=== PATIENT | female | born 1975 | race Caucasian/White ===

== ENCOUNTER → 2016-05-12 | Outpatient (CLI) | payer OTHER, MEDICAID ==
--- NOTE | 2016-05-30 00:53 | ECWPNPC ---
PATIENT NAME: LORI PARIKH : 1975 GENDER: FEMALE VISIT DATE: 05/12/2016 DISCHARGE DATE: 05/12/16 1605 VISIT LOCKED DATE TIME: PHYSICIAN: ANAYA TITUS RESOURCE: ANAYA TITUS REASON FOR APPOINTMENT 1. FOLLOW UP-POST SIJ HISTORY OF PRESENT ILLNESS HISTORY OF PRESENT ILLNESS: PAIN THE PATIENT DESCRIBES THE PAIN... FALL RISK SCREENING: SCREENING :NO FALLS IN THE PAST YEAR TODAY'S VISIT: NOTES: RATES PAIN TODAY 8/10. NOTES PAIN ACROSS THE MID AND LOW BACK. STATES HAD A RECENT FALL AT WORK. LANDED ON BACK, LEFT GREATER THAN RIGHT.IS HAVING PAIN IN RIGHT GROIN AND RIGHT ANTERIOR THIGH AN HIP AREA TIGHTNESS AND PAIN. SWELLING IN LOWER EXTREMITIES HAS IMPROVED WITH FLUID MEDS. WEATHER MAKES THINGS WORSE.. CURRENT MEDICATIONS TAKING TYLENOL 500 MG TABLET 2 TABLETS NEEDED ORALLY EVERY 6 HRS TAKING GABAPENTIN 300 MG CAPSULE 1 CAPSULE ORALLY THREE TIMES A DAY TAKING BACLOFEN 10 MG TABLET 1 TABLET WITH FOOD OR MILK ORALLY THREE TIMES A DAY TAKING IBU 800 MG TABLET 1 TABLET ORALLY THREE TIMES A DAY TAKING TRAMADOL HCL 50 MG TABLET 1-2 TABLET NEEDED ORALLY EVERY 6 HRS PRN PAIN MDD=4 TAKING PROZAC 20 MG CAPSULE 1 CAPSULE IN THE MORNING ORALLY BID TAKING LAMICTAL 25 MG TABLET 1 TAB(S) ORALLY TWICE A DAY TAKING HYDROCHLOROTHIAZIDE 25 MG TABLET 1 TABLET ORALLY ONCE A DAY TAKING HYDROXYZINE HCL 50 MG TABLET 1/2 TO 1 TABLET NEEDED ORALLY EVERY 6 HRS PRN TAKING PERCOCET 5-325 MG TABLET 1 TABLET NEEDED ORALLY EVERY 6-8 HRS PRN PAIN MDD=3 TAKING VALIUM 5 MG TABLET 1/2-1 TABLET NEEDED ORALLY BEFORE BEDTIME NOT-TAKING PERCOCET 5-325 MG TABLET 1 TABLET NEEDED ORALLY EVERY 6 HRS NOT-TAKING VALIUM 5 MG TABLET 1 TABLET NEEDED ORALLY TAKE 1/2 TO 1 TAB Q 8 HRS PRN SEVERE SPASM NOT-TAKING ZANAFLEX 4 MG TABLET 1 TABLET NEEDED ORALLY EVERY 8 HRS PRN NOT-TAKING TRAZODONE HCL 100 MG TABLET 1 TABLET AT BEDTIME ORALLY QHS MEDICATION LIST REVIEWED AND RECONCILED WITH THE PATIENT PAST MEDICAL HISTORY DEPRESSION ANXIETY PTSD ALLERGIES VICODIN: HIVES, RASH, UPSET STOMACH: ALLERGY SEAFOOD: "VIOLENTLY ILL" SOCIAL HISTORY GENERAL: TOBACCO USE ARE YOU A:NONSMOKER 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 NEW PATIENT PAIN DIARY TODAY'S VISITNOTES FROM 0-10, WHAT LEVEL IS YOUR PAIN TODAY?0 PAIN CLINIC PFS, CLERGY, PUBLIC HEALTH REFERRALS PFS REFERRAL NEEDED?NO CLERGY REFERRAL NEEDED?NO PUBLIC HEALTH REFERRAL NEEDED?NO WAS THE PROVIDER NOTIFIED OF ANY PERTINENT INFO?NO PFS REFERRAL NEEDED?NO CLERGY REFERRAL NEEDED?NO PUBLIC HEALTH REFERRAL NEEDED?NO WAS THE PROVIDER NOTIFIED OF ANY PERTINENT INFO?NO REVIEW OF SYSTEMS CONSTITUTIONAL: ANY CHANGE IN YOUR MEDICAL CONDITION? NO . CHILLS NO . FEVER NO . INFECTION: DO YOU HAVE NEW INFECTIONS? NO . DO YOU HAVE HISTORY OF MRSA? NO . MUSCULOSKELETAL: ANY NEW PATTERNS OF PAIN OR NUMBNESS? NO . GASTROENTEROLOGY: ANY NEW CHANGE IN BOWEL CONTROL? NO . GENITOURINARY: ANY NEW CHANGE IN BLADDER CONTROL? NO . IS THERE A CHANCE YOU COULD BE ? NO . HEMATOLOGY/LYMPH: DO YOU TAKE ANY BLOOD THINNERS? (FOR EXAMPLE- COUMADIN, PLAVIX, AGGRENOX, PLATEL, PRADAXA, OR XARELTO) NO . WHEN WAS YOUR LAST DOSE? DATE: TIME: . NEUROLOGY: HAVE YOU FALLEN IN THE PAST 6 MONTHS? YES 2 WEEKS AGO , EXPERIENCED NUMBNESS IN BOTH ARMS /BEEN RESOLVING . ANY NEW EXTREMITY NUMBNESS OR WEAKNESS? NO . HEADACHE NON REACENT . CARDIOLOGY: DO YOU HAVE A PACEMAKER OR DEFIBRILLATOR? NO . RESPIRATORY: HAVE YOU BEEN SICK IN THE PAST WEEK? NO . FEVER NO . FLU LIKE SYMPTOMS? NO . COUGH NO . INTEGUMENTARY: DO YOU HAVE ANY RASHES OR OPEN SORES? NO . ALLERGIC/IMMUNO: ARE YOU ALLERGIC TO SHELLFISH OR IV DYE? NO . ANY NEW ALLERGIES? NO . PSYCHIATRIC: DO YOU HAVE THOUGHTS OF HURTING YOURSELF OR SOMEONE ELSE? NO . ARE YOU ABUSED, NEGLECTED, OR IN AN UNSAFE ENVIRONMENT? NO . ENDOCRINOLOGY: ARE YOU DIABETIC? NO . OTHER: DO YOU NEED ANY PRESCRIPTIONS? NO . IF YES, PLEASE LIST: ____ . ANY NEW PROBLEMS WITH YOUR MEDICATIONS? NO . WHEN DID YOU LAST EAT? ____ . WHEN DID YOU LAST DRINK? ____ . WHAT DID YOU LAST DRINK? ____ . NAME OF PERSON DRIVING YOU HOME? ____ . DO YOU HAVE ANY OTHER QUESTIONS OR CONCERNS NO . REVIEWED BY: PROVIDER: ANAYA CHÁVEZ . VITAL SIGNS WT 178 LBS, HT 5'3", BMI 31.53 INDEX, BP 135/85 MM HG, HR 60 /MIN, RR 16 /MIN, TEMP 98 F,2 F, OXYGEN SAT % 100, SAFE IN ENV? (Y/N) Y, REVIEWED BY: KG. EXAMINATION GENERAL EXAMINATION: PSYCHALERT , ORIENTED X 3 , APPROPRIATE MOOD AND AFFECT . LUNGS:CLEAR TO AUSCULTATION BILATERALLY. HEART:HEART RATE REGULAR. MUSCULOSKELETAL:MUSCLE STRENGTH TESTING 5/5 BILATERAL UPPER AND LOWER EXTREMITIES. EXQUISITE PAIN OVER RIGHT ILIOPSOAS MUSCLE AND INTO RIGHT FLANK AND THIGH. POINT TENDERNESS OVER THORACIC SPINOUS PROCESSES AND OVER THE BILATERAL THOACIC PARAVERTEBRAL MUSCLES.. EXTREMITIES:TRACE-1+ EDEMA BILATERAL LOWER EXTREMITIES. ASSESSMENTS SACROILIITIS, NOT ELSEWHERE CLASSIFIED - M46.1 (PRIMARY) TREATMENT SACROILIITIS, NOT ELSEWHERE CLASSIFIED REFILL PERCOCET TABLET, 5-325 MG, 1 TABLET NEEDED, ORALLY, EVERY 6-8 HRS PRN PAIN MDD=3, 30 DAY(S), 90, REFILLS 0 REFILL VALIUM TABLET, 5 MG, 1/2-1 TABLET NEEDED, ORALLY, BEFORE BEDTIME, 30 DAY(S), 30, REFILLS 0 REFILL HYDROCHLOROTHIAZIDE TABLET, 25 MG, 1 TABLET, ORALLY, ONCE A DAY, 30 DAY(S), 30, REFILLS 1 ANAYA THACKER 05/12/2016 3:41:23 PM > RIGHT - VERSUS ILIOPSOAS MUSCLE INJECTION NOTES: NARCOTIC AGREEMENT TODAY,TRIGGER POINT INJECTION MATERIAL WAS PRINTED. PROCEDURE CODES FA211 ESTABILISHED PATIENT [facility] CHARGE FOLLOW UP 26-28 DAYS - MED MANAGEMENT (REASON: CHECK AUTH FOR ILIOPSOAS INJECTION AND ILIOINGUINA INJECTION.) ELECTRONICALLY SIGNED BY MARIELA OG ON 05/29/2016 AT 08:56 AM EST DISCLAIMER : THIS IS A VISIT SUMMARY EXTRACTED FROM THE [employer] CHART. IT IS NOT A COPY OF THE [employer] PROGRESS NOTE. MTDD
== END ==
LOC: M PAIN 14:40
PROVIDERS: ATTEND Nurse Practitioner Family
DX: Z09 Encounter for follow-up examination after completed treatment for conditions other than malignant neoplasm (principal); M46.1 Sacroiliitis, not elsewhere classified; F32.9 Major depressive disorder, single episode, unspecified; F41.9 Anxiety disorder, unspecified; F43.10 Post-traumatic stress disorder, unspecified; Z79.891 Long term (current) use of opiate analgesic; Z79.899 Other long term (current) drug therapy

== ENCOUNTER → 2016-08-19 | Outpatient (CLI) | payer OTHER, MEDICAID ==
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
== END ==
LOC: M PAIN 14:40
PROVIDERS: ATTEND Nurse Practitioner Family
DX: M46.1 Sacroiliitis, not elsewhere classified (principal); M54.14 Radiculopathy, thoracic region; M79.1 Myalgia; M54.16 Radiculopathy, lumbar region; F41.9 Anxiety disorder, unspecified; F32.9 Major depressive disorder, single episode, unspecified; F43.10 Post-traumatic stress disorder, unspecified; Z79.891 Long term (current) use of opiate analgesic; Z79.899 Other long term (current) drug therapy; Z88.5 Allergy status to narcotic agent; Z91.013 Allergy to seafood

== ENCOUNTER → 2016-10-07 | Outpatient (CLI) | payer OTHER, MEDICAID ==
[~2016-10-07] MED LIST: BACL10TA2; BUSP1TAB; CYCL10TA; DOCQ100C; FLOM5CAP; FLUO20CA9; GABA-282; HYDR-4274; LAMO25TA2; MAPA325T2; NICO1DIS; PEG1POW; PROZ40CA PO; SENN8.6T10
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
== END ==
LOC: M PAIN 10:20
PROVIDERS: ATTEND Nurse Practitioner Family
DX: M79.1 Myalgia (principal); M54.16 Radiculopathy, lumbar region; M25.562 Pain in left knee; Z79.891 Long term (current) use of opiate analgesic; Z79.899 Other long term (current) drug therapy; Z88.5 Allergy status to narcotic agent; Z91.013 Allergy to seafood

== ENCOUNTER → 2016-10-14 | Outpatient (REF) | payer OTHER, MEDICAID ==
[2016-10-14 12:05] LABS: MEAN CORPUSCULAR HEMOGLOBIN 31.2 pg (27.0-33.0); MEAN CORPUSCULAR HGB CONC 32.4 g/dl (32.0-36.5); MEAN CORPUSCULAR VOLUME 96.4 fl (80.0-96.0); RED CELL DISTRIBUTION WIDTH 13.4 % (11.5-14.5)
[2016-10-14 12:49] LABS: ALBUMIN 3.2 GM/DL (3.2-5.2); ALBUMIN/GLOBULIN RATIO 0.82 (1.00-1.93); BILIRUBIN,TOTAL 0.2 MG/DL (0.2-1.0); CALCIUM LEVEL 8.9 MG/DL (8.5-10.1); CREATININE FOR GFR 1.48 MG/DL (0.55-1.02); GLOMERULAR FILTRATION RATE 41.8 (>60); POTASSIUM SERUM 4.2 MEQ/L (3.5-5.1); TOTAL PROTEIN 7.1 GM/DL (6.4-8.2)
[2016-10-17 00:06] LABS: ACETAMINOPHEN Negative ug/mL (10-30); AMITRIPTYLINE None Detected (Not Estab.); BUTALBITAL None Detected ug/mL (1-10); DESIPRAMINE None Detected (Not Estab.); DIAZEPAM None Detected ug/mL (0.1-0.9); DOXEPIN None Detected (Not Estab.); ETHANOL Negative % (0.000-0.010); NORCHLORDIAZEPOXIDE None Detected ug/mL (0.1-0.6); NORDIAZEPAM None Detected ug/mL (0.1-1.4); NORDOXEPIN None Detected (Not Estab.); NORTRIPTYLINE None Detected ng/mL (50-150); PENTOBARBITAL None Detected ug/mL (1-5); PHENOBARBITAL None Detected ug/mL (15-40); PHENYTOIN None Detected ug/mL (10.0-20.0)
== END ==
LOC: M SFHCLERA 08:31
PROVIDERS: ATTEND Physician Assistant
DX: R33.9 Retention of urine, unspecified (principal); M62.82 Rhabdomyolysis; N18.9 Chronic kidney disease, unspecified; F11.10 Opioid abuse, uncomplicated

== ENCOUNTER → 2016-10-14 | Outpatient (CLI) | payer OTHER ==
--- NOTE | 2016-10-15 02:43 | REP ---
Clinical: Myalgia Technique: AP, lateral, bilateral oblique and sunrise views left knee . Findings: The osseous structures and joint spaces are intact and normal. There is no evidence for acute fracture or dislocation. No joint effusion is appreciated. Surrounding soft tissues are unremarkable. No subcutaneous emphysema or radiodense foreign body. Impression: Normal examination. No acute fracture or dislocation. Signed by Javier Freire MD 10/15/2016 02:35 A
== END ==
LOC: M LRY 08:47
PROVIDERS: ATTEND Nurse Practitioner Family
DX: M79.1 Myalgia (principal)

== ENCOUNTER → 2016-10-19 | Outpatient (CLI) | payer OTHER, MEDICAID ==
[~2016-10-19] MED LIST changes: +ACET1TAB17 PO; +ARIP5TA PO; +BACL10TA2 PO; +BUSP1TAB PO; +CYCL10TA PO; +DOXY-278 PO; +FERRTAB6 PO; +FLOM5CAP PO; +FLUO20CA19; +FLUO20CA19 PO; -FLUO20CA9; +FLUV50TA PO; +FURO20TA2 PO; +GABA-282 PO; -HYDR-4274; +HYDR12.55 PO; +HYDR50TA70; +HYDR50TA70 PO; +K-TA10TA2 PO; +LAMO25TA2 PO; +MAGICMW SS; +METH10CO PO; +METH10SO PO; +METH10TA2 PO; +NICO14DI24; -NICO1DIS; +NICO21PAT TD; +POTA20TA PO; +SENN1TAB10; -SENN8.6T10; +SERO1TAB PO; +TRAM50TA2 PO; +TRAZ-136; +TRAZ-136 PO
--- NOTE | 2016-11-05 00:28 | ECWPNPC ---
PATIENT NAME: LORI PARIKH : 1975 GENDER: FEMALE VISIT DATE: 10/19/2016 DISCHARGE DATE: 10/19/16 0000 VISIT LOCKED DATE TIME: PHYSICIAN: ANAYA TITUS RESOURCE: ANAYA TITUS REASON FOR APPOINTMENT 1. MEDS HISTORY OF PRESENT ILLNESS HISTORY OF PRESENT ILLNESS: PAIN THE PATIENT DESCRIBES THE PAIN... FALL RISK SCREENING: SCREENING :NO FALLS IN THE PAST YEAR TODAY'S VISIT: NOTES: RATES PAIN TODAY 10/10. NOTES LOW BACK AND FLANK AREA WELL LEFT SHOULDER PAIN AREAS. REPORTS BACK AND NECK ARE STILL NUMB. NOTES SHE IS RETAINING FLUID IN FACE AND BODY WITH 7 LB WEIGHT GAIN IN ONE WEEK. FELL OUT OF BED WEDNESDAY - SHORT TERM MEMORY IS POOR. IS NOT URINATING AGAIN - 16 HRS BETWEEN VOIDS. CURRENT MEDICATIONS TAKING GABAPENTIN 300 MG CAPSULE 1 CAPSULE ORALLY THREE TIMES A DAY TAKING VALIUM 5 MG TABLET 1/2-1 TABLET NEEDED ORALLY BEFORE BEDTIME TAKING TRAMADOL HCL 50 MG TABLET 1-2 TABLET NEEDED ORALLY EVERY 6 HRS PRN PAIN MDD=4 TAKING LIDOCAINE 4 % CREAM 1 APPLICATION TO AFFECTED AREA NEEDED EXTERNALLY THREE TIMES A DAY TAKING OXYCODONE HCL 5 MG TABLET 1 TABLET ORALLY EVERY 6 HRS TAKING SENNA 8.6 MG TABLET 2 TABLETS AT BEDTIME NEEDED ORALLY ONCE A DAY TAKING COLACE 100 MG CAPSULE 1 CAPSULE NEEDED ORALLY ONCE A DAY TAKING NICODERM CQ 14 MG/24HR PATCH 24 HOUR 1 PATCH TO SKIN TRANSDERMAL ONCE A DAY TAKING FLEXERIL 10 MG TABLET 1 TABLET NEEDED ORALLY THREE TIMES A DAY TAKING VALIUM 5 MG TABLET 1 TABLET NEEDED ORALLY TAKE 1/2 TO 1 TAB Q 8 HRS PRN SEVERE SPASM TAKING LAMICTAL 25 MG TABLET 1 TAB(S) ORALLY TWICE A DAY TAKING TRAZODONE HCL 100 MG TABLET 1 TABLET AT BEDTIME ORALLY QHS TAKING TAMSULOSIN HCL 0.4 MG CAPSULE 1 CAPSULE ORALLY ONCE A DAY TAKING HYDROXYZINE HCL 50 MG TABLET 1 TABLET NEEDED ORALLY EVERY 6 HRS PRN TAKING TYLENOL 325 MG TABLET 2 TABLETS NEEDED ORALLY EVERY 6 HRS TAKING BACLOFEN 10 MG TABLET 1 TABLET WITH FOOD OR MILK ORALLY THREE TIMES A DAY TAKING PROZAC 40 MG CAPSULE 1 CAPSULE ORALLY BID TAKING CYCLOBENZAPRINE HCL 10 MG TABLET 1 TABLET NEEDED ORALLY THREE TIMES A DAY TAKING BUSPIRONE HCL 7.5 MG TABLET 1 TAB ORALLY TWICE A DAY NOT-TAKING PERCOCET 5-325 MG TABLET 1 TABLET NEEDED ORALLY EVERY 6-8 HRS PRN PAIN MDD=3 NOT-TAKING MELOXICAM 15 MG TABLET 1 TABLET ORALLY ONCE A DAY NOT-TAKING PERCOCET 5-325 MG TABLET 1 TABLET NEEDED ORALLY EVERY 6 HRS NOT-TAKING ZANAFLEX 4 MG TABLET 1 TABLET NEEDED ORALLY EVERY 8 HRS PRN PAST MEDICAL HISTORY DEPRESSION ANXIETY PTSD ALLERGIES VICODIN: HIVES, RASH, UPSET STOMACH: ALLERGY SEAFOOD: "VIOLENTLY ILL" REVIEW OF SYSTEMS REVIEWED BY: PROVIDER: ANAYA CHÁVEZ . CONSTITUTIONAL: ANY CHANGE IN YOUR MEDICAL CONDITION? YES HAS RHABDO // ELEVATED BP./ FLUID RETENTION . CHILLS NO . FEVER NO . INFECTION: DO YOU HAVE NEW INFECTIONS? NO . DO YOU HAVE HISTORY OF MRSA? NO . MUSCULOSKELETAL: ANY NEW PATTERNS OF PAIN OR NUMBNESS? YES, LOWER BACK . GASTROENTEROLOGY: ANY NEW CHANGE IN BOWEL CONTROL? NO . GENITOURINARY: ANY NEW CHANGE IN BLADDER CONTROL? YES, PROBLEMS WITH URINATION . IS THERE A CHANCE YOU COULD BE ? NO . HEMATOLOGY/LYMPH: DO YOU TAKE ANY BLOOD THINNERS? (FOR EXAMPLE- COUMADIN, PLAVIX, AGGRENOX, PLATEL, PRADAXA, OR XARELTO) NO . WHEN WAS YOUR LAST DOSE? DATE: TIME: . NEUROLOGY: HAVE YOU FALLEN IN THE PAST 6 MONTHS? NO . ANY NEW EXTREMITY NUMBNESS OR WEAKNESS? NO . CARDIOLOGY: DO YOU HAVE A PACEMAKER OR DEFIBRILLATOR? NO . RESPIRATORY: HAVE YOU BEEN SICK IN THE PAST WEEK? NO . FEVER NO . FLU LIKE SYMPTOMS? NO . COUGH NO . INTEGUMENTARY: DO YOU HAVE ANY RASHES OR OPEN SORES? NO . ALLERGIC/IMMUNO: ARE YOU ALLERGIC TO SHELLFISH OR IV DYE? YES, SHELLFISH . ANY NEW ALLERGIES? NO . PSYCHIATRIC: DO YOU HAVE THOUGHTS OF HURTING YOURSELF OR SOMEONE ELSE? NO . ARE YOU ABUSED, NEGLECTED, OR IN AN UNSAFE ENVIRONMENT? NO . ENDOCRINOLOGY: ARE YOU DIABETIC? NO . OTHER: DO YOU NEED ANY PRESCRIPTIONS? NO . IF YES, PLEASE LIST: ____ . ANY NEW PROBLEMS WITH YOUR MEDICATIONS? NO . WHEN DID YOU LAST EAT? ____ . WHEN DID YOU LAST DRINK? ____ . WHAT DID YOU LAST DRINK? ____ . NAME OF PERSON DRIVING YOU HOME? ____ . DO YOU HAVE ANY OTHER QUESTIONS OR CONCERNS WHY BACK AND NECK SO NUMB . VITAL SIGNS WT 169.4 LBS, HT 5'3", BMI 30.00 INDEX, BP 157/77 MM HG, HR 77 /MIN, RR 16 /MIN, TEMP 98.5 F, OXYGEN SAT % 99%, NA INITIALS SC 10:23, REVIEWED BY: NLBLOOD PRESSURE HAS BEEN ELEVATED. EXAMINATION GENERAL EXAMINATION: PSYCHALERT , ORIENTED X 3 , TALKATIVE. NO SLURRING OF SPEACH. HAS DIFFICULTY STAYING ON [employer]. LUNGS:CLEAR TO AUSCULTATION BILATERALLY. HEART:HEART RATE REGULAR. ABDOMEN:POSITIVE CVA TENDERNESS L>R WITH FLUID WAVE NOTED ON LEFT.. MUSCULOSKELETAL:POINT TENDERNESS OVER LUMBAR FACETS. WALKER USED FOR SUPPORT AND BALANCE. POSTURE STOOPED. GENERALIZED WEAKNESS IN BILATERAL LOWER EXTREMITIES.. ASSESSMENTS MYALGIA - M79.1 (PRIMARY) THORACIC RADICULOPATHY - M54.14 LUMBAR RADICULOPATHY - M54.16 ACUTE PAIN OF LEFT KNEE - M25.562 TREATMENT MYALGIA NOTES: WILL DO [facility] FOR METHADONE TREATMENT. WILL DO INJECTIONS TO LOW BACK WITH DR ALEJANDRE'S OK. CLINICAL NOTES: ISTOP REGISTRY REVIEWED AND DEMNOSTRATES COMPLLIANCE. HAS RECEIVED NO PRESCRIBED OPIOIDS SINCE DISCHARGE FROM [facility]. REVIEWED WITH LORI THAT I WILL NOT BE PRESCRIBING ANY OPIOIDS AND THAT ALL MEDS WILL NEED DR ALEJANDRE'S APPROVAL UNTIL HER RENAL FUNCTIONS ARE UNDER CONTROL. PROCEDURE CODES FA211 ESTABILISHED PATIENT [facility] CHARGE DISPOSITION & COMMUNICATION FOLLOW UP 2 WEEKS (REASON: BACK PAIN) ELECTRONICALLY SIGNED BY MARIELA GO ON 11/04/2016 AT 08:28 AM EDT DISCLAIMER : THIS IS A VISIT SUMMARY EXTRACTED FROM THE [employer] CHART. IT IS NOT A COPY OF THE [employer] PROGRESS NOTE. MONIKA
== END ==
LOC: M PAIN 10:00
PROVIDERS: ATTEND Nurse Practitioner Family
DX: M79.1 Myalgia (principal); M54.14 Radiculopathy, thoracic region; M54.16 Radiculopathy, lumbar region; M25.562 Pain in left knee; Z79.891 Long term (current) use of opiate analgesic; Z79.899 Other long term (current) drug therapy; Z88.8 Allergy status to other drugs, medicaments and biological substances; Z91.013 Allergy to seafood

== ENCOUNTER 2016-10-20 18:35 | Emergency (ER) | payer MEDICAID, OTHER ==
[~2016-10-20] VITALS: Ht 160 cm; Wt 76.0 kg
[2016-10-20] MEDS ORDERED: SENN1TAB10 (18:55)
[2016-10-20] MEDS ORDERED: LAMO25TA2 (18:55)
[2016-10-20] MEDS ORDERED: HYDR50TA70 (18:55)
[2016-10-20] MEDS ORDERED: GABA-282 (18:55)
[2016-10-20] MEDS ORDERED: DOCQ100C (18:55)
[2016-10-20] MEDS ORDERED: PROZ40CA PO (18:55)
[2016-10-20] MEDS ORDERED: BUSP1TAB (18:55)
[2016-10-20] MEDS ORDERED: BACL10TA2 (18:55)
[2016-10-20] MEDS ORDERED: FLUO20CA19 (18:55)
[2016-10-20] MEDS ORDERED: MAPA325T2 (18:55)
[2016-10-20] MEDS ORDERED: NICO14DI24 (18:55)
[2016-10-20] MEDS ORDERED: PEG1POW (18:55)
[2016-10-20] MEDS ORDERED: FLOM5CAP (18:55)
[2016-10-20] MEDS ORDERED: CYCL10TA (18:55)
--- NOTE | 2016-10-20 20:50 | REPUSA ---
Clinical history: pulmonary edema. Comparison: None. Findings: Frontal and lateral views of the chest were obtained. The mediastinum and cardiac silhouett e are within normal limits. The lungs are clear. No pleural effusion or pneumothorax is seen. The oss eous structures and soft tissues are unremarkable. Impression: No acute disease.
[2016-10-20 21:24] LABS: BASO % 0.4 % (0.0-1.0); EOS # 0.2 K/mm3 (0.0-0.50); EOS % 2.7 % (0.0-3.0); LARGE UNSTAINED CELL # 0.2 K/mm3 (0.0-0.4); LARGE UNSTAINED CELL % 2.1 % (0.0-4.0); LYMPH # 2.2 K/mm3 (1.5-4.5); MEAN CORPUSCULAR HEMOGLOBIN 31.3 pg (27.0-33.0); MEAN CORPUSCULAR HGB CONC 33.4 g/dl (32.0-36.5); MEAN CORPUSCULAR VOLUME 93.5 fl (80.0-96.0); MONO # 0.4 K/mm3 (0.0-0.8); MONO % 5.3 % (0.0-5.0); NEUTROPHILS # 4.9 K/mm3 (1.8-7.7); NEUTROPHILS % 63.6 % (36.0-66.0); PLATELET COUNT, AUTOMATED 371 k/mm3 (150-450); RED CELL DISTRIBUTION WIDTH 13.8 % (11.5-14.5); WHITE BLOOD COUNT 7.7 K/mm3 (4.0-10.0)
[2016-10-20 21:33] LABS: ALBUMIN 2.9 GM/DL (3.2-5.2); ALBUMIN/GLOBULIN RATIO 0.78 (1.00-1.93); ALKALINE PHOSPHATASE 72 U/L (45-117); ALT/SGPT 21 U/L (12-78); ANION GAP 4 MEQ/L (8-16); AST/SGOT 22 U/L (15-37); BILIRUBIN,DIRECT < 0.1 MG/DL (0.0-0.2); BILIRUBIN,TOTAL 0.2 MG/DL (0.2-1.0); BLOOD UREA NITROGEN 15 MG/DL (7-18); CALCIUM LEVEL 8.2 MG/DL (8.5-10.1); CARBON DIOXIDE LEVEL 26 MEQ/L (21-32); CHLORIDE LEVEL 113 MEQ/L (98-107); CREATININE FOR GFR 1.35 MG/DL (0.55-1.02); GLOMERULAR FILTRATION RATE 46.2 (>58); GLUCOSE, FASTING 93 MG/DL (70-105); POTASSIUM SERUM 3.5 MEQ/L (3.5-5.1); SODIUM LEVEL 143 MEQ/L (136-145); TOTAL PROTEIN 6.6 GM/DL (6.4-8.2)
[2016-10-20 21:48] VITALS: BP 154/76
[2016-10-20] MEDS ORDERED: PERCOCET 5MG/325MG TAB PO ONE (22:00)
[2016-10-20] MEDS ORDERED: FUROSEMIDE 40 MG/4 ML VIAL (J1940) IV ONE (22:15)
[2016-10-20] MEDS ORDERED: ISOVUE-370 76% 100ML VIAL (Q9967) As Ordered ONE (23:23)
--- NOTE | 2016-10-20 23:50 | REPUSA ---
CT angiogram of the chest Clinical statement: Chest pain and shortness of breath. Technique: Multiple axial CT images were obtained from the thoracic inlet through the upper abdomen a fter a bolus administration of nonionic intravenous contrast. Coronal and sagittal reconstructions we re also obtained. Comparison: None. Findings: The pulmonary arteries are well-opacified with contrast, with no intraluminal filling defec ts to suggest embolism. The thoracic aorta is unremarkable. Thyroid gland is within normal limits. Th ere is no thoracic lymphadenopathy. There are no pericardial or pleural effusions. The lungs are christina r, but there are mild emphysematous changes. Limited imaging of the upper abdomen is unremarkable. Th ere are no suspicious osseous lesions. Impression: No evidence of pulmonary embolism. No acute intrapulmonary disease. Mild emphysema.
--- NOTE | 2016-10-21 11:18 | ECGEPIP ---
Stationary ECG Study [facility] - ED Test Date: 2016-10-20 Pat Name: LORI PARIKH Department: Room: - Gender: F Patent Agent: gali : 1975 Requested By: ZHENG Gage Order Number: [id number] Reading MD: Steve Vazquez Measurements Intervals [place] Rate: 72 P: 26 LA: 144 QRS: 43 QRSD: 89 T: 37 QT: 414 QTc: 454 Interpretive Statements SINUS RHYTHM Electronically Signed On 10-21-2016 11:18:12 EDT by Steve Vazquez
== END 2016-10-21 00:18 | disposition home or self-care (01) ==
LOC: M ED 20:29
DX: R60.0 Localized edema (principal); D64.9 Anemia, unspecified; F17.210 Nicotine dependence, cigarettes, uncomplicated

== ENCOUNTER 2016-10-28 10:00 | Outpatient (RCR) | payer OTHER ==
[~2016-10-28 10:00] MED LIST changes: -ACET1TAB17 PO; -ARIP5TA PO; -BACL10TA2 PO; -BUSP1TAB PO; -CYCL10TA PO; -DOXY-278 PO; -FERRTAB6 PO; -FLOM5CAP PO; -FLUO20CA19 PO; -FLUV50TA PO; -FURO20TA2 PO; -GABA-282 PO; -HYDR12.55 PO; -HYDR50TA70 PO; -K-TA10TA2 PO; -LAMO25TA2 PO; -MAGICMW SS; -METH10CO PO; -METH10SO PO; -METH10TA2 PO; -NICO21PAT TD; -POTA20TA PO; -SERO1TAB PO; -TRAM50TA2 PO; -TRAZ-136; -TRAZ-136 PO
== END 2016-10-30 | disposition home or self-care (01) ==
LOC: M PT 10:00
PROVIDERS: ATTEND Nurse Practitioner Family
DX: Z79.51 Long term (current) use of inhaled steroids (principal); M79.1 Myalgia; M54.16 Radiculopathy, lumbar region

== ENCOUNTER 2016-11-17 10:00 | Outpatient (RCR) | payer OTHER ==
[2016-11-19] MEDS ORDERED: HYDR12.55 PO (16:01)
[2016-11-19] MEDS ORDERED: TRAZ-136 (16:01)
[2016-11-19] MEDS ORDERED: TRAM50TA2 PO (18:14)
== END 2016-11-30 ==
LOC: M PT 10:00
PROVIDERS: ATTEND Nurse Practitioner Family
DX: Z51.89 Encounter for other specified aftercare (principal); M79.1 Myalgia; M54.16 Radiculopathy, lumbar region

== ENCOUNTER 2016-11-19 15:34 | Emergency (ER) | payer OTHER ==
[~2016-11-19] VITALS: Ht 160 cm; Wt 71.4 kg
[2016-11-19] MEDS ORDERED: TRAZ-136 (16:01)
[2016-11-19] MEDS ORDERED: HYDR12.55 PO (16:01)
[2016-11-19] MEDS ORDERED: traMADol 50 MG TAB PO ONE (16:30)
[2016-11-19 16:44] LABS: BASO % 0.3 % (0.0-1.0); EOS # 0.2 K/mm3 (0.0-0.50); LARGE UNSTAINED CELL # 0.2 K/mm3 (0.0-0.4); LARGE UNSTAINED CELL % 1.9 % (0.0-4.0); LYMPH # 1.9 K/mm3 (1.5-4.5); LYMPH % 21.8 % (24.0-44.0); MEAN CORPUSCULAR HGB CONC 32.7 g/dl (32.0-36.5); MEAN CORPUSCULAR VOLUME 91.8 fl (80.0-96.0); MONO # 0.5 K/mm3 (0.0-0.8); MONO % 6.3 % (0.0-5.0); NEUTROPHILS # 5.5 K/mm3 (1.8-7.7); NEUTROPHILS % 66.7 % (36.0-66.0); PLATELET COUNT, AUTOMATED 361 k/mm3 (150-450); RED CELL DISTRIBUTION WIDTH 13.8 % (11.5-14.5); WHITE BLOOD COUNT 8.2 K/mm3 (4.0-10.0)
--- NOTE | 2016-11-19 17:03 | REP ---
Bilateral lower extremity Duplex Doppler venous ultrasound: Real time compression and duplex Doppler interrogation of the bilateral lower extremity deep venous system is performed. Bilaterally, the common femoral, superficial femoral and popliteal veins are fully compressible with transducer pressure and demonstrate normal spontaneous and phasic flow, without evidence of deep venous thrombosis. Impression: No evidence of deep venous thrombosis of the bilateral lower extremity femoral popliteal venous system. Signed by Prashanth Hough MD 11/19/2016 04:54 P
[2016-11-19 17:10] LABS: ALBUMIN 3.5 GM/DL (3.2-5.2); ALBUMIN/GLOBULIN RATIO 0.97 (1.00-1.93); BILIRUBIN,DIRECT 0.1 MG/DL (0.0-0.2); BILIRUBIN,TOTAL 0.3 MG/DL (0.2-1.0); CALCIUM LEVEL 8.7 MG/DL (8.5-10.1); CREATININE FOR GFR 1.18 MG/DL (0.55-1.02); POTASSIUM SERUM 3.4 MEQ/L (3.5-5.1); TOTAL PROTEIN 7.1 GM/DL (6.4-8.2)
[2016-11-19] MEDS ORDERED: TRAM50TA2 PO (18:14)
[2016-11-19 18:25] VITALS: BP 139/87
== END 2016-11-19 18:26 | disposition home or self-care (01) ==
LOC: M ED 15:34
DX: R60.9 Edema, unspecified (principal); M79.605 Pain in left leg; N18.2 Chronic kidney disease, stage 2 (mild); G43.909 Migraine, unspecified, not intractable, without status migrainosus; F41.9 Anxiety disorder, unspecified; F17.210 Nicotine dependence, cigarettes, uncomplicated; Z88.5 Allergy status to narcotic agent; Z91.013 Allergy to seafood; Z79.899 Other long term (current) drug therapy

== ENCOUNTER 2016-11-21 16:58 | Emergency (ER) | payer OTHER ==
[~2016-11-21] VITALS: Ht 160 cm; Wt 74.4 kg
[~2016-11-21 16:58] MED LIST changes: +HYDR12.55 PO; +TRAM50TA2 PO; +TRAZ-136
[2016-11-21 16:59] VITALS: BP 136/72
[2016-11-21 18:14] LABS: BASO % 0.3 % (0.0-1.0); EOS # 0.2 K/mm3 (0.0-0.50); EOS % 2.3 % (0.0-3.0); LARGE UNSTAINED CELL # 0.2 K/mm3 (0.0-0.4); LARGE UNSTAINED CELL % 1.6 % (0.0-4.0); LYMPH # 2.1 K/mm3 (1.5-4.5); LYMPH % 19.1 % (24.0-44.0); MEAN CORPUSCULAR HEMOGLOBIN 30.3 pg (27.0-33.0); MEAN CORPUSCULAR HGB CONC 32.8 g/dl (32.0-36.5); MEAN CORPUSCULAR VOLUME 92.4 fl (80.0-96.0); MONO # 0.6 K/mm3 (0.0-0.8); NEUTROPHILS # 7.1 K/mm3 (1.8-7.7); NEUTROPHILS % 70.7 % (36.0-66.0); PLATELET COUNT, AUTOMATED 380 k/mm3 (150-450); RED CELL DISTRIBUTION WIDTH 13.8 % (11.5-14.5); WHITE BLOOD COUNT 10.1 K/mm3 (4.0-10.0)
[2016-11-21 18:35] LABS: ERYTHROCYTE SEDIMENTATION RATE 45 mm/hr (0-20)
[2016-11-21 18:38] LABS: ALBUMIN 3.6 GM/DL (3.2-5.2); BILIRUBIN,TOTAL 0.4 MG/DL (0.2-1.0); CALCIUM LEVEL 8.9 MG/DL (8.5-10.1); CREATININE FOR GFR 1.19 MG/DL (0.55-1.02); GLOMERULAR FILTRATION RATE 53.5 (>58); POTASSIUM SERUM 3.1 MEQ/L (3.5-5.1); TOTAL PROTEIN 7.2 GM/DL (6.4-8.2)
[2016-11-21] MEDS ORDERED: POTASSIUM CHLORIDE 10% LIQ 20 MEQ/15 ML UDC PO ONE (18:45)
== END 2016-11-21 19:00 | disposition home or self-care (01) ==
LOC: M ED 16:58
DX: G89.29 Other chronic pain (principal); M54.5 Low back pain; R60.9 Edema, unspecified; E87.6 Hypokalemia; G43.909 Migraine, unspecified, not intractable, without status migrainosus; N18.2 Chronic kidney disease, stage 2 (mild); M62.82 Rhabdomyolysis; F41.9 Anxiety disorder, unspecified; F33.8 Other recurrent depressive disorders; K76.9 Liver disease, unspecified; Z88.5 Allergy status to narcotic agent; Z91.013 Allergy to seafood; Z79.899 Other long term (current) drug therapy

== ENCOUNTER → 2016-12-03 | Outpatient (REF) | payer OTHER, MEDICAID ==
[~2016-12-03] MED LIST changes: +ACET1TAB17 PO; +ARIP5TA PO; +BACL10TA2 PO; +BUSP1TAB PO; +CYCL10TA PO; +DOXY-278 PO; +FERRTAB6 PO; +FLOM5CAP PO; +FLUO20CA19 PO; +FLUV50TA PO; +FURO20TA2 PO; +GABA-282 PO; +HYDR50TA70 PO; +K-TA10TA2 PO; +LAMO25TA2 PO; +MAGICMW SS; +METH10CO PO; +METH10SO PO; +METH10TA2 PO; +NICO21PAT TD; +POTA20TA PO; +SERO1TAB PO; +TRAZ-136 PO
[2016-12-03 17:30] LABS: PERCENT SATURATION 15.1 % (13.2-45.0)
[2016-12-14 09:13] LABS: SUMMARY SEE SEPARATE REPORT
== END ==
LOC: M LAB REF 16:47
PROVIDERS: ATTEND Internal Medicine Nephrology
DX: T40.1X Poisoning by and adverse effect of heroin (principal); N18.2 Chronic kidney disease, stage 2 (mild); D63.1 Anemia in chronic kidney disease

== ENCOUNTER → 2016-12-22 | Outpatient (CLI) | payer OTHER ==
[2016-12-22 11:32] LABS: MEAN CORPUSCULAR HEMOGLOBIN 30.6 pg (27.0-33.0); MEAN CORPUSCULAR HGB CONC 32.4 g/dl (32.0-36.5); MEAN CORPUSCULAR VOLUME 94.4 fl (80.0-96.0); RED CELL DISTRIBUTION WIDTH 13.6 % (11.5-14.5); WHITE BLOOD COUNT 8.3 K/mm3 (4.0-10.0)
[2016-12-22 12:13] LABS: ALBUMIN 3.6 GM/DL (3.2-5.2); ALBUMIN/GLOBULIN RATIO 0.92 (1.00-1.93); ALKALINE PHOSPHATASE 84 U/L (45-117); ALT/SGPT 25 U/L (12-78); ANION GAP 7 MEQ/L (8-16); AST/SGOT 20 U/L (15-37); BILIRUBIN,TOTAL 0.3 MG/DL (0.2-1.0); BLOOD UREA NITROGEN 22 MG/DL (7-18); CALCIUM LEVEL 8.7 MG/DL (8.5-10.1); CARBON DIOXIDE LEVEL 26 MEQ/L (21-32); CHLORIDE LEVEL 106 MEQ/L (98-107); GLOMERULAR FILTRATION RATE 58.6 (>58); GLUCOSE, FASTING 95 MG/DL (70-105); POTASSIUM SERUM 4.6 MEQ/L (3.5-5.1); SODIUM LEVEL 139 MEQ/L (136-145); TOTAL PROTEIN 7.5 GM/DL (6.4-8.2)
--- NOTE | 2016-12-22 14:57 | ECGEPIP ---
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
== END ==
LOC: M LAB 10:29
PROVIDERS: ATTEND Family Medicine
DX: F11.20 Opioid dependence, uncomplicated (principal)

== ENCOUNTER 2017-01-07 10:01 | Inpatient (IN) | payer OTHER ==
[~2017-01-07] VITALS: Ht 160 cm; Wt 93.4 kg
[~2017-01-07 10:01] MED LIST changes: -ACET1TAB17 PO; -ARIP5TA PO; -BACL10TA2 PO; -BUSP1TAB PO; -CYCL10TA PO; -DOXY-278 PO; -FERRTAB6 PO; -FLOM5CAP PO; -FLUO20CA19 PO; -FLUV50TA PO; -FURO20TA2 PO; -GABA-282 PO; -HYDR50TA70 PO; -K-TA10TA2 PO; -LAMO25TA2 PO; -MAGICMW SS; -METH10CO PO; -METH10SO PO; -METH10TA2 PO; -NICO21PAT TD; -POTA20TA PO; -SERO1TAB PO; -TRAZ-136 PO
[2017-01-07] MEDS ORDERED: K-TA10TA2 PO (10:15)
[2017-01-07] MEDS ORDERED: FURO20TA2 PO ×2 (10:15→16:18)
[2017-01-07] MEDS ORDERED: METH10SO PO ×2 (10:25→16:18)
[2017-01-07 11:06] LABS: BASO % 0.2 % (0.0-1.0); EOS # 0.1 K/mm3 (0.0-0.50); EOS % 0.5 % (0.0-3.0); LARGE UNSTAINED CELL # 0.3 K/mm3 (0.0-0.4); LARGE UNSTAINED CELL % 1.5 % (0.0-4.0); LYMPH # 0.6 K/mm3 (1.5-4.5); LYMPH % 2.8 % (24.0-44.0); MEAN CORPUSCULAR HEMOGLOBIN 29.7 pg (27.0-33.0); MEAN CORPUSCULAR HGB CONC 32.5 g/dl (32.0-36.5); MEAN CORPUSCULAR VOLUME 91.3 fl (80.0-96.0); MONO # 1.1 K/mm3 (0.0-0.8); MONO % 5.5 % (0.0-5.0); NEUTROPHILS # 17.9 K/mm3 (1.8-7.7); NEUTROPHILS % 89.5 % (36.0-66.0); PLATELET COUNT, AUTOMATED 340 k/mm3 (150-450); RED CELL DISTRIBUTION WIDTH 13.4 % (11.5-14.5); WHITE BLOOD COUNT 20.1 K/mm3 (4.0-10.0)
[2017-01-07 11:07] LABS: ADD MANUAL DIFFER NO; DIFF SLIDE NUMBER 216
--- NOTE | 2017-01-07 11:43 | REP ---
Clinical: Pain. Technique: AP, lateral, bilateral oblique views of the left ankle. Findings: Diffuse swelling. No acute fracture dislocation identified. Ankle mortise intact. Impression: Swelling. No obvious acute fracture. Signed by Javier Freire MD 01/07/2017 11:34 A
--- NOTE | 2017-01-07 11:44 | REP ---
Clinical: Trauma. Technique: AP, lateral, bilateral oblique views left wrist . Findings: The carpal bones, surrounding osseous structures, soft tissues, and joint spaces are normal. There is no evidence for acute fracture or dislocation. No subcutaneous emphysema or radiodense foreign body. Impression: Normal wrist series. No acute fracture or dislocation Signed by Javier Freire MD 01/07/2017 11:35 A
--- NOTE | 2017-01-07 11:44 | REP ---
Clinical: Trauma. Technique: AP, lateral, bilateral oblique views left foot . Findings: The osseous structures and joint spaces are intact and normal. There is no evidence for acute fracture or dislocation. Surrounding soft tissues are unremarkable. No subcutaneous emphysema or radiodense foreign body. Impression: No acute fracture or dislocation. Signed by Javier Freire MD 01/07/2017 11:35 A
--- NOTE | 2017-01-07 11:45 | REP ---
Clinical: Trauma. Pain. Technique: AP and lateral views of the left forearm. Findings: No acute fracture or dislocation. Skeletal structures, joint spaces, and surrounding soft tissues are normal. No subcutaneous emphysema or radiodense foreign body. Impression: Normal left forearm. No acute fracture or dislocation. Signed by Javier Freire MD 01/07/2017 11:36 A
[2017-01-07 12:12] LABS: CREATININE FOR GFR 1.3 MG/DL (0.55-1.02); GLOMERULAR FILTRATION RATE 48.3 (>58); POTASSIUM SERUM 4.8 MEQ/L (3.5-5.1)
[2017-01-07] MEDS ORDERED: BACITRACIN OINT 30GM TOP ONE (12:30)
[2017-01-07] MEDS ORDERED: METHADONE 10 MG TAB (S0109) PO ONE (12:30)
[2017-01-07] MEDS ORDERED: KETOROLAC 30 MG/ML VIAL (J1885) IV ONE (12:30)
[2017-01-07] MEDS ORDERED: NS 1,000 ML IV ONE (12:30)
[2017-01-07] MEDS ORDERED: NS 1,000 ML IV SCH (15:15)
[2017-01-07] MEDS ORDERED: POTA20TA PO (16:18)
[2017-01-07] MEDS ORDERED: FLUO20CA19 PO (16:18)
[2017-01-07] MEDS ORDERED: TRAZ-136 PO (16:18)
[2017-01-07] MEDS ORDERED: LAMO25TA2 PO (16:18)
[2017-01-07] MEDS ORDERED: ACET1TAB17 PO (16:18)
[2017-01-07] MEDS ORDERED: FLOM5CAP PO (16:18)
[2017-01-07] MEDS ORDERED: FERRTAB6 PO (16:18)
[2017-01-07] MEDS ORDERED: BACL10TA2 PO (16:18)
[2017-01-07] MEDS ORDERED: BUSP1TAB PO (16:18)
[2017-01-07] MEDS ORDERED: GABA-282 PO (16:18)
[2017-01-07] MEDS ORDERED: CYCL10TA PO (16:18)
[2017-01-07] MEDS ORDERED: ONDANSETRON 4MG/2ML VIAL (J2405) IV PRN (17:00)
[2017-01-07] MEDS: NS 1,000 ML IV SCH ×2 (18:24→20:12)
[2017-01-07 18:54] LABS: ALBUMIN 2.5 GM/DL (3.2-5.2); ALBUMIN/GLOBULIN RATIO 0.6 (1.00-1.93); BILIRUBIN,TOTAL 0.5 MG/DL (0.2-1.0); CREATININE FOR GFR 1.19 MG/DL (0.55-1.02); GLOMERULAR FILTRATION RATE 53.5 (>58); PHOSPHORUS LEVEL 3.1 MG/DL (2.5-4.9); POTASSIUM SERUM 3.8 MEQ/L (3.5-5.1); TOTAL PROTEIN 6.7 GM/DL (6.4-8.2); URIC ACID 8.4 MG/DL (2.6-6.0)
--- NOTE | 2017-01-07 19:31 | HPEPDOC ---
General Date of Admission Jan 07, 2017 at 16:57 Attending Physician: ANA HOLGUIN MD Chief Complaint The patient is a 41-year-old female admitted with a reason for visit of Rhabdomyolysis. History of Present Illness 41-year-old female past medical history of CKD stage III, opioid abuse currently attending a methadone clinic, depression, anxiety, and PTSD presented to the ER with a chief complaint of a fall. The patient states that she was sweeping the floor at her home, and she leaned on the broom when she was trying to clam picker her kitten, which resulted in the broom snapping in half and the patient falling on her left side. The patient reports that she does not remember much else after this. She reports that she fell at nighttime, and when she awoke and called EMS it was still dark outside. Of note, the patient's history is inconsistent when she was asked to repeat the sequence. The patient denies any trauma, or physical altercation. In addition, the patient denies any planes of fevers, chills, chest pain, palpitations, shortness of breath, abdominal pain, or any nausea/vomiting/diarrhea. The patient denies any symptoms of near syncope or lightheadedness/dizziness. In the ER, the patient was found to have a creatine kinase level of 50,000. The patient also was noted to have mild elevation of her serum creatinine at 1.3. Imaging did not reveal any acute fractures. The patient will be admitted to the hospitalist service for further evaluation and management of rhabdomyolysis. Home Medications Scheduled (Ferrocite Plus 106-1 mg) 1 Tab Tab, 1 TAB PO Q2D, (Reported) Buspirone HCl (Buspirone HCl) 7.5 Mg Tab, 7.5 MG PO BID, (Reported) Fluoxetine Hcl (Fluoxetine HCl) 20 Mg Cap, 40 MG PO BID, (Reported) PATIENT STATES THAT THIS IS HOW SHE TAKES IT, HOWEVER PHARMACY HAS ONLY 20MG BID. Furosemide (Furosemide) 20 Mg Tab, 20 MG PO DAILY, (Reported) Gabapentin (Gabapentin) 300 Mg Cap, 300 MG PO TID, (Reported) Lamotrigine (Lamotrigine) 25 Mg Tab, 25 MG PO BID, (Reported) Methadone HCl (Methadone HCl) 10 Mg/5 Ml Winsome, 25 MG PO DAILY, (Reported) Potassium Chloride (Klor-Con M20) 20 Meq Tabcr, 20 MEQ PO DAILY, (Reported) Tamsulosin Hydrochloride (Flomax) 0.4 Mg Cap, 0.4 MG PO DAILY, (Reported) Trazodone HCl (Trazodone HCl) 100 Mg Tab, 100 MG PO QHS, (Reported) Scheduled PRN Acetaminophen (Acetaminophen) 325 Mg Tab, 650 MG PO QID PRN for PAIN, (Reported) Baclofen (Baclofen) 10 Mg Tab, 10 MG PO TID PRN for SPASMS, (Reported) Cyclobenzaprine HCl (Cyclobenzaprine HCl) 10 Mg Tab, 10 MG PO TID PRN for MUSCLE SPASMS, (Reported) Allergies Coded Allergies: Shellfish Allergy (Verified Allergy, Unknown, 11/19/16) Hydrocodone (Verified Adverse Reaction, Mild, BECAME hiGH, 11/19/16) Past Medical History Medical History As noted in HPI. Surgical History Right wrist surgery. Family History Significant Family History: No pertinent family hx Social History * Smoker: current smoker Alcohol: Denies Drugs: denies (patient states that she has been sober for the last 4 months and obtaining methadone, previously used heroin daily for 4 years.) Currently unemployed, on disability. performs activities of daily living independently. Review of Symptoms Other systems 10 point review of systems negative unless otherwise specified in HPI. Physical Examination General Exam: Positive: Alert, Cooperative, No Acute Distress ENT Exam: Positive: Mucous membr. moist/pink, Negative: Atraumatic (patient noted to have bruising on the left side of the head) Neck Exam: Negative: JVD Chest Exam: Positive: Clear to auscultation, Normal air movement Heart Exam: Positive: Rate Normal, Normal S1, Normal S2 Abdomen Exam: Positive: Soft, Negative: Tenderness Extremity Exam: Positive: Other (patient noted to have bruising, skin tearing on the left upper extremity and left lower extremity.) Vital Signs Vital Signs Date Time Temp Pulse Resp B/P (MAP) Pulse Ox O2 Delivery O2 Flow Rate FiO2 01/07/17 16:29 97.7 90 16 132/97 (109) 94 Room Air Laboratory Data Labs 24H Laboratory Tests 2 01/07/17 10:27: White Blood Count 20.1H, Red Blood Count 3.91L, Hemoglobin 11.6L, Hematocrit 35.7L, Mean Corpuscular Volume 91.3, Mean Corpuscular Hemoglobin 29.7, Mean Corpuscular Hemoglobin Concent 32.5, Red Cell Distribution Width 13.4, Platelet Count 340, Neutrophils (%) (Auto) 89.5H, Lymphocytes (%) (Auto) 2.8L, Monocytes (%) (Auto) 5.5H, Eosinophils (%) (Auto) 0.5, Basophils (%) (Auto) 0.2, Neutrophils # (Auto) 17.9H, Lymphocytes # (Auto) 0.6L, Monocytes # (Auto) 1.1H, Eosinophils # (Auto) 0.1, Basophils # (Auto) 0.0, Large Unclassified Cells % 1.5 , Large Unclassified Cells # 0.3, Anion Gap 6L, Glomerular Filtration Rate 48.3L , Blood Urea Nitrogen 24H, Creatinine 1.30H, Sodium Level 135L, Potassium Level 4.8, Chloride Level 101, Carbon Dioxide Level 28, Calcium Level 8.0L, Total Creatine Kinase 42693P, C-Reactive Protein, Quantitative 16.10H 01/07/17 10:41: Erythrocyte Sedimentation Rate 58H 01/07/17 17:55: Anion Gap 8, Glomerular Filtration Rate 53.5L, Blood Urea Nitrogen 25H, Creatinine 1.19H, Sodium Level 137, Potassium Level 3.8#, Chloride Level 106, Carbon Dioxide Level 23, Calcium Level 8.0L, Total Creatine Kinase 39747N, Phosphorus Level 3.1, Aspartate Amino Transf (AST/SGOT) 1753H, Alanine Aminotransferase (ALT/SGPT) 387H, Alkaline Phosphatase 76, Total Bilirubin 0.5, Uric Acid 8.4H, Total Protein 6.7, Albumin 2.5L, Albumin/Globulin Ratio 0.60L CBC/BMP Laboratory Tests 01/07/17 10:27 Red Blood Count 3.91 L, Mean Corpuscular Volume 91.3, Mean Corpuscular Hemoglobin 29.7, Mean Corpuscular Hemoglobin Concent 32.5, Red Cell Distribution Width 13.4, Neutrophils (%) (Auto) 89.5 H, Lymphocytes (%) (Auto) 2.8 L, Monocytes (%) (Auto) 5.5 H, Eosinophils (%) (Auto) 0.5, Basophils (%) ( Auto) 0.2, Neutrophils # (Auto) 17.9 H, Lymphocytes # (Auto) 0.6 L, Monocytes # (Auto) 1.1 H, Eosinophils # (Auto) 0.1, Basophils # (Auto) 0.0, Calcium Level 8.0 L 01/07/17 17:55 Calcium Level 8.0 L, Phosphorus Level 3.1, Aspartate Amino Transf (AST/SGOT) 1753 H, Alanine Aminotransferase (ALT/SGPT) 387 H, Total Creatine Kinase 17720 H , Alkaline Phosphatase 76, Total Bilirubin 0.5, Uric Acid 8.4 H, Total Protein 6.7, Albumin 2.5 L Plan / VTE VTE Prophylaxis Ordered?: Yes Plan Plan Rhabdomyolysis 2/2 Fall, Immobilized state Creatine kinase levels noted to be 50,000 IV fluid hydration ordered We will continue to monitor the patient's CK levels Nephrology on board CKD stage III According to our records, it appears that the patient's baseline serum creatinine is between 1.1 and 1.2 Serum cr noted to be 1.3 here IV fluid hydration ordered Nephrology on board History of opioid abuse, currently on methadone Urine toxicology screen pending EKG ordered-Will restart the patient's methadone pending QT/QTC within normal limits History of depression, stable We will continue the patient on her previous regimen DVT prophylaxis Heparin subcutaneous The patient will be admitted to the service of Dr. Holguin, who will begin to follow the patient on 01/08/17 at 7 AM. CATHY MAHER MD Jan 07, 2017 19:31
[2017-01-07 20:00] VITALS: BP 130/80
[2017-01-07] MEDS: FLUoxetine 20 MG CAP PO SCH (20:10)
[2017-01-07] MEDS: busPIRone 5 MG TAB PO SCH (20:10)
[2017-01-07] MEDS: lamoTRIgine 25 MG TAB PO SCH (20:10)
[2017-01-07 20:35] LABS: METHADONE URINE POSITIVE (NEGATIVE)
[2017-01-07 21:15] VITALS: BP 138/101
--- NOTE | 2017-01-07 21:30 | ECGEPIP ---
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
[2017-01-07] MEDS: BACLOFEN 10 MG TAB PO PRN (23:20)
[2017-01-07] MEDS: ACETAMINOPHEN TAB 650MG DOSE (2X325MG) PO PRN (23:21)
[2017-01-07] MEDS: traZODone 100 MG TAB PO SCH (23:21)
[2017-01-07] MEDS: HEPARIN SOD (PORCINE) 5000 UNITS/ML VIAL SC SCH (23:21)
[2017-01-07 23:58] VITALS: BP 144/86
[2017-01-08] MEDS: NS 1,000 ML IV SCH ×2 (00:57→06:30)
[2017-01-08 04:47] VITALS: BP 154/95
[2017-01-08] MEDS: HEPARIN SOD (PORCINE) 5000 UNITS/ML VIAL SC SCH ×3 (06:28→21:08)
[2017-01-08] MEDS: ACETAMINOPHEN TAB 650MG DOSE (2X325MG) PO PRN ×2 (06:29→20:14)
[2017-01-08 06:54] LABS: MEAN CORPUSCULAR HEMOGLOBIN 30.4 pg (27.0-33.0); MEAN CORPUSCULAR HGB CONC 33.3 g/dl (32.0-36.5); MEAN CORPUSCULAR VOLUME 91.3 fl (80.0-96.0); RED CELL DISTRIBUTION WIDTH 13.1 % (11.5-14.5); WHITE BLOOD COUNT 8.4 K/mm3 (4.0-10.0)
[2017-01-08 07:38] LABS: ALBUMIN 2.2 GM/DL (3.2-5.2); ALBUMIN/GLOBULIN RATIO 0.56 (1.00-1.93); ALKALINE PHOSPHATASE 68 U/L (45-117); ALT/SGPT 362 U/L (12-78); ANION GAP 8 MEQ/L (8-16); AST/SGOT 1384 U/L (15-37); BILIRUBIN,TOTAL 0.4 MG/DL (0.2-1.0); BLOOD UREA NITROGEN 21 MG/DL (7-18); CARBON DIOXIDE LEVEL 22 MEQ/L (21-32); CHLORIDE LEVEL 113 MEQ/L (98-107); CREATININE FOR GFR 1.01 MG/DL (0.55-1.02); GLOMERULAR FILTRATION RATE > 60.0 (>58); GLUCOSE, FASTING 86 MG/DL (70-105); MAGNESIUM LEVEL 2.2 MG/DL (1.8-2.4); POTASSIUM SERUM 3.7 MEQ/L (3.5-5.1); SODIUM LEVEL 143 MEQ/L (136-145); TOTAL PROTEIN 6.1 GM/DL (6.4-8.2)
[2017-01-08 07:53] VITALS: BP 122/82
[2017-01-08] MEDS: lamoTRIgine 25 MG TAB PO SCH ×2 (08:47→20:15)
[2017-01-08] MEDS: busPIRone 5 MG TAB PO SCH ×2 (08:47→20:15)
[2017-01-08] MEDS: TAMSULOSIN 0.4 MG CAP PO SCH (08:48)
[2017-01-08] MEDS: FLUoxetine 20 MG CAP PO SCH ×2 (08:48→20:15)
[2017-01-08] MEDS ORDERED: ALLOPURINOL 100 MG TAB PO SCH (09:00)
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
[2017-01-08] MEDS: METHADONE 10 MG TAB (S0109) PO SCH (13:26)
--- NOTE | 2017-01-08 13:26 | REP ---
Clinical: Transaminitis. Technique: Hough scale ultrasound using curved array transducer. Findings: The liver and pancreas are normal in contour, size, and echogenicity without focal hepatic or pancreatic lesions identified. The gallbladder demonstrates trace layering sludge without gallstones, wall thickening or pericholecystic fluid. No biliary ductal dilatation is appreciated, and the common bile duct measures 4.8 mm diameter. The right kidney is normal in reniform shape without hydronephrosis and measures 9.8 x 3.8 x 4.0 cm. No ascites. Visualized portions of the abdominal aorta normal. Impression: Trace layering gallbladder sludge. Otherwise normal right upper quadrant ultrasound examination. Signed by Javier Freire MD 01/08/2017 01:18 P
--- NOTE | 2017-01-08 13:27 | REP ---
Clinical: Pain and swelling . Technique: Hough scale and color Doppler evaluation using linear high frequency transducer. Findings: Ultrasound examination of the left lower extremity deep venous structures from the common femoral vein to the popliteal vein demonstrates normal compressibility flow and wave patterns. There is no evidence for deep venous thrombosis. Impression: No evidence for deep venous thrombosis. Signed by Javier Freire MD 01/08/2017 01:19 P
--- NOTE | 2017-01-08 13:29 | REP ---
Clinical: Left upper extremity pain and swelling . Technique: Hough scale and color Doppler evaluation using linear high frequency transducer. Findings: Ultrasound examination of the left upper extremity deep venous structures including the subclavian, axillary, jugular, brachial, basilic and cephalic veins demonstrate normal compressibility, flow and wave patterns. There is no evidence for deep venous thrombosis. Impression: No evidence for deep venous thrombosis involving the left upper extremity. Signed by Javier Freire MD 01/08/2017 01:20 P
[2017-01-08] MEDS ORDERED: POTASSIUM CHLORIDE 10 MEQ SR TABLET PO ONE (14:00)
[2017-01-08] MEDS: SODIUM BICARBONATE 75 MEQ in NS 0.45% 1,000 ML IV SCH ×2 (14:03→20:13)
--- NOTE | 2017-01-08 14:44 | IPN ---
DATE: 01/08/2017 SUBJECTIVE: The patient is seen this morning at the bedside. She requests pain medications. She is pending a PICC line placement this morning. Aside from pain, she denies any other complaints. She continues on IV fluids with a down trending CK level. REVIEW OF SYSTEMS: Negative for headache, chest pain, palpitations, shortness of breath, nausea, vomiting, diarrhea. Positive for pain and tenderness in the left upper extremity and left lower extremity as well as the left forehead. Remainder of review of systems is negative. Intake and output: Urine output 1900 mL. PHYSICAL EXAMINATION: Awake, alert, in no acute distress. Oriented. Head and neck: Moist mucous membranes. Skin injury above left eye on forehead. Neck with no jugular venous distention. Chest: Clear to auscultation bilaterally with symmetric air movement. Cardiac: S1, S2. Regular rate. 2+ radial pulse. Trace pedal edema. Abdomen: Soft, nontender. Extremities: Skin injury on her left forehead with darkening of the skin. Left arm with multiple skin tears and fluid filled lesions that almost resemble yan. Her left arm is swollen and tender. She has similar skin findings on the left lower extremity. Some of her lesions are dressed, others are not. Neurologic: Oriented, appropriately interactive and conversational. LABS: White count 8.4, hemoglobin 10, platelets 281. Sodium 143, potassium 3.7 , bicarbonate 22, BUN 21, creatinine 1.0. Corrected calcium 9.5, magnesium 2.2, LFTs down trending, AST 1300, CPK down trending 28,000. CRP down trending 12.7. Urine toxicology positive for cocaine and methadone. IMAGING: Liver ultrasound with trace layering of gallbladder sludge. Incidentally noted right kidney without hydronephrosis. INPATIENT MEDICATIONS: Reviewed by myself. No changes in the past 24 hours. PLAN: 1. Acute kidney injury in the setting of rhabdomyolysis secondary to reported fall and immobilized state. The patient's renal function has returned to baseline. She is responding well to IV fluids with urine output. Her CPK has down trended from 50,000 to 28,000. Her electrolytes are overall stable. I will repeat a uric acid level on her for the morning. I will switch her fluids with half normal saline (ns) with 75 mEq of bicarbonate and replete her potassium. No more non-steroidal anti-inflammatory drugs (NSAID)s. Avoid nephrotoxins. Continue with IV fluids. 2. Drug abuse currently on methadone. Urine toxicology screen also positive for cocaine. Requesting pain medications. Defer to primary team. 3. Elevated transaminases likely secondary to rhabdomyolysis and muscle injury. Liver ultrasound noted MTDD
[2017-01-08 16:00] VITALS: BP 134/77
[2017-01-08] MEDS ORDERED: SODIUM CHLORIDE 0.9% INJ 10 ML SYR IV PRN (16:15)
--- NOTE | 2017-01-08 16:26 | IPNPDOC ---
Date Seen The patient was seen on 01/08/17. Progress Note SUBJECTIVE: Patient is a 41-year-old Female with rhamdomyolysis and PMH of CKD stage II, opioid abuse (methadone clinic), depression, anxiety, and PTSD. Pt presented to the emergency room 01/07/17 because of a fall in her home. Today, pt was contradicting herself when questions were asked. Pt was asked about cocaine use which she denied, but came back positive on tox screen. Pts hepatitis C was mentioned and pt stated that she was not diagnosed with Hep C and that it is "borderline." Pt was concerned about contacting [facility] to confirm the prescription of Methadone. [facility] was contacted and Methadone 30mg daily was confirmed for the pt's opioid abuse. Today pt complains of pain in extremities, specifically L UE and LE. Pt admits to painful sores on her tongue that she reports have been there for a year then later in the exam says they appeared after her fall. Pt also admits to productive cough with clear sputum, wheezing, nausea last night, back pain, decreased sensation, numbness/tingling, decreased ROM, and decreased strength in L hand and foot, increased heat in L lower leg and L arm, and decreased sensation from midback to sacrum (pt states this has been ongoing for awhile). Pt denies fever, chills, night sweats, change in vision, sinus pain/congestion, throat pain, trouble swallowing, chest pain/pressure, wheezing, SOB, abdominal pain, V/D/C, change in bowel and bladder habits, and hematuria. OBJECTIVE PHYSICAL EXAMINATION: VITAL SIGNS: Please see below. GENERAL: 41yo F AXOx3. Slight distress with pain in extremities. Answering questions, but is contradicting herself. HEENT: AT/NC. PERRL. No pain on palpation of orbits and sinuses. Tongue appears moist with thickened white patches surrounding the tip and posterior L side, and posterior L pharynx. Patches painful to palpation and did not scrape off. Teeth not in good health with cavitations in posterior molars. CARDIOVASCULAR: Chest without palpation of lifts, heaves, thrills. RRR w/o MRG. RESPIRATORY: Chest expansion equal bilaterally. CTAB w/o WRR. ABDOMINAL: BS active w/o bruits. Soft, nontender, w/o masses or organomegaly. EXTREMITIES: Back nontender, decreased sensation bilaterally from midback to sacrum. L leg tender to palpation below the knee, decreased sensation L foot/ toes, limited ROM and strength L foot/toes, 1+ pitting edema below L the knee. R leg tender to palpation below the knee, slight edema on R foot, sensation, ROM , and strength intact R leg. L arm tender to palpation below elbow, decreased sensation of L hand/fingers, limited ROM and strength L hand/fingers, 1+ pitting edema below R elbow. R arm tender to palpation below elbow, no edema present of R arm, sensation, ROM, and strength intact R arm. LABORATORY DATA: Please see below. MICROBIOLOGY: Please see below. IMAGING: USN L arm and L leg, no evidence of DVT. Liver USN, trace gallbladder sludge, otherwise normal USN. DVT prophylaxis ordered: Heparin 5,000 units Q8H SC ASSESSMENT AND PLAN: This is a 41-year-old Female with rhabdomyolysis and PMH of CKD stage II, substance abuse, depression, and anxiety, hepatitis C. Pt presents today with edema, increased heat, decreased sensation, and limited ROM/strength of left UE and LE, as well as thick white patches on tongue and posterior pharynx that may indicate leukoplakia. PROBLEMS: 1. Rhabdomyolysis pain and spasm: Continue IVF resuscitation, Baclofen, Tylenol. Monitor CPK. 2. Transaminitis: Possibly secondary to rhabdomyolysis and cocaine ingestion compounded with underlying possible HCV. Will continue to monitor. 3. Hyperuricemia: Continue Allopurinol, per nephrology recommendation. 4. Left upper and lower extremity edema: US obtained to rule out DVT. Both were negative. 5. Hepatitis C: Liver US showed trace gallbladder sludge, but the US was otherwise normal. Hepatitis panel and HCV work-up to be initiated. Could consider consult with infectious disease as an out-patient. 6. PICC line insertion: Poor peripheral access. 7. Anemia: Obtain peripheral smear. 8. 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 Pt at increased risk for cancer. 9. Anxiety: Continue Buspar. 10. Depression: Continue Prozac. DISPOSITION: Obtain hepatitis panel and other hepatitis markers, peripheral smear. Monitor for resolution of rhabdomyolysis. VS, I&O, 24H, Fishbone Vital Signs/I&O Vital Signs Date Time Temp Pulse Resp B/P (MAP) Pulse Ox O2 Delivery O2 Flow Rate FiO2 01/08/17 07:53 122/82 (95) 01/08/17 07:47 97.1 80 18 93 Room Air I&O- Last 24 Hours up to 6 AM 01/08/17 06:00 Intake Total 3240 ml Output Total 1300 ml Balance 1940 ml Laboratory Data 24H LABS Laboratory Tests 2 01/07/17 10:27: White Blood Count 20.1H, Red Blood Count 3.91L, Hemoglobin 11.6L, Hematocrit 35.7L, Mean Corpuscular Volume 91.3, Mean Corpuscular Hemoglobin 29.7, Mean Corpuscular Hemoglobin Concent 32.5, Red Cell Distribution Width 13.4, Platelet Count 340, Neutrophils (%) (Auto) 89.5H, Lymphocytes (%) (Auto) 2.8L, Monocytes (%) (Auto) 5.5H, Eosinophils (%) (Auto) 0.5, Basophils (%) (Auto) 0.2, Neutrophils # (Auto) 17.9H, Lymphocytes # (Auto) 0.6L, Monocytes # (Auto) 1.1H, Eosinophils # (Auto) 0.1, Basophils # (Auto) 0.0, Large Unclassified Cells % 1.5 , Large Unclassified Cells # 0.3, Anion Gap 6L, Glomerular Filtration Rate 48.3L , Blood Urea Nitrogen 24H, Creatinine 1.30H, Sodium Level 135L, Potassium Level 4.8, Chloride Level 101, Carbon Dioxide Level 28, Calcium Level 8.0L, Total Creatine Kinase 30116S, C-Reactive Protein, Quantitative 16.10H 01/07/17 10:41: Erythrocyte Sedimentation Rate 58H 01/07/17 17:55: Anion Gap 8, Glomerular Filtration Rate 53.5L, Blood Urea Nitrogen 25H, Creatinine 1.19H, Sodium Level 137, Potassium Level 3.8#, Chloride Level 106, Carbon Dioxide Level 23, Calcium Level 8.0L, Total Creatine Kinase 65539L, Phosphorus Level 3.1, Aspartate Amino Transf (AST/SGOT) 1753H, Alanine Aminotransferase (ALT/SGPT) 387H, Alkaline Phosphatase 76, Total Bilirubin 0.5, Uric Acid 8.4H, Total Protein 6.7, Albumin 2.5L, Albumin/Globulin Ratio 0.60L 01/07/17 19:39: Urine Appearance CLOUDYH, Urine Color JANEY, Urine pH 6.0, Urine Specific [place] 1.011, Urine Protein 2+H, Urine Glucose (UA) NEGATIVE, Urine Ketones NEGATIVE, Urine Urobilinogen 2.0H, Urine Bilirubin NEGATIVE, Urine Leukocyte Esterase NEGATIVE, Urine Blood 3+H, Urine Nitrite NEGATIVE, Urine WBC (Auto) 8H , Urine RBC (Auto) 4H, Urine Hyaline Casts (Auto) 0, Urine Bacteria (Auto) NEGATIVE, Urine Squamous Epithelial Cells 6, Urine Mucus (Auto) SMALL, Urine Sperm (Auto) , Urine Amphetamines Screen NEGATIVE, Urine Benzodiazepines Screen NEGATIVE, Urine Opiates Screen NEGATIVE, Urine Methadone Screen POSITIVEH, Urine Barbiturates Screen NEGATIVE, Urine Phencyclidine Screen NEGATIVE, Urine Cocaine Metabolite Screen POSITIVEH, Urine Cannabinoids Screen NEGATIVE 01/08/17 06:33: Anion Gap 8, Glomerular Filtration Rate > 60.0, Blood Urea Nitrogen 21H, Creatinine 1.01, Sodium Level 143, Potassium Level 3.7, Chloride Level 113H, Carbon Dioxide Level 22, Calcium Level 8.0L, Aspartate Amino Transf (AST/SGOT) 1384H, Alanine Aminotransferase (ALT/SGPT) 362H, Total Creatine Kinase 51317O, Alkaline Phosphatase 68, Total Bilirubin 0.4, Total Protein 6.1L, Albumin 2.2L, Magnesium Level 2.2, C-Reactive Protein, Quantitative 12.70H, Albumin/Globulin Ratio 0.56L CBC/BMP Laboratory Tests 01/07/17 10:27 Red Blood Count 3.91 L, Mean Corpuscular Volume 91.3, Mean Corpuscular Hemoglobin 29.7, Mean Corpuscular Hemoglobin Concent 32.5, Red Cell Distribution Width 13.4, Neutrophils (%) (Auto) 89.5 H, Lymphocytes (%) (Auto) 2.8 L, Monocytes (%) (Auto) 5.5 H, Eosinophils (%) (Auto) 0.5, Basophils (%) ( Auto) 0.2, Neutrophils # (Auto) 17.9 H, Lymphocytes # (Auto) 0.6 L, Monocytes # (Auto) 1.1 H, Eosinophils # (Auto) 0.1, Basophils # (Auto) 0.0, Calcium Level 8.0 L 01/07/17 17:55 Calcium Level 8.0 L, Phosphorus Level 3.1, Aspartate Amino Transf (AST/SGOT) 1753 H, Alanine Aminotransferase (ALT/SGPT) 387 H, Total Creatine Kinase 27991 H , Alkaline Phosphatase 76, Total Bilirubin 0.5, Uric Acid 8.4 H, Total Protein 6.7, Albumin 2.5 L 01/08/17 06:33 Red Blood Count 3.30 L, Mean Corpuscular Volume 91.3, Mean Corpuscular Hemoglobin 30.4, Mean Corpuscular Hemoglobin Concent 33.3, Red Cell Distribution Width 13.1, Calcium Level 8.0 L, Aspartate Amino Transf (AST/SGOT) 1384 H, Alanine Aminotransferase (ALT/SGPT) 362 H, Total Creatine Kinase 22713 H , Alkaline Phosphatase 68, Total Bilirubin 0.4, Total Protein 6.1 L, Albumin 2.2 L PARK STEELEME-I Jan 08, 2017 10:52
--- NOTE | 2017-01-08 16:50 | REP ---
Procedure: PICC line insertion with Jolene The procedure was performed under the direct supervision of Dr. Dasilva. The risks and benefits of the procedure were explained to the patient and informed consent was obtained. The right brachial vein was localized using ultrasound guidance. The skin was prepped and draped in a sterile fashion. 2% lidocaine was used as a local anesthetic. Using ultrasound guidance the brachial vein was cannulated and a 0.018 guidewire was inserted and advanced to the SVC using fluoroscopic guidance. The needle was removed and a 5.5 Frisian dilator and peel-away sheath was inserted over the guide wire. A 5.5 Frisian dual lumen catheter was cut to length of 41 cm. The dilator was removed and the catheter was inserted over the guide wire with the tip ending in the SVC. The peel-away sheath was removed and the catheter was flushed with heparinized saline as per Hospital protocol. The catheter was affixed to the skin and a sterile dressing was applied. The the patient tolerated the procedure well and there were no immediate complications. 0.2 minutes of fluoro time was utilized for this procedure. Reviewed by LILIANA Zapien 01/08/2017 04:15 PSigned by Costa Dasilva MD 01/08/2017 04:41 P
[2017-01-08] MEDS: SODIUM CHLORIDE 0.9% INJ 10 ML SYR IV SCH (18:04)
[2017-01-08 20:00] VITALS: BP 140/85
[2017-01-08] MEDS: ANALGESIC BALM CRM 120 GM TOP SCH (21:00)
[2017-01-08] MEDS: CYCLOBENZAPRINE 10 MG TAB PO PRN (21:08)
[2017-01-08] MEDS: traZODone 100 MG TAB PO SCH (21:08)
[2017-01-08 21:55] LABS: REASON FOR REVIEW COMPREHENSIVE REVIEW
[2017-01-08 23:59] VITALS: BP 117/66
[2017-01-09] MEDS ORDERED: POTASSIUM CHLORIDE 10 MEQ SR TABLET PO ONE
[2017-01-09] MEDS: NS 1,000 ML IV SCH ×5 (00:31→23:33)
[2017-01-09 00:39] LABS: ANION GAP 2 MEQ/L (8-16); BLOOD UREA NITROGEN 11 MG/DL (7-18); CALCIUM LEVEL 7.6 MG/DL (8.5-10.1); CARBON DIOXIDE LEVEL 31 MEQ/L (21-32); CHLORIDE LEVEL 108 MEQ/L (98-107); CREATININE FOR GFR 0.84 MG/DL (0.55-1.02); GLOMERULAR FILTRATION RATE > 60.0 (>58); GLUCOSE, FASTING 77 MG/DL (70-105); POTASSIUM SERUM 3.9 MEQ/L (3.5-5.1); SODIUM LEVEL 141 MEQ/L (136-145)
[2017-01-09 04:00] VITALS: BP 129/64
[2017-01-09] MEDS: HEPARIN SOD (PORCINE) 5000 UNITS/ML VIAL SC SCH ×3 (05:22→22:23)
[2017-01-09] MEDS: SODIUM CHLORIDE 0.9% INJ 10 ML SYR IV SCH ×2 (05:22→18:28)
[2017-01-09 05:34] LABS: MEAN CORPUSCULAR HEMOGLOBIN 29.9 pg (27.0-33.0); MEAN CORPUSCULAR HGB CONC 32.7 g/dl (32.0-36.5); MEAN CORPUSCULAR VOLUME 91.3 fl (80.0-96.0); RED CELL DISTRIBUTION WIDTH 13.4 % (11.5-14.5); WHITE BLOOD COUNT 8.5 K/mm3 (4.0-10.0)
[2017-01-09 06:15] LABS: ALBUMIN/GLOBULIN RATIO 0.69 (1.00-1.93); ALKALINE PHOSPHATASE 66 U/L (45-117); ALT/SGPT 285 U/L (12-78); ANION GAP 6 MEQ/L (8-16); AST/SGOT 789 U/L (15-37); BILIRUBIN,TOTAL 0.3 MG/DL (0.2-1.0); BLOOD UREA NITROGEN 10 MG/DL (7-18); CALCIUM LEVEL 7.3 MG/DL (8.5-10.1); CARBON DIOXIDE LEVEL 27 MEQ/L (21-32); CHLORIDE LEVEL 111 MEQ/L (98-107); CREATININE FOR GFR 0.82 MG/DL (0.55-1.02); GLOMERULAR FILTRATION RATE > 60.0 (>58); GLUCOSE, FASTING 85 MG/DL (70-105); MAGNESIUM LEVEL 1.8 MG/DL (1.8-2.4); POTASSIUM SERUM 4.5 MEQ/L (3.5-5.1); SODIUM LEVEL 144 MEQ/L (136-145); TOTAL PROTEIN 4.9 GM/DL (6.4-8.2); URIC ACID 5.1 MG/DL (2.6-6.0)
[2017-01-09 08:00] VITALS: BP 150/88
[2017-01-09] MEDS ORDERED: INFLUENZA QUADRIVALENT PF VACCINE 0.5ML SYRINGE (90686) IM ONE (09:00)
[2017-01-09] MEDS ORDERED: ANALGESIC BALM CRM 120 GM TOP SCH (09:00)
[2017-01-09] MEDS: busPIRone 5 MG TAB PO SCH ×2 (09:49→19:52)
[2017-01-09] MEDS: METHADONE 10 MG TAB (S0109) PO SCH (09:51)
[2017-01-09] MEDS: FLUoxetine 20 MG CAP PO SCH ×2 (09:52→19:52)
[2017-01-09] MEDS: lamoTRIgine 25 MG TAB PO SCH ×2 (09:52→19:52)
[2017-01-09] MEDS: TAMSULOSIN 0.4 MG CAP PO SCH (09:52)
[2017-01-09] MEDS: ANALGESIC BALM CRM 120 GM TOP SCH ×3 (09:53→19:53)
--- NOTE | 2017-01-09 10:46 | IPNPDOC ---
Date Seen The patient was seen on 01/09/17. Progress Note SUBJECTIVE: Patient is a 41-year-old female with rhabdomyolysis. She reports that she still feels somewhat fatigued and weak. She still reports some tenderness in her left upper and lower extremity. There is edema present in both limbs; however, US obtained do not reveal any DVTs. Likely related to rhabdomyolysis. Patient states that she had not had much of an appetite secondary to lesions on her tongue which are quite painful. Possibly leukoplakia, but could HSV as they are painful. OBJECTIVE PHYSICAL EXAMINATION: VITAL SIGNS: Please see below. GENERAL: Well nourished, well developed female, appears stated age, no acute distress HEENT: Atraumatic, normocephaic, PERRL, EOMI, tongue has white colored and non- bleeding lesions on tip and the lateral surface which do not scrape off, dentition in poor condition, oral mucosa appears pink and moist, nasal septum appears midline, nares are patent CARDIOVASCULAR: Regular rate and rhythm, normal S1 and S2, no murmur, rub, click RESPIRATORY: Clear to auscultation bilaterally, adequate inspiratory and expiratory airway excursion, no wheeze, rhonchi, crackles ABDOMINAL: Soft, flat, non-tender, non-distended, diminished bowel sounds EXTREMITIES: Edematous left upper and lower extremity, pulses are appreciated in extremities, equal, symmetrical, +2/4, PICC line in right arm NEUROLOGICAL: CN II-XII grossly intact PSYCHOLOGICAL: Pleasant, cooperative LABORATORY DATA: Please see below. MICROBIOLOGY: Please see below. DVT prophylaxis ordered?: ASSESSMENT AND PLAN: This is a 41-year-old female with rhabdomyolysis. PROBLEMS: 1. Rhabdomyolysis pain and spasm: Continue IVF resuscitation, Baclofen, Tylenol. CPK is improving. Continue to monitor. 2. Transaminitis: Possibly secondary to rhabdomyolysis and cocaine ingestion compounded with underlying possible HCV. Improving. Hepatitis A, B, C antibody and antigen levels pending. Could consider out-patient follow-up with infectious disease. 3. Hyperuricemia: Continue Allopurinol, per nephrology recommendation. 4. Left upper and lower extremity edema: US obtained to rule out DVT. Both were negative. Likely secondary to rhabdomyolysis. 5. Hepatitis C: Liver US showed trace gallbladder sludge, but the US was otherwise normal. Hepatitis panel and HCV work-up to be initiated. Could consider consult with infectious disease as an out-patient. 6. PICC line insertion: Poor peripheral access. 7. Anemia: Obtain peripheral smear. 8. Oral lesions: Possibly associated with cigarette smoking or underlying infection. Could consider HSV. 9. Anxiety: Continue Buspar. 10. Depression: Continue Prozac. DISPOSITION: Monitor for resolve of rhabdomyolysis and transaminitis. Both are improving. Appreciate the continued support of nephrology. VS, I&O, 24H, Fishbone Vital Signs/I&O Vital Signs Date Time Temp Pulse Resp B/P (MAP) Pulse Ox O2 Delivery O2 Flow Rate FiO2 01/09/17 09:51 18 01/09/17 08:00 98.2 91 150/88 (108) 99 Room Air I&O- Last 24 Hours up to 6 AM 01/09/17 06:00 Intake Total 4400 ml Output Total 3400 ml Balance 1000 ml Laboratory Data 24H LABS Laboratory Tests 2 01/08/17 16:16: Differential Slide Review Report, Differential Pathologist's Review COMPREHENSIVE REVIEW, Peripheral Blood Smear Path Consult PERIPHERAL SMEAR 01/08/17 16:46: 01/08/17 23:10: Anion Gap 2L, Glomerular Filtration Rate > 60.0, Blood Urea Nitrogen 11, Creatinine 0.84, Sodium Level 141, Potassium Level 3.9, Chloride Level 108H, Carbon Dioxide Level 31, Calcium Level 7.6L 01/09/17 05:15: Anion Gap 6L, Glomerular Filtration Rate > 60.0, Blood Urea Nitrogen 10, Creatinine 0.82, Sodium Level 144, Potassium Level 4.5, Chloride Level 111H, Carbon Dioxide Level 27, Calcium Level 7.3L, Aspartate Amino Transf (AST/SGOT) 789H, Alanine Aminotransferase (ALT/SGPT) 285H, Total Creatine Kinase 81380J, Alkaline Phosphatase 66, Total Bilirubin 0.3, Uric Acid 5.1, Total Protein 4.9L , Albumin 2.0L, Magnesium Level 1.8, C-Reactive Protein, Quantitative 8.36H, Albumin/Globulin Ratio 0.69L CBC/BMP Laboratory Tests 01/08/17 23:10 Calcium Level 7.6 L 01/09/17 05:15 Calcium Level 7.3 L, Red Blood Count 2.99 L, Mean Corpuscular Volume 91.3, Mean Corpuscular Hemoglobin 29.9, Mean Corpuscular Hemoglobin Concent 32.7, Red Cell Distribution Width 13.4, Aspartate Amino Transf (AST/SGOT) 789 H, Alanine Aminotransferase (ALT/SGPT) 285 H, Total Creatine Kinase 67615 H, Alkaline Phosphatase 66, Total Bilirubin 0.3, Uric Acid 5.1, Total Protein 4.9 L, Albumin 2.0 L PARK STEELE-I Jan 09, 2017 10:33
[2017-01-09 12:00] VITALS: BP 130/82
[2017-01-09] MEDS: ACETAMINOPHEN TAB 650MG DOSE (2X325MG) PO PRN ×2 (12:43→19:55)
[2017-01-09] MEDS: CYCLOBENZAPRINE 10 MG TAB PO PRN ×2 (12:43→19:55)
[2017-01-09 16:00] VITALS: BP 145/73
--- NOTE | 2017-01-09 16:45 | IPN ---
DATE: 01/09/2017 SUBJECTIVE: The patient is seen this morning at the bedside. She complains of left upper extremity and left lower extremity swelling. She otherwise denies any new complaints this morning. She continues to feel fatigued. She had ultrasounds done, which did not reveal deep vein thromboses (DVTs). She states she is tolerating oral liquids but has not eaten much due to sores on her tongue. REVIEW OF SYSTEMS: Negative for headache, chest pain, palpitations, shortness of breath. Positive for left upper extremity and left lower extremity edema and painful tongue lesions. Remainder of review of systems is negative. PHYSICAL EXAMINATION: VITAL SIGNS: Temperature 98.2, pulse 91, respiratory rate 18, blood pressure 129/64, saturating 95% on room air. Output: Urine output yesterday is 3700 mL. Weight in the bed scale is 93.4 kg and likely inaccurate, as it is significantly different from yesterday. GENERAL: Alert and oriented times three in no acute distress in bed. HEAD AND NECK: Left forehead with area of trauma. Moist mucous membranes. Tongue with light-colored lesions on the tip and on the lateral surfaces. Poor dentition. Mucous membranes are moist. Neck is supple. CARDIOVASCULAR: S1, S2. No murmur. Radial pulses 2+ on bilateral upper extremities. Left upper extremity and left lower extremity with pitting edema. Contralateral extremities with trace edema. RESPIRATORY: Clear to auscultation bilaterally. ABDOMEN: Soft and nontender. EXTREMITIES: Left upper extremity and lower extremity are edematous. She has lesions that have dressings on them. Her radial pulse is palpable in the swollen left upper extremity. She has a peripherally inserted central catheter (PICC) line in the right arm. NEUROLOGIC: No focal deficits. PSYCHIATRIC: Appropriate mood and affect. LABORATORY DATA: White count 8.5, hemoglobin 8.9. Sodium 144, potassium 4.5, bicarbonate 27, creatinine 0.8, corrected calcium 8.5 , magnesium 1.8, uric acid 5.1. Liver function tests (LFTs) downtrending. AST 789 , ALT 285. CPK downtrending, 10,000. CRP downtrending, 8.3. Hepatitis studies are pending. IMAGING: Liver ultrasound January 08 with trace layering gallbladder sludge. Otherwise unremarkable. Venous duplex of the left lower extremity without deep vein thrombosis (DVT). Venous duplex of the left upper extremity without DVT. INPATIENT MEDICATIONS: Patient received bicarbonate-based drip yesterday. Today she is on normal saline with the rate reduced to 150 an hour. I have discontinued her allopurinol. She received a flu shot today. She received potassium supplement. The remainder of her medications are unchanged from prior. PLAN: Rhabdomyolysis secondary to reported fall and demobilized state. The patient received bicarbonate-based fluids overnight, which were switched to normal saline subsequently. I have decreased the rate of her fluids to 150 an hour. Her CPK is downtrending quite nicely. Her electrolytes are stable, including corrected calcium, phosphorus, uric acid, bicarbonate. I have discontinued her allopurinol. Her renal function has also improved to baseline. I would continue the patient on intravenous (IV) fluids on a reduced rate for a further 24 hours until her creatine phosphokinase (CPK) falls below 5000. The patient does repeatedly request to be discharged by Wednesday, as she has a court appointment to attend. 2. Elevated transaminases, most likely secondary to rhabdomyolysis and muscle injury. Liver ultrasound is noted. Her hepatitis panel is pending at this time. 3. Drug abuse, currently on methadone. Urine toxicology also positive for cocaine. Defer to primary team. 4. Edema of the left upper extremity and left lower extremity. Exam is not consistent with any compartment syndrome. Her radial pulse was easily palpable in the left upper extremity. Venous duplex did not show any DVT. MTDD
[2017-01-09 20:00] VITALS: BP 137/87
[2017-01-09] MEDS: traZODone 100 MG TAB PO SCH (22:23)
[2017-01-09 23:59] VITALS: BP 140/76
[2017-01-10 04:00] VITALS: BP 131/68
[2017-01-10] MEDS: SODIUM CHLORIDE 0.9% INJ 10 ML SYR IV SCH ×2 (04:33→18:06)
[2017-01-10] MEDS: HEPARIN SOD (PORCINE) 5000 UNITS/ML VIAL SC SCH ×3 (04:54→22:33)
[2017-01-10 05:05] LABS: MEAN CORPUSCULAR HEMOGLOBIN 29.1 pg (27.0-33.0); MEAN CORPUSCULAR HGB CONC 31.8 g/dl (32.0-36.5); MEAN CORPUSCULAR VOLUME 91.5 fl (80.0-96.0); RED CELL DISTRIBUTION WIDTH 13.7 % (11.5-14.5); WHITE BLOOD COUNT 7.6 K/mm3 (4.0-10.0)
[2017-01-10 06:13] LABS: ALBUMIN 1.8 GM/DL (3.2-5.2); ALKALINE PHOSPHATASE 66 U/L (45-117); BILIRUBIN,TOTAL 0.3 MG/DL (0.2-1.0); BLOOD UREA NITROGEN 8 MG/DL (7-18); CALCIUM LEVEL 8.1 MG/DL (8.5-10.1); CARBON DIOXIDE LEVEL 27 MEQ/L (21-32); CHLORIDE LEVEL 112 MEQ/L (98-107); GLUCOSE, FASTING 76 MG/DL (70-105); MAGNESIUM LEVEL 1.6 MG/DL (1.8-2.4); POTASSIUM SERUM 4.1 MEQ/L (3.5-5.1); SODIUM LEVEL 146 MEQ/L (136-145); TOTAL PROTEIN 4.6 GM/DL (6.4-8.2)
[2017-01-10 06:23] LABS: ALT/SGPT 222 U/L (12-78); AST/SGOT 460 U/L (15-37); CREATININE FOR GFR 0.73 MG/DL (0.55-1.02)
[2017-01-10] MEDS: NS 1,000 ML IV SCH (07:00)
[2017-01-10 07:02] LABS: ANION GAP 2 MEQ/L (8-16)
[2017-01-10 07:03] LABS: ALBUMIN/GLOBULIN RATIO 0.64 (1.00-1.93)
[2017-01-10 08:00] VITALS: BP 137/77
[2017-01-10] MEDS: FLUoxetine 20 MG CAP PO SCH ×2 (08:01→20:25)
[2017-01-10] MEDS: busPIRone 5 MG TAB PO SCH ×2 (08:01→20:25)
[2017-01-10] MEDS: lamoTRIgine 25 MG TAB PO SCH ×2 (08:01→20:25)
[2017-01-10] MEDS: METHADONE 10 MG TAB (S0109) PO SCH (08:03)
[2017-01-10] MEDS: TAMSULOSIN 0.4 MG CAP PO SCH (08:03)
[2017-01-10] MEDS: ANALGESIC BALM CRM 120 GM TOP SCH ×3 (08:03→20:26)
[2017-01-10] MEDS ORDERED: MAG SULF 1GM/100ML (MAG RUN) 1 GM in APPROPRIATE DILUENT 1 EA IV ONE (08:15)
--- NOTE | 2017-01-10 08:26 | IPNPDOC ---
Text Note Date of Service The patient was seen on 01/10/17. NOTE SUBJECTIVE: Patient seen and examined at bedside. No new medical complaints. Appetite has improved, extremity pain also improved. OBJECTIVE VITAL SIGNS: Please see below. GENERAL: NAD, lying comfortably in bed HEENT: NC, small contusion to left temporal area, EOMI, PERRL, tongue has white colored and non-bleeding lesions on tip and the lateral surface which do not scrape off, poor dentition CARDIOVASCULAR: RRR, +S1S2 RESPIRATORY: CTA B/L ABDOMINAL: Soft, NT, obese, +BS EXTREMITIES: + edema, LUE/LLE, PICC line in right arm PSYCHOLOGICAL: Pleasant, cooperative, AAOx3 ASSESSMENT AND PLAN: This is a 41-year-old female with rhabdomyolysis s/fall and demobilization. PROBLEMS: 1. Rhabdomyolysis - CK continues to trend down - D/C IVF, if continues to trend down tomorrow can discharge home 2. Transaminitis - likely secondary to rhabdomyolysis possibly complicated with cocaine abuse - continues to improve - LUQ US noted - Hep panel pending - o/p f/u with ID for Hep C 3. Drug abuse - UTox + cocaine - continue with methadone - dosage has been verified 4. Hypernatremia - hyperchloremic - likely secondary to IV fluids, has been discontinued 5. Hyperuricemia - resolved 6. Left upper and lower extremity edema - US negative for DVT - continue to monitor 7. Hepatitis C - outpatient follow up 8. Poor venous access - s/p PICC line insertion 9. Anemia - can follow up as outpatient - stable - peripheral smear pending 10. Oral lesions - unknown etiology - outpatient follow up - HSV? 11. Anxiety/Depression - continue home meds - Buspar, Prozac 12. DVT prophylaxis - Heparin SC DISPOSITION: Trial off IV fluids, anticipating discharge in 24 hours, transfer to medical floor. VS,Fishbone, I+O VS, Fishbone, I+O Laboratory Tests 01/10/17 04:32 Red Blood Count 2.99 L, Mean Corpuscular Volume 91.5, Mean Corpuscular Hemoglobin 29.1, Mean Corpuscular Hemoglobin Concent 31.8 L, Red Cell Distribution Width 13.7, Calcium Level 8.1 L, Aspartate Amino Transf (AST/SGOT) 460 H, Alanine Aminotransferase (ALT/SGPT) 222 H, Total Creatine Kinase 5323 H, Alkaline Phosphatase 66, Total Bilirubin 0.3, Total Protein 4.6 L, Albumin 1.8 L Vital Signs Date Time Temp Pulse Resp B/P (MAP) Pulse Ox O2 Delivery O2 Flow Rate FiO2 01/10/17 08:03 18 01/10/17 04:00 98.6 82 131/68 (89) 94 Room Air I&O- Last 24 Hours up to 6 AM 01/10/17 06:00 Intake Total 2100 ml Output Total 3400 ml Balance -1300 ml ANA HOLGUIN MD Jan 10, 2017 08:26
[2017-01-10] MEDS ORDERED: NS 0.45% 1,000 ML IV SCH (08:30)
--- NOTE | 2017-01-10 09:00 | ECGEPIP ---
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
[2017-01-10] MEDS: CYCLOBENZAPRINE 10 MG TAB PO PRN (13:33)
[2017-01-10] MEDS: ACETAMINOPHEN TAB 650MG DOSE (2X325MG) PO PRN ×2 (13:34→20:26)
[2017-01-10] MEDS: BACLOFEN 10 MG TAB PO PRN (15:22)
[2017-01-10 16:00] VITALS: BP 140/74
[2017-01-10] MEDS ORDERED: MAGIC MOUTHWASH SUSPENSION BTL SS PRN (16:00)
--- NOTE | 2017-01-10 16:42 | IPN ---
DATE: 01/10/2017 SUBJECTIVE: The patient is seen this morning at the bedside. She reports no overnight events. Her left upper extremity and left lower extremity continue to be swollen. The patient again requests to be discharged by tomorrow. She reports oral intake without problem. REVIEW OF SYSTEMS: Negative for headache, chest pain, palpitations, shortness of breath, nausea, vomiting, or diarrhea. Positive for left upper extremity and left lower extremity swelling. VITAL SIGNS: Afebrile at 98.6, pulse 84, respiratory rate 18, blood pressure 137/77, saturating 95% on room air. Urine output in the past 24 hours 3.6 liters. PHYSICAL EXAMINATION: GENERAL: Alert and oriented, in bed, in no acute distress. HEAD AND NECK: Small contusion on the left temporal area. Moist mucous membranes. CARDIOVASCULAR: S1, S2, regular rate and rhythm. RESPIRATORY: Clear to auscultation bilaterally. ABDOMEN: Soft, nontender, obese. EXTREMITIES: Left upper and left lower extremity with significant pitting edema. Peripherally inserted central catheter (PICC) line in the right arm. NEUROLOGIC: No focal deficits. PSYCHIATRIC: Appropriate mood and affect. LABORATORY DATA: White count 7.6, hemoglobin 8.7, platelets 327. Sodium 146, potassium 4.1, bicarbonate 27, creatinine 0.7, magnesium 1.6, CPK 5300. INPATIENT MEDICATIONS: IV fluids were discontinued today. The patient received a dose of magnesium. The remainder of medications are unchanged from prior. PLAN: 1. Rhabdomyolysis, secondary to reported fall and demobilized state. The patient is now off IV fluids. Creatine phosphokinase (CPK) has come down to 5000. She is encouraged for oral intake. Her electrolytes are reasonably stable. She does have some very mild hypernatremia. We will reevaluate CK levels in 24 hours off of IV fluids. 2. Elevated transaminases, most likely secondary to muscle injury, have been improving. Hepatitis panel is pending. 3. Edema of the left upper extremity and left lower extremity. We will monitor off of IV fluids. Most likely due to the muscle injury she sustained. Peripheral pulses are intact. Duplex without deep vein thrombosis (DVT).
[2017-01-10 20:15] VITALS: BP 150/88
[2017-01-10] MEDS: traZODone 100 MG TAB PO SCH (20:25)
[2017-01-11 00:15] VITALS: BP 159/82
[2017-01-11 06:00] VITALS: BP 151/74
[2017-01-11] MEDS: HEPARIN SOD (PORCINE) 5000 UNITS/ML VIAL SC SCH (06:10)
[2017-01-11] MEDS: SODIUM CHLORIDE 0.9% INJ 10 ML SYR IV SCH (06:10)
[2017-01-11 06:42] LABS: MEAN CORPUSCULAR HEMOGLOBIN 29.9 pg (27.0-33.0); MEAN CORPUSCULAR HGB CONC 33.4 g/dl (32.0-36.5); MEAN CORPUSCULAR VOLUME 89.7 fl (80.0-96.0); RED CELL DISTRIBUTION WIDTH 13.4 % (11.5-14.5); WHITE BLOOD COUNT 8.7 K/mm3 (4.0-10.0)
[2017-01-11 07:08] LABS: ALBUMIN/GLOBULIN RATIO 0.67 (1.00-1.93); ALKALINE PHOSPHATASE 71 U/L (45-117); ALT/SGPT 193 U/L (12-78); ANION GAP 9 MEQ/L (8-16); AST/SGOT 341 U/L (15-37); BILIRUBIN,TOTAL 0.3 MG/DL (0.2-1.0); BLOOD UREA NITROGEN 7 MG/DL (7-18); CALCIUM LEVEL 8.1 MG/DL (8.5-10.1); CARBON DIOXIDE LEVEL 28 MEQ/L (21-32); CHLORIDE LEVEL 108 MEQ/L (98-107); CREATININE FOR GFR 0.86 MG/DL (0.55-1.02); GLOMERULAR FILTRATION RATE > 60.0 (>58); GLUCOSE, FASTING 85 MG/DL (70-105); MAGNESIUM LEVEL 1.7 MG/DL (1.8-2.4); POTASSIUM SERUM 3.8 MEQ/L (3.5-5.1); SODIUM LEVEL 145 MEQ/L (136-145)
[2017-01-11] MEDS: MAG SULF 1GM/100ML (MAG RUN) 1 GM in APPROPRIATE DILUENT 1 EA IV SCH ×2 (08:20→08:29)
[2017-01-11] MEDS: FLUoxetine 20 MG CAP PO SCH (08:23)
[2017-01-11] MEDS: TAMSULOSIN 0.4 MG CAP PO SCH (08:23)
[2017-01-11] MEDS: METHADONE 10 MG TAB (S0109) PO SCH (08:25)
[2017-01-11] MEDS: busPIRone 5 MG TAB PO SCH (08:26)
[2017-01-11] MEDS: lamoTRIgine 25 MG TAB PO SCH (08:26)
[2017-01-11] MEDS: ANALGESIC BALM CRM 120 GM TOP SCH (08:27)
[2017-01-11] MEDS ORDERED: MAGICMW SS (10:38)
--- NOTE | 2017-01-11 11:26 | DS.PDOC ---
Discharge Summary General Date of Admission Jan 07, 2017 at 16:57 Date of Discharge 01/11/2017 Primary Care Physician: CYNDI ROOT PA-C Attending Physician: ANA HOLGUIN MD Specialist/Consultants Involve: ROCHELLE JIMENEZ DO Discharge Summary PROCEDURES PERFORMED DURING STAY: None. ADMITTING DIAGNOSES: 1. Rhabdomyolysis. 2. Acute on chronic kidney disease. DISCHARGE DIAGNOSES: 1. Rhabdomyolysis. 2. Hyperuricemia. 3. Transaminitis. 3. Positive toxicology - cocaine. COMPLICATIONS/CHIEF COMPLAINT: Rhabdomyolysis. HISTORY OF PRESENT ILLNESS: Ms. Chanel is a 41-year-old female with a past medical history of CKD stage III, opioid abuse currently attending a methadone clinic, depression, anxiety, and PTSD presented to the ER with a chief complaint of a fall. The patient states that she was sweeping the floor at her home and she leaned on the broom when she was trying to cone picker her kitten, which resulted in the broom snapping in half and the patient falling on her left side. The patient reports that she does not remember much else after this. She reports that she fell at nighttime, and when she awoke and called EMS it was still dark outside. Of note, the patient's history is inconsistent when she was asked to repeat the sequence. The patient denies any trauma or physical altercation. In addition, the patient denies any fevers, chills, chest pain, palpitations, shortness of breath, abdominal pain, or any nausea/vomiting/ diarrhea. The patient denies any symptoms of near syncope or lightheadedness/ dizziness. In the ER, the patient was found to have a creatine kinase level of 50,000. The patient also was noted to have mild elevation of her serum creatinine at 1.3. Imaging did not reveal any acute fractures. The patient will be admitted to the hospitalist service for further evaluation and management of rhabdomyolysis.. HOSPITAL COURSE: Patient was admitted to the progressive care unit for further medical management. Provided IVF resuscitation. Monitored CPK levels which did appropriately decrease during admission. Baclofen and tylenol as needed for symptomatic pain control. Left-sided upper and lower extremity edema evaluated with ultrasound which was negative for DVT. Nephrology was consulted secondary to patient's worsening Cr. Baseline in 1.1-1.2. Recommendations included initiating allopurinol secondary to hyperuricemia and avoiding nephrotoxins. Methadone dose confirmed with [facility] and medication was administered during hospitalization. Home medication for depression and anxiety continued during admission. Liver ultrasound obtained secondary to transaminitis and did not reveal anything acute. See report below. Transaminitis improved during hospitalization. Hepatitis work-up initiated secondary to positive C antibody index and RNA. Painful oral lesions noted and HSV PCR at time of discharge pending. Mouthwash provided during admission and prescribed at time of discharge. Heparin for DVT prophylaxis. PICC line inserted secondary to poor peripheral access. Patient clinically improved with a return to baseline and is safe for discharge at this time. DISCHARGE MEDICATIONS: Please see below. ALLERGIES: Please see below. PHYSICAL EXAMINATION ON DISCHARGE: VITAL SIGNS: Please see below. GENERAL: Pleasant female, appears stated age, well nourished, well developed, in no acute distress HEENT: Atraumatic, normocephalic, PERRL, EOMI, oral mucosa appears pink and moist, multiple non-bleeding, raised [id number] lesions noted on various location of the tongue, abrasion noted on left frontal portion of forehead, poor dentition NECK: Supple, soft, trachea midline, no lymphadenopathy CARDIOVASCULAR EXAMINATION: Regular rate and rhythm, normal S1 and S2, no murmur , rub, click RESPIRATORY EXAMINATION: Clear to auscultation bilaterally, adequate inspiratory and expiratory airway excursion, no wheeze, rhonchi, crackles ABDOMINAL EXAMINATION: Soft, non-tender, non-distended, bowel sounds appreciated EXTREMITIES: Left upper and lower extremity edema with preserved pulses, abrasions noted on the upper and lower extremity, muscle strength preserved SKIN: Multiple abrasions noted on the left-sided upper and lower extremities NEUROLOGICAL EXAMINATION: CN II-XII grossly intact PSYCHIATRIC EXAMINATION: Pleasant, alert and conversant LABORATORY DATA: Please see below. IMAGING: Left wrist x-ray IMPRESSION: Normal wrist series. No acute fracture or dislocation Left forearm x-ray IMPRESSION: Normal left forearm. No acute fracture or dislocation. Left foot x-ray IMPRESSION: No acute fracture or dislocation. Left ankle x-ray IMPRESSION: Swelling. No obvious acute fracture. Left upper extremity duplex ultrasound IMPRESSION: No evidence for deep venous thrombosis involving the left upper extremity. Left lower extremity duplex ultrasound IMPRESSION: No evidence for deep venous thrombosis. Liver ultrasound IMPRESSION: Trace layering gallbladder sludge. Otherwise normal right upper quadrant ultrasound examination. PROGNOSIS: Stable ACTIVITY: As tolerated. DIET: Regular. DISCHARGE PLAN: Encourage oral intake. Complete laboratory work prior to follow -up with primary care provider. Follow-up with infectious disease for hepatitis. Continue with methadone and follow-up with [facility]. Continue with mouthwash for oral lesions. Follow-up with primary care provider for pending laboratory studies. Follow-up with nephrology for chronic kidney disease. If symptoms persist or worsen, please present to your primary care provider's office or the nearest emergency department. DISPOSITION: Home. DISCHARGE INSTRUCTIONS: 1. Follow-up with Cyndi Root in 7-10 days. 2. Follow-up with [facility] in 7-10 days. 3. Follow-up with Dr. Jimenez in 2 weeks. 4. Follow-up with Dr. Clary Cruz in 2 weeks. ITEMS TO FOLLOWUP ON ON OUTPATIENT: 1. Rhabdomyolysis. 2. Acute on chronic kidney disease. 3. Transaminitis. DISCHARGE CONDITION: Stable. TIME SPENT ON DISCHARGE: Greater than 30 minutes. Vital Signs/I&Os Vital Signs Date Time Temp Pulse Resp B/P (MAP) Pulse Ox O2 Delivery O2 Flow Rate FiO2 01/11/17 08:25 18 01/11/17 06:00 99.3 79 151/74 (99) 94 Room Air I&O- Last 24 Hours up to 6 AM 01/11/17 06:00 Intake Total 1750 ml Output Total 2300 ml Balance -550 ml Laboratory Data Labs 24H Laboratory Tests 2 01/11/17 06:08: Anion Gap 9, Glomerular Filtration Rate > 60.0, Blood Urea Nitrogen 7, Creatinine 0.86, Sodium Level 145, Potassium Level 3.8, Chloride Level 108H, Carbon Dioxide Level 28, Calcium Level 8.1L, Aspartate Amino Transf (AST/SGOT) 341H, Alanine Aminotransferase (ALT/SGPT) 193H, Total Creatine Kinase 3439H, Alkaline Phosphatase 71, Total Bilirubin 0.3, Total Protein 5.0L, Albumin 2.0L, Magnesium Level 1.7L, Albumin/Globulin Ratio 0.67L CBC/BMP Laboratory Tests 01/11/17 06:08 Red Blood Count 3.12 L, Mean Corpuscular Volume 89.7, Mean Corpuscular Hemoglobin 29.9, Mean Corpuscular Hemoglobin Concent 33.4, Red Cell Distribution Width 13.4, Calcium Level 8.1 L, Aspartate Amino Transf (AST/SGOT) 341 H, Alanine Aminotransferase (ALT/SGPT) 193 H, Total Creatine Kinase 3439 H, Alkaline Phosphatase 71, Total Bilirubin 0.3, Total Protein 5.0 L, Albumin 2.0 L Discharge Medications Scheduled (Ferrocite Plus 106-1 mg) 1 Tab Tab, 1 TAB PO Q2D, (Reported) Buspirone HCl (Buspirone HCl) 7.5 Mg Tab, 7.5 MG PO BID, (Reported) Fluoxetine Hcl (Fluoxetine HCl) 20 Mg Cap, 40 MG PO BID, (Reported) PATIENT STATES THAT THIS IS HOW SHE TAKES IT, HOWEVER PHARMACY HAS ONLY 20MG BID. Furosemide (Furosemide) 20 Mg Tab, 20 MG PO DAILY, (Reported) Gabapentin (Gabapentin) 300 Mg Cap, 300 MG PO TID, (Reported) Lamotrigine (Lamotrigine) 25 Mg Tab, 25 MG PO BID, (Reported) Methadone HCl (Methadone HCl) 10 Mg/5 Ml Winsome, 25 MG PO DAILY, (Reported) Potassium Chloride (Klor-Con M20) 20 Meq Tabcr, 20 MEQ PO DAILY, (Reported) Tamsulosin Hydrochloride (Flomax) 0.4 Mg Cap, 0.4 MG PO DAILY, (Reported) Trazodone HCl (Trazodone HCl) 100 Mg Tab, 100 MG PO QHS, (Reported) Scheduled PRN Acetaminophen (Acetaminophen) 325 Mg Tab, 650 MG PO QID PRN for PAIN, (Reported) Baclofen (Baclofen) 10 Mg Tab, 10 MG PO TID PRN for SPASMS, (Reported) Cyclobenzaprine HCl (Cyclobenzaprine HCl) 10 Mg Tab, 10 MG PO TID PRN for MUSCLE SPASMS, (Reported) Magic Mouthwash (First-Mouthwash Blm) 1 Ea Susp, 5 ML SS Q6HP PRN for DISCOMFORT Allergies Coded Allergies: Shellfish Allergy (Verified Allergy, Unknown, 11/19/16) Hydrocodone (Verified Adverse Reaction, Mild, BECAME hiGH, 11/19/16) PARK STEELEME-I Jan 11, 2017 11:26
--- NOTE | 2017-01-11 12:37 | IPN ---
DATE: 01/11/2017 Matilda is seen this morning on her bedside. She is feeling better. However, she reports that she has had better days in the past. She was admitted with rhabdomyolysis, which is improving. The patient wants to go home today as she has a court appearance for a child custody. She denies any nausea or vomiting. She has no dyspnea or chest pain. On physical exam, 99.3 degrees temperature, heart rate 80 per minute and respiratory rate 18 per minute. Blood pressure 150/74 mmHg and oxygen saturation 94% on room air. Head is atraumatic. Neck is supple and without jugular venous distention (JVD) or thyroid enlargement. Heart sounds are regular and lungs clear to auscultation. Abdomen soft and nontender. Extremities have no cyanosis or clubbing. Today's labs show sodium 145 and potassium 3.8. BUN 7 and creatinine 0.86. CPK level is down to 3439. PROBLEMS: 1. Acute rhabdomyolysis: Improving nicely and kidney function is normal. I have encouraged the patient to continue with liberal fluid intake. At this point, there is no need for intravenous fluids or any other intervention. DISPOSITION: From a renal standpoint, the patient seems to be doing well and can be discharged to home. She will followup with her primary care physician as an outpatient. I have advised the patient to continue with liberal fluid intake. KIRSTIND
[2017-01-12] MEDS ORDERED: METH10CO PO ×2 (13:15)
[2017-01-13 14:14] LABS: ALT 311 IU/L (0-40); GGT 11 IU/L (0-60); HAPTOGLOBIN 252 mg/dL (34-200); HEPATITIS C QUANTITATION 1210010 IU/mL (.); HEPATITIS C VIRUS GENOTYPE 1a (.); NECROINFLAM SCORE 0.86 (0.00-0.17); NECROINFLAMM GRADE A3-Severe activity (.); TOTAL BILIRUBIN 0.2 mg/dL (0.0-1.2)
== END 2017-01-11 13:25 | disposition home or self-care (01) | DRG 351 ==
LOC: EDBD 10:01 → M ED 10:01 → M ED INP 16:57 → M PCU 21:15 → M MS5PR 01-10 23:58
PROVIDERS: ADMIT Internal Medicine; ATTEND Internal Medicine
PROC: 02HV33Z Insertion of Infusion Device into Superior Vena Cava, Percutaneous Approach (ICD-10-PCS; principal; 2017-01-08)
DX: M62.82 Rhabdomyolysis (principal); E87.0 Hyperosmolality and hypernatremia; N18.3 Chronic kidney disease, stage 3 (moderate); F32.9 Major depressive disorder, single episode, unspecified; K13.21 Leukoplakia of oral mucosa, including tongue; F41.9 Anxiety disorder, unspecified; R74.0 Nonspecific elevation of levels of transaminase and lactic acid dehydrogenase [LDH]; E79.0 Hyperuricemia without signs of inflammatory arthritis and tophaceous disease; F43.10 Post-traumatic stress disorder, unspecified; B19.20 Unspecified viral hepatitis C without hepatic coma; F17.210 Nicotine dependence, cigarettes, uncomplicated; F11.10 Opioid abuse, uncomplicated; Z79.899 Other long term (current) drug therapy; Z91.013 Allergy to seafood; Z88.8 Allergy status to other drugs, medicaments and biological substances

== ENCOUNTER 2017-01-12 12:59 | Emergency (ER) | payer OTHER ==
[~2017-01-12] VITALS: Ht 160 cm; Wt 72.7 kg
[~2017-01-12 12:59] MED LIST changes: +ACET1TAB17 PO; +BACL10TA2 PO; +BUSP1TAB PO; +CYCL10TA PO; +FERRTAB6 PO; +FLOM5CAP PO; +FLUO20CA19 PO; +FURO20TA2 PO; +GABA-282 PO; +K-TA10TA2 PO; +LAMO25TA2 PO; +MAGICMW SS; +METH10SO PO; +POTA20TA PO; +TRAZ-136 PO
[2017-01-12 13:04] VITALS: BP 131/67
[2017-01-12] MEDS ORDERED: METH10CO PO ×2 (13:15)
== END 2017-01-12 15:26 | disposition home or self-care (01) ==
LOC: M ED 12:59
DX: G89.4 Chronic pain syndrome (principal); N18.2 Chronic kidney disease, stage 2 (mild); Z48.00 Encounter for change or removal of nonsurgical wound dressing; Z72.0 Tobacco use

== ENCOUNTER → 2017-02-05 | Outpatient (REF) | payer OTHER, MEDICAID ==
[~2017-02-05] MED LIST changes: +ABIL1TAB12 PO; +ARIP5TA PO; +DOXY-278 PO; +FLUV50TA PO; +HYDR50TA70 PO; +METH10CO PO; +METH10TA2 PO; +NICO21PAT TD; +PARO25TA PO; +PAXI20TA29 PO; +QUET1TAB9 PO; +SERO1TAB PO
== END ==
LOC: M SFHCLERA 15:13
PROVIDERS: ATTEND Physician Assistant
DX: J18.9 Pneumonia, unspecified organism (principal); Z53.8 Procedure and treatment not carried out for other reasons

== ENCOUNTER → 2017-02-09 | Outpatient (REF) | payer OTHER ==
[2017-02-09 13:26] LABS: BASO % 0.2 % (0.0-1.0); EOS # 0.2 10^3/uL (0.0-0.50); EOS % 2.1 % (0.0-3.0); IMMATURE GRANULOCYTE % 0.5 % (0-0); LYMPH # 1.9 10^3/uL (1.5-4.5); LYMPH % 22.9 % (24.0-44.0); MEAN CORPUSCULAR HEMOGLOBIN 28.7 pg (27.0-33.0); MEAN CORPUSCULAR HGB CONC 31.3 g/dl (32.0-36.5); MEAN CORPUSCULAR VOLUME 91.7 fl (80.0-96.0); MONO # 0.7 10^3/uL (0.0-0.8); MONO % 8.4 % (0.0-5.0); NEUTROPHILS # 5.5 10^3/uL (1.8-7.7); NEUTROPHILS % 65.9 % (36.0-66.0); PLATELET COUNT, AUTOMATED 355 10^3/uL (150-450); RED CELL DISTRIBUTION WIDTH 14.7 % (11.5-14.5); WHITE BLOOD COUNT 8.4 10^3/uL (4.0-10.0)
[2017-02-09 13:38] LABS: ALBUMIN 3.2 GM/DL (3.2-5.2); ALBUMIN/GLOBULIN RATIO 0.84 (1.00-1.93); ALKALINE PHOSPHATASE 63 U/L (45-117); ALT/SGPT 27 U/L (12-78); ANION GAP 7 MEQ/L (8-16); AST/SGOT 27 U/L (15-37); BILIRUBIN,TOTAL 0.2 MG/DL (0.2-1.0); BLOOD UREA NITROGEN 20 MG/DL (7-18); CALCIUM LEVEL 9.2 MG/DL (8.5-10.1); CARBON DIOXIDE LEVEL 26 MEQ/L (21-32); CHLORIDE LEVEL 105 MEQ/L (98-107); GLOMERULAR FILTRATION RATE 58.6 (>58); GLUCOSE, FASTING 81 MG/DL (70-105); POTASSIUM SERUM 4.3 MEQ/L (3.5-5.1); SODIUM LEVEL 138 MEQ/L (136-145)
[2017-02-18 14:20] LABS: HEPATITIS C QUANTITATION 395900 IU/mL (.)
== END ==
LOC: M SFHCPLAZ 09:48
PROVIDERS: ATTEND Internal Medicine Infectious Disease
DX: B19.20 Unspecified viral hepatitis C without hepatic coma (principal)

== ENCOUNTER 2017-02-13 20:57 | Inpatient (IN) | payer OTHER ==
[~2017-02-13] VITALS: Ht 160 cm; Wt 74.0 kg
[~2017-02-13 20:57] MED LIST changes: -ABIL1TAB12 PO; -ARIP5TA PO; -DOXY-278 PO; -FLUV50TA PO; -HYDR50TA70 PO; -METH10TA2 PO; -NICO21PAT TD; -PARO25TA PO; -PAXI20TA29 PO; -QUET1TAB9 PO; -SERO1TAB PO
[2017-02-13] MEDS ORDERED: HALOPERIDOL 5 MG/ML VIAL (J1630) IM STA (21:13)
[2017-02-13] MEDS ORDERED: diphenhydrAMINE INJ 50MG/ML VIAL (J1200) IM STA (21:13)
[2017-02-13 21:54] LABS: MEAN CORPUSCULAR HEMOGLOBIN 29.3 pg (27.0-33.0); MEAN CORPUSCULAR HGB CONC 32.8 g/dl (32.0-36.5); MEAN CORPUSCULAR VOLUME 89.5 fl (80.0-96.0); RED CELL DISTRIBUTION WIDTH 14.6 % (11.5-14.5); WHITE BLOOD COUNT 24.5 10^3/uL (4.0-10.0)
[2017-02-13] MEDS ORDERED: HYDR50TA70 PO (21:54)
[2017-02-13] MEDS ORDERED: SERO1TAB PO (21:54)
[2017-02-13] MEDS ORDERED: METH10TA2 PO (21:56)
[2017-02-13 22:10] LABS: CONTROL LINE HCG INT CTR LINE PRESENT
[2017-02-13 22:25] LABS: ALBUMIN 3.2 GM/DL (3.2-5.2); ALBUMIN/GLOBULIN RATIO 0.86 (1.00-1.93); ALKALINE PHOSPHATASE 73 U/L (45-117); ALT/SGPT 38 U/L (12-78); ANION GAP 12 MEQ/L (8-16); AST/SGOT 84 U/L (15-37); BILIRUBIN,DIRECT 0.2 MG/DL (0.0-0.2); BILIRUBIN,TOTAL 0.6 MG/DL (0.2-1.0); BLOOD UREA NITROGEN 12 MG/DL (7-18); CALCIUM LEVEL 8.8 MG/DL (8.5-10.1); CARBON DIOXIDE LEVEL 22 MEQ/L (21-32); CHLORIDE LEVEL 100 MEQ/L (98-107); CREATININE FOR GFR 1.34 MG/DL (0.55-1.02); GLOMERULAR FILTRATION RATE 46.6 (>58); GLUCOSE, FASTING 99 MG/DL (70-105); POTASSIUM SERUM 3.4 MEQ/L (3.5-5.1); SODIUM LEVEL 134 MEQ/L (136-145); TOTAL PROTEIN 6.9 GM/DL (6.4-8.2)
[2017-02-13 23:38] LABS: METHADONE URINE POSITIVE (NEGATIVE)
[2017-02-14] MEDS: CIPROFLOXACIN 500 MG TAB PO ONE ×2 (02:36→03:58)
[2017-02-14] MEDS ORDERED: ACETAMINOPHEN TAB 650MG DOSE (2X325MG) PO PRN (03:30)
[2017-02-14] MEDS ORDERED: MOM 30ML SUSPENSION UDC PO PRN (03:30)
[2017-02-14] MEDS ORDERED: MAALOX 30 ML SUSP *UDC PO PRN (03:30)
[2017-02-14] MEDS ORDERED: CYCLOBENZAPRINE 10 MG TAB PO PRN (04:15)
[2017-02-14] MEDS ORDERED: hydrOXYzine 50 MG TAB PO PRN (04:15)
[2017-02-14 04:45] VITALS: BP 124/78
[2017-02-14] MEDS: BACLOFEN 10 MG TAB PO SCH ×3 (08:58→20:10)
[2017-02-14] MEDS: busPIRone 5 MG TAB PO SCH ×2 (08:58→20:10)
[2017-02-14] MEDS: lamoTRIgine 25 MG TAB PO SCH ×2 (08:58→20:09)
[2017-02-14] MEDS: GABAPENTIN 300 MG CAP PO SCH ×3 (08:59→20:10)
[2017-02-14] MEDS ORDERED: NICOTINE 21MG/24HR 1 EA TRANSDERMAL TD SCH (09:00)
[2017-02-14] MEDS ORDERED: FUROSEMIDE 20 MG TAB PO SCH (09:00)
[2017-02-14] MEDS ORDERED: FLUoxetine 20 MG CAP PO SCH (09:00)
[2017-02-14] MEDS ORDERED: TAMSULOSIN 0.4 MG CAP PO SCH (09:00)
[2017-02-14] MEDS ORDERED: METHADONE 10 MG TAB (S0109) PO SCH (09:00)
[2017-02-14] MEDS ORDERED: POTASSIUM CHLORIDE 10 MEQ SR TABLET PO SCH (09:00)
--- NOTE | 2017-02-14 11:30 | REP ---
Chest x-ray: Two views. History: Leukocytosis. Comparison study: October 20, 2016. Findings: The lungs are symmetrically aerated. Interstitial markings are increased in both lower lobe distributions consistent with interstitial infiltrates bilaterally. Heart is not enlarged. Pulmonary vasculature is not increased. No significant bony abnormality is seen. Impression: Bibasilar interstitial infiltrates. Signed by Costa Dasilva MD 02/14/2017 09:38 A
[2017-02-14 18:00] VITALS: BP 126/73
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
[2017-02-14] MEDS ORDERED: traZODone 100 MG TAB PO SCH (21:00)
[2017-02-14] MEDS ORDERED: QUEtiapine FUMARATE 100 MG TAB PO SCH (21:00)
--- NOTE | 2017-02-14 21:00 | REPUSA ---
Clinical history: Pain, swelling. Findings: The left common femoral, superficial femoral, popliteal, and other deep venous structures c ompress normally and demonstrate normal color Doppler flow. Normal venous waveforms with augmentation are seen. Impression: No evidence of deep vein thrombosis in the left femoral popliteal venous system.
--- NOTE | 2017-02-15 02:41 | HPE ---
DATE OF ADMISSION: 02/14/2017 HISTORY OF PRESENT ILLNESS: Please refer to psychiatric history and evaluation for further details on this admission. This examination and history is intended for medical issues, which may need treatment, followup or consult on this 41-year-old female. ALLERGIES: HYDROCODONE, SHELLFISH, TAPE. SOCIAL HISTORY: She is single. She drinks alcohol once a month or less. She smokes one pack of cigarettes per day. Recreational drug use: She is a recovering heroin addict. She has had none for 4 months, is on methadone. PAST MEDICAL HISTORY: 1. Hepatitis C. 2. Substance abuse on methadone. 3. Depression. 4. Anxiety. 5. Posttraumatic stress disorder (PTSD). 6. Chronic kidney disease stage III. 7. Recent pneumonia. PAST SURGICAL HISTORY: 1. Right wrist surgery. 2. (C) section. FAMILY HISTORY: Noncontributory. LABORATORY STUDIES: White count is 24.5, hemoglobin 9.8, hematocrit 29.9, platelets 304. Sodium 134, potassium 3.4, chloride 100, CO2 22, BUN and creatinine are 12 and 1.34. AST is elevated at 84. HOME MEDICATIONS: - Ferrex plus one tablet by mouth every 2 days - baclofen 10 mg by mouth three times a day - buspirone 7.5 mg by mouth twice a day - fluoxetine 40 mg by mouth twice a day - gabapentin 300 mg by mouth three times a day - lamotrigine 25 mg by mouth twice a day - methadone 30 mg by mouth daily - potassium chloride 20 mEq by mouth daily - Seroquel 100 mg by mouth nightly - Flomax 0.4 mg by mouth daily - hydroxyzine 50 mg by mouth every 6 hours as needed for anxiety or agitation REVIEW OF SYSTEMS: Patient was complaining of cough with difficulty with expectoration. Complaining of some increased swelling in her foot and lower leg, which is now slightly reddened. The left lower leg outside has a quarter sized large scabbed area from an injury a few weeks ago. She had a low-grade fever. She has had tachycardia. She has had headache. No tinnitus. No hoarseness. No difficulty swallowing. No lightheadedness. No vertigo. Breasts: No masses currently. She has had a lumpectomy of the left breast, negative for cancer. Respiratory: She has had cough, thick mucus difficult to expectorate. She is not complaining of any wheezing or retraction. Tachycardia, no chest pain. No hemoptysis. She has been orthopneic at times, not recently. GI: No complaints of nausea, vomiting or diarrhea. No hematochezia. No melena. : No hematuria, dysuria or frequency. Musculoskeletal: No joint redness or swelling other than her left foot and left ankle area, which is slightly warmed, swollen, tender to palpation. Endocrine: No polyuria, polydipsia or polyphagia. Hematological: Has anemia, is on iron supplement. Neurological: No paresthesias, paralysis. Psychological: See psychiatric history of present illness (HPI). PHYSICAL EXAMINATION: 41-year-old cooperative female in no acute distress. Blood pressure 151/74, pulse 80, temperature 99.3. Patient is alert and oriented times three. Pupils equal and react to light. Extraocular muscles intact. Cornea and sclerae clear. Conjunctivae were normal. No facial asymmetry. Pharynx, tongue and gums pink and moist. Tongue is midline. Neck is supple without lymphadenopathy. No thyromegaly, no goiter. Chest has decreased breath sounds, no wheeze or retraction. Heart is regular. Abdomen is benign. Bowel sounds positive. Genitourinary/rectal: Not done. Extremities: No cyanosis, clubbing or edema except for the left lower leg, ankle and foot is edematous, slightly warm to touch. Pedal pulses equal and palpable bilaterally. Left lateral leg has a quarter sized dark scabbed area. IMPRESSION/PLAN: 1. Leukocytosis. Bibasilar infiltrates. Possible cellulitis, deep venous thrombosis (DVT) left lower leg. Consult was made with hospitalist, Dr. Alejandra and patient has been accepted, will be transferred to the progressive care unit (PCU) unit. Blood cultures will be drawn. Sputum cultures done. Antibiotics. Patient will be discharged from [facility] unit to be admitted to [facility] to the PCU unit for further treatment, leukocytosis, antibiotics, treat for pneumonia. 2. Hypertension. Stable, restart lisinopril as needed. 3. Chronic kidney disease. Get general intravenous (IV) hydration 1 liter.
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
== END 2017-02-14 20:27 | disposition short-term general hospital (02) | DRG 753 ==
LOC: M ED 20:57 → M ED INP 02-14 03:21 → M PSY 02-14 04:54
PROVIDERS: ADMIT Psychiatry & Neurology Psychiatry; ATTEND Psychiatry & Neurology Psychiatry
DX: F31.89 Other bipolar disorder (principal); J18.9 Pneumonia, unspecified organism; R45.851 Suicidal ideations; N18.3 Chronic kidney disease, stage 3 (moderate); F11.10 Opioid abuse, uncomplicated; F17.210 Nicotine dependence, cigarettes, uncomplicated; B19.20 Unspecified viral hepatitis C without hepatic coma; Z79.899 Other long term (current) drug therapy; I12.9 Hypertensive chronic kidney disease with stage 1 through stage 4 chronic kidney disease, or unspecified chronic kidney disease

== ENCOUNTER 2017-02-14 20:00 | Inpatient (IN) | payer OTHER ==
[~2017-02-14] VITALS: Ht 160 cm; Wt 72.9 kg
[~2017-02-14 20:00] MED LIST changes: +HYDR50TA70 PO; +METH10TA2 PO; +SERO1TAB PO
[2017-02-14 21:00] VITALS: BP 130/71
[2017-02-14] MEDS ORDERED: hydrOXYzine 50 MG TAB PO PRN (21:00)
--- NOTE | 2017-02-14 21:06 | HPEPDOC ---
General Date of Admission Feb 14, 2017 at 20:00 Chief Complaint The patient is a 41-year-old female Presented to ER with complaints of suicidal ideation, she was later found to have an elevated white count and productive cough. History of Present Illness Patient is a 41 year old female with a PMHx of CKD3, Hepatitis C, Substance abuse (on Methadone), Depression, Anxiety and PTSD who presented to the ER because of suicidal ideation. Patient was at a group session and noted that she had suicidal thoughts and was brought to the ER at that point. Patient didnt answer any questions other than suicidal ideation. She was accepted by psychiatry and was transferred to [facility]. I was called by Eliane Chandra to evaluate the patient for possible transfer after imaging noted that there was bibasilar infiltrate on CXR. Upon arrival patient was very hesitant to answer questions and only provided small pieces of information. Patient noted that she was hospitalized at [facility] for a possible pneumonia and left leg injury for 5 days. She received antibiotics while she was there but was unable to provide any other details. She was also refused to answer questions about when she was there. Medical records note she was here in early January for leg swelling after she had an injury; she noted that she had the injuries 2 weeks ago; however this seems inaccurate. Denies nausea, vomiting, abdominal pain, constipation, diarrhea, or dysuria. After collecting information about her current condition, she refused to answer questions about her past medical history and surgical history. Home Medications Scheduled (Ferrocite Plus 106-1 mg) 1 Tab Tab, 1 TAB PO Q2D, (Reported) Baclofen (Baclofen) 10 Mg Tab, 10 MG PO TID, (Reported) Buspirone HCl (Buspirone HCl) 7.5 Mg Tab, 7.5 MG PO BID, (Reported) Fluoxetine Hcl (Fluoxetine HCl) 20 Mg Cap, 40 MG PO BID, (Reported) Gabapentin (Gabapentin) 300 Mg Cap, 300 MG PO TID, (Reported) Lamotrigine (Lamotrigine) 25 Mg Tab, 25 MG PO BID, (Reported) Methadone HCl (Methadone HCl) 10 Mg Tab, 30 MG PO DAILY, (Reported) Potassium Chloride (Klor-Con M20) 20 Meq Tabcr, 20 MEQ PO DAILY, (Reported) Quetiapine Fumerate (Seroquel) 100 Mg Tab, 100 MG PO QHS, (Reported) Tamsulosin Hydrochloride (Flomax) 0.4 Mg Cap, 0.4 MG PO DAILY, (Reported) Scheduled PRN Hydroxyzine HCl (Hydroxyzine HCl) 50 Mg Tab, 50 MG PO Q6H PRN for ANXIETY/ AGITATION, (Reported) Allergies Coded Allergies: TAPE (Verified Allergy, Intermediate, 02/14/17) Very red & Sore Shellfish Allergy (Verified Allergy, Unknown, 02/13/17) Hydrocodone (Verified Adverse Reaction, Mild, BECAME hiGH, 02/13/17) Past Medical History Medical History CKD3, Hepatitis C, Substance abuse (on Methadone), Depression, Anxiety and PTSD Surgical History Right wrist surgery Family History - Unable to obtain Social History - Unable to obtain Review of Symptoms Other systems - Unable to obtain Vital Signs - Vitals: BP 126/73, HR 103, RR 18, Sat 95%RA, Temp 99.3F - General: Lying in bed, No acute distress, Speaking in full sentences, AAOx3 - HEENT: NC, AT, PERRLA, EOMI - CVS: Regular rhythm, Tachycardic, +S1S2 - Lungs: Fair air entry bilaterally, no appreciable wheezing or rhonchi - Abdomen: Soft, Non-distended, Non-tender - Extremities: Trace pitting edema of left leg, No calf tenderness - Neuro: No focal motor or sensory deficit - Skin: Left lateral leg with healing scar Plan / VTE VTE Prophylaxis Ordered?: Yes Plan Plan Bibasilar pneumonia possibly 2/2 community acquired - Presented to ER with complaints of suicidal ideation - Consulted for elevated WBC and CXR abnormalities - Physical reveals left leg with mild swelling and healing scar - WBC elevated at 24.5 - UA unrevealing other than blood, likely from period - CXR: bibasilar interstitial infiltrates - Will check blood cultures, urine cultures and lactic acid - Will start Ceftaroline and IV fluid hydration Left leg swelling - r/o DVT - Stat US of left lower leg Acute kidney injury and CKD3 - Cr of 1.34 - Baseline of 0.73 - Will start IV fluid hydration Hyponatremia (mild) - Likely 2/2 hypovolemic hypotonic - Will c/w IV fluid hydration Hypokalemia - s/p supplementation Hepatitis C - Follows with Dr. Cruz outpatient Substance abuse - c/w Methadone Depression, Anxiety and PTSD - presented with suicidal ideation - c/w home medications - c/w suicidal precautions and one to one observation DVT prophylaxis - Will start Heparin PETRA SULLIVAN MD Feb 14, 2017 21:06
[2017-02-14] MEDS ORDERED: CEFTAROLINE FOSAMIL 600 MG in D5W 50 ML IV SCH (22:00)
[2017-02-15] VITALS (7 sets, daily range): BP systolic 118–148; BP diastolic 56–80
[2017-02-15] MEDS: HEPARIN SOD (PORCINE) 5000 UNITS/ML VIAL SC SCH ×4 (00:20→22:00)
[2017-02-15] MEDS: LINEZOLID 600MG TABLET (ZYVOX) PO SCH ×3 (02:01→21:59)
[2017-02-15] MEDS: cefTRIAXone SOD 1 GM VIAL (J0696) IM SCH (02:02)
[2017-02-15] MEDS: NICOTINE 21MG/24HR 1 EA TRANSDERMAL TD SCH (09:18)
[2017-02-15] MEDS: FLUoxetine 20 MG CAP PO SCH (09:19)
[2017-02-15] MEDS: METHADONE 10 MG TAB (S0109) PO SCH (09:19)
[2017-02-15] MEDS: lamoTRIgine 25 MG TAB PO SCH ×2 (09:19→21:58)
[2017-02-15] MEDS: BACLOFEN 10 MG TAB PO SCH ×3 (09:20→21:59)
[2017-02-15] MEDS: GABAPENTIN 300 MG CAP PO SCH ×3 (09:20→21:59)
[2017-02-15] MEDS: busPIRone 5 MG TAB PO SCH ×2 (09:20→21:57)
[2017-02-15] MEDS ORDERED: SODIUM CHLORIDE 0.9% INJ 10 ML SYR IV PRN (14:15)
[2017-02-15] MEDS: NS 1,000 ML IV SCH (14:32)
[2017-02-15] MEDS: ACETAMINOPHEN TAB 650MG DOSE (2X325MG) PO PRN (16:43)
[2017-02-15 17:40] LABS: BASO % 0.3 % (0.0-1.0); EOS % 0.5 % (0.0-3.0); IMMATURE GRANULOCYTE % 0.3 % (0-0); LYMPH # 1.7 10^3/uL (1.5-4.5); LYMPH % 21.2 % (24.0-44.0); MEAN CORPUSCULAR HEMOGLOBIN 28.5 pg (27.0-33.0); MEAN CORPUSCULAR HGB CONC 32.2 g/dl (32.0-36.5); MEAN CORPUSCULAR VOLUME 88.5 fl (80.0-96.0); MONO # 0.8 10^3/uL (0.0-0.8); MONO % 9.5 % (0.0-5.0); NEUTROPHILS # 5.4 10^3/uL (1.8-7.7); NEUTROPHILS % 68.2 % (36.0-66.0); PLATELET COUNT, AUTOMATED 312 10^3/uL (150-450); RED CELL DISTRIBUTION WIDTH 14.4 % (11.5-14.5)
[2017-02-15] MEDS: SODIUM CHLORIDE 0.9% INJ 10 ML SYR IV SCH (18:00)
[2017-02-15 18:31] LABS: ALBUMIN 2.8 GM/DL (3.2-5.2); ALBUMIN/GLOBULIN RATIO 0.78 (1.00-1.93); ALKALINE PHOSPHATASE 59 U/L (45-117); ALT/SGPT 30 U/L (12-78); ANION GAP 10 MEQ/L (8-16); AST/SGOT 40 U/L (15-37); BILIRUBIN,TOTAL 0.3 MG/DL (0.2-1.0); BLOOD UREA NITROGEN 11 MG/DL (7-18); CALCIUM LEVEL 8.3 MG/DL (8.5-10.1); CARBON DIOXIDE LEVEL 26 MEQ/L (21-32); CHLORIDE LEVEL 104 MEQ/L (98-107); CREATININE FOR GFR 1.02 MG/DL (0.55-1.02); GLOMERULAR FILTRATION RATE > 60.0 (>58); GLUCOSE, FASTING 95 MG/DL (70-105); MAGNESIUM LEVEL 2.2 MG/DL (1.8-2.4); POTASSIUM SERUM 3.6 MEQ/L (3.5-5.1); SODIUM LEVEL 140 MEQ/L (136-145); TOTAL PROTEIN 6.4 GM/DL (6.4-8.2)
[2017-02-15] MEDS ORDERED: traZODone 100 MG TAB PO SCH (21:00)
[2017-02-15] MEDS ORDERED: QUEtiapine FUMARATE 100 MG TAB PO SCH (21:00)
--- NOTE | 2017-02-15 21:05 | IPN ---
DATE: 02/15/2017 SUBJECTIVE: The patient is seen and examined in the room today. There is a sitter present during encounter. During the encounter, the patient made multiple comments about her suicidal thoughts. At the time of encounter, the patient denies any acute complain . The patient is breathing comfortably in room air. Per record, there was an incident that IV access was requested to obtain access and medication administration; however, the central line was refused. In the morning, the patient also refused laboratory tests. Therefore, no updated information available to assess the patient's degree of infection. OBJECTIVE: VITAL SIGNS: Temperature 98.6, pulse is 77, respirations 18, blood pressure is 143/80, pulse oximetry is 97% in room air. ASSESSMENT AND PLAN: 1. Bilateral interstitial infiltrates. Prior to the hospital admission, the patient had a white count of 24.5. There was a suspicion the patient has bilateral lung pneumonia. The patient was admitted under hospitalist service, and the patient was started on antibiotics. However, due to patient refusal and unable to obtain access, Rocephin was ordered intramuscularly. Zyvox was ordered orally. So, the total antibiotic regimen is the patient is on oral Zyvox and IM Rocephin. The patient continued to refuse a laboratory draw until many discussions occurred with the patient. The patient finally agreed for repeated lab work in the late afternoon. Later, the patient showed white count returned to 8, and the patient is sitting comfortably in room air, does not require any oxygen support. The patient does not have any fevers, tachycardia or tachypnea. Elevated white count. Could possibly be due to reactive process combined with current bilateral lung infiltrate. There is a report in the late afternoon that the patient has a few beats of nonsustained ventricular tachycardia; however, the patient was asymptomatic at the moment. Continue to monitor in telemetry. 2. Acute kidney injury. At baseline, the patient has chronic kidney disease, stage III. Patient received IV resuscitation. Renal function returned to normal range now. 3. Psychiatric condition. Patient with diagnosis of bipolar disorder, history of opiate abuse. Patient also was admitted to inpatient mental health unit (IMHU) for suicidal ideation and patient remained stable and patient may benefit from IMHU readmission. 4. Hepatitis C. Follows with Dr. Cruz in the outpatient setting. 5. Substance abuse. On methadone. 6. Deep vein thrombosis (DVT) prophylaxis. On heparin. MTDD
--- NOTE | 2017-02-15 22:52 | ECGEPIP ---
Stationary ECG Study [facility] Test Date: 2017-02-15 Pat Name: LORI PARIKH Department: Room: [place] [address] Gender: F Data Capture Clerk: ANNI : [id number] Requested By: ALEX COLE Order Number: [id number] Reading MD: Chidi Arriaga Measurements Intervals [place] Rate: 80 P: 28 GA: 164 QRS: 42 QRSD: 88 T: 37 QT: 409 QTc: 474 Interpretive Statements SINUS RHYTHM, Within normal limits. No significant change compared with 01/09/2017. Electronically Signed On 02-15-2017 22:51:42 EDT by Chidi Arriaga
[2017-02-16] VITALS: BP 121/70
[2017-02-16] MEDS ORDERED: cefTRIAXone SOD 1 GM in D5W 50 ML IV SCH (01:00)
[2017-02-16] MEDS: cefTRIAXone SOD 1 GM VIAL (J0696) IM SCH (01:00)
--- NOTE | 2017-02-16 01:46 | IPNPDOC ---
Text Note Date of Service The patient was seen on 02/16/17. NOTE Resident and evening attending was paged earlier during the night regarding patient was having V-Tach on the event monitor. During this time Dr. Bernal patient's day time attending was also in the room, he was ok with ordering an EKG and check cardiac markers for the time been and more work up if patient's symptoms worsens. I have also went in the room and examined her, she stated she is not having any chest pain or palpitations. EKG also showed only sinus rhythm. The V-Tach on monitor was not easily interpreted due to it was only 2 to 3 beats, more like PVCs vs AVNRT. Will continue to monitor. Patient has been discussed with Dr. Ocampo. BRITTANEYE ATTESTATION My preceptor for this patient encounter was physically present in the building during the encounter and was fully available. As needed, all aspects of the patient interview, examination, medical decision making process, and medical care plan development were reviewed and approved by the preceptor. Preceptor is aware and concurs with the plan as stated in the body of this note and will attest to such by his/her cosignature. VS,Fishbone, I+O VS, Fishbone, I+O Laboratory Tests 02/15/17 17:16 Calcium Level 8.3 L, Aspartate Amino Transf (AST/SGOT) 40 H, Alanine Aminotransferase (ALT/SGPT) 30, Alkaline Phosphatase 59, Total Bilirubin 0.3, Total Protein 6.4, Albumin 2.8 L 02/15/17 17:20 Red Blood Count 3.30 L, Mean Corpuscular Volume 88.5, Mean Corpuscular Hemoglobin 28.5, Mean Corpuscular Hemoglobin Concent 32.2, Red Cell Distribution Width 14.4, Neutrophils (%) (Auto) 68.2 H, Lymphocytes (%) (Auto) 21.2 L, Monocytes (%) (Auto) 9.5 H, Eosinophils (%) (Auto) 0.5, Basophils (%) ( Auto) 0.3, Neutrophils # (Auto) 5.4, Lymphocytes # (Auto) 1.7, Monocytes # (Auto ) 0.8, Eosinophils # (Auto) 0.0, Basophils # (Auto) 0.0 Vital Signs Date Time Temp Pulse Resp B/P (MAP) Pulse Ox O2 Delivery O2 Flow Rate FiO2 02/16/17 00:46 Room Air 02/15/17 20:00 98.3 80 18 132/77 (95) 99 ALEX COLE DO Feb 16, 2017 01:46
[2017-02-16] MEDS: NS 1,000 ML IV SCH (02:13)
[2017-02-16 04:00] VITALS: BP 119/71
[2017-02-16] MEDS: HEPARIN SOD (PORCINE) 5000 UNITS/ML VIAL SC SCH ×2 (05:44→13:34)
[2017-02-16] MEDS ORDERED: LevoFLOXacin 500 MG TABLET PO SCH (06:00)
[2017-02-16 06:09] LABS: BASO % 0.2 % (0.0-1.0); EOS # 0.2 10^3/uL (0.0-0.50); EOS % 3.1 % (0.0-3.0); IMMATURE GRANULOCYTE % 0.2 % (0-0); LYMPH # 1.9 10^3/uL (1.5-4.5); LYMPH % 32.5 % (24.0-44.0); MEAN CORPUSCULAR HEMOGLOBIN 28.9 pg (27.0-33.0); MEAN CORPUSCULAR HGB CONC 32.4 g/dl (32.0-36.5); MEAN CORPUSCULAR VOLUME 89.3 fl (80.0-96.0); MONO # 0.6 10^3/uL (0.0-0.8); MONO % 9.8 % (0.0-5.0); NEUTROPHILS # 3.2 10^3/uL (1.8-7.7); NEUTROPHILS % 54.2 % (36.0-66.0); PLATELET COUNT, AUTOMATED 293 10^3/uL (150-450); RED CELL DISTRIBUTION WIDTH 14.4 % (11.5-14.5); WHITE BLOOD COUNT 5.8 10^3/uL (4.0-10.0)
[2017-02-16 06:48] LABS: ALBUMIN 2.6 GM/DL (3.2-5.2); ALBUMIN/GLOBULIN RATIO 0.74 (1.00-1.93); ALKALINE PHOSPHATASE 54 U/L (45-117); ALT/SGPT 24 U/L (12-78); ANION GAP 5 MEQ/L (8-16); AST/SGOT 25 U/L (15-37); BILIRUBIN,TOTAL 0.3 MG/DL (0.2-1.0); BLOOD UREA NITROGEN 10 MG/DL (7-18); CALCIUM LEVEL 8.3 MG/DL (8.5-10.1); CARBON DIOXIDE LEVEL 30 MEQ/L (21-32); CHLORIDE LEVEL 107 MEQ/L (98-107); CREATININE FOR GFR 0.94 MG/DL (0.55-1.02); GLOMERULAR FILTRATION RATE > 60.0 (>58); GLUCOSE, FASTING 76 MG/DL (70-105); MAGNESIUM LEVEL 2.1 MG/DL (1.8-2.4); POTASSIUM SERUM 3.6 MEQ/L (3.5-5.1); SODIUM LEVEL 142 MEQ/L (136-145); TOTAL PROTEIN 6.1 GM/DL (6.4-8.2)
[2017-02-16 07:30] VITALS: BP 142/89
[2017-02-16 07:55] LABS: FERRITIN 83 NG/ML (8-252); PERCENT SATURATION 12.6 % (13.2-45.0); TOTAL IRON BINDING CAPACITY 190 UG/DL (250-450)
[2017-02-16] MEDS: NICOTINE 21MG/24HR 1 EA TRANSDERMAL TD SCH (08:08)
[2017-02-16] MEDS: lamoTRIgine 25 MG TAB PO SCH (08:09)
[2017-02-16] MEDS: METHADONE 10 MG TAB (S0109) PO SCH (08:09)
[2017-02-16] MEDS: BACLOFEN 10 MG TAB PO SCH ×2 (08:09→15:17)
[2017-02-16] MEDS: FLUoxetine 20 MG CAP PO SCH (08:09)
[2017-02-16] MEDS: LINEZOLID 600MG TABLET (ZYVOX) PO SCH (08:10)
[2017-02-16] MEDS: GABAPENTIN 300 MG CAP PO SCH ×2 (08:10→15:17)
[2017-02-16] MEDS: SODIUM CHLORIDE 0.9% INJ 10 ML SYR IV SCH ×2 (08:10→17:30)
[2017-02-16] MEDS: busPIRone 5 MG TAB PO SCH (08:10)
[2017-02-16 08:14] LABS: REASON FOR REVIEW COMPREHENSIVE REVIEW
[2017-02-16 08:20] LABS: RETIC HEMOGLOBIN EQUIVALENT 33.1 pg (24-36)
[2017-02-16 12:00] VITALS: BP 137/85
[2017-02-16] MEDS: ACETAMINOPHEN TAB 650MG DOSE (2X325MG) PO PRN (13:33)
[2017-02-16 16:00] VITALS: BP 126/76
[2017-02-16] MEDS ORDERED: DOXY-278 PO (16:10)
--- NOTE | 2017-02-16 16:29 | REP ---
Left lower extremity Duplex Doppler venous ultrasound: Real time compression and duplex Doppler interrogation of the left lower extremity deep venous system is performed. The left common femoral, superficial femoral and popliteal veins are fully compressible with transducer pressure and demonstrate normal spontaneous and phasic flow, without evidence of deep venous thrombosis. Impression: No evidence of deep venous thrombosis of the left lower extremity femoral popliteal venous system. Signed by Prashanth Hough MD 02/16/2017 04:20 P
[2017-02-16 17:00] VITALS: BP 122/60
--- NOTE | 2017-02-16 18:07 | DSES ---
DATE OF ADMISSION: 02/14/2017 DATE OF DISCHARGE: 02/16/2017 DISCHARGE DIAGNOSIS: Community-acquired pneumonia. SECONDARY DIAGNOSES: 1. Major depressive disorder. 2. Suicidal ideation. 3. Acute kidney injury. 4. Hepatitis C. 5. Substance abuse. HOSPITAL COURSE: The patient is a 41-year-old female with longstanding psychiatric history who presented to the hospital with suicidal ideation. She was initially admitted to the inpatient mental health unit but there she was found to have significant leukocytosis as well as bilateral infiltrates concerning for pneumonia, and as such, she was admitted to the hospitalist service. While there, rechecking of her laboratories showed that her leukocytosis did quickly resolved. She did briefly have a peripherally inserted central catheter (PICC) line where she was receiving IV ceftriaxone that was a recent hospitalization which raised concern for healthcare-associated pneumonia and she was briefly on linezolid. However, her cultures all remained negative. Her infection appeared very mild. Her symptoms spontaneously resolved. No leukocytosis, afebrile, not tachycardic, with improvement in her symptoms. As such, at this time, she is tolerating oral medications and we will transition her to oral levofloxacin and have her followup with her outpatient provider. Anemia. Workup has been sent. It is likely multifactorial in nature and likely related to anemia of chronic disease and also potentially an element of iron deficiency. She may benefit from supplementation and close followup with her primary care provider. Hepatitis C. The patient follows with Dr. Cruz on the outpatient setting. Substance abuse. The patient is continued on methadone. Major depressive disorder. She is still actively exhibiting suicidal ideation to me this morning and wants help and wants to be transferred to the inpatient mental health unit. I suspect that this is what is best for the patient. Deep vein thrombosis (DVT) prophylaxis. She is on heparin. DISPOSITION: At this time, the patient is medically cleared for discharge to the inpatient mental health unit. She is complete: - doxycycline 100 mg by mouth twice a day for 10 days - baclofen 10 mg three times a day - buspirone 7.5 mg twice a day - ferrous sulfate one tablet every two days - fluoxetine 40 mg twice a day - gabapentin 300 mg three times a day - hydroxyzine 50 mg every six hours - lamotrigine 25 mg twice a day - methadone 30 mg daily - potassium chloride 20 mEq daily - Seroquel 200 mg at bedtime - tamsulosin 0.4 mg daily Greater than 30 minutes was spent organizing disposition.
--- NOTE | 2017-02-16 19:37 | REP ---
Procedure: PICC line insertion with Jolene The procedure was performed under the direct supervision of Dr. Hough. The risks and benefits of the procedure were explained to the patient and informed consent was obtained. The right basilic vein was localized using ultrasound guidance. The skin was prepped and draped in a sterile fashion. 2% lidocaine was used as a local anesthetic. Using ultrasound guidance an attempt was made to cannulate the basilic vein however this was unsuccessful. The right brachial vein was localized using ultrasound guidance. Using ultrasound guidance the right brachial vein was cannulated and a 0.018 guidewire was inserted and advanced to the SVC using fluoroscopic guidance. The needle was removed and a 5.5 Salvadorean dilator and peel-away sheath was inserted over the guide wire. A 5.5 Salvadorean dual lumen catheter was cut to length of 44 cm. The dilator was removed and the catheter was inserted over the guide wire with the tip ending in the SVC. The peel-away sheath was removed and the catheter was flushed with heparinized saline as per Hospital protocol. The catheter was affixed to the skin and a sterile dressing was applied. The the patient tolerated the procedure well and there were no immediate complications. 0.3 minutes of fluoro time was utilized for this procedure. Reviewed by LILIANA Zapien 02/15/2017 03:35 PSigned by Prashanth Hough MD 02/16/2017 07:28 P
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
== END 2017-02-16 19:11 | DRG 139 ==
LOC: M ED INP 20:00 → M PCU 21:05
PROVIDERS: ADMIT Internal Medicine; ATTEND Internal Medicine
PROC: 02HV33Z Insertion of Infusion Device into Superior Vena Cava, Percutaneous Approach (ICD-10-PCS; principal; 2017-02-15)
DX: J18.9 Pneumonia, unspecified organism (principal); I47.2 Ventricular tachycardia; N17.9 Acute kidney failure, unspecified; R45.851 Suicidal ideations; N18.3 Chronic kidney disease, stage 3 (moderate); E87.1 Hypo-osmolality and hyponatremia; E87.6 Hypokalemia; B19.20 Unspecified viral hepatitis C without hepatic coma; F31.89 Other bipolar disorder; F11.10 Opioid abuse, uncomplicated; F43.10 Post-traumatic stress disorder, unspecified; Z79.899 Other long term (current) drug therapy; Z88.8 Allergy status to other drugs, medicaments and biological substances; Z91.013 Allergy to seafood; Z91.048 Other nonmedicinal substance allergy status

== ENCOUNTER 2017-02-16 18:44 | Inpatient (IN) | payer OTHER ==
[~2017-02-16] VITALS: Ht 160 cm; Wt 76.0 kg
[~2017-02-16 18:44] MED LIST changes: +DOXY-278 PO
[2017-02-16 19:21] VITALS: BP 140/94
[2017-02-16] MEDS: GABAPENTIN 300 MG CAP PO SCH (21:24)
[2017-02-16] MEDS: BACLOFEN 10 MG TAB PO SCH (21:24)
[2017-02-16] MEDS: busPIRone 5 MG TAB PO SCH (21:24)
[2017-02-16] MEDS: QUEtiapine FUMARATE 100 MG TAB PO SCH (21:24)
[2017-02-16] MEDS: lamoTRIgine 25 MG TAB PO SCH (21:24)
[2017-02-17 06:25] VITALS: BP 128/95
[2017-02-17] MEDS: TAMSULOSIN 0.4 MG CAP PO SCH (08:07)
[2017-02-17] MEDS: BACLOFEN 10 MG TAB PO SCH ×3 (08:07→20:43)
[2017-02-17] MEDS: lamoTRIgine 25 MG TAB PO SCH ×2 (08:08→20:43)
[2017-02-17] MEDS: GABAPENTIN 300 MG CAP PO SCH ×3 (08:08→20:43)
[2017-02-17] MEDS: busPIRone 5 MG TAB PO SCH ×2 (08:08→20:43)
[2017-02-17] MEDS: FLUoxetine 20 MG CAP PO SCH (08:08)
[2017-02-17] MEDS: hydrOXYzine 50 MG TAB PO PRN ×2 (08:09→15:42)
[2017-02-17] MEDS ORDERED: METHADONE 10 MG TAB (S0109) PO SCH (09:00)
--- NOTE | 2017-02-17 12:01 | HPEPDOC ---
[facility] Medical History & Physical Date of Admission Feb 16, 2017 History and Physical PCP: TANESHA Casillas ATTENDING: Dr. Chidi Damon HPI: 41yoF admitted to [facility] for unspecified psychotic disorder, being medically examined today. The patient was admitted to [facility] from to 02/16/17 for treatment of CAP. Patient was felt stable to transfer to [facility] 02/16/17. Patient states her breathing and cough continues to improve. She is requesting an adjustment in the dose of her methadone. Denies any fevers, chills, weakness, fatigue, WEAVER, CP, palpitations, abdominal pain, N/V/D or changes in bowel or bladder habits. PMHx: History of left lower extremity injury/edema History of rhabdomyolysis CKD3 Chronic hepatitis C. Follows with Dr Cruz. Substance use. Currently on methadone. 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 Currently on methadone. IV Drug Use: Heroin. Tattoos done unprofessionally: Denies FAMHX: Mother: , cancer Father: , heart disease Siblings: Alive, well Children: Alive, well Unexpected deaths due to medical reasons: None. ROS: As noted in HPI, otherwise 11pt ROS of systems reviewed and remarkable only for LMP Unknown. PE: GEN: 41yoF, appears stated age. Well-nourished, well developed. No acute distress. Alert and oriented x 3. Pleasant, interactive. HEENT: Normocephalic, atraumatic. Pupils are equal, round, and reactive to light. Extraocular movements are intact. No nystagmus appreciated. Sclera are nonicteric. Conjunctiva without injection. Nose midline. Nasal turbinates without bogginess. EACs both patent BL. TMs both visualized and wells with good cone of light, no bulging or erythema. No facial asymmetry. Moist mucous membranes. Dentition fair. Pharynx pink and moist, no cobblestoning. Neck supple , trachea midline. No lymphadenopathy or thyromegaly appreciated. CHEST: Regular rate and rhythm, +S1, +S2 LUNGS: Clear to auscultation bilaterally. No wheezes, rales, or rhonchi. Breathing appears symmetric and easy. Patient is speaking in full sentences. No accessory muscle use. ABD: Round, soft, non-tender, non-distended. +Bowel sounds throughout. No rebound or guarding. No costovertebral angle tenderness. EXT: Pulses 2+ bilaterally dorsalis pedis and radial. No lower extremity edema appreciated. SKIN: [place], dry, warm. Capillary refill <2sec. No rashes. NEURO: Alert and oriented x 3. Cranial nerves III-XII are intact. No focal deficits appreciated. EK02/15/17 SINUS RHYTHM, Within normal limits. No significant change compared with 01/09/2017. CXR 02/14/17 Bibasilar interstitial infiltrates. LLE U/S 02/14/17 No evidence of deep vein thrombosis in the left femoral popliteal venous system. LLE U/S 02/16/17 No evidence of deep venous thrombosis of the left lower extremity femoral popliteal venous system. Peripheral smear Normochromic normocytic anemia with abnormal iron studies, consistent with anemia of chronic disease, or a multifactorial anemia with a component of anemia of chronic disease. No significant poikilocytosis is noted. In view of persistence of the anemia and patients young age, if no obvious cause is known, referral to hematology/oncology outpatient clinic, after patient is recovered from current admission and is discharged, may be helpful. The peripheral smear findings are similar to the previous one in Jan 2017. A&P: 41yoF admitted to [facility] for unspecified psychotic disorder 1. Psych. Plan per Psychiatry. EKG on file. 2. Nicotine dependence. Patch available. 3. Chronic hepatitis C. Follow-up with Dr. Cruz as outpatient. 4. Follow up with PCP on discharge. 5. Substance use. Per psychiatry. Patient currently remains on methadone. ISTOP Reference number [id number] indicates last prescription filled 11/19/16 for tramadol 50 mg #15 tabs. 6. CAP. Patient will finish course of Levaquin 500 mg by mouth 7 additional days. 7. History of chronic left lower extremity injury/edema. Patient states her symptoms have been improving. Left lower extremity ultrasound 2 negative for DVT. Continue with baclofen 10 mg 3 times a day and gabapentin 300 mg by mouth 3 times a day. Monitor. Elevate as needed. 8. Hypokalemia. Continue with potassium supplement daily. Monitor. Potassium is noted within normal limits. 9. Anemia. Patient remains on iron supplement 1 tablet every 2 days. Outpatient follow-up with PCP. Consider referral to hematology. Monitor. 10. History of IVDU. HIV screening negative 02/09/17. 11. Staff member Thomas JAVIER present on exam. Vital Signs Vital Signs Date Time Temp Pulse Resp B/P (MAP) Pulse Ox O2 Delivery O2 Flow Rate FiO2 02/17/17 08:08 16 02/17/17 06:25 97.9 87 128/95 (106) Room Air 02/16/17 19:21 98 Laboratory Data Labs 24H Item Value Date Time Sodium Level 142 MEQ/L 02/16/17 0558 Potassium Level 3.6 MEQ/L 02/16/17 0558 Chloride Level 107 MEQ/L 02/16/17 0558 Carbon Dioxide Level 30 MEQ/L 02/16/17 0558 Anion Gap 5 MEQ/L L 02/16/17 0558 Blood Urea Nitrogen 10 MG/DL 02/16/17 0558 Creatinine 0.94 MG/DL 02/16/17 0558 Glomerular Filtration Rate > 60.0 02/16/17 0558 Fasting Glucose 76 MG/DL 02/16/17 0558 Calcium Level 8.3 MG/DL L 02/16/17 0558 Magnesium Level 2.1 MG/DL 02/16/17 0558 Iron Level 24 UG/DL L 02/16/17 0558 Total Iron Binding Capacity 190 UG/DL L 02/16/17 0558 Transferrin % Saturation 12.6 % L 02/16/17 0558 Ferritin 83 NG/ML 02/16/17 0558 Total Bilirubin 0.3 MG/DL 02/16/17 0558 Aspartate Amino Transf (AST/SGOT) 25 U/L 02/16/17 0558 Alanine Aminotransferase (ALT/SGPT) 24 U/L 02/16/17 0558 Alkaline Phosphatase 54 U/L 02/16/17 0558 Total Protein 6.1 GM/DL L 02/16/17 0558 Albumin/Globulin Ratio 0.74 L 02/16/17 0558 Albumin 2.6 GM/DL L 02/16/17 0558 White Blood Count 5.8 10^3/uL 02/16/17 0558 Red Blood Count 3.08 10^6/uL L 02/16/17 0558 Hemoglobin 8.9 g/dl L 02/16/17 0558 Hematocrit 27.5 % L 02/16/17 0558 Mean Corpuscular Volume 89.3 fl 02/16/17 0558 Mean Corpuscular Hemoglobin Concent 32.4 g/dl 02/16/17 0558 Red Cell Distribution Width 14.4 % 02/16/17 0558 Platelet Count 293 10^3/uL 02/16/17 0558 Home Medications Scheduled (Ferrocite Plus 106-1 mg) 1 Tab Tab, 1 TAB PO Q2D for Baclofen (Baclofen) 10 Mg Tab, 10 MG PO TID for Buspirone HCl (Buspirone HCl) 7.5 Mg Tab, 7.5 MG PO BID for Doxycycline Hyclate (Doxycycline) 100 Mg Cap, 100 MG PO Q12H for Fluoxetine Hcl (Fluoxetine HCl) 20 Mg Cap, 40 MG PO BID for Gabapentin (Gabapentin) 300 Mg Cap, 300 MG PO TID for Lamotrigine (Lamotrigine) 25 Mg Tab, 25 MG PO BID for Methadone HCl (Methadone HCl) 10 Mg Tab, 30 MG PO DAILY for Potassium Chloride (Klor-Con M20) 20 Meq Tabcr, 20 MEQ PO DAILY Quetiapine Fumerate (Seroquel) 100 Mg Tab, 100 MG PO QHS for Tamsulosin Hydrochloride (Flomax) 0.4 Mg Cap, 0.4 MG PO DAILY for Scheduled PRN Hydroxyzine HCl (Hydroxyzine HCl) 50 Mg Tab, 50 MG PO Q6H PRN for ANXIETY/ AGITATION Allergies Coded Allergies: TAPE (Verified Allergy, Intermediate, 02/14/17) Very red & Sore Shellfish Allergy (Verified Allergy, Unknown, 02/13/17) Hydrocodone (Verified Adverse Reaction, Mild, BECAME hiGH, 02/13/17) Joselyn Quiroz Feb 17, 2017 12:01
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
[2017-02-17] MEDS: LevoFLOXacin 500 MG TABLET PO SCH (13:35)
[2017-02-17] MEDS: FERROUS SULFATE 325MG TAB PO SCH (13:35)
[2017-02-17 18:23] VITALS: BP 116/72
[2017-02-17] MEDS: QUEtiapine FUMARATE 100 MG TAB PO SCH (20:43)
[2017-02-18 06:00] VITALS: BP 126/77
[2017-02-18] MEDS: LevoFLOXacin 500 MG TABLET PO SCH (06:00)
[2017-02-18] MEDS: METHADONE 10 MG TAB (S0109) PO SCH (08:01)
[2017-02-18] MEDS: busPIRone 5 MG TAB PO SCH ×2 (08:01→20:37)
[2017-02-18] MEDS: FLUoxetine 20 MG CAP PO SCH (08:01)
[2017-02-18] MEDS: lamoTRIgine 25 MG TAB PO SCH ×2 (08:02→20:37)
[2017-02-18] MEDS: TAMSULOSIN 0.4 MG CAP PO SCH (08:02)
[2017-02-18] MEDS: BACLOFEN 10 MG TAB PO SCH ×3 (08:02→20:37)
[2017-02-18] MEDS: GABAPENTIN 300 MG CAP PO SCH ×3 (08:02→20:37)
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
[2017-02-18] MEDS: hydrOXYzine 50 MG TAB PO PRN (15:18)
[2017-02-18] MEDS: traMADol 50 MG TAB PO PRN (16:04)
[2017-02-18 18:00] VITALS: BP 130/81
[2017-02-18] MEDS: QUEtiapine FUMARATE 200 MG TAB PO SCH (20:37)
[2017-02-19] MEDS: LevoFLOXacin 500 MG TABLET PO SCH (06:04)
[2017-02-19] MEDS: traMADol 50 MG TAB PO PRN ×2 (06:17→17:02)
[2017-02-19 06:59] VITALS: BP 115/63
[2017-02-19] MEDS: busPIRone 5 MG TAB PO SCH ×2 (08:44→20:26)
[2017-02-19] MEDS: FLUoxetine 20 MG CAP PO SCH (08:44)
[2017-02-19] MEDS: GABAPENTIN 300 MG CAP PO SCH ×3 (08:45→20:26)
[2017-02-19] MEDS: METHADONE 10 MG TAB (S0109) PO SCH (08:45)
[2017-02-19] MEDS: TAMSULOSIN 0.4 MG CAP PO SCH (08:45)
[2017-02-19] MEDS: hydrOXYzine 50 MG TAB PO PRN ×3 (08:46→21:18)
[2017-02-19] MEDS: lamoTRIgine 25 MG TAB PO SCH ×2 (08:46→20:26)
[2017-02-19] MEDS: FERROUS SULFATE 325MG TAB PO SCH (08:46)
[2017-02-19] MEDS: BACLOFEN 10 MG TAB PO SCH ×3 (08:46→20:26)
[2017-02-19] MEDS: NICOTINE 21MG/24HR 1 EA TRANSDERMAL TD SCH (09:28)
--- NOTE | 2017-02-19 12:34 | MHIPNPDOC ---
[facility] Progress Note Progress Note DATE OF SERVICE: 02/19/17 HISTORY: Patient is a 41-year-old female, who has a history of PTSD, depression , anxiety, polysubstance abuse. She was admitted to [facility] from 02/14/17 to for treatment of CAP. Patient was stabilized and transferred to [facility] . Says she has "done wrong to so many people" and it keeps playing in her head and she doesn't know if it's real or not. Everybody she meets reminds her of someone she hurt along the way and she "sees their faces" on people around her. Says when she was brought to the [facility] on 02/14/17 she thought the hospital was shut down and they wanted to "torture her head". She says it feels like people here at the hospital who want to "infect, poison" her. Says she has many skeletons in her closet, and she wonders if ex-boyfriend who has custody of her 2 year old son put this whole thing together. She says CPS was involved and took her son away. She says he is going to take her son to [place] while she is in here. She says she has outstanding warrants and worries she will be arrested if she leaves for not returning a jeep that was given to her in previous employment. Says she feels somebody has their "eye on her" and that she has lost many phones this year, which may have been taken by somebody. She saw a picture of her son with a woman who used to be her friend and felt like "ripping her throat out". She also mentions she doesn't want to wake up in the morning and takes more than the recommended amount of medication to accomplish this, without taking the full bottle. Says she has chronic back pain, unexplained pains in her legs, no deep vein thromboses were found on imaging studies, and says she's been falling lately. She also has healing wound on her left leg. Says she's impulsive and sometimes doesn't think about consequences. And she feels very weak/tired because of her overall condition. Says she gets racing thoughts and can't get the words out sometimes. 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 She has an extensive medical history including polysubstance abuse, says quit heroin 4 months ago and on methadone currently, hepatitis A, chronic hepatitis C (followed by Dr. Cruz), rhabdomyolysis and CKD stage 3. Interval History 02/19/17: Says she slept better last night, increasing the Seroquel she says helped her. Says she slept 9 hours last night. Says her appetite is not great, says she ate two yogurts and a slice of bengali toast for breakfast today. Says she continues to be very scatterbrained and has difficulties organizing her thoughts, she asks for ADHD medications to help her. Says she is less tired today, but feels more emotional today. Says she missed her yoga session today because she got side tracked with phone calls. Got annoyed someone wanted to take her seat, says if she could hurt them and not get in trouble she would. Says when younger she would have no trouble just acting. Wants a list on "who does what" on the barrett. Denies SI, AVH, endorses paranoia , says she thinks everyone in the rodriguez/other room is talking about her. VITAL SIGNS: See below. NEW TEST RESULTS: none CURRENT MEDICATIONS: See below. MENTAL STATUS EXAMINATION: General appearance: Patient is a 41-year old female, who is nad, cooperative with poor dentition, normal eye contact. Speech: normal rhythm, rate and volume Thought processes: circumstantial Thought content: Denies currently having SI, HI, AVH, endorses paranoia Abstract reasoning and computation: Good Description of associations: Good Description of abnormal or psychotic thoughts: Thinks people talking about her in the room nextdoor. Judgment: poor Insight: poor Orientation: A/O x 3 Recent and remote memory: Poor Attention span and concentration: Poor Fund of knowledge: below average Mood: "annoyed" Affect: irritable, dysthymic, mood-incongruent DIAGNOSES: 1. Substance induced Psychotic Disorder 2. Substance Induced Mood Disorder 3. Antisocial Personality Disorder ASSESSMENT: Says she wants treatment for pain. Will consult pain management to help for workup up of pain. MANAGEMENT PLAN: Pregabalin was stopped, Gabapentin increased to 300 mg PO TID. Continue other medications, monitor for common and rare side effects and withdrawal symptoms. Monitor for risk of serotonin syndrome. Monitor for safety. Continue with individual/group therapy. TIME SPENT: 30 minutes. Vital Signs Vital Signs Date Time Temp Pulse Resp B/P (MAP) Pulse Ox O2 Delivery O2 Flow Rate FiO2 02/19/17 08:45 16 02/19/17 06:59 97.7 71 115/63 (80) 02/17/17 06:25 Room Air 02/16/17 19:21 98 Current Medications Current Medications Baclofen (Lioresal) 10 mg TID PO Last administered on 02/19/17 08:46; Start 02/16/17 at 21:00; Stop 03/18/17 at 20:59 Buspirone HCl (Buspar) 7.5 mg BID PO Last administered on 02/19/17 08:44; Start 02/16/17 at 21:00; Stop 03/18/17 at 20:59 Ferrous Sulfate (Ferrous Sulfate) 325 mg Q2D@0900 PO Last administered on 02/19 08:46; Start 02/17/17 at 09:00; Stop 03/19/17 at 08:59 Fluoxetine HCl (PROzac) 40 mg DAILY PO Last administered on 02/19/17 08:44; Start 02/17/17 at 09:00; Stop 03/19/17 at 08:59 Gabapentin (Neurontin) 300 mg TID PO Last administered on 02/19/17 08:45; Start 02/16/17 at 21:00; Stop 03/18/17 at 20:59 Hydroxyzine HCl (Atarax) 50 mg Q6HP PRN PO ANXIETY/AGITATION Last administered on 02/19/17 08:46; Start 02/16/17 at 21:00; Stop 03/18/17 at 20:59 Lamotrigine (LaMICtal) 25 mg BID PO Last administered on 02/19/17 08:46; Start 02/16/17 at 21:00; Stop 03/18/17 at 20:59 Levofloxacin (Levaquin) 500 mg DAILY@06 PO Last administered on 02/19/17 06: 04; Start 02/17/17 at 06:00; Stop 02/23/17 at 06:01 Methadone HCl (Dolophine) 30 mg DAILY PO Last administered on 02/17/17 08:08 ; Start 02/17/17 at 09:00; Stop 02/17/17 at 14:32; Status DC Methadone HCl (Dolophine) 40 mg DAILY PO Last administered on 02/19/17 08:45 ; Start 02/18/17 at 09:00; Stop 02/25/17 at 08:59 Nicotine (Nicoderm Cq 21mg) 1 patch DAILY TD Last administered on 02/19/17 09 :28; Start 02/19/17 at 09:00; Stop 03/21/17 at 08:59 Quetiapine Fumarate (SEROquel) 100 mg QHS PO Last administered on 02/17/17 20 :43; Start 02/16/17 at 21:00; Stop 02/18/17 at 14:36; Status DC Quetiapine Fumarate (SEROquel) 200 mg QHS PO Last administered on 02/18/17 20 :37; Start 02/18/17 at 21:00; Stop 03/20/17 at 20:59 Tamsulosin HCl (Flomax) 0.4 mg DAILY PO Last administered on 02/19/17 08:45; Start 02/17/17 at 09:00; Stop 03/19/17 at 08:59 Tramadol HCl (Ultram) 50 mg Q8HP PRN PO MODERATE PAIN (PS 5-7) Last administered on 02/19/17 06:17; Start 02/18/17 at 10:00; Stop 02/25/17 at 09 :59 Allergies Coded Allergies: TAPE (Verified Allergy, Intermediate, 02/14/17) Very red & Sore Shellfish Allergy (Verified Allergy, Unknown, 02/13/17) Hydrocodone (Verified Adverse Reaction, Mild, BECAME hiGH, 02/13/17) LETTY VILLASEÑOR PGY-1 Feb 19, 2017 12:34
[2017-02-19] MEDS ORDERED: traMADol 50 MG TAB PO PRN (14:15)
[2017-02-19] MEDS ORDERED: PREGABALIN 100 MG CAP (LYRICA) PO SCH (16:00)
[2017-02-19] MEDS ORDERED: GABAPENTIN 300 MG CAP PO SCH (16:00)
--- NOTE | 2017-02-19 17:00 | MHIPNPDOC ---
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 Chanel use of Tramadol with SSRi "s or SNRI's like Fluoxetine. Dr. Chavez expressed that the result of this interaction, Serotonin Syndrome, is dose dependant and it doesn't happen when patients are on low doses of Tramadol. She recommended a small dose like 50 mgs. PO Q8 or Q6 hours PRN for pain. The patient has stated she doesn't want to abuse this or any other medication because she had addiction problems in the past and she has agreed to take it only if it extremely necessary. We appreciate Dr. Chavez's intervention and response to our consult. TIME SPENT: 10 minutes. Vital Signs Vital Signs Date Time Temp Pulse Resp B/P (MAP) Pulse Ox O2 Delivery O2 Flow Rate FiO2 02/19/17 08:45 16 02/19/17 06:59 97.7 71 115/63 (80) 02/17/17 06:25 Room Air 02/16/17 19:21 98 Current Medications Current Medications Baclofen (Lioresal) 10 mg TID PO Last administered on 02/19/17 08:46; Start 02/16/17 at 21:00; Stop 03/18/17 at 20:59 Buspirone HCl (Buspar) 7.5 mg BID PO Last administered on 02/19/17 08:44; Start 02/16/17 at 21:00; Stop 03/18/17 at 20:59 Ferrous Sulfate (Ferrous Sulfate) 325 mg Q2D@0900 PO Last administered on 02/19 08:46; Start 02/17/17 at 09:00; Stop 03/19/17 at 08:59 Fluoxetine HCl (PROzac) 40 mg DAILY PO Last administered on 02/19/17 08:44; Start 02/17/17 at 09:00; Stop 03/19/17 at 08:59 Gabapentin (Neurontin) 100 mg TID PO ; Start 02/19/17 at 16:00; Stop 03/21/17 at 15:59; Status Cancel Gabapentin (Neurontin) 300 mg TID PO Last administered on 02/19/17 08:45; Start 02/16/17 at 21:00; Stop 02/19/17 at 14:29; Status DC Gabapentin (Neurontin) 300 mg TID PO ; Start 02/19/17 at 21:00; Stop 03/21/17 at 20:59 Hydroxyzine HCl (Atarax) 50 mg Q6HP PRN PO ANXIETY/AGITATION Last administered on 02/19/17 14:46; Start 02/16/17 at 21:00; Stop 03/18/17 at 20:59 Lamotrigine (LaMICtal) 25 mg BID PO Last administered on 02/19/17 08:46; Start 02/16/17 at 21:00; Stop 03/18/17 at 20:59 Levofloxacin (Levaquin) 500 mg DAILY@06 PO Last administered on 02/19/17 06: 04; Start 02/17/17 at 06:00; Stop 02/23/17 at 06:01 Methadone HCl (Dolophine) 30 mg DAILY PO Last administered on 02/17/17 08:08 ; Start 02/17/17 at 09:00; Stop 02/17/17 at 14:32; Status DC Methadone HCl (Dolophine) 40 mg DAILY PO Last administered on 02/19/17 08:45 ; Start 02/18/17 at 09:00; Stop 02/25/17 at 08:59 Nicotine (Nicoderm Cq 21mg) 1 patch DAILY TD Last administered on 02/19/17 09 :28; Start 02/19/17 at 09:00; Stop 03/21/17 at 08:59 Pregabalin (Lyrica) 100 mg TID PO ; Start 02/19/17 at 16:00; Stop 02/26/17 at 15:59; Status Cancel Quetiapine Fumarate (SEROquel) 100 mg QHS PO Last administered on 02/17/17 20 :43; Start 02/16/17 at 21:00; Stop 02/18/17 at 14:36; Status DC Quetiapine Fumarate (SEROquel) 200 mg QHS PO Last administered on 02/18/17 20 :37; Start 02/18/17 at 21:00; Stop 03/20/17 at 20:59 Tamsulosin HCl (Flomax) 0.4 mg DAILY PO Last administered on 02/19/17 08:45; Start 02/17/17 at 09:00; Stop 03/19/17 at 08:59 Tramadol HCl (Ultram) 50 mg Q12HP PRN PO MODERATE PAIN (PS 5-7); Start at 14:15; Stop 02/25/17 at 09:59; Status UNV Tramadol HCl (Ultram) 50 mg Q8HP PRN PO MODERATE PAIN (PS 5-7) Last administered on 02/19/17 06:17; Start 02/18/17 at 10:00; Stop 02/19/17 at 14 :09; Status DC Tramadol HCl (Ultram) 50 mg Q8HP PRN PO MODERATE PAIN (PS 5-7); Start at 16:45; Stop 02/26/17 at 16:44 Allergies Coded Allergies: TAPE (Verified Allergy, Intermediate, 02/14/17) Very red & Sore Shellfish Allergy (Verified Allergy, Unknown, 02/13/17) Hydrocodone (Verified Adverse Reaction, Mild, BECAME hiGH, 02/13/17) JUSTIN AGUILAR MD Feb 19, 2017 17:00
[2017-02-19 18:00] VITALS: BP 123/78
[2017-02-19] MEDS: QUEtiapine FUMARATE 200 MG TAB PO SCH (20:25)
[2017-02-20] MEDS: LevoFLOXacin 500 MG TABLET PO SCH (05:19)
[2017-02-20 07:03] VITALS: BP 121/73
[2017-02-20] MEDS: NICOTINE 21MG/24HR 1 EA TRANSDERMAL TD SCH (08:29)
[2017-02-20] MEDS: BACLOFEN 10 MG TAB PO SCH ×3 (08:30→20:35)
[2017-02-20] MEDS: FLUoxetine 20 MG CAP PO SCH (08:30)
[2017-02-20] MEDS: busPIRone 5 MG TAB PO SCH ×2 (08:30→20:35)
[2017-02-20] MEDS: traMADol 50 MG TAB PO PRN ×2 (08:30→19:02)
[2017-02-20] MEDS: GABAPENTIN 300 MG CAP PO SCH ×3 (08:31→20:35)
[2017-02-20] MEDS: hydrOXYzine 50 MG TAB PO PRN ×2 (08:31→15:28)
[2017-02-20] MEDS: lamoTRIgine 25 MG TAB PO SCH ×2 (08:31→20:35)
[2017-02-20] MEDS: METHADONE 10 MG TAB (S0109) PO SCH (08:31)
[2017-02-20] MEDS: TAMSULOSIN 0.4 MG CAP PO SCH (08:31)
--- NOTE | 2017-02-20 16:04 | MHIPN ---
DATE: 02/20/2017 CHIEF COMPLAINT: Feels depressed. SUBJECTIVE: Is seen for followup, in the presence of staff. Says has felt depressed, and that her moods have tended to fluctuate, at times says feels she is in the beginnings of a "high," other times feels has "crashed." Sleep a bit erratic, vague on suicidal thoughts, mostly passive. Says has had periods where she has gone without sleep for up to a week and a half, with tons of energy, rapid speech, poor judgment, and these periods are generally followed by a "crash" where she is quite tired and depressed. Some element of paranoia, delusions of persecution, and generally when "high," also suggests at times may happen when she is depressed. MENTAL STATUS EXAMINATION: She is neat, cooperative. Speech somewhat rapid. She is coherent and no agitation. No psychomotor retardation. Has suicidal thoughts. No firm plans. No homicidal ideas or intents. No overt psychosis at present. Judgment and insight are questionable. ASSESSMENT: 1. Other bipolar and related disorders. 2. Rule out bipolar type 1 disorder. PLAN: I would suggest considering increasing the Seroquel to help with mood stabilization, and need to consider that, but for now will continue 200 mg at night. Given the fluctuant nature of moods, would suggest tapering and then hopefully completely eliminating the fluoxetine. Continue the rest of the care, including participation in activities in the unit as tolerated. VITAL SIGNS: Blood pressure 121/73, pulse 87, temperature 98.1.
[2017-02-20 18:13] VITALS: BP 120/65
[2017-02-20] MEDS: QUEtiapine FUMARATE 200 MG TAB PO SCH (20:34)
[2017-02-21] MEDS: LevoFLOXacin 500 MG TABLET PO SCH (05:31)
[2017-02-21] MEDS: traMADol 50 MG TAB PO PRN ×2 (05:32→13:30)
[2017-02-21 06:33] VITALS: BP 123/61
[2017-02-21] MEDS: NICOTINE 21MG/24HR 1 EA TRANSDERMAL TD SCH (08:26)
[2017-02-21] MEDS: METHADONE 10 MG TAB (S0109) PO SCH (08:26)
[2017-02-21] MEDS: FERROUS SULFATE 325MG TAB PO SCH (08:26)
[2017-02-21] MEDS: busPIRone 5 MG TAB PO SCH ×2 (08:26→20:28)
[2017-02-21] MEDS: BACLOFEN 10 MG TAB PO SCH ×3 (08:27→20:28)
[2017-02-21] MEDS: FLUoxetine 20 MG CAP PO SCH (08:27)
[2017-02-21] MEDS: hydrOXYzine 50 MG TAB PO PRN ×2 (08:27→14:25)
[2017-02-21] MEDS: TAMSULOSIN 0.4 MG CAP PO SCH (08:27)
[2017-02-21] MEDS: lamoTRIgine 25 MG TAB PO SCH ×2 (08:27→20:28)
[2017-02-21] MEDS: GABAPENTIN 300 MG CAP PO SCH ×3 (08:27→20:28)
[2017-02-21 18:00] VITALS: BP 121/63
[2017-02-21] MEDS: QUEtiapine FUMARATE 200 MG TAB PO SCH (20:28)
[2017-02-22] MEDS: LevoFLOXacin 500 MG TABLET PO SCH (05:52)
[2017-02-22] MEDS: traMADol 50 MG TAB PO PRN ×3 (06:04→22:51)
[2017-02-22] MEDS: hydrOXYzine 50 MG TAB PO PRN ×3 (06:05→22:54)
[2017-02-22 06:35] VITALS: BP 126/64
[2017-02-22] MEDS: busPIRone 5 MG TAB PO SCH ×2 (08:34→22:49)
[2017-02-22] MEDS: FLUoxetine 20 MG CAP PO SCH (08:35)
[2017-02-22] MEDS: BACLOFEN 10 MG TAB PO SCH ×3 (08:35→22:49)
[2017-02-22] MEDS: lamoTRIgine 25 MG TAB PO SCH ×2 (08:35→22:49)
[2017-02-22] MEDS: METHADONE 10 MG TAB (S0109) PO SCH (08:35)
[2017-02-22] MEDS: TAMSULOSIN 0.4 MG CAP PO SCH (08:35)
[2017-02-22] MEDS: GABAPENTIN 300 MG CAP PO SCH ×3 (08:36→22:48)
[2017-02-22] MEDS: NICOTINE 21MG/24HR 1 EA TRANSDERMAL TD SCH (08:36)
[2017-02-22] MEDS: LACTOBACILLUS ACIDOPHILUS CAP (BACID) PO SCH ×2 (09:15→22:56)
--- NOTE | 2017-02-22 11:10 | IPNPDOC ---
Date Seen The patient was seen on 02/22/17. Progress Note PCP: TANESHA Casillas ATTENDING: Dr. Chidi Damon HPI: 41yoF admitted to [facility] for unspecified psychotic disorder, being medically examined today. The patient was admitted to [facility] from 02/14/17 to 02/16/17 for treatment of CAP. Patient was felt stable to transfer to [facility] 02/16/17. Requested to re evaluate the pt re chronic LLE edema. Patient states she has had a previous injury to her leg, she believes it occurred approximately 1 month ago. She did have an excoriated area on the lateral aspect of the left calf however this is now healed and resolved. She states since her fall she has had left knee pain. She also reports left ankle pain. She was advised previously when she was evaluated that she had a left ankle sprain. She has noticed some swelling which is still persisting in the left lower extremity. Patient denies erythema or warmth. She states she cannot recall how she fell, she believes she was sweeping at the time and fell while she was holding the broom. She is unable to provide any further details. Denies any fevers, chills, weakness, fatigue, WEAVER, CP, palpitations, abdominal pain, N/V/D or changes in bowel or bladder habits. PMHx: History of left lower extremity injury/edema History of rhabdomyolysis CKD3 baseline 1.1-1.3. Chronic hepatitis C. Follows with Dr Cruz. Substance use. Currently on methadone. Depression Anxiety PTSD PSHX: Right breast surgery PE: GEN: 41yoF, appears stated age. Well-nourished, well developed. No acute distress. Alert and oriented x 3. Pleasant, interactive. HEENT: Normocephalic, atraumatic. Pupils are equal, round, and reactive to light. Extraocular movements are intact. No nystagmus appreciated. Sclera are nonicteric. Conjunctiva without injection. Nose midline. Nasal turbinates without bogginess. EACs both patent BL. TMs both visualized and wells with good cone of light, no bulging or erythema. No facial asymmetry. Moist mucous membranes. Dentition fair. Pharynx pink and moist, no cobblestoning. Neck supple , trachea midline. No lymphadenopathy or thyromegaly appreciated. CHEST: Regular rate and rhythm, +S1, +S2 LUNGS: Clear to auscultation bilaterally. No wheezes, rales, or rhonchi. Breathing appears symmetric and easy. Patient is speaking in full sentences. No accessory muscle use. ABD: Round, soft, non-tender, non-distended. +Bowel sounds throughout. No rebound or guarding. No costovertebral angle tenderness. EXT: Pulses 2+ bilaterally dorsalis pedis and radial. There is no edema noted in the right lower extremity. There is mild tenderness with palpation around the left ankle area with mild edema noted of the left lower extremity which involves ankle area and pretibial area. SKIN: [place], dry, warm. Capillary refill <2sec. No rashes. NEURO: Alert and oriented x 3. Cranial nerves III-XII are intact. No focal deficits appreciated. EK02/15/17 SINUS RHYTHM, Within normal limits. No significant change compared with 01/09/2017. CXR 02/14/17 Bibasilar interstitial infiltrates. LLE U/S 02/14/17 No evidence of deep vein thrombosis in the left femoral popliteal venous system. LLE U/S 02/16/17 No evidence of deep venous thrombosis of the left lower extremity femoral popliteal venous system. Peripheral smear Normochromic normocytic anemia with abnormal iron studies, consistent with anemia of chronic disease, or a multifactorial anemia with a component of anemia of chronic disease. No significant poikilocytosis is noted. In view of persistence of the anemia and patients young age, if no obvious cause is known, referral to hematology/oncology outpatient clinic, after patient is recovered from current admission and is discharged, may be helpful. The peripheral smear findings are similar to the previous one in Jan 2017. A&P: 41yoF admitted to [facility] for unspecified psychotic disorder 1. Psych. Plan per Psychiatry. EKG on file. 2. Nicotine dependence. Patch available. 3. Chronic hepatitis C. Follow-up with Dr. Cruz as outpatient. 4. Follow up with PCP on discharge. 5. Substance use. Per psychiatry. Patient currently remains on methadone. ISTOP Reference number [id number] indicates last prescription filled 11/19/16 for tramadol 50 mg #15 tabs. 6. CAP. Patient will finish course of Levaquin 500 mg by mouth 7 additional days. 7. History of chronic left lower extremity injury/edema. Will request x-ray of the left knee and left ankle. Left lower extremity ultrasound 02/16/17 and 02/14 negative for DVT. Continue with baclofen 10 mg 3 times a day and gabapentin 300 mg by mouth 3 times a day. Monitor. Elevate as needed. Apply teds if cleared as per attending psychiatrist. 8. Hypokalemia. Continue with potassium supplement daily. Monitor. Potassium is noted within normal limits. 9. Anemia. Patient remains on iron supplement 1 tablet every 2 days. Outpatient follow-up with PCP. Consider referral to hematology. Monitor. 10. History of IVDU. HIV screening negative 02/09/17. 11. Staff member Thomas JAVIER present on exam. VS, I&O, 24H, Fishbone Vital Signs/I&O Vital Signs Date Time Temp Pulse Resp B/P (MAP) Pulse Ox O2 Delivery O2 Flow Rate FiO2 02/22/17 08:35 18 02/22/17 06:35 97.8 94 126/64 (84) 02/21/17 06:33 Room Air 02/16/17 19:21 98 Joselyn Quiroz Feb 22, 2017 11:10
--- NOTE | 2017-02-22 16:28 | REP ---
Left ankle four views : There is no fracture or dislocation. Mineralization and joint spaces are normal. There are no calcifications or foreign bodies. Impression: Negative left ankle . Signed by Prashanth Obrien MD 02/22/2017 04:19 P
--- NOTE | 2017-02-22 16:30 | REP ---
Left knee five views : There is no fracture or dislocation. Mineralization and joint spaces are normal. There are no calcifications or foreign bodies. Impression: Negative left knee No change from 10/14/2016. . Signed by Prasahnth Obrien MD 02/22/2017 04:21 P
[2017-02-22 18:00] VITALS: BP 117/62
--- NOTE | 2017-02-22 20:28 | MHIPNPDOC ---
[facility] [place] DATE OF SERVICE: 02/22/17 HISTORY: Patient is a 41-year-old female, who has a history of PTSD, depression , anxiety, polysubstance abuse. She was admitted to [facility] from 02/14/17 to for treatment of CAP. Patient was stabilized and transferred to [facility] . Says she has "done wrong to so many people" and it keeps playing in her head and she doesn't know if it's real or not. Everybody she meets reminds her of someone she hurt along the way and she "sees their faces" on people around her. Says when she was brought to the [facility] [place] she thought the hospital was shut down and they wanted to "torture her head". She says it feels like people here at the hospital who want to "infect, poison" her. Says she has many skeletons in her closet, and she wonders if ex-boyfriend who has custody of her 2 year old son put this whole thing together. She says CPS was involved and took her son away. She says he is going to take her son to [place] while she is in here. She says she has outstanding warrants and worries she will be arrested if she leaves for not returning a jeep that was given to her in previous employment. Says she feels somebody has their "eye on her" and that she has lost many phones this year, which may have been taken by somebody. She saw a picture of her son with a woman who used to be her friend and felt like "ripping her throat out". She also mentions she doesn't want to wake up in the morning and takes more than the recommended amount of medication to accomplish this, without taking the full bottle. Says she has chronic back pain, unexplained pains in her legs, no deep vein thromboses were found on imaging studies, and says she's been falling lately. She also has healing wound on her left leg. Says she's impulsive and sometimes doesn't think about consequences. And she feels very weak/tired because of her overall condition. Says she gets racing thoughts and can't get the words out sometimes. 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 She has an extensive medical history including polysubstance abuse, says quit heroin 4 months ago and on methadone currently, hepatitis A, chronic hepatitis C (followed by Dr. Cruz), rhabdomyolysis and CKD stage 3. Interval History 02/22/17: Patient says her mood has improved. Denies SI/plan. Denies paranoia or delusions. Continues to say pain uncontrolled, but has not been taking her Tramadol consistently. She thought process is now linear/ logical. She shows me her bed with clothes laid and other objects in her possession in a neat organized fashion. She says she keeps arranging items on her bed "over and over" again. Says she has trouble moving on to other tasks because she keeps getting side-tracked organizing things. She attended her art class group and says she kept rearranging the pieces of paper on the nitroglycerin neutralizer board, making the task more difficult. She says these obsessive symptoms are causing her distress and she needs something to treat her "ADHD" symptoms. She shows me the lateral aspects of her L arm and leg, which have healed wounds. She says she received these wounds when she fell on a broom which broke while sweeping. She says she now aware of her "reality" and she does not have thoughts of hurting others. She denies any side effects of her medications. VITAL SIGNS: See below. NEW TEST RESULTS: Chronic LLE edema, L ankle pain, L knee pain. Negative L ankle and L knee xrays 02/22/17. CURRENT MEDICATIONS: See below. MENTAL STATUS EXAMINATION: General appearance: Patient is a 41-year old female, who is nad, cooperative with poor dentition, normal eye contact. Speech: normal rhythm, rate and volume Thought processes: circumstantial Thought content: Denies currently having SI, HI, AVH. Denies paranoia, delusions. Abstract reasoning and computation: Good Description of associations: Good Description of abnormal or psychotic thoughts: None Judgment: Improving Insight: Improving Orientation: A/O x 3 Recent and remote memory: Poor Attention span and concentration: Poor Fund of knowledge: below average Mood: "frustrated" Affect: irritable DIAGNOSES: 1. Substance induced Psychotic Disorder 2. Substance Induced Mood Disorder 3. Obsessive compulsive disorder ASSESSMENT:Patient denies psychotic or mood symptoms. States she still has pain which is uncontrolled. However, has not been consistently taking her tramadol. The x-rays of L ankle/knee are unremarkable. Denies medication side effects including but not limited to H/N/V/D/Constipation, serotonin syndrome. MANAGEMENT PLAN: Stopped her Fluoxetine 20 mg QAM (took her morning dose). Started Fluvoxamine Maleate 50 mg QHS for Obsessive Compulsive Disorder and depression. Continue other medications/treatment. Monitor for safety and serotonin syndrome. Continue to TIME SPENT: 30 minutes. Vital Signs Vital Signs Date Time Temp Pulse Resp B/P (MAP) Pulse Ox O2 Delivery O2 Flow Rate FiO2 02/22/17 18:00 99.4 85 16 117/62 (80) 02/21/17 06:33 Room Air 02/16/17 19:21 98 Current Medications Current Medications Baclofen (Lioresal) 10 mg TID PO Last administered on 02/22/17 14:45; Start 02/16/17 at 21:00; Stop 03/18/17 at 20:59 Buspirone HCl (Buspar) 7.5 mg BID PO Last administered on 02/22/17 08:34; Start 02/16/17 at 21:00; Stop 03/18/17 at 20:59 Ferrous Sulfate (Ferrous Sulfate) 325 mg Q2D@0900 PO Last administered on 02/21 08:26; Start 02/17/17 at 09:00; Stop 03/19/17 at 08:59 Fluoxetine HCl (PROzac) 20 mg QAM PO Last administered on 02/22/17 08:35; Start 02/21/17 at 09:00; Stop 02/22/17 at 17:39; Status DC Fluoxetine HCl (PROzac) 40 mg DAILY PO Last administered on 02/20/17 08:30; Start 02/17/17 at 09:00; Stop 02/20/17 at 16:19; Status DC Fluvoxamine Maleate (Luvox) 50 mg QHS PO ; Start 02/22/17 at 21:00; Stop 02/22 at 21:00; Status DC Fluvoxamine Maleate (Luvox) 50 mg QHS PO ; Start 02/23/17 at 21:00; Stop 03/25 at 20:59 Gabapentin (Neurontin) 100 mg TID PO ; Start 02/19/17 at 16:00; Stop 03/21/17 at 15:59; Status Cancel Gabapentin (Neurontin) 300 mg TID PO Last administered on 02/19/17 08:45; Start 02/16/17 at 21:00; Stop 02/19/17 at 14:29; Status DC Gabapentin (Neurontin) 300 mg TID PO Last administered on 02/22/17 14:45; Start 02/19/17 at 17:15; Stop 03/21/17 at 17:14 Hydroxyzine HCl (Atarax) 50 mg Q6HP PRN PO ANXIETY/AGITATION Last administered on 02/22/17 14:44; Start 02/16/17 at 21:00; Stop 03/18/17 at 20:59 Lactobacillus Acidophilus (Bacid) 1 ea BID PO Last administered on 02/22/17 09:15; Start 02/22/17 at 09:00; Stop 03/24/17 at 08:59 Lamotrigine (LaMICtal) 25 mg BID PO Last administered on 02/22/17 08:35; Start 02/16/17 at 21:00; Stop 03/18/17 at 20:59 Levofloxacin (Levaquin) 500 mg DAILY@06 PO Last administered on 02/22/17 05: 52; Start 02/17/17 at 06:00; Stop 02/23/17 at 06:01 Methadone HCl (Dolophine) 30 mg DAILY PO Last administered on 02/17/17 08:08 ; Start 02/17/17 at 09:00; Stop 02/17/17 at 14:32; Status DC Methadone HCl (Dolophine) 40 mg DAILY PO Last administered on 02/22/17 08:35 ; Start 02/18/17 at 09:00; Stop 02/25/17 at 08:59 Nicotine (Nicoderm Cq 21mg) 1 patch DAILY TD Last administered on 02/22/17 08 :36; Start 02/19/17 at 09:00; Stop 03/21/17 at 08:59 Pregabalin (Lyrica) 100 mg TID PO ; Start 02/19/17 at 16:00; Stop 02/26/17 at 15:59; Status Cancel Quetiapine Fumarate (SEROquel) 100 mg QHS PO Last administered on 02/17/17 20 :43; Start 02/16/17 at 21:00; Stop 02/18/17 at 14:36; Status DC Quetiapine Fumarate (SEROquel) 200 mg QHS PO Last administered on 02/21/17 20 :28; Start 02/18/17 at 21:00; Stop 03/20/17 at 20:59 Tamsulosin HCl (Flomax) 0.4 mg DAILY PO Last administered on 02/22/17 08:35; Start 02/17/17 at 09:00; Stop 03/19/17 at 08:59 Tramadol HCl (Ultram) 50 mg Q12HP PRN PO MODERATE PAIN (PS 5-7); Start at 14:15; Stop 02/25/17 at 09:59; Status UNV Tramadol HCl (Ultram) 50 mg Q8HP PRN PO MODERATE PAIN (PS 5-7) Last administered on 02/19/17 06:17; Start 02/18/17 at 10:00; Stop 02/19/17 at 14 :09; Status DC Tramadol HCl (Ultram) 50 mg Q8HP PRN PO MODERATE PAIN (PS 5-7) Last administered on 02/22/17 14:45; Start 02/19/17 at 16:45; Stop 02/26/17 at 16 :44 Allergies Coded Allergies: TAPE (Verified Allergy, Intermediate, 02/14/17) Very red & Sore Shellfish Allergy (Verified Allergy, Unknown, 02/13/17) Hydrocodone (Verified Adverse Reaction, Mild, BECAME hiGH, 02/13/17) LETTY VILLASEÑOR PGY-1 Feb 22, 2017 20:28
[2017-02-22] MEDS ORDERED: fluvoxaMINE MALEATE 50 MG TAB PO SCH (21:00)
[2017-02-22] MEDS: QUEtiapine FUMARATE 200 MG TAB PO SCH (22:49)
[2017-02-23] MEDS: LevoFLOXacin 500 MG TABLET PO SCH (06:30)
[2017-02-23] MEDS: hydrOXYzine 50 MG TAB PO PRN ×3 (06:30→22:43)
[2017-02-23 06:49] VITALS: BP 132/82
[2017-02-23] MEDS: FERROUS SULFATE 325MG TAB PO SCH (08:03)
[2017-02-23] MEDS: NICOTINE 21MG/24HR 1 EA TRANSDERMAL TD SCH (08:03)
[2017-02-23] MEDS: GABAPENTIN 300 MG CAP PO SCH ×3 (08:03→22:44)
[2017-02-23] MEDS: LACTOBACILLUS ACIDOPHILUS CAP (BACID) PO SCH ×2 (08:03→22:43)
[2017-02-23] MEDS: TAMSULOSIN 0.4 MG CAP PO SCH (08:03)
[2017-02-23] MEDS: lamoTRIgine 25 MG TAB PO SCH ×2 (08:04→22:44)
[2017-02-23] MEDS: busPIRone 5 MG TAB PO SCH ×2 (08:04→22:44)
[2017-02-23] MEDS: BACLOFEN 10 MG TAB PO SCH ×3 (08:04→22:44)
[2017-02-23] MEDS: METHADONE 10 MG TAB (S0109) PO SCH (08:05)
[2017-02-23] MEDS: traMADol 50 MG TAB PO PRN ×2 (08:05→16:12)
--- NOTE | 2017-02-23 10:23 | MHIPNPDOC ---
[facility] Progress Note Progress Note DATE OF SERVICE: 02/23/17 HISTORY: Patient is a 41-year-old female, who has a history of PTSD, depression , anxiety, polysubstance abuse. She was admitted to [facility] from 02/14/17 to for treatment of CAP. Patient was stabilized and transferred to [facility] . Says she has "done wrong to so many people" and it keeps playing in her head and she doesn't know if it's real or not. Everybody she meets reminds her of someone she hurt along the way and she "sees their faces" on people around her. Says when she was brought to the [facility] on 02/14/17 she thought the hospital was shut down and they wanted to "torture her head". She says it feels like people here at the hospital who want to "infect, poison" her. Says she has many skeletons in her closet, and she wonders if ex-boyfriend who has custody of her 2 year old son put this whole thing together. She says CPS was involved and took her son away. She says he is going to take her son to [place] while she is in here. She says she has outstanding warrants and worries she will be arrested if she leaves for not returning a jeep that was given to her in previous employment. Says she feels somebody has their "eye on her" and that she has lost many phones this year, which may have been taken by somebody. She saw a picture of her son with a woman who used to be her friend and felt like "ripping her throat out". She also mentions she doesn't want to wake up in the morning and takes more than the recommended amount of medication to accomplish this, without taking the full bottle. Says she has chronic back pain, unexplained pains in her legs, no deep vein thromboses were found on imaging studies, and says she's been falling lately. She also has healing wound on her left leg. Says she's impulsive and sometimes doesn't think about consequences. And she feels very weak/tired because of her overall condition. Says she gets racing thoughts and can't get the words out sometimes. 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 She has an extensive medical history including polysubstance abuse, says quit heroin 4 months ago and on methadone currently, hepatitis A, chronic hepatitis C (followed by Dr. Cruz), rhabdomyolysis and CKD stage 3. Interval History 02/23/17: Patient denies suicidal ideation and plan. She continues to arrange her possessions on her bed and says she hates her roommate and figuratively "wants to hurt her". She mentions she has mood swings and gets frustrated by the fact she has them. She wants detailed information about her medications and has a binder full of print-outs. She has an outburst and says if anything goes wrong "I'm coming after you". We discussed her treatment and she calms down. She says she has been having upset stomach and is irritable, possible side effects of her Prozac medication. She attended her group therapy sessions yesterday. VITAL SIGNS: See below. NEW TEST RESULTS: none CURRENT MEDICATIONS: See below. MENTAL STATUS EXAMINATION: General appearance: Patient is a 41-year old female, who is in NAD, uncooperative, poor dentition, intense eye contact. Speech: increased rhythm, rate and volume Thought processes: linear, logical Thought content: Denies currently having SI, HI, AVH. Denies paranoia, delusions. Abstract reasoning and computation: Good Description of associations: Good Description of abnormal or psychotic thoughts: None Judgment: Improving Insight: Improving Orientation: A/O x 3 Recent and remote memory: Poor Attention span and concentration: Poor Fund of knowledge: below average Mood: "aggravated" Affect: irritable, aggressive, mood-congruent, inappropriate DIAGNOSES: 1. Substance induced Psychotic Disorder 2. Substance Induced Mood Disorder 3. Obsessive compulsive disorder 4. Possible Borderline Personality Disorder, rule out Bipolar Disorder I ASSESSMENT:Patient denies psychotic, but is more irritable today. States she still has pain. However, has not been consistently taking her tramadol, since she says she doesn't want to take it. She says she doesn't trust new medications. We were able to form a treatment plan together. Endorses medication side effects of upset stomach. Stopping Fluoxetine 20 mg QAM and starting Fluvoxamine Maleate 50 mg QHS this evening, should help with the anxiety, agitation and will see if can avoid the side effects of upset stomach on the medication. Explained to the patient that gastrointestinal symptoms, such as abdominal pain, Nausea, constipation and dizziness can occur when starting the medication or as common side effects. MANAGEMENT PLAN: Starting Fluvoxamine Maleate 50 mg PO QHS tonight for Obsessive Compulsive Disorder and depression. Was planning to start last night, but she had her morning dose of Fluoxetine 20 mg PO. Continue other medications/ treatment. Monitor for safety and serotonin syndrome. TIME SPENT: 30 minutes.. Vital Signs Vital Signs Date Time Temp Pulse Resp B/P (MAP) Pulse Ox O2 Delivery O2 Flow Rate FiO2 02/23/17 09:00 16 02/23/17 06:49 98.2 86 132/82 (99) 02/21/17 06:33 Room Air Current Medications Current Medications Baclofen (Lioresal) 10 mg TID PO Last administered on 02/23/17 08:04; Start 02/16/17 at 21:00; Stop 03/18/17 at 20:59 Buspirone HCl (Buspar) 7.5 mg BID PO Last administered on 02/23/17 08:04; Start 02/16/17 at 21:00; Stop 03/18/17 at 20:59 Ferrous Sulfate (Ferrous Sulfate) 325 mg Q2D@0900 PO Last administered on 02/23 08:03; Start 02/17/17 at 09:00; Stop 03/19/17 at 08:59 Fluoxetine HCl (PROzac) 20 mg QAM PO Last administered on 02/22/17 08:35; Start 02/21/17 at 09:00; Stop 02/22/17 at 17:39; Status DC Fluoxetine HCl (PROzac) 40 mg DAILY PO Last administered on 02/20/17 08:30; Start 02/17/17 at 09:00; Stop 02/20/17 at 16:19; Status DC Fluvoxamine Maleate (Luvox) 50 mg QHS PO ; Start 02/22/17 at 21:00; Stop 02/22 at 21:00; Status DC Fluvoxamine Maleate (Luvox) 50 mg QHS PO ; Start 02/23/17 at 21:00; Stop 03/25 at 20:59 Gabapentin (Neurontin) 100 mg TID PO ; Start 02/19/17 at 16:00; Stop 03/21/17 at 15:59; Status Cancel Gabapentin (Neurontin) 300 mg TID PO Last administered on 02/19/17 08:45; Start 02/16/17 at 21:00; Stop 02/19/17 at 14:29; Status DC Gabapentin (Neurontin) 300 mg TID PO Last administered on 02/23/17 08:03; Start 02/19/17 at 17:15; Stop 03/21/17 at 17:14 Hydroxyzine HCl (Atarax) 50 mg Q6HP PRN PO ANXIETY/AGITATION Last administered on 02/23/17 06:30; Start 02/16/17 at 21:00; Stop 03/18/17 at 20:59 Lactobacillus Acidophilus (Bacid) 1 ea BID PO Last administered on 02/23/17 08:03; Start 02/22/17 at 09:00; Stop 03/24/17 at 08:59 Lamotrigine (LaMICtal) 25 mg BID PO Last administered on 02/23/17 08:04; Start 02/16/17 at 21:00; Stop 03/18/17 at 20:59 Levofloxacin (Levaquin) 500 mg DAILY@06 PO Last administered on 02/23/17 06: 30; Start 02/17/17 at 06:00; Stop 02/23/17 at 06:01; Status DC Methadone HCl (Dolophine) 30 mg DAILY PO Last administered on 02/17/17 08:08 ; Start 02/17/17 at 09:00; Stop 02/17/17 at 14:32; Status DC Methadone HCl (Dolophine) 40 mg DAILY PO Last administered on 02/23/17 08:05 ; Start 02/18/17 at 09:00; Stop 02/25/17 at 08:59 Nicotine (Nicoderm Cq 21mg) 1 patch DAILY TD Last administered on 02/23/17 08 :03; Start 02/19/17 at 09:00; Stop 03/21/17 at 08:59 Pregabalin (Lyrica) 100 mg TID PO ; Start 02/19/17 at 16:00; Stop 02/26/17 at 15:59; Status Cancel Quetiapine Fumarate (SEROquel) 100 mg QHS PO Last administered on 02/17/17 20 :43; Start 02/16/17 at 21:00; Stop 02/18/17 at 14:36; Status DC Quetiapine Fumarate (SEROquel) 200 mg QHS PO Last administered on 02/22/17 22 :49; Start 02/18/17 at 21:00; Stop 03/20/17 at 20:59 Tamsulosin HCl (Flomax) 0.4 mg DAILY PO Last administered on 02/23/17 08:03; Start 02/17/17 at 09:00; Stop 03/19/17 at 08:59 Tramadol HCl (Ultram) 50 mg Q12HP PRN PO MODERATE PAIN (PS 5-7); Start at 14:15; Stop 02/25/17 at 09:59; Status UNV Tramadol HCl (Ultram) 50 mg Q8HP PRN PO MODERATE PAIN (PS 5-7) Last administered on 02/19/17 06:17; Start 02/18/17 at 10:00; Stop 02/19/17 at 14 :09; Status DC Tramadol HCl (Ultram) 50 mg Q8HP PRN PO MODERATE PAIN (PS 5-7) Last administered on 02/23/17 08:05; Start 02/19/17 at 16:45; Stop 02/26/17 at 16 :44 Allergies Coded Allergies: TAPE (Verified Allergy, Intermediate, 02/14/17) Very red & Sore Shellfish Allergy (Verified Allergy, Unknown, 02/13/17) Hydrocodone (Verified Adverse Reaction, Mild, BECAME hiGH, 02/13/17) LETTY VILLASEÑOR PGY-1 Feb 23, 2017 10:22
[2017-02-23 18:00] VITALS: BP 115/55
[2017-02-23] MEDS: fluvoxaMINE MALEATE 50 MG TAB PO SCH (22:44)
[2017-02-23] MEDS: QUEtiapine FUMARATE 200 MG TAB PO SCH (22:44)
[2017-02-24] MEDS: hydrOXYzine 50 MG TAB PO PRN ×3 (06:40→21:59)
[2017-02-24] MEDS: traMADol 50 MG TAB PO PRN ×3 (06:40→23:21)
[2017-02-24 07:13] VITALS: BP 134/80
[2017-02-24] MEDS: LACTOBACILLUS ACIDOPHILUS CAP (BACID) PO SCH ×2 (09:27→21:58)
[2017-02-24] MEDS: lamoTRIgine 25 MG TAB PO SCH ×2 (09:27→21:58)
[2017-02-24] MEDS: busPIRone 5 MG TAB PO SCH ×2 (09:27→21:58)
[2017-02-24] MEDS: TAMSULOSIN 0.4 MG CAP PO SCH (09:27)
[2017-02-24] MEDS: GABAPENTIN 300 MG CAP PO SCH ×3 (09:27→21:58)
[2017-02-24] MEDS: METHADONE 10 MG TAB (S0109) PO SCH (09:27)
[2017-02-24] MEDS: BACLOFEN 10 MG TAB PO SCH ×3 (09:27→21:58)
[2017-02-24] MEDS: NICOTINE 21MG/24HR 1 EA TRANSDERMAL TD SCH (09:28)
[2017-02-24 18:00] VITALS: BP 134/76
--- NOTE | 2017-02-24 19:12 | MHIPNPDOC ---
[facility] Progress Note Progress Note DATE OF SERVICE: 02/24/17 HISTORY: Patient is a 41-year-old female, who has a history of PTSD, depression , anxiety, polysubstance abuse. She was admitted to [facility] from 02/14/17 to for treatment of CAP. Patient was stabilized and transferred to [facility] . Says she has "done wrong to so many people" and it keeps playing in her head and she doesn't know if it's real or not. Everybody she meets reminds her of someone she hurt along the way and she "sees their faces" on people around her. Says when she was brought to the [facility] on 02/14/17 she thought the hospital was shut down and they wanted to "torture her head". She says it feels like people here at the hospital who want to "infect, poison" her. Says she has many skeletons in her closet, and she wonders if ex-boyfriend who has custody of her 2 year old son put this whole thing together. She says CPS was involved and took her son away. She says he is going to take her son to [place] while she is in here. She says she has outstanding warrants and worries she will be arrested if she leaves for not returning a jeep that was given to her in previous employment. Says she feels somebody has their "eye on her" and that she has lost many phones this year, which may have been taken by somebody. She saw a picture of her son with a woman who used to be her friend and felt like "ripping her throat out". She also mentions she doesn't want to wake up in the morning and takes more than the recommended amount of medication to accomplish this, without taking the full bottle. Says she has chronic back pain, unexplained pains in her legs, no deep vein thromboses were found on imaging studies, and says she's been falling lately. She also has healing wound on her left leg. Says she's impulsive and sometimes doesn't think about consequences. And she feels very weak/tired because of her overall condition. Says she gets racing thoughts and can't get the words out sometimes. 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 She has an extensive medical history including polysubstance abuse, says quit heroin 4 months ago and on methadone currently, hepatitis A, chronic hepatitis C (followed by Dr. Cruz), rhabdomyolysis and CKD stage 3. Interval History 02/24/17: Patient continues to deny suicidal ideation and plan. She dis not have her possessions arranged on her bed today. She was sitting at her desk compiling notes and trying to make arrangements for her discharge, despite being told by staff they can arrange appointments for her. She has rapid and pressured speech. She missed her morning group, but went to group yesterday. She was less argumentative on interview, but continues to be uncooperative. She says she is still "scatter brained", but says it has improved. She is not making inappropriate statements with regards to "theoretically" harming others. VITAL SIGNS: See below. NEW TEST RESULTS: none CURRENT MEDICATIONS: See below. MENTAL STATUS EXAMINATION: General appearance: Patient is a 41-year old female, who is in NAD, uncooperative, poor dentition, intense eye contact. Speech: Spontaneous rapid, pressured speech, increased rhythm, rate and volume Thought processes: linear, logical Thought content: Denies currently having SI, HI, AVH, paranoia, delusions. Abstract reasoning and computation: Good Description of associations: Good Description of abnormal or psychotic thoughts: None Judgment: Improving Insight: Improving Orientation: A/O x 3 Recent and remote memory: Poor Attention span and concentration: Poor Fund of knowledge: below average Mood: "frustrated" Affect: irritable, mood-congruent DIAGNOSES: 1. Substance induced Psychotic Disorder 2. Substance Induced Mood Disorder 3. Obsessive compulsive disorder 4. Possible Borderline Personality Disorder, rule out Bipolar Disorder I ASSESSMENT: Continues to be irritable, but less agitated and aggressive today. Says she wants to be left alone. Has received print outs of her medications, including side effects. Continuing to form a therapeutic alliance so that she can trust treatment plan. She denies AVH, suicidal thoughts or paranoia. Mild anxiety is present, but has improved during the course of treatment. Continues to ask for ADHD medications, which may be a sign of drug seeking behavior. She says when she leaves she will smoke and drink as before she came to the unit. She continues to be worried about her ex-boyfriend taking her son away and will continue to be counselled on her situation and the affects psychologically and emotionally it has on her. MANAGEMENT PLAN: Increased her dose of Abilify to 5 mg PO BID, it was discussed with the patient we would be augmenting her medication accordingly and no significant side effects noted. Continue other medications/treatment. Monitor for safety and serotonin syndrome, as well as, other medication side effects. Continue to monitor for aggressive behavior and possible SI/HI. TIME SPENT: 15 minutes. Vital Signs Vital Signs Date Time Temp Pulse Resp B/P (MAP) Pulse Ox O2 Delivery O2 Flow Rate FiO2 02/24/17 16:10 16 02/24/17 07:13 98.2 82 134/80 (98) Room Air Current Medications Current Medications Aripiprazole (AbiLIFY) 2.5 mg BID PO Last administered on 02/24/17 09:27; Start 02/23/17 at 09:00; Stop 02/24/17 at 14:40; Status DC Aripiprazole (AbiLIFY) 5 mg BID PO ; Start 02/24/17 at 21:00; Stop 03/26/17 at 20:59 Baclofen (Lioresal) 10 mg TID PO Last administered on 02/24/17 15:38; Start 02/16/17 at 21:00; Stop 03/18/17 at 20:59 Buspirone HCl (Buspar) 7.5 mg BID PO Last administered on 02/24/17 09:27; Start 02/16/17 at 21:00; Stop 03/18/17 at 20:59 Ferrous Sulfate (Ferrous Sulfate) 325 mg Q2D@0900 PO Last administered on 02/23 08:03; Start 02/17/17 at 09:00; Stop 03/19/17 at 08:59 Fluoxetine HCl (PROzac) 20 mg QAM PO Last administered on 02/22/17 08:35; Start 02/21/17 at 09:00; Stop 02/22/17 at 17:39; Status DC Fluoxetine HCl (PROzac) 40 mg DAILY PO Last administered on 02/20/17 08:30; Start 02/17/17 at 09:00; Stop 02/20/17 at 16:19; Status DC Fluvoxamine Maleate (Luvox) 50 mg QHS PO ; Start 02/22/17 at 21:00; Stop 02/22 at 21:00; Status DC Fluvoxamine Maleate (Luvox) 50 mg QHS PO Last administered on 02/23/17 22:44 ; Start 02/23/17 at 21:00; Stop 03/25/17 at 20:59 Gabapentin (Neurontin) 100 mg TID PO ; Start 02/19/17 at 16:00; Stop 03/21/17 at 15:59; Status Cancel Gabapentin (Neurontin) 300 mg TID PO Last administered on 02/19/17 08:45; Start 02/16/17 at 21:00; Stop 02/19/17 at 14:29; Status DC Gabapentin (Neurontin) 300 mg TID PO Last administered on 02/24/17 15:38; Start 02/19/17 at 17:15; Stop 03/21/17 at 17:14 Hydroxyzine HCl (Atarax) 50 mg Q6HP PRN PO ANXIETY/AGITATION Last administered on 02/24/17 15:38; Start 02/16/17 at 21:00; Stop 03/18/17 at 20:59 Lactobacillus Acidophilus (Bacid) 1 ea BID PO Last administered on 02/24/17 09:27; Start 02/22/17 at 09:00; Stop 03/24/17 at 08:59 Lamotrigine (LaMICtal) 25 mg BID PO Last administered on 02/24/17 09:27; Start 02/16/17 at 21:00; Stop 03/18/17 at 20:59 Levofloxacin (Levaquin) 500 mg DAILY@06 PO Last administered on 02/23/17 06: 30; Start 02/17/17 at 06:00; Stop 02/23/17 at 06:01; Status DC Methadone HCl (Dolophine) 30 mg DAILY PO Last administered on 02/17/17 08:08 ; Start 02/17/17 at 09:00; Stop 02/17/17 at 14:32; Status DC Methadone HCl (Dolophine) 40 mg DAILY PO Last administered on 02/24/17 09:27 ; Start 02/18/17 at 09:00; Stop 03/03/17 at 08:59 Nicotine (Nicoderm Cq 21mg) 1 patch DAILY TD Last administered on 02/24/17 09 :28; Start 02/19/17 at 09:00; Stop 03/21/17 at 08:59 Pregabalin (Lyrica) 100 mg TID PO ; Start 02/19/17 at 16:00; Stop 02/26/17 at 15:59; Status Cancel Quetiapine Fumarate (SEROquel) 100 mg QHS PO Last administered on 02/17/17 20 :43; Start 02/16/17 at 21:00; Stop 02/18/17 at 14:36; Status DC Quetiapine Fumarate (SEROquel) 200 mg QHS PO Last administered on 02/23/17 22 :44; Start 02/18/17 at 21:00; Stop 03/20/17 at 20:59 Tamsulosin HCl (Flomax) 0.4 mg DAILY PO Last administered on 02/24/17 09:27; Start 02/17/17 at 09:00; Stop 03/19/17 at 08:59 Tramadol HCl (Ultram) 50 mg Q12HP PRN PO MODERATE PAIN (PS 5-7); Start at 14:15; Stop 02/25/17 at 09:59; Status UNV Tramadol HCl (Ultram) 50 mg Q8HP PRN PO MODERATE PAIN (PS 5-7) Last administered on 02/19/17 06:17; Start 02/18/17 at 10:00; Stop 02/19/17 at 14 :09; Status DC Tramadol HCl (Ultram) 50 mg Q8HP PRN PO MODERATE PAIN (PS 5-7) Last administered on 02/24/17 15:38; Start 02/19/17 at 16:45; Stop 02/26/17 at 16 :44 Allergies Coded Allergies: TAPE (Verified Allergy, Intermediate, 02/14/17) Very red & Sore Shellfish Allergy (Verified Allergy, Unknown, 02/13/17) Hydrocodone (Verified Adverse Reaction, Mild, BECAME hiGH, 02/13/17) LETTY VILLASEÑOR PGY-1 Feb 24, 2017 19:12
[2017-02-24] MEDS: QUEtiapine FUMARATE 200 MG TAB PO SCH (21:58)
[2017-02-24] MEDS: fluvoxaMINE MALEATE 50 MG TAB PO SCH (21:58)
[2017-02-25 07:08] VITALS: BP 131/76
[2017-02-25] MEDS: METHADONE 10 MG TAB (S0109) PO SCH (08:12)
[2017-02-25] MEDS: NICOTINE 21MG/24HR 1 EA TRANSDERMAL TD SCH (08:12)
[2017-02-25] MEDS: BACLOFEN 10 MG TAB PO SCH ×3 (08:13→21:00)
[2017-02-25] MEDS: lamoTRIgine 25 MG TAB PO SCH ×2 (08:13→21:01)
[2017-02-25] MEDS: GABAPENTIN 300 MG CAP PO SCH ×3 (08:13→21:00)
[2017-02-25] MEDS: TAMSULOSIN 0.4 MG CAP PO SCH (08:13)
[2017-02-25] MEDS: busPIRone 5 MG TAB PO SCH ×2 (08:13→21:01)
[2017-02-25] MEDS: hydrOXYzine 50 MG TAB PO PRN ×3 (08:13→23:56)
[2017-02-25] MEDS: traMADol 50 MG TAB PO PRN ×3 (08:13→23:56)
[2017-02-25] MEDS: FERROUS SULFATE 325MG TAB PO SCH (08:13)
[2017-02-25] MEDS: LACTOBACILLUS ACIDOPHILUS CAP (BACID) PO SCH ×2 (08:13→21:01)
[2017-02-25] MEDS ORDERED: FUROSEMIDE 20 MG TAB PO ONE (10:30)
--- NOTE | 2017-02-25 13:02 | MHIPNPDOC ---
[facility] Progress Note Progress Note DATE OF SERVICE: 02/25/17 HISTORY: Patient is a 41-year-old female, who has a history of PTSD, depression , anxiety, polysubstance abuse. She was admitted to [facility] from 02/14/17 to for treatment of CAP. Patient was stabilized and transferred to [facility] . Says she has "done wrong to so many people" and it keeps playing in her head and she doesn't know if it's real or not. Everybody she meets reminds her of someone she hurt along the way and she "sees their faces" on people around her. Says when she was brought to the [facility] on 02/14/17 she thought the hospital was shut down and they wanted to "torture her head". She says it feels like people here at the hospital who want to "infect, poison" her. Says she has many skeletons in her closet, and she wonders if ex-boyfriend who has custody of her 2 year old son put this whole thing together. She says CPS was involved and took her son away. She says he is going to take her son to [place] while she is in here. She says she has outstanding warrants and worries she will be arrested if she leaves for not returning a jeep that was given to her in previous employment. Says she feels somebody has their "eye on her" and that she has lost many phones this year, which may have been taken by somebody. She saw a picture of her son with a woman who used to be her friend and felt like "ripping her throat out". She also mentions she doesn't want to wake up in the morning and takes more than the recommended amount of medication to accomplish this, without taking the full bottle. Says she has chronic back pain, unexplained pains in her legs, no deep vein thromboses were found on imaging studies, and says she's been falling lately. She also has healing wound on her left leg. Says she's impulsive and sometimes doesn't think about consequences. And she feels very weak/tired because of her overall condition. Says she gets racing thoughts and can't get the words out sometimes. 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 She has an extensive medical history including polysubstance abuse, says quit heroin 4 months ago and on methadone currently, hepatitis A, chronic hepatitis C (followed by Dr. Cruz), rhabdomyolysis and CKD stage 3. Interval History 02/25/17: Says she feels tired today. Appears more relaxed, but says it's because she's tired. Says she continues to have pain, but Tramadol helps, however wants something else instead for her pain. Says she feeling less anxious and depressed. Says she is not having headaches and usually she does at this time of the year. Says she feels comfortable with her medications at the moment and wants to stay with her current dose regimen. Says she still worries about ex-boyfriend with her son and wants to leave and see deal with son. Notice she has a lazy L eye, she mentions she has a lazy left eye when she gets tired. Says she was supposed to get a surgery in the past with an eye doctor. Denies any suicidal ideations or homicidal ideations. VITAL SIGNS: See below. NEW TEST RESULTS: none CURRENT MEDICATIONS: See below. MENTAL STATUS EXAMINATION: General appearance: Patient is a 41-year old female, who is in NAD, much more cooperative, poor dentition, normal eye contact, lazy left eye Speech: normal rate, rhythm, volume Thought processes: linear, logical Thought content: Denies currently having SI, HI, AVH, paranoia, delusions. Abstract reasoning and computation: Good Description of associations: Good Description of abnormal or psychotic thoughts: None Judgment: Improving Insight: Improving Orientation: A/O x 3 Recent and remote memory: Poor Attention span and concentration: Poor Fund of knowledge: below average Mood: "tired" Affect: lethargic, mood-incongruent, appropriate DIAGNOSES: 1. Substance induced Psychotic Disorder 2. Substance Induced Mood Disorder 3. Obsessive compulsive disorder 4. Possible Borderline Personality Disorder, rule out Bipolar Disorder I ASSESSMENT: Not irritable or agitated today. She appears calm/relaxed. She still mentions pain, but says Tramadol "keeps it on an okay level, but still there". She denies anxiety or depression. She is much more cooperative and says her "racing thoughts" have significantly improved. We discussed her medications and any side effects. Said she had some mild upset stomach, couple days ago but has since improved. She says she feels tired, but overall improving. She remains concerned about her upcoming court date for custody of her son. Has not been attending groups today, for fear it will lead to arguments. This shows insight as she has been argumentative and was going to groups yesterday. However today she appears more calm and counselled her to resume group therapy. MANAGEMENT PLAN: Continue Abilify to 5 mg PO BID. Continue Seroquel 200 mg QHS. Continue Luvox 50 QHS. Continue treatment plen/medications. No significant medication side effects at this time noted, apart from mild lethargy. Continue other medications/treatment. Monitor for safety and serotonin syndrome, as well as, other medication side effects. Continue to monitor for aggressive behavior and possible SI/HI. TIME SPENT: 15 minutes. Vital Signs Vital Signs Date Time Temp Pulse Resp B/P (MAP) Pulse Ox O2 Delivery O2 Flow Rate FiO2 02/25/17 08:56 16 02/25/17 07:08 98.0 79 131/76 (94) 02/24/17 07:13 Room Air Current Medications Current Medications Aripiprazole (AbiLIFY) 2.5 mg BID PO Last administered on 02/24/17 09:27; Start 02/23/17 at 09:00; Stop 02/24/17 at 14:40; Status DC Aripiprazole (AbiLIFY) 5 mg BID PO Last administered on 02/25/17 08:13; Start 02/24/17 at 21:00; Stop 03/26/17 at 20:59 Baclofen (Lioresal) 10 mg TID PO Last administered on 02/25/17 08:13; Start 02/16/17 at 21:00; Stop 03/18/17 at 20:59 Buspirone HCl (Buspar) 7.5 mg BID PO Last administered on 02/25/17 08:13; Start 02/16/17 at 21:00; Stop 03/18/17 at 20:59 Ferrous Sulfate (Ferrous Sulfate) 325 mg Q2D@0900 PO Last administered on 02/25 08:13; Start 02/17/17 at 09:00; Stop 03/19/17 at 08:59 Fluoxetine HCl (PROzac) 20 mg QAM PO Last administered on 02/22/17 08:35; Start 02/21/17 at 09:00; Stop 02/22/17 at 17:39; Status DC Fluoxetine HCl (PROzac) 40 mg DAILY PO Last administered on 02/20/17 08:30; Start 02/17/17 at 09:00; Stop 02/20/17 at 16:19; Status DC Fluvoxamine Maleate (Luvox) 50 mg QHS PO ; Start 02/22/17 at 21:00; Stop 02/22 at 21:00; Status DC Fluvoxamine Maleate (Luvox) 50 mg QHS PO Last administered on 02/24/17 21:58 ; Start 02/23/17 at 21:00; Stop 03/25/17 at 20:59 Gabapentin (Neurontin) 100 mg TID PO ; Start 02/19/17 at 16:00; Stop 03/21/17 at 15:59; Status Cancel Gabapentin (Neurontin) 300 mg TID PO Last administered on 02/19/17 08:45; Start 02/16/17 at 21:00; Stop 02/19/17 at 14:29; Status DC Gabapentin (Neurontin) 300 mg TID PO Last administered on 02/25/17 08:13; Start 02/19/17 at 17:15; Stop 03/21/17 at 17:14 Hydroxyzine HCl (Atarax) 50 mg Q6HP PRN PO ANXIETY/AGITATION Last administered on 02/25/17 08:13; Start 02/16/17 at 21:00; Stop 03/18/17 at 20:59 Lactobacillus Acidophilus (Bacid) 1 ea BID PO Last administered on 02/25/17 08:13; Start 02/22/17 at 09:00; Stop 03/24/17 at 08:59 Lamotrigine (LaMICtal) 25 mg BID PO Last administered on 02/25/17 08:13; Start 02/16/17 at 21:00; Stop 03/18/17 at 20:59 Levofloxacin (Levaquin) 500 mg DAILY@06 PO Last administered on 02/23/17 06: 30; Start 02/17/17 at 06:00; Stop 02/23/17 at 06:01; Status DC Methadone HCl (Dolophine) 30 mg DAILY PO Last administered on 02/17/17 08:08 ; Start 02/17/17 at 09:00; Stop 02/17/17 at 14:32; Status DC Methadone HCl (Dolophine) 40 mg DAILY PO Last administered on 02/25/17 08:12 ; Start 02/18/17 at 09:00; Stop 03/03/17 at 08:59 Nicotine (Nicoderm Cq 21mg) 1 patch DAILY TD Last administered on 02/25/17 08 :12; Start 02/19/17 at 09:00; Stop 03/21/17 at 08:59 Pregabalin (Lyrica) 100 mg TID PO ; Start 02/19/17 at 16:00; Stop 02/26/17 at 15:59; Status Cancel Quetiapine Fumarate (SEROquel) 100 mg QHS PO Last administered on 02/17/17 20 :43; Start 02/16/17 at 21:00; Stop 02/18/17 at 14:36; Status DC Quetiapine Fumarate (SEROquel) 200 mg QHS PO Last administered on 02/24/17 21 :58; Start 02/18/17 at 21:00; Stop 03/20/17 at 20:59 Tamsulosin HCl (Flomax) 0.4 mg DAILY PO Last administered on 02/25/17 08:13; Start 02/17/17 at 09:00; Stop 03/19/17 at 08:59 Tramadol HCl (Ultram) 50 mg Q12HP PRN PO MODERATE PAIN (PS 5-7); Start at 14:15; Stop 02/25/17 at 09:59; Status UNV Tramadol HCl (Ultram) 50 mg Q8HP PRN PO MODERATE PAIN (PS 5-7) Last administered on 02/19/17 06:17; Start 02/18/17 at 10:00; Stop 02/19/17 at 14 :09; Status DC Tramadol HCl (Ultram) 50 mg Q8HP PRN PO MODERATE PAIN (PS 5-7) Last administered on 02/25/17 08:13; Start 02/19/17 at 16:45; Stop 02/26/17 at 16 :44 Allergies Coded Allergies: TAPE (Verified Allergy, Intermediate, 02/14/17) Very red & Sore Shellfish Allergy (Verified Allergy, Unknown, 02/13/17) Hydrocodone (Verified Adverse Reaction, Mild, BECAME hiGH, 02/13/17) LETTY VILLASEÑOR PGY-1 Feb 25, 2017 13:02
[2017-02-25 18:00] VITALS: BP 134/99
[2017-02-25] MEDS: QUEtiapine FUMARATE 200 MG TAB PO SCH (21:01)
[2017-02-25] MEDS: fluvoxaMINE MALEATE 50 MG TAB PO SCH (21:01)
[2017-02-26 06:55] VITALS: BP 114/69
[2017-02-26] MEDS: GABAPENTIN 300 MG CAP PO SCH ×3 (08:03→23:46)
[2017-02-26] MEDS: busPIRone 5 MG TAB PO SCH ×2 (08:04→23:45)
[2017-02-26] MEDS: traMADol 50 MG TAB PO PRN ×3 (08:04→23:51)
[2017-02-26] MEDS: METHADONE 10 MG TAB (S0109) PO SCH (08:04)
[2017-02-26] MEDS: hydrOXYzine 50 MG TAB PO PRN (08:05)
[2017-02-26] MEDS: lamoTRIgine 25 MG TAB PO SCH ×2 (08:05→23:46)
[2017-02-26] MEDS: LACTOBACILLUS ACIDOPHILUS CAP (BACID) PO SCH ×2 (08:05→23:45)
[2017-02-26] MEDS: BACLOFEN 10 MG TAB PO SCH ×3 (08:05→23:45)
[2017-02-26] MEDS: NICOTINE 21MG/24HR 1 EA TRANSDERMAL TD SCH (08:05)
[2017-02-26] MEDS: TAMSULOSIN 0.4 MG CAP PO SCH (08:05)
[2017-02-26 08:08] LABS: MEAN CORPUSCULAR HEMOGLOBIN 28.8 pg (27.0-33.0); MEAN CORPUSCULAR HGB CONC 32.2 g/dl (32.0-36.5); MEAN CORPUSCULAR VOLUME 89.3 fl (80.0-96.0); PLATELET COUNT, AUTOMATED 337 10^3/uL (150-450); RED CELL DISTRIBUTION WIDTH 14.2 % (11.5-14.5); WHITE BLOOD COUNT 7.2 10^3/uL (4.0-10.0)
[2017-02-26 08:36] LABS: ALBUMIN 3.1 GM/DL (3.2-5.2); ALBUMIN/GLOBULIN RATIO 0.79 (1.00-1.93); BILIRUBIN,TOTAL 0.2 MG/DL (0.2-1.0); CALCIUM LEVEL 8.9 MG/DL (8.5-10.1); CREATININE FOR GFR 1.18 MG/DL (0.55-1.02); POTASSIUM SERUM 3.9 MEQ/L (3.5-5.1)
--- NOTE | 2017-02-26 11:57 | IPNPDOC ---
Date Seen The patient was seen on 02/26/17. Progress Note PCP: TANESHA Casillas ATTENDING: Dr. Chidi Damon HPI: 41yoF admitted to [facility] for unspecified psychotic disorder, being medically examined today. The patient was admitted to [facility] from 02/14/17 to 02/16/17 for treatment of CAP. Patient was felt stable to transfer to [facility] 02/16/17. Requested to re evaluate the pt re chronic LLE edema. Patient states she has had a previous injury to her leg, she believes it occurred approximately 1 month ago. She did have an excoriated area on the lateral aspect of the left calf however this is now healed and resolved. She states since her fall she has had left knee pain. She also reports left ankle pain. She was advised previously when she was evaluated that she had a left ankle sprain. She has noticed some swelling which is still persisting in the left lower extremity. Patient denies erythema or warmth. She states she cannot recall how she fell, she believes she was sweeping at the time and fell while she was holding the broom. She is unable to provide any further details. Nursing confirmed with Pharmacy that she had a script for Lasix 20 mg daily prn which the pt states she had been using as needed prior to admission and this helped with LE edema. I am requested to re evaluate the pt as she had reported CP and SOB this AM. She states she had some chest pressure and SOB but that it resolved this AM. She states she took atarax and it seemed to help. She denies CP or SOB currently. no wheezing. No fevers/chills. Has been active on the unit with no recurrent CP. Pt also c/o left foot pain today. Denies any fevers, chills, weakness, fatigue, WEAVER, CP, palpitations, abdominal pain, N/V/D or changes in bowel or bladder habits. PMHx: History of left lower extremity injury/edema chronic venous insufficiency. History of rhabdomyolysis CKD3 baseline 1.1-1.3. Chronic hepatitis C. Follows with Dr Cruz. Substance use. Currently on methadone. Depression Anxiety PTSD PSHX: Right breast surgery PE: GEN: 41yoF, appears stated age. Well-nourished, well developed. No acute distress. Alert and oriented x 3. Pleasant, interactive. HEENT: Normocephalic, atraumatic.Sclera are nonicteric. Conjunctiva without injection. Nose midline. Nasal turbinates without bogginess. No facial asymmetry. Moist mucous membranes. Dentition poor. Pharynx pink and moist, no cobblestoning. Neck supple, trachea midline. No lymphadenopathy or thyromegaly appreciated. CHEST: Regular rate and rhythm, +S1, +S2 LUNGS: Clear to auscultation bilaterally. No wheezes, rales, or rhonchi. Breathing appears symmetric and easy. Patient is speaking in full sentences. No accessory muscle use. ABD: Round, soft, non-tender, non-distended. +Bowel sounds throughout. No rebound or guarding. No costovertebral angle tenderness. EXT: Pulses 2+ bilaterally dorsalis pedis and radial. There trace edema noted in the right lower extremity. There is mild tenderness with palpation around the left ankle area with mild edema noted of the left lower extremity which involves ankle area and pretibial area. SKIN: [place], dry, warm. NEURO: Alert and oriented x 3. Cranial nerves III-XII are intact. No focal deficits appreciated. EK02/15/17 SINUS RHYTHM, Within normal limits. No significant change compared with 01/09/2017. CXR 02/14/17 Bibasilar interstitial infiltrates. LLE U/S 02/14/17 No evidence of deep vein thrombosis in the left femoral popliteal venous system. LLE U/S 02/16/17 No evidence of deep venous thrombosis of the left lower extremity femoral popliteal venous system. XR Left knee 02/22/17 Negative left knee No change from 10/14/2016 XR left ankle 02/22/17 Negative left ankle XR Left foot pending. Peripheral smear Normochromic normocytic anemia with abnormal iron studies, consistent with anemia of chronic disease, or a multifactorial anemia with a component of anemia of chronic disease. No significant poikilocytosis is noted. In view of persistence of the anemia and patients young age, if no obvious cause is known, referral to hematology/oncology outpatient clinic, after patient is recovered from current admission and is discharged, may be helpful. The peripheral smear findings are similar to the previous one in Jan 2017. A&P: 41yoF admitted to [facility] for unspecified psychotic disorder 1. Psych. Plan per Psychiatry. EKG on file. 2. Nicotine dependence. Patch available. 3. Chronic hepatitis C. Follow-up with Dr. Cruz as outpatient. 4. Follow up with PCP on discharge. 5. Substance use. Per psychiatry. Patient currently remains on methadone. ISTOP Reference number [id number] indicates last prescription filled 11/19/16 for tramadol 50 mg #15 tabs. 6. CAP. Patient completed Levaquin 500 mg by mouth 02/23/17. 7. History of chronic left lower extremity injury/edema. H/O Chronic venous insufficiency. EVANS diet, 1800cc FR. x-ray of the left knee and left ankle completed XR Left foot pending. Left lower extremity ultrasound 02/16/17 and 02/14/17 negative for DVT. Continue with baclofen 10 mg 3 times a day and gabapentin 300 mg by mouth 3 times a day. Monitor. Elevate as needed. Apply teds if cleared as per attending psychiatrist. lasix 20 mg po x 1 today (confirmed script with pharmacy and pt states she takes as needed.) 8. Hypokalemia. Continue with potassium supplement daily. Monitor. Potassium is noted within normal limits. 9. Anemia. Patient remains on iron supplement 1 tablet every 2 days. Outpatient follow-up with PCP. Consider referral to hematology. Monitor. 10. History of IVDU. HIV screening negative 02/09/17. 11. CP. Symptoms resolved this AM. EKG requested. Serial CIP/Trop. 12. SOB. Symptoms resolved this AM. Possibly anxiety related. Update CXR. VS stable, O2 sat 95% RA. 13. CKD 3. At baseline 1.1-1.3. Monitor. Staff member Marky present on exam. VS, I&O, 24H, Anay Vital Signs/I&O Vital Signs Date Time Temp Pulse Resp B/P (MAP) Pulse Ox O2 Delivery O2 Flow Rate FiO2 02/26/17 09:30 16 02/26/17 06:55 98.2 87 114/69 (84) Room Air Laboratory Data 24H LABS Laboratory Tests 2 02/26/17 07:30: Nucleated Red Blood Cells % (auto) 0.0, Anion Gap 6L, Glomerular Filtration Rate 54.0L, Blood Urea Nitrogen 23H, Creatinine 1.18H, Sodium Level 139, Potassium Level 3.9, Chloride Level 104, Carbon Dioxide Level 29, Calcium Level 8.9, Aspartate Amino Transf (AST/SGOT) 26, Alanine Aminotransferase (ALT/SGPT) 26, Alkaline Phosphatase 68, Total Bilirubin 0.2, Total Protein 7.0, Albumin 3.1L, Albumin/Globulin Ratio 0.79L CBC/BMP Laboratory Tests 02/26/17 07:30 Red Blood Count 3.65 L, Mean Corpuscular Volume 89.3, Mean Corpuscular Hemoglobin 28.8, Mean Corpuscular Hemoglobin Concent 32.2, Red Cell Distribution Width 14.2, Calcium Level 8.9, Aspartate Amino Transf (AST/SGOT) 26 , Alanine Aminotransferase (ALT/SGPT) 26, Alkaline Phosphatase 68, Total Bilirubin 0.2, Total Protein 7.0, Albumin 3.1 L Joselyn Quiroz Feb 26, 2017 11:57
[2017-02-26] MEDS ORDERED: FUROSEMIDE 20 MG TAB PO ONE (12:00)
--- NOTE | 2017-02-26 12:08 | REP ---
Left foot series: Four views. History: Pain. Findings: Four views of the left foot demonstrate overall normal mineralization. There is Achilles calcaneal spurring which is mild. Bones joints and soft tissues are otherwise unremarkable. Impression: Achilles calcaneal spurring. No acute bony abnormality. Signed by Costa Dasilva MD 02/26/2017 02:55 P
--- NOTE | 2017-02-26 13:53 | REP ---
CHEST, TWO VIEWS : There is no evidence of acute infiltrate. No pleural effusion is seen. The heart is normal in size. The mediastinal silhouette is unremarkable. The visualized osseous structures are intact. IMPRESSION: No acute pulmonary disease. Signed by Prashanth Hough MD 02/26/2017 05:51 P
[2017-02-26] MEDS: hydrOXYzine 25 MG TAB PO PRN ×2 (16:35→23:50)
[2017-02-26 18:00] VITALS: BP 114/80
--- NOTE | 2017-02-26 19:54 | ECGEPIP ---
Stationary ECG Study [facility] Test Date: 2017-02-26 Pat Name: LORI PARIKH Department: Room: [place] [address] Gender: F Office Executive: MERY : 1975 Requested By: Joselyn Quiroz Order Number: [id number] Reading MD: Chidi Arriaga Measurements Intervals [place] Rate: 80 P: 43 CA: 175 QRS: 44 QRSD: 87 T: 38 QT: 423 QTc: 491 Interpretive Statements SINUS RHYTHM, Within normal limits. Electronically Signed On 02-26-2017 19:54:50 EDT by Chidi Arriaga
--- NOTE | 2017-02-26 20:49 | MHIPNPDOC ---
[facility] Progress Note Progress Note DATE OF SERVICE: 02/26/17 HISTORY: Patient is a 41-year-old female, who has a history of PTSD, depression , anxiety, polysubstance abuse. She was admitted to [facility] from 02/14/17 to for treatment of CAP. Patient was stabilized and transferred to [facility] . Says she has "done wrong to so many people" and it keeps playing in her head and she doesn't know if it's real or not. Everybody she meets reminds her of someone she hurt along the way and she "sees their faces" on people around her. Says when she was brought to the [facility] on 02/14/17 she thought the hospital was shut down and they wanted to "torture her head". She says it feels like people here at the hospital who want to "infect, poison" her. Says she has many skeletons in her closet, and she wonders if ex-boyfriend who has custody of her 2 year old son put this whole thing together. She says CPS was involved and took her son away. She says he is going to take her son to [place] while she is in here. She says she has outstanding warrants and worries she will be arrested if she leaves for not returning a jeep that was given to her in previous employment. Says she feels somebody has their "eye on her" and that she has lost many phones this year, which may have been taken by somebody. She saw a picture of her son with a woman who used to be her friend and felt like "ripping her throat out". She also mentions she doesn't want to wake up in the morning and takes more than the recommended amount of medication to accomplish this, without taking the full bottle. Says she has chronic back pain, unexplained pains in her legs, no deep vein thromboses were found on imaging studies, and says she's been falling lately. She also has healing wound on her left leg. Says she's impulsive and sometimes doesn't think about consequences. And she feels very weak/tired because of her overall condition. Says she gets racing thoughts and can't get the words out sometimes. 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 She has an extensive medical history including polysubstance abuse, says quit heroin 4 months ago and on methadone currently, hepatitis A, chronic hepatitis C (followed by Dr. Cruz), rhabdomyolysis and CKD stage 3. Interval History 02/26/17: Says she's less tired than yesterday but increasingly anxious. Denies any other medication side effects. Continues to be less agitated and irritable, but has been trying to help organize papers for other patients on the unit. She has also been uncooperative with other staff members on the unit, displays splitting by valuing vs devaluing different members o the treatment team. Attended a communication group therapy session today. Discussed discharge planning with staff, says ready to leave Wednesday. Denies depression and but has low anxiety. Says she has no paranoia at this time , denies AH, VH. Denies SI or plan. VITAL SIGNS: See below. NEW TEST RESULTS: none CURRENT MEDICATIONS: See below. MENTAL STATUS EXAMINATION: General appearance: Patient is a 41-year old female, who is in NAD, much more cooperative, poor dentition, normal eye contact, lazy left eye Speech: normal rate, rhythm, volume Thought processes: linear, logical Thought content: Denies currently having SI, HI, AVH, paranoia, delusions. Abstract reasoning and computation: Good Description of associations: Good Description of abnormal or psychotic thoughts: None Judgment: fair Insight: poor Orientation: A/O x 3 Recent and remote memory: Poor Attention span and concentration: Poor Fund of knowledge: below average Mood: "fine" Affect: euthymic, mood-congruent, appropriate DIAGNOSES: 1. Bipolar Disorder I with OCD traits, psychotic traits 2. Substance induced mood disorder 3. Borderline Personality Disorder ASSESSMENT: She continues to appear more relaxed than previous days. Not irritable or agitated. She is mildly anxious we discussed increasing her dose of Atarax. She denies racing thoughts and paranoia, which were prominent on previous days. She has been informed of possible discharge Wednesday if she continues to improve. She denies SI,HI,AVH, paranoia or delusions at this time. She continues to get involved with the paperwork of other patients and be guarded/uncooperative with several of the staff members. MANAGEMENT PLAN: Increased Atarax to 75 mg Q6H. Continue Abilify to 5 mg PO BID. Continue Seroquel 200 mg QHS. Continue Luvox 50 QHS. Continue treatment plan/medications. No significant medication side effects at this time noted, apart from mild lethargy, some nausea in the morning and possibly due to medication,mild anxiety. Continue other medications/treatments. Monitor for safety and serotonin syndrome, as well as, other medication side effects. Continue to monitor for aggressive behavior and possible SI/HI. TIME SPENT: 20 minutes. Vital Signs Vital Signs Date Time Temp Pulse Resp B/P (MAP) Pulse Ox O2 Delivery O2 Flow Rate FiO2 02/26/17 17:21 16 02/26/17 06:55 98.2 87 114/69 (84) Room Air Laboratory Data 24H Labs Laboratory Tests 2 02/26/17 07:30: Nucleated Red Blood Cells % (auto) 0.0, Anion Gap 6L, Glomerular Filtration Rate 54.0L, Blood Urea Nitrogen 23H, Creatinine 1.18H, Sodium Level 139, Potassium Level 3.9, Chloride Level 104, Carbon Dioxide Level 29, Calcium Level 8.9, Aspartate Amino Transf (AST/SGOT) 26, Alanine Aminotransferase (ALT/SGPT) 26, Alkaline Phosphatase 68, Total Bilirubin 0.2, Total Protein 7.0, Albumin 3.1L, Albumin/Globulin Ratio 0.79L 02/26/17 13:12: Total Creatine Kinase 75, Creatine Kinase MB 4.6H, Creatine Kinase MB Relative Index 6.13H, Troponin I < 0.02 02/26/17 19:35: Total Creatine Kinase 83, Creatine Kinase MB 4.6H, Creatine Kinase MB Relative Index 5.54H, Troponin I < 0.02 CBC/BMP Laboratory Tests 02/26/17 07:30 Red Blood Count 3.65 L, Mean Corpuscular Volume 89.3, Mean Corpuscular Hemoglobin 28.8, Mean Corpuscular Hemoglobin Concent 32.2, Red Cell Distribution Width 14.2, Calcium Level 8.9, Aspartate Amino Transf (AST/SGOT) 26 , Alanine Aminotransferase (ALT/SGPT) 26, Alkaline Phosphatase 68, Total Bilirubin 0.2, Total Protein 7.0, Albumin 3.1 L Current Medications Current Medications Aripiprazole (AbiLIFY) 2.5 mg BID PO Last administered on 02/24/17 09:27; Start 02/23/17 at 09:00; Stop 02/24/17 at 14:40; Status DC Aripiprazole (AbiLIFY) 5 mg BID PO Last administered on 02/26/17 08:04; Start 02/24/17 at 21:00; Stop 03/26/17 at 20:59 Baclofen (Lioresal) 10 mg TID PO Last administered on 02/26/17 16:35; Start 02/16/17 at 21:00; Stop 03/18/17 at 20:59 Buspirone HCl (Buspar) 7.5 mg BID PO Last administered on 02/26/17 08:04; Start 02/16/17 at 21:00; Stop 03/18/17 at 20:59 Ferrous Sulfate (Ferrous Sulfate) 325 mg Q2D@0900 PO Last administered on 02/25 08:13; Start 02/17/17 at 09:00; Stop 03/19/17 at 08:59 Fluoxetine HCl (PROzac) 20 mg QAM PO Last administered on 02/22/17 08:35; Start 02/21/17 at 09:00; Stop 02/22/17 at 17:39; Status DC Fluoxetine HCl (PROzac) 40 mg DAILY PO Last administered on 02/20/17 08:30; Start 02/17/17 at 09:00; Stop 02/20/17 at 16:19; Status DC Fluvoxamine Maleate (Luvox) 50 mg QHS PO ; Start 02/22/17 at 21:00; Stop 02/22 at 21:00; Status DC Fluvoxamine Maleate (Luvox) 50 mg QHS PO Last administered on 02/25/17 21:01 ; Start 02/23/17 at 21:00; Stop 03/25/17 at 20:59 Gabapentin (Neurontin) 100 mg TID PO ; Start 02/19/17 at 16:00; Stop 03/21/17 at 15:59; Status Cancel Gabapentin (Neurontin) 300 mg TID PO Last administered on 02/19/17 08:45; Start 02/16/17 at 21:00; Stop 02/19/17 at 14:29; Status DC Gabapentin (Neurontin) 300 mg TID PO Last administered on 02/26/17 16:35; Start 02/19/17 at 17:15; Stop 03/21/17 at 17:14 Hydroxyzine HCl (Atarax) 50 mg Q6HP PRN PO ANXIETY/AGITATION Last administered on 02/26/17 08:05; Start 02/16/17 at 21:00; Stop 02/26/17 at 13:31; Status DC Hydroxyzine HCl (Atarax) 75 mg Q6HP PRN PO ANXIETY/AGITATION Last administered on 02/26/17 16:35; Start 02/26/17 at 13:30; Stop 03/28/17 at 13:29 Lactobacillus Acidophilus (Bacid) 1 ea BID PO Last administered on 02/26/17 08:05; Start 02/22/17 at 09:00; Stop 03/24/17 at 08:59 Lamotrigine (LaMICtal) 25 mg BID PO Last administered on 02/26/17 08:05; Start 02/16/17 at 21:00; Stop 03/18/17 at 20:59 Levofloxacin (Levaquin) 500 mg DAILY@06 PO Last administered on 02/23/17 06: 30; Start 02/17/17 at 06:00; Stop 02/23/17 at 06:01; Status DC Methadone HCl (Dolophine) 30 mg DAILY PO Last administered on 02/17/17 08:08 ; Start 02/17/17 at 09:00; Stop 02/17/17 at 14:32; Status DC Methadone HCl (Dolophine) 40 mg DAILY PO Last administered on 02/26/17 08:04 ; Start 02/18/17 at 09:00; Stop 03/03/17 at 08:59 Nicotine (Nicoderm Cq 21mg) 1 patch DAILY TD Last administered on 02/26/17 08 :05; Start 02/19/17 at 09:00; Stop 03/21/17 at 08:59 Pregabalin (Lyrica) 100 mg TID PO ; Start 02/19/17 at 16:00; Stop 02/26/17 at 15:59; Status Cancel Quetiapine Fumarate (SEROquel) 100 mg QHS PO Last administered on 02/17/17 20 :43; Start 02/16/17 at 21:00; Stop 02/18/17 at 14:36; Status DC Quetiapine Fumarate (SEROquel) 200 mg QHS PO Last administered on 02/25/17 21 :01; Start 02/18/17 at 21:00; Stop 03/20/17 at 20:59 Tamsulosin HCl (Flomax) 0.4 mg DAILY PO Last administered on 02/26/17 08:05; Start 02/17/17 at 09:00; Stop 03/19/17 at 08:59 Tramadol HCl (Ultram) 50 mg Q12HP PRN PO MODERATE PAIN (PS 5-7); Start at 14:15; Stop 02/25/17 at 09:59; Status UNV Tramadol HCl (Ultram) 50 mg Q8HP PRN PO MODERATE PAIN (PS 5-7) Last administered on 02/19/17 06:17; Start 02/18/17 at 10:00; Stop 02/19/17 at 14 :09; Status DC Tramadol HCl (Ultram) 50 mg Q8HP PRN PO MODERATE PAIN (PS 5-7) Last administered on 02/26/17 16:35; Start 02/19/17 at 16:45; Stop 03/04/17 at 16: 44 Allergies Coded Allergies: TAPE (Verified Allergy, Intermediate, 02/14/17) Very red & Sore Shellfish Allergy (Verified Allergy, Unknown, 02/13/17) Hydrocodone (Verified Adverse Reaction, Mild, BECAME hiGH, 02/13/17) LETTY VILLASEÑOR PGY-1 Feb 26, 2017 20:49
[2017-02-26] MEDS: fluvoxaMINE MALEATE 50 MG TAB PO SCH (23:45)
[2017-02-26] MEDS: QUEtiapine FUMARATE 200 MG TAB PO SCH (23:45)
[2017-02-27 07:09] VITALS: BP 121/63
[2017-02-27] MEDS: TAMSULOSIN 0.4 MG CAP PO SCH (08:21)
[2017-02-27] MEDS: GABAPENTIN 300 MG CAP PO SCH ×3 (08:21→22:27)
[2017-02-27] MEDS: LACTOBACILLUS ACIDOPHILUS CAP (BACID) PO SCH ×2 (08:21→22:26)
[2017-02-27] MEDS: busPIRone 5 MG TAB PO SCH ×2 (08:21→22:26)
[2017-02-27] MEDS: lamoTRIgine 25 MG TAB PO SCH ×2 (08:21→22:25)
[2017-02-27] MEDS: BACLOFEN 10 MG TAB PO SCH ×3 (08:21→22:26)
[2017-02-27] MEDS: FERROUS SULFATE 325MG TAB PO SCH (08:22)
[2017-02-27] MEDS: METHADONE 10 MG TAB (S0109) PO SCH (08:22)
[2017-02-27] MEDS: NICOTINE 21MG/24HR 1 EA TRANSDERMAL TD SCH (08:26)
[2017-02-27] MEDS: hydrOXYzine 25 MG TAB PO PRN ×3 (08:28→22:26)
[2017-02-27] MEDS: traMADol 50 MG TAB PO PRN ×2 (08:28→16:48)
[2017-02-27 08:50] LABS: MEAN CORPUSCULAR HEMOGLOBIN 28.8 pg (27.0-33.0); MEAN CORPUSCULAR HGB CONC 31.8 g/dl (32.0-36.5); MEAN CORPUSCULAR VOLUME 90.3 fl (80.0-96.0); PLATELET COUNT, AUTOMATED 345 10^3/uL (150-450); RED CELL DISTRIBUTION WIDTH 13.9 % (11.5-14.5); WHITE BLOOD COUNT 8.3 10^3/uL (4.0-10.0)
[2017-02-27 09:17] LABS: ALBUMIN 3.3 GM/DL (3.2-5.2); ALBUMIN/GLOBULIN RATIO 0.92 (1.00-1.93); ALKALINE PHOSPHATASE 73 U/L (45-117); ALT/SGPT 30 U/L (12-78); ANION GAP 8 MEQ/L (8-16); AST/SGOT 29 U/L (7-37); BILIRUBIN,TOTAL 0.3 MG/DL (0.2-1.0); BLOOD UREA NITROGEN 23 MG/DL (7-18); CALCIUM LEVEL 9.2 MG/DL (8.5-10.1); CARBON DIOXIDE LEVEL 29 MEQ/L (21-32); CHLORIDE LEVEL 103 MEQ/L (98-107); GLUCOSE, FASTING 128 MG/DL (70-105); SODIUM LEVEL 140 MEQ/L (136-145); TOTAL PROTEIN 6.9 GM/DL (6.4-8.2)
[2017-02-27 18:00] VITALS: BP 110/63
[2017-02-27] MEDS: fluvoxaMINE MALEATE 50 MG TAB PO SCH (22:26)
[2017-02-27] MEDS: QUEtiapine FUMARATE 200 MG TAB PO SCH (22:27)
[2017-02-28 06:00] VITALS: BP 139/80
[2017-02-28] MEDS: busPIRone 5 MG TAB PO SCH ×2 (08:07→20:06)
[2017-02-28] MEDS: LACTOBACILLUS ACIDOPHILUS CAP (BACID) PO SCH ×2 (08:07→20:06)
[2017-02-28] MEDS: hydrOXYzine 25 MG TAB PO PRN ×3 (08:07→22:16)
[2017-02-28] MEDS: GABAPENTIN 300 MG CAP PO SCH ×3 (08:07→20:06)
[2017-02-28] MEDS: NICOTINE 21MG/24HR 1 EA TRANSDERMAL TD SCH (08:07)
[2017-02-28] MEDS: traMADol 50 MG TAB PO PRN ×2 (08:08→16:17)
[2017-02-28] MEDS: BACLOFEN 10 MG TAB PO SCH ×3 (08:08→20:06)
[2017-02-28] MEDS: TAMSULOSIN 0.4 MG CAP PO SCH (08:08)
[2017-02-28] MEDS: lamoTRIgine 25 MG TAB PO SCH ×2 (08:08→20:06)
[2017-02-28] MEDS: METHADONE 10 MG TAB (S0109) PO SCH (08:11)
[2017-02-28 18:00] VITALS: BP 106/69
[2017-02-28] MEDS ORDERED: IBUPROFEN 600 MG TAB PO ONE (20:00)
[2017-02-28] MEDS: fluvoxaMINE MALEATE 50 MG TAB PO SCH (20:06)
[2017-02-28] MEDS: QUEtiapine FUMARATE 200 MG TAB PO SCH (20:06)
[2017-02-28 20:22] VITALS: BP 125/81
[2017-03-01] MEDS: hydrOXYzine 25 MG TAB PO PRN ×2 (06:18→14:48)
[2017-03-01] MEDS: traMADol 50 MG TAB PO PRN ×3 (06:19→21:47)
[2017-03-01 06:25] VITALS: BP 115/60
[2017-03-01] MEDS: GABAPENTIN 300 MG CAP PO SCH ×3 (08:17→20:11)
[2017-03-01] MEDS: NICOTINE 21MG/24HR 1 EA TRANSDERMAL TD SCH (08:17)
[2017-03-01] MEDS: METHADONE 10 MG TAB (S0109) PO SCH (08:18)
[2017-03-01] MEDS: busPIRone 5 MG TAB PO SCH ×2 (08:18→20:11)
[2017-03-01] MEDS: TAMSULOSIN 0.4 MG CAP PO SCH (08:18)
[2017-03-01] MEDS: lamoTRIgine 25 MG TAB PO SCH ×2 (08:18→20:10)
[2017-03-01] MEDS: BACLOFEN 10 MG TAB PO SCH ×3 (08:18→20:11)
[2017-03-01] MEDS: LACTOBACILLUS ACIDOPHILUS CAP (BACID) PO SCH ×2 (08:18→20:11)
[2017-03-01] MEDS: FERROUS SULFATE 325MG TAB PO SCH (08:18)
--- NOTE | 2017-03-01 09:56 | MHDSPDOC ---
[facility] Discharge Summary Discharge Summary DATE OF ADMISSION: Feb 16, 2017 at 19:20 DATE OF DISCHARGE: 03/01/17 DISCHARGE DIAGNOSES: 1. Bipolar Disorder I with mood-congruent psychotic features 2. Borderline Personality Disorder 3. Antisocial Personality Disorder 4. Unspecified Obsessive-Compulsive and Related Disorder REASON FOR ADMISSION: CONSULTANTS INVOLVED: TREATMENT AND PROGRESS ON THE UNIT : . HOSPITAL COURSE: DISCHARGE ASSESSMENT: MENTAL STATUS EXAMINATION ON DISCHARGE: Patient is a -year old female, who is . Speech is . Language skills are . Thought processes including: . Thought content: . Abstract reasoning, and computation: . Description of associations: . Description of abnormal or psychotic thoughts: . Judgment: . Insight: . Orientation to . Recent and remote memory: . Attention span and concentration: . Language: . Fund of knowledge: . Mood: . Affect: . MEDICATIONS ON DISCHARGE: - for . - for . - for . PLAN/FOLLOWUP ARRANGEMENTS: . The amount of time spent in the coordination of care for this patient was approximately minutes. Vital Signs/I&Os Vital Signs Date Time Temp Pulse Resp B/P (MAP) Pulse Ox O2 Delivery O2 Flow Rate FiO2 03/01/17 08:18 16 03/01/17 06:25 97.8 70 115/60 (78) 02/28/17 20:22 96 Room Air Medications Scheduled (Ferrocite Plus 106-1 mg) 1 Tab Tab, 1 TAB PO Q2D for , (Reported) Baclofen (Baclofen) 10 Mg Tab, 10 MG PO TID for , (Reported) Buspirone HCl (Buspirone HCl) 7.5 Mg Tab, 7.5 MG PO BID for , (Reported) Doxycycline Hyclate (Doxycycline) 100 Mg Cap, 100 MG PO Q12H for , #20 Fluoxetine Hcl (Fluoxetine HCl) 20 Mg Cap, 40 MG PO BID for , (Reported) Gabapentin (Gabapentin) 300 Mg Cap, 300 MG PO TID for , (Reported) Lamotrigine (Lamotrigine) 25 Mg Tab, 25 MG PO BID for , (Reported) Methadone HCl (Methadone HCl) 10 Mg Tab, 30 MG PO DAILY for , (Reported) Potassium Chloride (Klor-Con M20) 20 Meq Tabcr, 20 MEQ PO DAILY, (Reported) Quetiapine Fumerate (Seroquel) 100 Mg Tab, 100 MG PO QHS for , (Reported) Tamsulosin Hydrochloride (Flomax) 0.4 Mg Cap, 0.4 MG PO DAILY for , (Reported) Scheduled PRN Hydroxyzine HCl (Hydroxyzine HCl) 50 Mg Tab, 50 MG PO Q6H PRN for ANXIETY/ AGITATION, (Reported) Allergies Coded Allergies: TAPE (Verified Allergy, Intermediate, 02/14/17) Very red & Sore Shellfish Allergy (Verified Allergy, Unknown, 02/13/17) Hydrocodone (Verified Adverse Reaction, Mild, BECAME hiGH, 02/13/17) LETTY VILLASEÑOR PGY-1 Mar 01, 2017 09:56
[2017-03-01] MEDS ORDERED: ARIP5TA PO (10:15)
[2017-03-01] MEDS ORDERED: NICO21PAT TD (10:15)
[2017-03-01] MEDS ORDERED: FLUV50TA PO (10:15)
[2017-03-01 18:00] VITALS: BP 135/82
--- NOTE | 2017-03-01 19:04 | MHIPNPDOC ---
[facility] Progress Note Progress Note DATE OF SERVICE: 03/01/17 HISTORY: Patient is a 41-year-old female, who has a history of PTSD, depression , anxiety, polysubstance abuse. She was admitted to [facility] from 02/14/17 to for treatment of CAP. Patient was stabilized and transferred to [facility] . Says she has "done wrong to so many people" and it keeps playing in her head and she doesn't know if it's real or not. Everybody she meets reminds her of someone she hurt along the way and she "sees their faces" on people around her. Says when she was brought to the [facility] on 02/14/17 she thought the hospital was shut down and they wanted to "torture her head". She says it feels like people here at the hospital who want to "infect, poison" her. Says she has many skeletons in her closet, and she wonders if ex-boyfriend who has custody of her 2 year old son put this whole thing together. She says CPS was involved and took her son away. She says he is going to take her son to [place] while she is in here. She says she has outstanding warrants and worries she will be arrested if she leaves for not returning a jeep that was given to her in previous employment. Says she feels somebody has their "eye on her" and that she has lost many phones this year, which may have been taken by somebody. She saw a picture of her son with a woman who used to be her friend and felt like "ripping her throat out". She also mentions she doesn't want to wake up in the morning and takes more than the recommended amount of medication to accomplish this, without taking the full bottle. Says she has chronic back pain, unexplained pains in her legs, no deep vein thromboses were found on imaging studies, and says she's been falling lately. She also has healing wound on her left leg. Says she's impulsive and sometimes doesn't think about consequences. And she feels very weak/tired because of her overall condition. Says she gets racing thoughts and can't get the words out sometimes. 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 She has an extensive medical history including polysubstance abuse, says quit heroin 4 months ago and on methadone currently, hepatitis A, chronic hepatitis C (followed by Dr. Cruz), rhabdomyolysis and CKD stage 3. Interval History 03/01/17: Patient is tearing up on exam. Says she "ruined everything". Says she needs to talk to her ex- and has court tomorrow concerning child custody. Says she wants the best for her child, whether she should be a part of her life or not. Says she continues to need treatment and is aware of the mistakes she has made in the past. Says she has had bad karma in her last yoga class and it'd because of her poor decisions she made in the past. She endorses paranoia, stating that people in the hallway are talking about her. She denies any suicidal ideations or plan. Denies AH and VH. VITAL SIGNS: See below. NEW TEST RESULTS: none CURRENT MEDICATIONS: See below. MENTAL STATUS EXAMINATION: General appearance: Patient is a 41-year old female, who is in NAD, cooperative , poor dentition, normal eye contact, lazy left eye Speech: normal rate, rhythm, volume Thought processes: linear, logical Thought content: Endorces paranoia. Denies currently having SI, HI, AVH, delusions. Abstract reasoning and computation: Good Description of associations: Good Description of abnormal or psychotic thoughts: People talking about her in the hallway. Judgment: fair Insight: improving Orientation: A/O x 3 Recent and remote memory: Poor Attention span and concentration: Poor Fund of knowledge: below average Mood: "not great" Affect: dysthymic, mood-congruent, appropriate DIAGNOSES: 1. Bipolar Disorder I, mixed episode 2. Substance induced mood disorder 3. Borderline Personality Disorder 4. Obsessive Compulsive Personality disorder ASSESSMENT: She is anxious about her upcoming court date and says she has had to make the hardest decision of her life, with regards to whether she has a role to place in her daughters life. She denies SI,HI,AVH, but endorses paranoia , which has been absent in previous days. Her mood symptoms and anxiety are likely due to the court date, which is an acute stressor. Although she displays mood symptoms, she appears to have increased insight into her situation overall. Says Atarax to 75 mg Q6H has helped with her anxiety symptoms. MANAGEMENT PLAN: Continue Abilify to 5 mg PO BID. Continue Seroquel 200 mg QHS. Continue Luvox 50 QHS. Continue treatment plan/medications. No significant medication side effects at this time noted, apart from mild lethargy, some nausea in the morning and possibly due to medication,mild anxiety. Continue other medications/treatments. Monitor for safety and serotonin syndrome, as well as, other medication side effects. Continue to monitor for aggressive behavior and possible SI/HI. TIME SPENT: 15 minutes. Vital Signs Vital Signs Date Time Temp Pulse Resp B/P (MAP) Pulse Ox O2 Delivery O2 Flow Rate FiO2 03/01/17 15:32 16 03/01/17 06:25 97.8 70 115/60 (78) 02/28/17 20:22 96 Room Air Current Medications Current Medications Aripiprazole (AbiLIFY) 2.5 mg BID PO Last administered on 02/24/17 09:27; Start 02/23/17 at 09:00; Stop 02/24/17 at 14:40; Status DC Aripiprazole (AbiLIFY) 5 mg BID PO Last administered on 03/01/17 08:17; Start 02/24/17 at 21:00; Stop 03/01/17 at 12:21; Status DC Aripiprazole (AbiLIFY) 7.5 mg BID PO ; Start 03/01/17 at 21:00; Stop 03/31/17 at 20:59 Baclofen (Lioresal) 10 mg TID PO Last administered on 03/01/17 16:05; Start 02/16/17 at 21:00; Stop 03/18/17 at 20:59 Buspirone HCl (Buspar) 7.5 mg BID PO Last administered on 03/01/17 08:18; Start 02/16/17 at 21:00; Stop 03/18/17 at 20:59 Ferrous Sulfate (Ferrous Sulfate) 325 mg Q2D@0900 PO Last administered on 03/01 08:18; Start 02/17/17 at 09:00; Stop 03/19/17 at 08:59 Fluoxetine HCl (PROzac) 20 mg QAM PO Last administered on 02/22/17 08:35; Start 02/21/17 at 09:00; Stop 02/22/17 at 17:39; Status DC Fluoxetine HCl (PROzac) 40 mg DAILY PO Last administered on 02/20/17 08:30; Start 02/17/17 at 09:00; Stop 02/20/17 at 16:19; Status DC Fluvoxamine Maleate (Luvox) 50 mg QHS PO ; Start 02/22/17 at 21:00; Stop 02/22 at 21:00; Status DC Fluvoxamine Maleate (Luvox) 50 mg QHS PO Last administered on 02/28/17 20:06 ; Start 02/23/17 at 21:00; Stop 03/25/17 at 20:59 Gabapentin (Neurontin) 100 mg TID PO ; Start 02/19/17 at 16:00; Stop 03/21/17 at 15:59; Status Cancel Gabapentin (Neurontin) 300 mg TID PO Last administered on 02/19/17 08:45; Start 02/16/17 at 21:00; Stop 02/19/17 at 14:29; Status DC Gabapentin (Neurontin) 300 mg TID PO Last administered on 03/01/17 16:05; Start 02/19/17 at 17:15; Stop 03/21/17 at 17:14 Hydroxyzine HCl (Atarax) 50 mg Q6HP PRN PO ANXIETY/AGITATION Last administered on 02/26/17 08:05; Start 02/16/17 at 21:00; Stop 02/26/17 at 13:31; Status DC Hydroxyzine HCl (Atarax) 75 mg Q6HP PRN PO ANXIETY/AGITATION Last administered on 03/01/17 14:48; Start 02/26/17 at 13:30; Stop 03/28/17 at 13:29 Lactobacillus Acidophilus (Bacid) 1 ea BID PO Last administered on 03/01/17 08:18; Start 02/22/17 at 09:00; Stop 03/24/17 at 08:59 Lamotrigine (LaMICtal) 25 mg BID PO Last administered on 03/01/17 08:18; Start 02/16/17 at 21:00; Stop 03/18/17 at 20:59 Levofloxacin (Levaquin) 500 mg DAILY@06 PO Last administered on 02/23/17 06: 30; Start 02/17/17 at 06:00; Stop 02/23/17 at 06:01; Status DC Methadone HCl (Dolophine) 30 mg DAILY PO Last administered on 02/17/17 08:08 ; Start 02/17/17 at 09:00; Stop 02/17/17 at 14:32; Status DC Methadone HCl (Dolophine) 40 mg DAILY PO Last administered on 03/01/17 08:18 ; Start 02/18/17 at 09:00; Stop 03/03/17 at 08:59 Nicotine (Nicoderm Cq 21mg) 1 patch DAILY TD Last administered on 03/01/17 08 :17; Start 02/19/17 at 09:00; Stop 03/21/17 at 08:59 Pregabalin (Lyrica) 100 mg TID PO ; Start 02/19/17 at 16:00; Stop 02/26/17 at 15:59; Status Cancel Quetiapine Fumarate (SEROquel) 100 mg QHS PO Last administered on 02/17/17 20 :43; Start 02/16/17 at 21:00; Stop 02/18/17 at 14:36; Status DC Quetiapine Fumarate (SEROquel) 200 mg QHS PO Last administered on 02/28/17 20 :06; Start 02/18/17 at 21:00; Stop 03/20/17 at 20:59 Tamsulosin HCl (Flomax) 0.4 mg DAILY PO Last administered on 03/01/17 08:18; Start 02/17/17 at 09:00; Stop 03/19/17 at 08:59 Tramadol HCl (Ultram) 50 mg Q12HP PRN PO MODERATE PAIN (PS 5-7); Start at 14:15; Stop 02/25/17 at 09:59; Status UNV Tramadol HCl (Ultram) 50 mg Q8HP PRN PO MODERATE PAIN (PS 5-7) Last administered on 02/19/17 06:17; Start 02/18/17 at 10:00; Stop 02/19/17 at 14 :09; Status DC Tramadol HCl (Ultram) 50 mg Q8HP PRN PO MODERATE PAIN (PS 5-7) Last administered on 03/01/17t 14:48; Start 02/19/17 at 16:45; Stop 03/04/17 at 16: 44 Allergies Coded Allergies: TAPE (Verified Allergy, Intermediate, 02/14/17) Very red & Sore Shellfish Allergy (Verified Allergy, Unknown, 02/13/17) Hydrocodone (Verified Adverse Reaction, Mild, BECAME hiGH, 02/13/17) LETTY VILLASEÑOR PGY-1 Mar 01, 2017 19:04
[2017-03-01] MEDS: QUEtiapine FUMARATE 200 MG TAB PO SCH (20:11)
[2017-03-01] MEDS: fluvoxaMINE MALEATE 50 MG TAB PO SCH (20:11)
[2017-03-01] MEDS: ARIPiprazole 15 MG TAB (AbiLIFY) PO SCH (20:11)
[2017-03-02 06:44] VITALS: BP 129/68
[2017-03-02] MEDS: hydrOXYzine 25 MG TAB PO PRN ×2 (07:35→14:32)
[2017-03-02] MEDS: traMADol 50 MG TAB PO PRN ×2 (07:36→15:40)
[2017-03-02] MEDS: LACTOBACILLUS ACIDOPHILUS CAP (BACID) PO SCH ×2 (08:36→20:09)
[2017-03-02] MEDS: METHADONE 10 MG TAB (S0109) PO SCH (08:38)
[2017-03-02] MEDS: ARIPiprazole 15 MG TAB (AbiLIFY) PO SCH (08:38)
[2017-03-02] MEDS: TAMSULOSIN 0.4 MG CAP PO SCH (08:38)
[2017-03-02] MEDS: busPIRone 5 MG TAB PO SCH ×2 (08:38→20:10)
[2017-03-02] MEDS: GABAPENTIN 300 MG CAP PO SCH ×3 (08:39→20:09)
[2017-03-02] MEDS: NICOTINE 21MG/24HR 1 EA TRANSDERMAL TD SCH (08:39)
[2017-03-02] MEDS: BACLOFEN 10 MG TAB PO SCH ×3 (08:39→20:09)
[2017-03-02] MEDS: lamoTRIgine 25 MG TAB PO SCH ×2 (08:39→20:09)
--- NOTE | 2017-03-02 11:42 | MHIPNPDOC ---
[facility] Progress Note Progress Note DATE OF SERVICE: 03/02/17 HISTORY: Patient is a 41-year-old female, who has a history of PTSD, depression , anxiety, polysubstance abuse. She was admitted to [facility] from 02/14/17 to for treatment of CAP. Patient was stabilized and transferred to [facility] . Says she has "done wrong to so many people" and it keeps playing in her head and she doesn't know if it's real or not. Everybody she meets reminds her of someone she hurt along the way and she "sees their faces" on people around her. Says when she was brought to the [facility] on 02/14/17 she thought the hospital was shut down and they wanted to "torture her head". She says it feels like people here at the hospital who want to "infect, poison" her. Says she has many skeletons in her closet, and she wonders if ex-boyfriend who has custody of her 2 year old son put this whole thing together. She says CPS was involved and took her son away. She says he is going to take her son to [place] while she is in here. She says she has outstanding warrants and worries she will be arrested if she leaves for not returning a jeep that was given to her in previous employment. Says she feels somebody has their "eye on her" and that she has lost many phones this year, which may have been taken by somebody. She saw a picture of her son with a woman who used to be her friend and felt like "ripping her throat out". She also mentions she doesn't want to wake up in the morning and takes more than the recommended amount of medication to accomplish this, without taking the full bottle. Says she has chronic back pain, unexplained pains in her legs, no deep vein thromboses were found on imaging studies, and says she's been falling lately. She also has healing wound on her left leg. Says she's impulsive and sometimes doesn't think about consequences. And she feels very weak/tired because of her overall condition. Says she gets racing thoughts and can't get the words out sometimes. 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 She has an extensive medical history including polysubstance abuse, says quit heroin 4 months ago and on methadone currently, hepatitis A, chronic hepatitis C (followed by Dr. Cruz), rhabdomyolysis and CKD stage 3. Interval History 03/02/17: Continues to feel depressed. Says she deserves whatever is coming to her. Says her mind is clearer which causes her to think of all the things she has done wrong to people. Endorses suicidal ideation without specific plan. Denies any medication side effects at this time. Endorses hearing two voices talking about her, saying "she doesn't deserve to live". Endorses paranoia, saying people are talking about me/out to get me. Denies visual hallucinations. She also has self injurious behavior, she has been making small lacerations on her left arm with the end of a pencil. VITAL SIGNS: See below. NEW TEST RESULTS: none CURRENT MEDICATIONS: See below. MENTAL STATUS EXAMINATION: General appearance: Patient is a 41-year old female, who is in NAD, cooperative , poor dentition, normal eye contact, lazy left eye, tearing on exam Speech: spontaneous, normal rate, rhythm, increased volume Thought processes: circumstantial Thought content: Endorses paranoia and auditory hallucinations and persecutory delusions Abstract reasoning and computation: Good Description of associations: Good Description of abnormal or psychotic thoughts: "two voices in my head talking to eachother, saying she doesn't deserve to live". Judgment: poor Insight: improving Orientation: A/O x 3 Recent and remote memory: Poor Attention span and concentration: Poor Fund of knowledge: below average Mood: "suicidal" Affect: dysthymic, mood-congruent, suicidal DIAGNOSES: 1. Bipolar Disorder I, mixed episode 2. Substance induced mood disorder 3. Borderline Personality Disorder 4. Obsessive Compulsive Personality disorder ASSESSMENT: Continues to state the voices she hears makes her want to kill herself and she feels "sad" she "doesn't deserve to live", consistent with . She endorses to having paranoia and delusions. She therefore, is experiencing psychotic symptoms. She was unable to attend her court session today for entering ex-boyfriend's home and taking her child's play set. This has likely acted as an acute stressor and may be affecting her psychotic and mood symptoms. She is also depressed with suicidal ideations without specific plan and highly anxious. Her last GFR is 53 and creatinine is 1.2 (02/27/17). Team is following patient for possible medical decompensation, including ALEXIS George. MANAGEMENT PLAN: Patient placed on a 1:1 for safety observation. Stopped her Luvox due to possible activation. Started Paxil CR 12.5 mg Po daily. Tapering down Abilify from 7.5 mg to 2.5 mg PO BID. Started Invega 3 mg PO BID, will taper up. Continue to monitor for suicidal ideations, plan and attempt. Continue to monitor for medication side effects. Continue group therapy and evaluation of kidney function. TIME SPENT: 30 minutes. Vital Signs Vital Signs Date Time Temp Pulse Resp B/P (MAP) Pulse Ox O2 Delivery O2 Flow Rate FiO2 03/02/17 08:45 20 Room Air 03/02/17 06:44 98.1 92 129/68 (88) 02/28/17 20:22 96 Current Medications Current Medications Aripiprazole (AbiLIFY) 2.5 mg BID PO Last administered on 02/24/17 09:27; Start 02/23/17 at 09:00; Stop 02/24/17 at 14:40; Status DC Aripiprazole (AbiLIFY) 5 mg BID PO Last administered on 03/01/17 08:17; Start 02/24/17 at 21:00; Stop 03/01/17 at 12:21; Status DC Aripiprazole (AbiLIFY) 7.5 mg BID PO Last administered on 03/02/17 08:38; Start 03/01/17 at 21:00; Stop 03/31/17 at 20:59 Baclofen (Lioresal) 10 mg TID PO Last administered on 03/02/17 08:39; Start 02/16/17 at 21:00; Stop 03/18/17 at 20:59 Buspirone HCl (Buspar) 7.5 mg BID PO Last administered on 03/02/17 08:38; Start 02/16/17 at 21:00; Stop 03/18/17 at 20:59 Ferrous Sulfate (Ferrous Sulfate) 325 mg Q2D@0900 PO Last administered on 03/01 08:18; Start 02/17/17 at 09:00; Stop 03/19/17 at 08:59 Fluoxetine HCl (PROzac) 20 mg QAM PO Last administered on 02/22/17 08:35; Start 02/21/17 at 09:00; Stop 02/22/17 at 17:39; Status DC Fluoxetine HCl (PROzac) 40 mg DAILY PO Last administered on 02/20/17 08:30; Start 02/17/17 at 09:00; Stop 02/20/17 at 16:19; Status DC Fluvoxamine Maleate (Luvox) 50 mg QHS PO ; Start 02/22/17 at 21:00; Stop 02/22 at 21:00; Status DC Fluvoxamine Maleate (Luvox) 50 mg QHS PO Last administered on 03/01/17 20:11 ; Start 02/23/17 at 21:00; Stop 03/25/17 at 20:59 Gabapentin (Neurontin) 100 mg TID PO ; Start 02/19/17 at 16:00; Stop 03/21/17 at 15:59; Status Cancel Gabapentin (Neurontin) 300 mg TID PO Last administered on 02/19/17 08:45; Start 02/16/17 at 21:00; Stop 02/19/17 at 14:29; Status DC Gabapentin (Neurontin) 300 mg TID PO Last administered on 03/02/17 08:39; Start 02/19/17 at 17:15; Stop 03/21/17 at 17:14 Hydroxyzine HCl (Atarax) 50 mg Q6HP PRN PO ANXIETY/AGITATION Last administered on 02/26/17 08:05; Start 02/16/17 at 21:00; Stop 02/26/17 at 13:31; Status DC Hydroxyzine HCl (Atarax) 75 mg Q6HP PRN PO ANXIETY/AGITATION Last administered on 03/02/17 07:35; Start 02/26/17 at 13:30; Stop 03/28/17 at 13:29 Lactobacillus Acidophilus (Bacid) 1 ea BID PO Last administered on 03/02/17 08:36; Start 02/22/17 at 09:00; Stop 03/24/17 at 08:59 Lamotrigine (LaMICtal) 25 mg BID PO Last administered on 03/02/17 08:39; Start 02/16/17 at 21:00; Stop 03/18/17 at 20:59 Levofloxacin (Levaquin) 500 mg DAILY@06 PO Last administered on 02/23/17 06: 30; Start 02/17/17 at 06:00; Stop 02/23/17 at 06:01; Status DC Methadone HCl (Dolophine) 30 mg DAILY PO Last administered on 02/17/17 08:08 ; Start 02/17/17 at 09:00; Stop 02/17/17 at 14:32; Status DC Methadone HCl (Dolophine) 40 mg DAILY PO Last administered on 03/02/17 08:38 ; Start 02/18/17 at 09:00; Stop 03/03/17 at 08:59 Nicotine (Nicoderm Cq 21mg) 1 patch DAILY TD Last administered on 03/02/17 08 :39; Start 02/19/17 at 09:00; Stop 03/21/17 at 08:59 Pregabalin (Lyrica) 100 mg TID PO ; Start 02/19/17 at 16:00; Stop 02/26/17 at 15:59; Status Cancel Quetiapine Fumarate (SEROquel) 100 mg QHS PO Last administered on 02/17/17 20 :43; Start 02/16/17 at 21:00; Stop 02/18/17 at 14:36; Status DC Quetiapine Fumarate (SEROquel) 200 mg QHS PO Last administered on 03/01/17 20 :11; Start 02/18/17 at 21:00; Stop 03/20/17 at 20:59 Tamsulosin HCl (Flomax) 0.4 mg DAILY PO Last administered on 03/02/17 08:38; Start 02/17/17 at 09:00; Stop 03/19/17 at 08:59 Tramadol HCl (Ultram) 50 mg Q12HP PRN PO MODERATE PAIN (PS 5-7); Start at 14:15; Stop 02/25/17 at 09:59; Status UNV Tramadol HCl (Ultram) 50 mg Q8HP PRN PO MODERATE PAIN (PS 5-7) Last administered on 02/19/17 06:17; Start 02/18/17 at 10:00; Stop 02/19/17 at 14 :09; Status DC Tramadol HCl (Ultram) 50 mg Q8HP PRN PO MODERATE PAIN (PS 5-7) Last administered on 03/02/17 07:36; Start 02/19/17 at 16:45; Stop 03/04/17 at 16: 44 Allergies Coded Allergies: TAPE (Verified Allergy, Intermediate, 02/14/17) Very red & Sore Shellfish Allergy (Verified Allergy, Unknown, 02/13/17) Hydrocodone (Verified Adverse Reaction, Mild, BECAME hiGH, 02/13/17) LETTY VILLASEÑOR PGY-1 Mar 02, 2017 11:42
[2017-03-02 18:00] VITALS: BP 140/88
[2017-03-02] MEDS: PALIPERIDONE 3 MG ER TAB (INVEGA) PO SCH (20:10)
[2017-03-02] MEDS: QUEtiapine FUMARATE 200 MG TAB PO SCH (20:10)
[2017-03-02] MEDS ORDERED: QUEtiapine FUMARATE 50 MG TAB PO SCH (21:00)
[2017-03-03] MEDS: traMADol 50 MG TAB PO PRN ×3 (03:54→20:32)
[2017-03-03] MEDS: hydrOXYzine 25 MG TAB PO PRN ×3 (03:55→20:31)
[2017-03-03 07:05] VITALS: BP 161/92
[2017-03-03] MEDS: GABAPENTIN 300 MG CAP PO SCH ×3 (08:39→20:36)
[2017-03-03] MEDS: NICOTINE 21MG/24HR 1 EA TRANSDERMAL TD SCH (08:41)
[2017-03-03] MEDS: PARoxetine 12.5 MG **CR** TAB PO SCH (08:41)
[2017-03-03] MEDS: FERROUS SULFATE 325MG TAB PO SCH (08:41)
[2017-03-03] MEDS: LACTOBACILLUS ACIDOPHILUS CAP (BACID) PO SCH ×3 (08:41→20:56)
[2017-03-03] MEDS: METHADONE 10 MG TAB (S0109) PO SCH (08:42)
[2017-03-03] MEDS: busPIRone 5 MG TAB PO SCH ×2 (08:42→20:33)
[2017-03-03] MEDS: lamoTRIgine 25 MG TAB PO SCH ×2 (08:43→20:31)
[2017-03-03] MEDS: TAMSULOSIN 0.4 MG CAP PO SCH (08:43)
[2017-03-03] MEDS: PALIPERIDONE 3 MG ER TAB (INVEGA) PO SCH (08:43)
[2017-03-03] MEDS: BACLOFEN 10 MG TAB PO SCH ×3 (08:43→20:33)
[2017-03-03] MEDS ORDERED: QUEtiapine FUMARATE 50 MG TAB PO SCH (09:00)
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
[2017-03-03 18:16] VITALS: BP 140/94
[2017-03-03] MEDS: PALIPERIDONE 6 MG ER TAB (INVEGA) PO SCH (20:33)
[2017-03-03] MEDS: QUEtiapine FUMARATE 200 MG TAB PO SCH (20:33)
[2017-03-04 06:45] VITALS: BP 118/66
[2017-03-04] MEDS: PARoxetine 12.5 MG **CR** TAB PO SCH (09:00)
[2017-03-04] MEDS: METHADONE 10 MG TAB (S0109) PO SCH (09:00)
[2017-03-04] MEDS: NICOTINE 21MG/24HR 1 EA TRANSDERMAL TD SCH (09:00)
[2017-03-04] MEDS: hydrOXYzine 25 MG TAB PO PRN ×2 (09:01→15:28)
[2017-03-04] MEDS: PALIPERIDONE 3 MG ER TAB (INVEGA) PO SCH (09:01)
[2017-03-04] MEDS: lamoTRIgine 25 MG TAB PO SCH ×2 (09:01→21:03)
[2017-03-04] MEDS: busPIRone 5 MG TAB PO SCH ×2 (09:01→21:03)
[2017-03-04] MEDS: GABAPENTIN 300 MG CAP PO SCH ×3 (09:01→21:02)
[2017-03-04] MEDS: TAMSULOSIN 0.4 MG CAP PO SCH (09:01)
[2017-03-04] MEDS: BACLOFEN 10 MG TAB PO SCH ×3 (09:01→21:03)
[2017-03-04] MEDS: traMADol 50 MG TAB PO PRN (09:02)
[2017-03-04] MEDS: LACTOBACILLUS ACIDOPHILUS CAP (BACID) PO SCH ×2 (09:02→21:03)
[2017-03-04 10:03] VITALS: BP 132/87
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
[2017-03-04 18:00] VITALS: BP 126/87
[2017-03-04] MEDS: PALIPERIDONE 6 MG ER TAB (INVEGA) PO SCH (21:03)
[2017-03-04] MEDS: QUEtiapine FUMARATE 200 MG TAB PO SCH (21:05)
[2017-03-05 06:25] VITALS: BP 131/81
[2017-03-05] MEDS: busPIRone 5 MG TAB PO SCH ×2 (09:34→20:26)
[2017-03-05] MEDS: GABAPENTIN 300 MG CAP PO SCH ×3 (09:36→20:26)
[2017-03-05] MEDS: LACTOBACILLUS ACIDOPHILUS CAP (BACID) PO SCH ×2 (09:36→20:24)
[2017-03-05] MEDS: NICOTINE 21MG/24HR 1 EA TRANSDERMAL TD SCH (09:37)
[2017-03-05] MEDS: FERROUS SULFATE 325MG TAB PO SCH (09:38)
[2017-03-05] MEDS: BACLOFEN 10 MG TAB PO SCH ×3 (09:38→20:24)
[2017-03-05] MEDS: METHADONE 10 MG TAB (S0109) PO SCH (09:38)
[2017-03-05] MEDS: lamoTRIgine 25 MG TAB PO SCH ×2 (09:39→20:25)
[2017-03-05] MEDS: PALIPERIDONE 3 MG ER TAB (INVEGA) PO SCH (09:39)
[2017-03-05] MEDS: PARoxetine 12.5 MG **CR** TAB PO SCH (09:40)
[2017-03-05] MEDS: TAMSULOSIN 0.4 MG CAP PO SCH (09:40)
[2017-03-05] MEDS: traMADol 50 MG TAB PO PRN (16:15)
[2017-03-05] MEDS: hydrOXYzine 25 MG TAB PO PRN (16:15)
[2017-03-05 18:00] VITALS: BP 119/68
[2017-03-05] MEDS: QUEtiapine FUMARATE 200 MG TAB PO SCH (20:25)
[2017-03-05] MEDS: PALIPERIDONE 6 MG ER TAB (INVEGA) PO SCH (20:25)
--- NOTE | 2017-03-05 20:43 | MHIPNPDOC ---
[facility] Progress Note Progress Note DATE OF SERVICE: 03/05/17 HISTORY: Patient is a 41-year-old female, who has a history of PTSD, depression , anxiety, polysubstance abuse. She was admitted to [facility] from 02/14/17 to for treatment of CAP. Patient was stabilized and transferred to [facility] . Says she has "done wrong to so many people" and it keeps playing in her head and she doesn't know if it's real or not. Everybody she meets reminds her of someone she hurt along the way and she "sees their faces" on people around her. Says when she was brought to the [facility] on 02/14/17 she thought the hospital was shut down and they wanted to "torture her head". She says it feels like people here at the hospital who want to "infect, poison" her. Says she has many skeletons in her closet, and she wonders if ex-boyfriend who has custody of her 2 year old son put this whole thing together. She says CPS was involved and took her son away. She says he is going to take her son to [place] while she is in here. She says she has outstanding warrants and worries she will be arrested if she leaves for not returning a jeep that was given to her in previous employment. Says she feels somebody has their "eye on her" and that she has lost many phones this year, which may have been taken by somebody. She saw a picture of her son with a woman who used to be her friend and felt like "ripping her throat out". She also mentions she doesn't want to wake up in the morning and takes more than the recommended amount of medication to accomplish this, without taking the full bottle. Says she has chronic back pain, unexplained pains in her legs, no deep vein thromboses were found on imaging studies, and says she's been falling lately. She also has healing wound on her left leg. Says she's impulsive and sometimes doesn't think about consequences. And she feels very weak/tired because of her overall condition. Says she gets racing thoughts and can't get the words out sometimes. 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 She has an extensive medical history including polysubstance abuse, says quit heroin 4 months ago and on methadone currently, hepatitis A, chronic hepatitis C (followed by Dr. Cruz), rhabdomyolysis and CKD stage 3. Interval History 03/05/17: Small cuts made with pencil to right side of neck. Says she continues to have suicidal ideations, but won't elaborate on her plan. It was determined she has a non-extraditable warrant for her arrest in [place]. She faces fine. This was discussed with the patient. Says she feels worse today and continues to feel guilty. She was observed looking around the room and feeling under her shirt during interview. Says she continues to hear voices. She also endorses paranoia. VITAL SIGNS: See below. NEW TEST RESULTS: none CURRENT MEDICATIONS: See below. MENTAL STATUS EXAMINATION: General appearance: Patient is a 41-year old female, who is in NAD, cooperative , poor dentition, minimal eye contact, lazy left eye, responding to internal stimuli. Speech: non-spontaneous, decreased rate, rhythm, volume Thought processes: circumstantial Thought content: Endorses paranoia, auditory hallucinations and visual hallucinations with persecutory delusions Abstract reasoning and computation: poor Description of associations: poor Description of abnormal or psychotic thoughts: hears voices, people talking about her, feels around her body, possible tactile hallucinations Judgment: poor Insight: poor Orientation: awake and alert Recent and remote memory: Poor Attention span and concentration: Poor Fund of knowledge: below average Mood: "upset, scared" Affect: dysthymic, lethargic, disorganized, suicidal DIAGNOSES: 1. Bipolar Disorder I, mixed episode 2. Substance induced mood disorder 3. Borderline Personality Disorder 4. Obsessive Compulsive Personality disorder ASSESSMENT: Continues to require observation. She is grossly psychotic and suicidal. She is confused and disoriented and diplays self injurious behavior. MANAGEMENT PLAN: Continue on a 1:1 for safety observation. Started Abilify 5 mg PO QAM. Continue Invega 3 mg PO QAM 6 mg QHS. Continue other medications. Continue to monitor for suicidal ideations, plan and attempt. Continue to monitor for medication side effects. Continue group therapy and evaluation of kidney function. TIME SPENT: 30 minutes. Vital Signs Vital Signs Date Time Temp Pulse Resp B/P (MAP) Pulse Ox O2 Delivery O2 Flow Rate FiO2 03/05/17 18:00 98.5 90 16 119/68 (85) 03/04/17 10:03 100 Room Air Current Medications Current Medications Aripiprazole (AbiLIFY) 2.5 mg BID PO Last administered on 02/24/17 09:27; Start 02/23/17 at 09:00; Stop 02/24/17 at 14:40; Status DC Aripiprazole (AbiLIFY) 2.5 mg QAM PO Last administered on 03/04/17 09:01; Start 03/03/17 at 09:00; Stop 03/04/17 at 14:28; Status DC Aripiprazole (AbiLIFY) 5 mg BID PO Last administered on 03/01/17 08:17; Start 02/24/17 at 21:00; Stop 03/01/17 at 12:21; Status DC Aripiprazole (AbiLIFY) 5 mg QAM PO Last administered on 03/05/17 09:37; Start 03/05/17 at 09:00; Stop 04/04/17 at 08:59 Aripiprazole (AbiLIFY) 7.5 mg BID PO Last administered on 03/02/17 08:38; Start 03/01/17 at 21:00; Stop 03/02/17 at 12:42; Status DC Baclofen (Lioresal) 10 mg TID PO Last administered on 03/05/17 20:24; Start 02/16/17 at 21:00; Stop 03/18/17 at 20:59 Buspirone HCl (Buspar) 7.5 mg BID PO Last administered on 03/05/17 20:26; Start 02/16/17 at 21:00; Stop 03/18/17 at 20:59 Ferrous Sulfate (Ferrous Sulfate) 325 mg Q2D@0900 PO Last administered on 09:38; Start 02/17/17 at 09:00; Stop 03/19/17 at 08:59 Fluoxetine HCl (PROzac) 20 mg QAM PO Last administered on 02/22/17 08:35; Start 02/21/17 at 09:00; Stop 02/22/17 at 17:39; Status DC Fluoxetine HCl (PROzac) 40 mg DAILY PO Last administered on 02/20/17 08:30; Start 02/17/17 at 09:00; Stop 02/20/17 at 16:19; Status DC Fluvoxamine Maleate (Luvox) 50 mg QHS PO ; Start 02/22/17 at 21:00; Stop 02/22 at 21:00; Status DC Fluvoxamine Maleate (Luvox) 50 mg QHS PO Last administered on 03/01/17 20:11 ; Start 02/23/17 at 21:00; Stop 03/02/17 at 12:40; Status DC Gabapentin (Neurontin) 100 mg TID PO ; Start 02/19/17 at 16:00; Stop 03/21/17 at 15:59; Status Cancel Gabapentin (Neurontin) 300 mg TID PO Last administered on 02/19/17 08:45; Start 02/16/17 at 21:00; Stop 02/19/17 at 14:29; Status DC Gabapentin (Neurontin) 300 mg TID PO Last administered on 03/05/17 20:26; Start 02/19/17 at 17:15; Stop 03/21/17 at 17:14 Hydroxyzine HCl (Atarax) 50 mg Q6HP PRN PO ANXIETY/AGITATION Last administered on 02/26/17 08:05; Start 02/16/17 at 21:00; Stop 02/26/17 at 13:31; Status DC Hydroxyzine HCl (Atarax) 75 mg Q6HP PRN PO ANXIETY/AGITATION Last administered on 03/05/17 16:15; Start 02/26/17 at 13:30; Stop 03/28/17 at 13:29 Lactobacillus Acidophilus (Bacid) 1 ea BID PO Last administered on 03/05/17 20 :24; Start 02/22/17 at 09:00; Stop 03/24/17 at 08:59 Lamotrigine (LaMICtal) 25 mg BID PO Last administered on 03/05/17 20:25; Start 02/16/17 at 21:00; Stop 03/18/17 at 20:59 Levofloxacin (Levaquin) 500 mg DAILY@06 PO Last administered on 02/23/17 06: 30; Start 02/17/17 at 06:00; Stop 02/23/17 at 06:01; Status DC Methadone HCl (Dolophine) 30 mg DAILY PO Last administered on 02/17/17 08:08 ; Start 02/17/17 at 09:00; Stop 02/17/17 at 14:32; Status DC Methadone HCl (Dolophine) 40 mg DAILY PO Last administered on 03/05/17 09:38; Start 02/18/17 at 09:00; Stop 03/09/17 at 08:59 Nicotine (Nicoderm Cq 21mg) 1 patch DAILY TD Last administered on 03/05/17 09: 37; Start 02/19/17 at 09:00; Stop 03/21/17 at 08:59 Paliperidone (Invega) 3 mg BID PO Last administered on 03/03/17 08:43; Start 03/02/17 at 21:00; Stop 03/03/17 at 12:37; Status DC Paliperidone (Invega) 3 mg QAM PO Last administered on 03/05/17 09:39; Start 03/04/17 at 09:00; Stop 04/01/17 at 20:59 Paliperidone (Invega) 6 mg QHS PO Last administered on 03/05/17 20:25; Start 03/03/17 at 21:00; Stop 04/02/17 at 20:59 Paroxetine HCl (PAXil CR) 12.5 mg DAILY PO Last administered on 03/05/17 09:40 ; Start 03/03/17 at 09:00; Stop 04/02/17 at 08:59 Pregabalin (Lyrica) 100 mg TID PO ; Start 02/19/17 at 16:00; Stop 02/26/17 at 15:59; Status Cancel Quetiapine Fumarate (SEROquel) 50 mg QAM PO Last administered on 03/03/17 08: 42; Start 03/03/17 at 09:00; Stop 03/03/17 at 15:49; Status DC Quetiapine Fumarate (SEROquel) 50 mg QHS PO Last administered on 03/02/17 20: 10; Start 03/02/17 at 21:00; Stop 03/02/17 at 21:00; Status DC Quetiapine Fumarate (SEROquel) 100 mg QHS PO Last administered on 02/17/17 20 :43; Start 02/16/17 at 21:00; Stop 02/18/17 at 14:36; Status DC Quetiapine Fumarate (SEROquel) 200 mg QHS PO Last administered on 03/01/17 20 :11; Start 02/18/17 at 21:00; Stop 03/02/17 at 12:43; Status DC Quetiapine Fumarate (SEROquel) 200 mg QHS PO Last administered on 03/05/17 20: 25; Start 03/02/17 at 21:00; Stop 04/01/17 at 20:59 Tamsulosin HCl (Flomax) 0.4 mg DAILY PO Last administered on 03/05/17 09:40; Start 02/17/17 at 09:00; Stop 03/19/17 at 08:59 Tramadol HCl (Ultram) 50 mg Q12HP PRN PO MODERATE PAIN (PS 5-7); Start at 14:15; Stop 02/25/17 at 09:59; Status UNV Tramadol HCl (Ultram) 50 mg Q8HP PRN PO MODERATE PAIN (PS 5-7) Last administered on 02/19/17 06:17; Start 02/18/17 at 10:00; Stop 02/19/17 at 14 :09; Status DC Tramadol HCl (Ultram) 50 mg Q8HP PRN PO MODERATE PAIN (PS 5-7) Last administered on 03/05/17 16:15; Start 02/19/17 at 16:45; Stop 03/10/17 at 16: 44 Allergies Coded Allergies: TAPE (Verified Allergy, Intermediate, 02/14/17) Very red & Sore Shellfish Allergy (Verified Allergy, Unknown, 02/13/17) Hydrocodone (Verified Adverse Reaction, Mild, BECAME hiGH, 02/13/17) LETTY VILLASEÑOR PGY-1 Mar 05, 2017 20:43
[2017-03-06 06:38] VITALS: BP 126/87
[2017-03-06] MEDS: LACTOBACILLUS ACIDOPHILUS CAP (BACID) PO SCH ×2 (08:13→21:36)
[2017-03-06] MEDS: GABAPENTIN 300 MG CAP PO SCH ×3 (08:13→21:38)
[2017-03-06] MEDS: busPIRone 5 MG TAB PO SCH ×2 (08:14→21:38)
[2017-03-06] MEDS: TAMSULOSIN 0.4 MG CAP PO SCH (08:14)
[2017-03-06] MEDS: PARoxetine 12.5 MG **CR** TAB PO SCH (08:14)
[2017-03-06] MEDS: METHADONE 10 MG TAB (S0109) PO SCH (08:14)
[2017-03-06] MEDS: PALIPERIDONE 3 MG ER TAB (INVEGA) PO SCH (08:15)
[2017-03-06] MEDS: NICOTINE 21MG/24HR 1 EA TRANSDERMAL TD SCH (08:15)
[2017-03-06] MEDS: lamoTRIgine 25 MG TAB PO SCH ×2 (08:15→21:37)
[2017-03-06] MEDS: BACLOFEN 10 MG TAB PO SCH ×3 (08:15→21:37)
[2017-03-06] MEDS: hydrOXYzine 25 MG TAB PO PRN (15:53)
[2017-03-06] MEDS: traMADol 50 MG TAB PO PRN (15:54)
[2017-03-06 18:00] VITALS: BP 119/70
[2017-03-06] MEDS: PALIPERIDONE 6 MG ER TAB (INVEGA) PO SCH (21:37)
[2017-03-06] MEDS: QUEtiapine FUMARATE 200 MG TAB PO SCH (21:37)
[2017-03-07 07:18] VITALS: BP 110/57
[2017-03-07] MEDS: NICOTINE 21MG/24HR 1 EA TRANSDERMAL TD SCH (09:22)
[2017-03-07] MEDS: lamoTRIgine 25 MG TAB PO SCH ×2 (09:23→20:46)
[2017-03-07] MEDS: busPIRone 5 MG TAB PO SCH ×2 (09:23→20:46)
[2017-03-07] MEDS: FERROUS SULFATE 325MG TAB PO SCH (09:23)
[2017-03-07] MEDS: GABAPENTIN 300 MG CAP PO SCH ×3 (09:23→20:46)
[2017-03-07] MEDS: PALIPERIDONE 3 MG ER TAB (INVEGA) PO SCH (09:23)
[2017-03-07] MEDS: TAMSULOSIN 0.4 MG CAP PO SCH (09:23)
[2017-03-07] MEDS: PARoxetine 12.5 MG **CR** TAB PO SCH (09:23)
[2017-03-07] MEDS: LACTOBACILLUS ACIDOPHILUS CAP (BACID) PO SCH ×2 (09:23→20:46)
[2017-03-07] MEDS: METHADONE 10 MG TAB (S0109) PO SCH (09:23)
[2017-03-07] MEDS: BACLOFEN 10 MG TAB PO SCH ×3 (09:23→20:45)
[2017-03-07 18:41] VITALS: BP 125/75
[2017-03-07] MEDS: QUEtiapine FUMARATE 200 MG TAB PO SCH (20:45)
[2017-03-07] MEDS: PALIPERIDONE 6 MG ER TAB (INVEGA) PO SCH (20:45)
[2017-03-07] MEDS: hydrOXYzine 25 MG TAB PO PRN (20:46)
--- NOTE | 2017-03-08 06:24 | IPN ---
DATE OF SERVICE: 03/06/2017 The patient today states that she had been having thoughts of harming herself. She was placed on a sitter. When I asked her why she wanted to harm herself she said that it was because she feels guilty, she is very paranoid, continues to feel that she has hurt other people. MENTAL STATUS EXAM: She is alert and oriented times three. Psychomotor activity is decreased. There is no formal thought disorder noted. Her mood is "not good." Affect is constricted but appropriate to her moods. She is not suicidal or homicidal. She continues with paranoid thinking. Concentration is fair. Insight and judgment poor. DIAGNOSES: 1. Bipolar disorder, type 1, mixed episode. 2. Substance induced mood disorder. 3. Borderline personality disorder. 4. Obsessive compulsive personality disorder. TREATMENT PLAN: At this point the patient remains quite psychotic. She is not able to contract for safety so we will maintain her on one-to-one observation level and we will continue to titrate her medications as indicated.
[2017-03-08 07:19] VITALS: BP 112/55
[2017-03-08] MEDS ORDERED: **PENDING PPD ENTRY XX SCH (09:00)
[2017-03-08] MEDS: NICOTINE 21MG/24HR 1 EA TRANSDERMAL TD SCH (09:41)
[2017-03-08] MEDS: TAMSULOSIN 0.4 MG CAP PO SCH (09:41)
[2017-03-08] MEDS: PALIPERIDONE 3 MG ER TAB (INVEGA) PO SCH (09:42)
[2017-03-08] MEDS: METHADONE 10 MG TAB (S0109) PO SCH (09:42)
[2017-03-08] MEDS: LACTOBACILLUS ACIDOPHILUS CAP (BACID) PO SCH ×2 (09:42→20:27)
[2017-03-08] MEDS: BACLOFEN 10 MG TAB PO SCH ×3 (09:42→20:27)
[2017-03-08] MEDS: PARoxetine 12.5 MG **CR** TAB PO SCH (09:43)
[2017-03-08] MEDS: lamoTRIgine 25 MG TAB PO SCH ×2 (09:43→20:29)
[2017-03-08] MEDS: GABAPENTIN 300 MG CAP PO SCH ×3 (09:43→20:27)
[2017-03-08] MEDS: busPIRone 5 MG TAB PO SCH ×2 (09:43→20:27)
[2017-03-08] MEDS ORDERED: TUBERCULIN PPD 5 UNITS/0.1 ML ID ONE ×2 (12:45→15:00)
[2017-03-08 18:00] VITALS: BP 123/77
[2017-03-08] MEDS: QUEtiapine FUMARATE 200 MG TAB PO SCH (20:27)
[2017-03-08] MEDS: hydrOXYzine 25 MG TAB PO PRN (20:27)
[2017-03-08] MEDS: PALIPERIDONE 6 MG ER TAB (INVEGA) PO SCH (20:27)
[2017-03-09 06:59] VITALS: BP 109/75
--- NOTE | 2017-03-09 07:54 | MHIPNPDOC ---
[facility] Progress Note Progress Note DATE OF SERVICE: 03/09/17 HISTORY: Patient is a 41-year-old female, who has a history of PTSD, depression , anxiety, polysubstance abuse. She was admitted to [facility] from 02/14/17 to for treatment of CAP. Patient was stabilized and transferred to [facility] . Says she has "done wrong to so many people" and it keeps playing in her head and she doesn't know if it's real or not. Everybody she meets reminds her of someone she hurt along the way and she "sees their faces" on people around her. Says when she was brought to the [facility] on 02/14/17 she thought the hospital was shut down and they wanted to "torture her head". She says it feels like people here at the hospital who want to "infect, poison" her. Says she has many skeletons in her closet, and she wonders if ex-boyfriend who has custody of her 2 year old son put this whole thing together. She says CPS was involved and took her son away. She says he is going to take her son to [place] while she is in here. She says she has outstanding warrants and worries she will be arrested if she leaves for not returning a jeep that was given to her in previous employment. Says she feels somebody has their "eye on her" and that she has lost many phones this year, which may have been taken by somebody. She saw a picture of her son with a woman who used to be her friend and felt like "ripping her throat out". She also mentions she doesn't want to wake up in the morning and takes more than the recommended amount of medication to accomplish this, without taking the full bottle. Says she has chronic back pain, unexplained pains in her legs, no deep vein thromboses were found on imaging studies, and says she's been falling lately. She also has healing wound on her left leg. Says she's impulsive and sometimes doesn't think about consequences. And she feels very weak/tired because of her overall condition. Says she gets racing thoughts and can't get the words out sometimes. 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 She has an extensive medical history including polysubstance abuse, says quit heroin 4 months ago and on methadone currently, hepatitis A, chronic hepatitis C (followed by Dr. Cruz), rhabdomyolysis and CKD stage 3. Interval History 03/08/17: Says she is "not so good" and this is the "same" as she has been. She appears fatigued and claims she is very tired even though she sleeps "non-stop". She says her brain is "foggy" and describes her mood as "mellow". Says she's anxious that "everyone is coming to get me" and that they "will kill me". She continues to express suicidal ideation, but is "too tired to think of new ways to do so" even though she states she has an "initial plan" which she refuses to speak about. She denies homicidal ideation, but fears of "harming others". She claims to hear her brother's voice and people she knows are not there. VITAL SIGNS: See below. NEW TEST RESULTS: none CURRENT MEDICATIONS: See below. MENTAL STATUS EXAMINATION: General appearance: Patient is a 41-year old female, who is in NAD, cooperative , poor dentition, minimal eye contact, lazy left eye, responding to internal stimuli. Speech: non-spontaneous, decreased rate, rhythm, volume Thought processes: circumstantial Thought content: Endorses paranoia, auditory and hallucinations with persecutory delusions Abstract reasoning and computation: poor Description of associations: poor Description of abnormal or psychotic thoughts: hears voices, people talking to her. Judgment: poor Insight: improving Orientation: awake and alert Recent and remote memory: Poor Attention span and concentration: Poor Fund of knowledge: below average Mood: "not so good" Affect: dysthymic, lethargic, disorganized, suicidal DIAGNOSES: 1. Bipolar Disorder I, mixed episode 2. Substance induced mood disorder 3. Borderline Personality Disorder 4. Obsessive Compulsive Personality disorder ASSESSMENT: Continues to require observation on a 1:1. She appears to be reponding to internal stimuli, hearing voices and says she is suicidal with plan. She is circumstantial and displays self injurious behavior. MANAGEMENT PLAN: Continue on a 1:1 for safety observation. Continue Abilify 5 mg PO QAM. Continue Invega 3 mg PO QAM 6 mg QHS. Continue other medications. Continue to monitor for suicidal ideations, plan and attempt. Continue to monitor for medication side effects. Continue group therapy and evaluation of kidney function. Will consider making changes to medication regimen if she continues to lack improvement. received Tuberculin PPD aerosol, 2 x 5 units. TIME SPENT: 25 minutes. Vital Signs Vital Signs Date Time Temp Pulse Resp B/P (MAP) Pulse Ox O2 Delivery O2 Flow Rate FiO2 03/09/17 06:59 99.6 104 18 109/75 (86) 99.6 03/04/17 10:03 100 Room Air Current Medications Current Medications Aripiprazole (AbiLIFY) 2.5 mg BID PO Last administered on 02/24/17 09:27; Start 02/23/17 at 09:00; Stop 02/24/17 at 14:40; Status DC Aripiprazole (AbiLIFY) 2.5 mg QAM PO Last administered on 03/04/17 09:01; Start 03/03/17 at 09:00; Stop 03/04/17 at 14:28; Status DC Aripiprazole (AbiLIFY) 5 mg BID PO Last administered on 03/01/17 08:17; Start 02/24/17 at 21:00; Stop 03/01/17 at 12:21; Status DC Aripiprazole (AbiLIFY) 5 mg QAM PO Last administered on 03/08/17 09:42; Start 03/05/17 at 09:00; Stop 04/04/17 at 08:59 Aripiprazole (AbiLIFY) 7.5 mg BID PO Last administered on 03/02/17 08:38; Start 03/01/17 at 21:00; Stop 03/02/17 at 12:42; Status DC Baclofen (Lioresal) 10 mg TID PO Last administered on 03/08/17 20:27; Start 02/16/17 at 21:00; Stop 03/18/17 at 20:59 Buspirone HCl (Buspar) 7.5 mg BID PO Last administered on 03/08/17 20:27; Start 02/16/17 at 21:00; Stop 03/18/17 at 20:59 Ferrous Sulfate (Ferrous Sulfate) 325 mg Q2D@0900 PO Last administered on 09:23; Start 02/17/17 at 09:00; Stop 03/19/17 at 08:59 Fluoxetine HCl (PROzac) 20 mg QAM PO Last administered on 02/22/17 08:35; Start 02/21/17 at 09:00; Stop 02/22/17 at 17:39; Status DC Fluoxetine HCl (PROzac) 40 mg DAILY PO Last administered on 02/20/17 08:30; Start 02/17/17 at 09:00; Stop 02/20/17 at 16:19; Status DC Fluvoxamine Maleate (Luvox) 50 mg QHS PO ; Start 02/22/17 at 21:00; Stop 02/22 at 21:00; Status DC Fluvoxamine Maleate (Luvox) 50 mg QHS PO Last administered on 03/01/17 20:11 ; Start 02/23/17 at 21:00; Stop 03/02/17 at 12:40; Status DC Gabapentin (Neurontin) 100 mg TID PO ; Start 02/19/17 at 16:00; Stop 03/21/17 at 15:59; Status Cancel Gabapentin (Neurontin) 300 mg TID PO Last administered on 02/19/17 08:45; Start 02/16/17 at 21:00; Stop 02/19/17 at 14:29; Status DC Gabapentin (Neurontin) 300 mg TID PO Last administered on 03/08/17 20:27; Start 02/19/17 at 17:15; Stop 03/21/17 at 17:14 Hydroxyzine HCl (Atarax) 50 mg Q6HP PRN PO ANXIETY/AGITATION Last administered on 02/26/17 08:05; Start 02/16/17 at 21:00; Stop 02/26/17 at 13:31; Status DC Hydroxyzine HCl (Atarax) 75 mg Q6HP PRN PO ANXIETY/AGITATION Last administered on 03/08/17 20:27; Start 02/26/17 at 13:30; Stop 03/28/17 at 13:29 Lactobacillus Acidophilus (Bacid) 1 ea BID PO Last administered on 03/08/17 20 :27; Start 02/22/17 at 09:00; Stop 03/24/17 at 08:59 Lamotrigine (LaMICtal) 25 mg BID PO Last administered on 03/08/17 20:29; Start 02/16/17 at 21:00; Stop 03/18/17 at 20:59 Levofloxacin (Levaquin) 500 mg DAILY@06 PO Last administered on 02/23/17 06: 30; Start 02/17/17 at 06:00; Stop 02/23/17 at 06:01; Status DC Methadone HCl (Dolophine) 30 mg DAILY PO Last administered on 02/17/17 08:08 ; Start 02/17/17 at 09:00; Stop 02/17/17 at 14:32; Status DC Methadone HCl (Dolophine) 40 mg DAILY PO Last administered on 03/08/17 09:42; Start 02/18/17 at 09:00; Stop 03/15/17 at 08:59 Nicotine (Nicoderm Cq 21mg) 1 patch DAILY TD Last administered on 03/08/17 09: 41; Start 02/19/17 at 09:00; Stop 03/21/17 at 08:59 Non-Formulary Medication ( See Comment Field Below ) SEE COMMENTS SECTION 1T @10 XX ; Start 03/10/17 at 10:00; Stop 03/10/17 at 10:00; Status DC Non-Formulary Medication ( See Comment Field Below ) SEE LABEL COMMENTS DAILY XX ; Start 03/08/17 at 09:00; Stop 03/08/17 at 13:43; Status DC Paliperidone (Invega) 3 mg BID PO Last administered on 03/03/17 08:43; Start 03/02/17 at 21:00; Stop 03/03/17 at 12:37; Status DC Paliperidone (Invega) 3 mg QAM PO Last administered on 03/08/17 09:42; Start 03/04/17 at 09:00; Stop 04/01/17 at 20:59 Paliperidone (Invega) 6 mg QHS PO Last administered on 03/08/17 20:27; Start 03/03/17 at 21:00; Stop 04/02/17 at 20:59 Paroxetine HCl (PAXil CR) 12.5 mg DAILY PO Last administered on 03/08/17 09:43 ; Start 03/03/17 at 09:00; Stop 04/02/17 at 08:59 Pregabalin (Lyrica) 100 mg TID PO ; Start 02/19/17 at 16:00; Stop 02/26/17 at 15:59; Status Cancel Quetiapine Fumarate (SEROquel) 50 mg QAM PO Last administered on 03/03/17 08: 42; Start 03/03/17 at 09:00; Stop 03/03/17 at 15:49; Status DC Quetiapine Fumarate (SEROquel) 50 mg QHS PO Last administered on 03/02/17 20: 10; Start 03/02/17 at 21:00; Stop 03/02/17 at 21:00; Status DC Quetiapine Fumarate (SEROquel) 100 mg QHS PO Last administered on 02/17/17 20 :43; Start 02/16/17 at 21:00; Stop 02/18/17 at 14:36; Status DC Quetiapine Fumarate (SEROquel) 200 mg QHS PO Last administered on 03/01/17 20 :11; Start 02/18/17 at 21:00; Stop 03/02/17 at 12:43; Status DC Quetiapine Fumarate (SEROquel) 200 mg QHS PO Last administered on 03/08/17 20: 27; Start 03/02/17 at 21:00; Stop 04/01/17 at 20:59 Tamsulosin HCl (Flomax) 0.4 mg DAILY PO Last administered on 03/08/17 09:41; Start 02/17/17 at 09:00; Stop 03/19/17 at 08:59 Tramadol HCl (Ultram) 50 mg Q12HP PRN PO MODERATE PAIN (PS 5-7); Start at 14:15; Stop 02/25/17 at 09:59; Status UNV Tramadol HCl (Ultram) 50 mg Q8HP PRN PO MODERATE PAIN (PS 5-7) Last administered on 02/19/17 06:17; Start 02/18/17 at 10:00; Stop 02/19/17 at 14 :09; Status DC Tramadol HCl (Ultram) 50 mg Q8HP PRN PO MODERATE PAIN (PS 5-7) Last administered on 03/06/17t 15:54; Start 02/19/17 at 16:45; Stop 03/10/17 at 16: 44 Allergies Coded Allergies: TAPE (Verified Allergy, Intermediate, 02/14/17) Very red & Sore Shellfish Allergy (Verified Allergy, Unknown, 02/13/17) Hydrocodone (Verified Adverse Reaction, Mild, BECAME hiGH, 02/13/17) LETTY VILLASEÑOR PGY-1 Mar 09, 2017 07:54
[2017-03-09] MEDS: METHADONE 10 MG TAB (S0109) PO SCH (08:42)
[2017-03-09] MEDS: LACTOBACILLUS ACIDOPHILUS CAP (BACID) PO SCH ×2 (08:43→20:31)
[2017-03-09] MEDS: TAMSULOSIN 0.4 MG CAP PO SCH (08:43)
[2017-03-09] MEDS: BACLOFEN 10 MG TAB PO SCH ×3 (08:43→20:31)
[2017-03-09] MEDS: PARoxetine 12.5 MG **CR** TAB PO SCH (08:44)
[2017-03-09] MEDS: GABAPENTIN 300 MG CAP PO SCH ×3 (08:44→20:30)
[2017-03-09] MEDS: PALIPERIDONE 3 MG ER TAB (INVEGA) PO SCH (08:44)
[2017-03-09] MEDS: busPIRone 5 MG TAB PO SCH ×2 (08:44→20:31)
[2017-03-09] MEDS: lamoTRIgine 25 MG TAB PO SCH ×2 (08:44→20:31)
[2017-03-09] MEDS: FERROUS SULFATE 325MG TAB PO SCH (08:45)
[2017-03-09] MEDS: NICOTINE 21MG/24HR 1 EA TRANSDERMAL TD SCH (08:45)
[2017-03-09] MEDS: hydrOXYzine 25 MG TAB PO PRN (17:53)
[2017-03-09 18:08] VITALS: BP 114/72
[2017-03-09] MEDS: QUEtiapine FUMARATE 200 MG TAB PO SCH (20:31)
[2017-03-09] MEDS: PALIPERIDONE 6 MG ER TAB (INVEGA) PO SCH (20:31)
--- NOTE | 2017-03-09 21:34 | MHIPNPDOC ---
[facility] Progress Note Progress Note DATE OF SERVICE: 03/09/17 HISTORY: Patient is a 41-year-old female, who has a history of PTSD, depression , anxiety, polysubstance abuse. She was admitted to [facility] from 02/14/17 to for treatment of CAP. Patient was stabilized and transferred to [facility] . Says she has "done wrong to so many people" and it keeps playing in her head and she doesn't know if it's real or not. Everybody she meets reminds her of someone she hurt along the way and she "sees their faces" on people around her. Says when she was brought to the [facility] on 02/14/17 she thought the hospital was shut down and they wanted to "torture her head". She says it feels like people here at the hospital who want to "infect, poison" her. Says she has many skeletons in her closet, and she wonders if ex-boyfriend who has custody of her 2 year old son put this whole thing together. She says CPS was involved and took her son away. She says he is going to take her son to [place] while she is in here. She says she has outstanding warrants and worries she will be arrested if she leaves for not returning a jeep that was given to her in previous employment. Says she feels somebody has their "eye on her" and that she has lost many phones this year, which may have been taken by somebody. She saw a picture of her son with a woman who used to be her friend and felt like "ripping her throat out". She also mentions she doesn't want to wake up in the morning and takes more than the recommended amount of medication to accomplish this, without taking the full bottle. Says she has chronic back pain, unexplained pains in her legs, no deep vein thromboses were found on imaging studies, and says she's been falling lately. She also has healing wound on her left leg. Says she's impulsive and sometimes doesn't think about consequences. And she feels very weak/tired because of her overall condition. Says she gets racing thoughts and can't get the words out sometimes. 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 She has an extensive medical history including polysubstance abuse, says quit heroin 4 months ago and on methadone currently, hepatitis A, chronic hepatitis C (followed by Dr. Cruz), rhabdomyolysis and CKD stage 3. Interval History 03/09/17: Continues to be more cooperative with interview. Continues to endorse suicidal ideation, but "too tired to think about it". Says she feels sore and tired. Endorses auditory hallucinations "voices of people I know". When asked about visual hallucinations she is starring at ceiling. She continues to be paranoid and says "I don't want to participate in life" Says she feels guilty for things she has done and doesn't want to be her old self. When asked about homicidal ideations she says "I don't want to hurt anyone". Says she sleeps through the night, but feels tired when she wakes up. Her appetite is "good". Has not been attending groups. VITAL SIGNS: See below. NEW TEST RESULTS: none CURRENT MEDICATIONS: See below. MENTAL STATUS EXAMINATION: General appearance: Patient is a 41-year old female, who is in NAD, cooperative , poor dentition, minimal eye contact, lazy left eye, responding to internal stimuli. Speech: non-spontaneous, decreased rate, rhythm, volume Thought processes: circumstantial Thought content: Endorses paranoia, auditory and hallucinations with persecutory delusions Abstract reasoning and computation: poor Description of associations: poor Description of abnormal or psychotic thoughts: continues to hears voices, people she knows. Judgment: poor Insight: improving Orientation: awake and alert Recent and remote memory: Poor Attention span and concentration: Poor Fund of knowledge: below average Mood: "not great" Affect: dysthymic, lethargic, disorganized, suicidal DIAGNOSES: 1. Bipolar Disorder I, mixed episode 2. Substance induced mood disorder 3. Borderline Personality Disorder 4. Obsessive Compulsive Personality disorder ASSESSMENT: Patient continues to endorse suicidal ideations with plan, but too tired to think abut plan. She endorses AH and appear to be responding to visual hallucinations. Insight continues to improve as she assesses her situation and says and admits she wants changes in her life. Continuing cross taper of increasing Abilify and decreasing Invega, see below in Management plan. Counselled her regarding her negative thoughts and changes she needs to make in her life. Says she wants [facility] treatment at [facility]. MANAGEMENT PLAN: Continue on a 1:1 for safety observation. Increased Abilify 5 mg PO QAM to Abilify 5 mg PO BID. Stopped Invega 3 mg PO QAM. Continue Invega 6 mg QHS. Continue other medications. Continue to monitor for suicidal ideations, plan and attempt. Continue to monitor for medication side effects. Continue group therapy and ALEXIS George follows for evaluation of kidney function. Will consider making changes to medication regimen if she continues to lack improvement. TIME SPENT: 20 minutes. Vital Signs Vital Signs Date Time Temp Pulse Resp B/P (MAP) Pulse Ox O2 Delivery O2 Flow Rate FiO2 03/09/17 18:08 99.4 87 18 114/72 (86) 03/04/17 10:03 100 Room Air Current Medications Current Medications Aripiprazole (AbiLIFY) 2.5 mg BID PO Last administered on 02/24/17 09:27; Start 02/23/17 at 09:00; Stop 02/24/17 at 14:40; Status DC Aripiprazole (AbiLIFY) 2.5 mg QAM PO Last administered on 03/04/17 09:01; Start 03/03/17 at 09:00; Stop 03/04/17 at 14:28; Status DC Aripiprazole (AbiLIFY) 5 mg BID PO Last administered on 03/01/17 08:17; Start 02/24/17 at 21:00; Stop 03/01/17 at 12:21; Status DC Aripiprazole (AbiLIFY) 5 mg BID PO Last administered on 03/09/17 20:30; Start 03/09/17 at 21:00; Stop 04/04/17 at 08:59 Aripiprazole (AbiLIFY) 5 mg QAM PO Last administered on 03/09/17 08:44; Start 03/05/17 at 09:00; Stop 03/09/17 at 11:09; Status DC Aripiprazole (AbiLIFY) 7.5 mg BID PO Last administered on 03/02/17 08:38; Start 03/01/17 at 21:00; Stop 03/02/17 at 12:42; Status DC Baclofen (Lioresal) 10 mg TID PO Last administered on 03/09/17 20:31; Start 02/16/17 at 21:00; Stop 03/18/17 at 20:59 Buspirone HCl (Buspar) 7.5 mg BID PO Last administered on 03/09/17 20:31; Start 02/16/17 at 21:00; Stop 03/18/17 at 20:59 Ferrous Sulfate (Ferrous Sulfate) 325 mg Q2D@0900 PO Last administered on 08:45; Start 02/17/17 at 09:00; Stop 03/19/17 at 08:59 Fluoxetine HCl (PROzac) 20 mg QAM PO Last administered on 02/22/17 08:35; Start 02/21/17 at 09:00; Stop 02/22/17 at 17:39; Status DC Fluoxetine HCl (PROzac) 40 mg DAILY PO Last administered on 02/20/17 08:30; Start 02/17/17 at 09:00; Stop 02/20/17 at 16:19; Status DC Fluvoxamine Maleate (Luvox) 50 mg QHS PO ; Start 02/22/17 at 21:00; Stop 02/22 at 21:00; Status DC Fluvoxamine Maleate (Luvox) 50 mg QHS PO Last administered on 03/01/17 20:11 ; Start 02/23/17 at 21:00; Stop 03/02/17 at 12:40; Status DC Gabapentin (Neurontin) 100 mg TID PO ; Start 02/19/17 at 16:00; Stop 03/21/17 at 15:59; Status Cancel Gabapentin (Neurontin) 300 mg TID PO Last administered on 02/19/17 08:45; Start 02/16/17 at 21:00; Stop 02/19/17 at 14:29; Status DC Gabapentin (Neurontin) 300 mg TID PO Last administered on 03/09/17 20:30; Start 02/19/17 at 17:15; Stop 03/21/17 at 17:14 Hydroxyzine HCl (Atarax) 50 mg Q6HP PRN PO ANXIETY/AGITATION Last administered on 02/26/17 08:05; Start 02/16/17 at 21:00; Stop 02/26/17 at 13:31; Status DC Hydroxyzine HCl (Atarax) 75 mg Q6HP PRN PO ANXIETY/AGITATION Last administered on 03/09/17 17:53; Start 02/26/17 at 13:30; Stop 03/28/17 at 13:29 Lactobacillus Acidophilus (Bacid) 1 ea BID PO Last administered on 03/09/17 20 :31; Start 02/22/17 at 09:00; Stop 03/24/17 at 08:59 Lamotrigine (LaMICtal) 25 mg BID PO Last administered on 03/09/17 20:31; Start 02/16/17 at 21:00; Stop 03/18/17 at 20:59 Levofloxacin (Levaquin) 500 mg DAILY@06 PO Last administered on 02/23/17 06: 30; Start 02/17/17 at 06:00; Stop 02/23/17 at 06:01; Status DC Methadone HCl (Dolophine) 30 mg DAILY PO Last administered on 02/17/17 08:08 ; Start 02/17/17 at 09:00; Stop 02/17/17 at 14:32; Status DC Methadone HCl (Dolophine) 40 mg DAILY PO Last administered on 03/09/17 08:42; Start 02/18/17 at 09:00; Stop 03/15/17 at 08:59 Nicotine (Nicoderm Cq 21mg) 1 patch DAILY TD Last administered on 03/09/17 08: 45; Start 02/19/17 at 09:00; Stop 03/21/17 at 08:59 Non-Formulary Medication ( See Comment Field Below ) SEE COMMENTS SECTION 1T @10 XX ; Start 03/10/17 at 10:00; Stop 03/10/17 at 10:00; Status DC Non-Formulary Medication ( See Comment Field Below ) SEE LABEL COMMENTS DAILY XX ; Start 03/08/17 at 09:00; Stop 03/08/17 at 13:43; Status DC Paliperidone (Invega) 3 mg BID PO Last administered on 03/03/17 08:43; Start 03/02/17 at 21:00; Stop 03/03/17 at 12:37; Status DC Paliperidone (Invega) 3 mg QAM PO Last administered on 03/09/17 08:44; Start 03/04/17 at 09:00; Stop 03/09/17 at 11:07; Status DC Paliperidone (Invega) 6 mg QHS PO Last administered on 03/09/17 20:31; Start 03/03/17 at 21:00; Stop 04/02/17 at 20:59 Paroxetine HCl (PAXil CR) 12.5 mg DAILY PO Last administered on 03/09/17 08:44 ; Start 03/03/17 at 09:00; Stop 03/09/17 at 11:09; Status DC Paroxetine HCl (PAXil CR) 25 mg DAILY PO ; Start 03/10/17 at 09:00; Stop at 08:59 Pregabalin (Lyrica) 100 mg TID PO ; Start 02/19/17 at 16:00; Stop 02/26/17 at 15:59; Status Cancel Quetiapine Fumarate (SEROquel) 50 mg QAM PO Last administered on 03/03/17 08: 42; Start 03/03/17 at 09:00; Stop 03/03/17 at 15:49; Status DC Quetiapine Fumarate (SEROquel) 50 mg QHS PO Last administered on 03/02/17 20: 10; Start 03/02/17 at 21:00; Stop 03/02/17 at 21:00; Status DC Quetiapine Fumarate (SEROquel) 100 mg QHS PO Last administered on 02/17/17 20 :43; Start 02/16/17 at 21:00; Stop 02/18/17 at 14:36; Status DC Quetiapine Fumarate (SEROquel) 200 mg QHS PO Last administered on 03/01/17 20 :11; Start 02/18/17 at 21:00; Stop 03/02/17 at 12:43; Status DC Quetiapine Fumarate (SEROquel) 200 mg QHS PO Last administered on 03/09/17 20: 31; Start 03/02/17 at 21:00; Stop 04/01/17 at 20:59 Tamsulosin HCl (Flomax) 0.4 mg DAILY PO Last administered on 03/09/17 08:43; Start 02/17/17 at 09:00; Stop 03/19/17 at 08:59 Tramadol HCl (Ultram) 50 mg Q12HP PRN PO MODERATE PAIN (PS 5-7); Start at 14:15; Stop 02/25/17 at 09:59; Status UNV Tramadol HCl (Ultram) 50 mg Q8HP PRN PO MODERATE PAIN (PS 5-7) Last administered on 02/19/17 06:17; Start 02/18/17 at 10:00; Stop 02/19/17 at 14 :09; Status DC Tramadol HCl (Ultram) 50 mg Q8HP PRN PO MODERATE PAIN (PS 5-7) Last administered on 03/06/17 15:54; Start 02/19/17 at 16:45; Stop 03/10/17 at 16: 44 Allergies Coded Allergies: TAPE (Verified Allergy, Intermediate, 02/14/17) Very red & Sore Shellfish Allergy (Verified Allergy, Unknown, 02/13/17) Hydrocodone (Verified Adverse Reaction, Mild, BECAME hiGH, 02/13/17) LETTY VILLASEÑOR PGY-1 Mar 09, 2017 21:34
[2017-03-10 06:31] VITALS: BP 106/64
[2017-03-10] MEDS: PARoxetine 25 MG CR TAB (PAXIL CR) PO SCH (08:42)
[2017-03-10] MEDS: LACTOBACILLUS ACIDOPHILUS CAP (BACID) PO SCH ×2 (08:42→20:18)
[2017-03-10] MEDS: GABAPENTIN 300 MG CAP PO SCH ×3 (08:42→20:18)
[2017-03-10] MEDS: lamoTRIgine 25 MG TAB PO SCH ×2 (08:42→20:18)
[2017-03-10] MEDS: busPIRone 5 MG TAB PO SCH (08:42)
[2017-03-10] MEDS: TAMSULOSIN 0.4 MG CAP PO SCH (08:42)
[2017-03-10] MEDS: NICOTINE 21MG/24HR 1 EA TRANSDERMAL TD SCH (08:42)
[2017-03-10] MEDS: METHADONE 10 MG TAB (S0109) PO SCH (08:42)
[2017-03-10] MEDS: BACLOFEN 10 MG TAB PO SCH ×3 (08:42→20:18)
[2017-03-10] MEDS ORDERED: PPD DOCUMENTATION ENTRY MISC XX SCH (10:00)
[2017-03-10] MEDS ORDERED: MOM 30ML SUSPENSION UDC PO PRN (10:45)
[2017-03-10] MEDS ORDERED: PPD DOCUMENTATION ENTRY MISC XX ONE (15:00)
[2017-03-10] MEDS: hydrOXYzine 25 MG TAB PO PRN (16:21)
[2017-03-10 18:00] VITALS: BP 118/64
--- NOTE | 2017-03-10 20:11 | MHIPNPDOC ---
[facility] Progress Note Progress Note DATE OF SERVICE: 03/10/17 HISTORY: Patient is a 41-year-old female, who has a history of PTSD, depression , anxiety, polysubstance abuse. She was admitted to [facility] from 02/14/17 to for treatment of CAP. Patient was stabilized and transferred to [facility] . Says she has "done wrong to so many people" and it keeps playing in her head and she doesn't know if it's real or not. Everybody she meets reminds her of someone she hurt along the way and she "sees their faces" on people around her. Says when she was brought to the [facility] on 02/14/17 she thought the hospital was shut down and they wanted to "torture her head". She says it feels like people here at the hospital who want to "infect, poison" her. Says she has many skeletons in her closet, and she wonders if ex-boyfriend who has custody of her 2 year old son put this whole thing together. She says CPS was involved and took her son away. She says he is going to take her son to [place] while she is in here. She says she has outstanding warrants and worries she will be arrested if she leaves for not returning a jeep that was given to her in previous employment. Says she feels somebody has their "eye on her" and that she has lost many phones this year, which may have been taken by somebody. She saw a picture of her son with a woman who used to be her friend and felt like "ripping her throat out". She also mentions she doesn't want to wake up in the morning and takes more than the recommended amount of medication to accomplish this, without taking the full bottle. Says she has chronic back pain, unexplained pains in her legs, no deep vein thromboses were found on imaging studies, and says she's been falling lately. She also has healing wound on her left leg. Says she's impulsive and sometimes doesn't think about consequences. And she feels very weak/tired because of her overall condition. Says she gets racing thoughts and can't get the words out sometimes. 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 She has an extensive medical history including polysubstance abuse, says quit heroin 4 months ago and on methadone currently, hepatitis A, chronic hepatitis C (followed by Dr. Cruz), rhabdomyolysis and CKD stage 3. Interval History 03/10/17: Says she has suicidal ideations that "come and go", but does not elaborate on plan. Continues to say she feels guilty for her past. Continues to endorses auditory hallucinations, but denies visual hallucinations. Denies homicidal ideations. Says her sleep is "okay". Her appetite continues to be "good". Has not been attending groups. has not been obsessive and compulsive. Says she has some relief when we discuss possibility of treatment at [facility]. Continues to express paranoid thoughts, thinking people must hate her, before getting to know her. VITAL SIGNS: See below. NEW TEST RESULTS: none CURRENT MEDICATIONS: See below. MENTAL STATUS EXAMINATION: General appearance: Patient is a 41-year old female, who is in NAD, cooperative , poor dentition, minimal eye contact, lazy left eye, responding to internal stimuli. Speech: non-spontaneous, decreased rate, rhythm, volume Thought processes: circumstantial Thought content: Endorses paranoia, auditory and hallucinations with persecutory delusions Abstract reasoning and computation: poor Description of associations: poor Description of abnormal or psychotic thoughts: continues to hears voices, people hate me. Judgment: poor Insight: improving Orientation: awake and alert Recent and remote memory: Poor Attention span and concentration: Poor Fund of knowledge: below average Mood: "sad" Affect: dysthymic, lethargic, mood-congruent, suicidal DIAGNOSES: 1. Bipolar Disorder I, mixed episode with OCD traits 2. Substance induced mood disorder 3. Borderline Personality Disorder ASSESSMENT: Patient says she is less suicidal and does not elaborate on a plan. Continues to have auditory hallucinations, "voices". Says her mood is low, but not anxious. She was counselled regarding her medications. Explained that when starting an antidepressant can take 4 weeks to notice changes in mood. Explained her medications were being cross tapered, Invega stopped and Abilify increased, see below in Management plan. Counselled regarding negative thoughts and self harm. MANAGEMENT PLAN: Continue on a 1:1 for safety observation. Increased from Abilify 5 mg PO BID to 7.5 mg BID for Bipolar Disorder. Stopped Invega 6 mg PO QHS. Started Paxil CR 25 mg Po for depressin. Continue other medications. Continue to monitor for suicidal ideations, plan and attempt. Continue to monitor for medication side effects. Continue group therapy and ALEX[facility] George follows for evaluation of medical conditions including kidney function. TIME SPENT: 20 minutes. Vital Signs Vital Signs Date Time Temp Pulse Resp B/P (MAP) Pulse Ox O2 Delivery O2 Flow Rate FiO2 03/10/17 08:42 18 03/10/17 06:31 99.7 81 106/64 (78) 03/04/17 10:03 100 Room Air Current Medications Current Medications Aripiprazole (AbiLIFY) 2.5 mg BID PO Last administered on 02/24/17 09:27; Start 02/23/17 at 09:00; Stop 02/24/17 at 14:40; Status DC Aripiprazole (AbiLIFY) 2.5 mg QAM PO Last administered on 03/04/17 09:01; Start 03/03/17 at 09:00; Stop 03/04/17 at 14:28; Status DC Aripiprazole (AbiLIFY) 5 mg BID PO Last administered on 03/01/17 08:17; Start 02/24/17 at 21:00; Stop 03/01/17 at 12:21; Status DC Aripiprazole (AbiLIFY) 5 mg BID PO Last administered on 03/10/17 08:42; Start 03/09/17 at 21:00; Stop 03/10/17 at 11:22; Status DC Aripiprazole (AbiLIFY) 5 mg QAM PO Last administered on 03/09/17 08:44; Start 03/05/17 at 09:00; Stop 03/09/17 at 11:09; Status DC Aripiprazole (AbiLIFY) 7.5 mg BID PO Last administered on 03/02/17 08:38; Start 03/01/17 at 21:00; Stop 03/02/17 at 12:42; Status DC Aripiprazole (AbiLIFY) 7.5 mg BID PO ; Start 03/10/17 at 21:00; Stop 04/09/17 at 20:59 Baclofen (Lioresal) 10 mg TID PO Last administered on 03/10/17 16:20; Start 02/16/17 at 21:00; Stop 03/18/17 at 20:59 Buspirone HCl (Buspar) 7.5 mg BID PO Last administered on 03/10/17 08:42; Start 02/16/17 at 21:00; Stop 03/10/17 at 11:22; Status DC Buspirone HCl (Buspar) 7.5 mg DAILY PO ; Start 03/11/17 at 09:00; Stop at 20:59 Ferrous Sulfate (Ferrous Sulfate) 325 mg Q2D@0900 PO Last administered on 08:45; Start 02/17/17 at 09:00; Stop 03/19/17 at 08:59 Fluoxetine HCl (PROzac) 20 mg QAM PO Last administered on 02/22/17 08:35; Start 02/21/17 at 09:00; Stop 02/22/17 at 17:39; Status DC Fluoxetine HCl (PROzac) 40 mg DAILY PO Last administered on 02/20/17 08:30; Start 02/17/17 at 09:00; Stop 02/20/17 at 16:19; Status DC Fluvoxamine Maleate (Luvox) 50 mg QHS PO ; Start 02/22/17 at 21:00; Stop 02/22 at 21:00; Status DC Fluvoxamine Maleate (Luvox) 50 mg QHS PO Last administered on 03/01/17 20:11 ; Start 02/23/17 at 21:00; Stop 03/02/17 at 12:40; Status DC Gabapentin (Neurontin) 100 mg TID PO ; Start 02/19/17 at 16:00; Stop 03/21/17 at 15:59; Status Cancel Gabapentin (Neurontin) 300 mg TID PO Last administered on 02/19/17 08:45; Start 02/16/17 at 21:00; Stop 02/19/17 at 14:29; Status DC Gabapentin (Neurontin) 300 mg TID PO Last administered on 03/10/17 16:20; Start 02/19/17 at 17:15; Stop 03/21/17 at 17:14 Hydroxyzine HCl (Atarax) 50 mg Q6HP PRN PO ANXIETY/AGITATION Last administered on 02/26/17 08:05; Start 02/16/17 at 21:00; Stop 02/26/17 at 13:31; Status DC Hydroxyzine HCl (Atarax) 75 mg Q6HP PRN PO ANXIETY/AGITATION Last administered on 03/10/17 16:21; Start 02/26/17 at 13:30; Stop 03/28/17 at 13:29 Lactobacillus Acidophilus (Bacid) 1 ea BID PO Last administered on 03/10/17 08 :42; Start 02/22/17 at 09:00; Stop 03/24/17 at 08:59 Lamotrigine (LaMICtal) 25 mg BID PO Last administered on 03/10/17 08:42; Start 02/16/17 at 21:00; Stop 03/18/17 at 20:59 Levofloxacin (Levaquin) 500 mg DAILY@06 PO Last administered on 02/23/17 06: 30; Start 02/17/17 at 06:00; Stop 02/23/17 at 06:01; Status DC Magnesium Hydroxide (Milk Of Magnesia) 30 ml DAILYPRN PRN PO CONSTIPATION; Start 03/10/17 at 10:45; Stop 04/09/17 at 10:44 Methadone HCl (Dolophine) 30 mg DAILY PO Last administered on 02/17/17 08:08 ; Start 02/17/17 at 09:00; Stop 02/17/17 at 14:32; Status DC Methadone HCl (Dolophine) 40 mg DAILY PO Last administered on 03/10/17 08:42; Start 02/18/17 at 09:00; Stop 03/15/17 at 08:59 Nicotine (Nicoderm Cq 21mg) 1 patch DAILY TD Last administered on 03/10/17 08: 42; Start 02/19/17 at 09:00; Stop 03/21/17 at 08:59 Non-Formulary Medication ( See Comment Field Below ) SEE COMMENTS SECTION 1T @10 XX ; Start 03/10/17 at 10:00; Stop 03/10/17 at 10:00; Status DC Non-Formulary Medication ( See Comment Field Below ) SEE LABEL COMMENTS DAILY XX ; Start 03/08/17 at 09:00; Stop 03/08/17 at 13:43; Status DC Paliperidone (Invega) 3 mg BID PO Last administered on 03/03/17 08:43; Start 03/02/17 at 21:00; Stop 03/03/17 at 12:37; Status DC Paliperidone (Invega) 3 mg QAM PO Last administered on 03/09/17 08:44; Start 03/04/17 at 09:00; Stop 03/09/17 at 11:07; Status DC Paliperidone (Invega) 6 mg QHS PO Last administered on 03/09/17 20:31; Start 03/03/17 at 21:00; Stop 03/10/17 at 11:06; Status DC Paroxetine HCl (PAXil CR) 12.5 mg DAILY PO Last administered on 03/09/17 08:44 ; Start 03/03/17 at 09:00; Stop 03/09/17 at 11:09; Status DC Paroxetine HCl (PAXil CR) 25 mg DAILY PO Last administered on 03/10/17 08:42; Start 03/10/17 at 09:00; Stop 04/09/17 at 08:59 Pregabalin (Lyrica) 100 mg TID PO ; Start 02/19/17 at 16:00; Stop 02/26/17 at 15:59; Status Cancel Quetiapine Fumarate (SEROquel) 50 mg QAM PO Last administered on 03/03/17 08: 42; Start 03/03/17 at 09:00; Stop 03/03/17 at 15:49; Status DC Quetiapine Fumarate (SEROquel) 50 mg QHS PO Last administered on 03/02/17 20: 10; Start 03/02/17 at 21:00; Stop 03/02/17 at 21:00; Status DC Quetiapine Fumarate (SEROquel) 100 mg QHS PO Last administered on 02/17/17 20 :43; Start 02/16/17 at 21:00; Stop 02/18/17 at 14:36; Status DC Quetiapine Fumarate (SEROquel) 200 mg QHS PO Last administered on 03/01/17 20 :11; Start 02/18/17 at 21:00; Stop 03/02/17 at 12:43; Status DC Quetiapine Fumarate (SEROquel) 200 mg QHS PO Last administered on 03/09/17 20: 31; Start 03/02/17 at 21:00; Stop 04/01/17 at 20:59 Tamsulosin HCl (Flomax) 0.4 mg DAILY PO Last administered on 03/10/17 08:42; Start 02/17/17 at 09:00; Stop 03/19/17 at 08:59 Tramadol HCl (Ultram) 50 mg Q12HP PRN PO MODERATE PAIN (PS 5-7); Start at 14:15; Stop 02/25/17 at 09:59; Status UNV Tramadol HCl (Ultram) 50 mg Q8HP PRN PO MODERATE PAIN (PS 5-7) Last administered on 02/19/17 06:17; Start 02/18/17 at 10:00; Stop 02/19/17 at 14 :09; Status DC Tramadol HCl (Ultram) 50 mg Q8HP PRN PO MODERATE PAIN (PS 5-7) Last administered on 03/06/17 15:54; Start 02/19/17 at 16:45; Stop 03/17/17 at 16: 44 Allergies Coded Allergies: TAPE (Verified Allergy, Intermediate, 02/14/17) Very red & Sore Shellfish Allergy (Verified Allergy, Unknown, 02/13/17) Hydrocodone (Verified Adverse Reaction, Mild, BECAME hiGH, 02/13/17) LETTY VILLASEÑOR PGY-1 Mar 10, 2017 20:11
[2017-03-10] MEDS: QUEtiapine FUMARATE 200 MG TAB PO SCH (20:18)
[2017-03-11 06:35] VITALS: BP 113/62
[2017-03-11] MEDS: METHADONE 10 MG TAB (S0109) PO SCH (09:00)
[2017-03-11] MEDS: NICOTINE 21MG/24HR 1 EA TRANSDERMAL TD SCH (09:59)
[2017-03-11] MEDS: GABAPENTIN 300 MG CAP PO SCH ×3 (09:59→21:12)
[2017-03-11] MEDS: LACTOBACILLUS ACIDOPHILUS CAP (BACID) PO SCH ×2 (09:59→21:11)
[2017-03-11] MEDS: TAMSULOSIN 0.4 MG CAP PO SCH (09:59)
[2017-03-11] MEDS: PARoxetine 25 MG CR TAB (PAXIL CR) PO SCH (09:59)
[2017-03-11] MEDS: busPIRone 5 MG TAB PO SCH (10:00)
[2017-03-11] MEDS: lamoTRIgine 25 MG TAB PO SCH ×2 (10:01→21:11)
[2017-03-11] MEDS: BACLOFEN 10 MG TAB PO SCH ×3 (10:01→21:11)
[2017-03-11] MEDS: FERROUS SULFATE 325MG TAB PO SCH (10:02)
[2017-03-11] MEDS ORDERED: METHADONE 10 MG TAB (S0109) PO ONE (17:00)
[2017-03-11 18:00] VITALS: BP 125/72
[2017-03-11] MEDS: QUEtiapine FUMARATE 200 MG TAB PO SCH (21:11)
[2017-03-11] MEDS: hydrOXYzine 25 MG TAB PO PRN (21:14)
--- NOTE | 2017-03-11 23:47 | MHIPNPDOC ---
[facility] Progress Note Progress Note DATE OF SERVICE: 03/11/17 HISTORY: Patient is a 41-year-old female, who has a history of PTSD, depression , anxiety, polysubstance abuse. She was admitted to [facility] from 02/14/17 to for treatment of CAP. Patient was stabilized and transferred to [facility] . Says she has "done wrong to so many people" and it keeps playing in her head and she doesn't know if it's real or not. Everybody she meets reminds her of someone she hurt along the way and she "sees their faces" on people around her. Says when she was brought to the [facility] she thought the hospital was shut down and they wanted to "torture her head". She says it feels like people here at the hospital who want to "infect, poison" her. Says she has many skeletons in her closet, and she wonders if ex-boyfriend who has custody of her 2 year old son put this whole thing together. She says CPS was involved and took her son away. She says he is going to take her son to [place] while she is in here. She says she has outstanding warrants and worries she will be arrested if she leaves for not returning a jeep that was given to her in previous employment. Says she feels somebody has their "eye on her" and that she has lost many phones this year, which may have been taken by somebody. She saw a picture of her son with a woman who used to be her friend and felt like "ripping her throat out". She also mentions she doesn't want to wake up in the morning and takes more than the recommended amount of medication to accomplish this, without taking the full bottle. Says she has chronic back pain, unexplained pains in her legs, no deep vein thromboses were found on imaging studies, and says she's been falling lately. She also has healing wound on her left leg. Says she's impulsive and sometimes doesn't think about consequences. And she feels very weak/tired because of her overall condition. Says she gets racing thoughts and can't get the words out sometimes. 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 She has an extensive medical history including polysubstance abuse, says quit heroin 4 months ago and on methadone currently, hepatitis A, chronic hepatitis C (followed by Dr. Cruz), rhabdomyolysis and CKD stage 3. Interval History 03/11/17: Says she has suicidal thoughts, but does not elaborate on plan. Says the second she wakes up she feels depressed. Says her anxiety is "through the roof", however appears calm. Says she in pain, when asked to elaborate she says "I feel like I've been flipped off a horse and then pounced on". Says she needs to be back on her 40 mg of Methadone daily, although it was stopped earlier since she appeared highly sedated. Has been in bed all day and has not been attending groups. Denies having auditory hallucinations or visual hallucinations today. Denies homicidal ideations. Says she has had increased sleep. She continues to have a good appetite. VITAL SIGNS: See below. NEW TEST RESULTS: none CURRENT MEDICATIONS: See below. MENTAL STATUS EXAMINATION: General appearance: Patient is a 41-year old female, who is in NAD, cooperative , poor dentition, minimal eye contact, lazy left eye Speech: spontaneous, decreased rate, rhythm, volume Thought processes: linear, logical Thought content: Denies paranoia, auditory and visual hallucinations. Abstract reasoning and computation: poor Description of associations: poor Description of abnormal or psychotic thoughts: Denies Judgment: poor Insight: improving Orientation: awake and alert Recent and remote memory: Poor Attention span and concentration: Poor Fund of knowledge: below average Mood: "aggravated" Affect: dysthymic, lethargic, mood-congruent DIAGNOSES: 1. Bipolar Disorder I, mixed episode with OCD traits 2. Substance induced mood disorder 3. Borderline Personality Disorder ASSESSMENT: Patient appears lethargic, but not overly sedated. She continues to be having suicidal ideations, but less frequently and does not elaborate on a plan. Denies having auditory or visual hallucinations or other distortions of perception. Her mood is low, and increasingly anxious. She was counselled regarding her medications. Counselled regarding negative thoughts and self harm. MANAGEMENT PLAN: Continue on a 1:1 for safety observation. Continue Abilify 7.5 mg BID for Bipolar Disorder. Continue Paxil CR 25 mg PO for depression. Started a lower dose of methadone, 20 mg PO daily for opiate withdrawal. Continue other medications. Continue to monitor for suicidal ideations, plan and attempt. Continue to monitor for medication side effects. Continue group therapy and ALEXIS George follows for evaluation of medical conditions including kidney function. Ordered a CBC and CMP to assess for anemia and kidney function. TIME SPENT: 15 minutes. Vital Signs Vital Signs Date Time Temp Pulse Resp B/P (MAP) Pulse Ox O2 Delivery O2 Flow Rate FiO2 03/11/17 18:00 98.6 87 16 125/72 (89) Current Medications Current Medications Aripiprazole (AbiLIFY) 2.5 mg BID PO Last administered on 02/24/17 09:27; Start 02/23/17 at 09:00; Stop 02/24/17 at 14:40; Status DC Aripiprazole (AbiLIFY) 2.5 mg QAM PO Last administered on 03/04/17 09:01; Start 03/03/17 at 09:00; Stop 03/04/17 at 14:28; Status DC Aripiprazole (AbiLIFY) 5 mg BID PO Last administered on 03/01/17 08:17; Start 02/24/17 at 21:00; Stop 03/01/17 at 12:21; Status DC Aripiprazole (AbiLIFY) 5 mg BID PO Last administered on 03/10/17 08:42; Start 03/09/17 at 21:00; Stop 03/10/17 at 11:22; Status DC Aripiprazole (AbiLIFY) 5 mg QAM PO Last administered on 03/09/17 08:44; Start 03/05/17 at 09:00; Stop 03/09/17 at 11:09; Status DC Aripiprazole (AbiLIFY) 7.5 mg BID PO Last administered on 03/02/17 08:38; Start 03/01/17 at 21:00; Stop 03/02/17 at 12:42; Status DC Aripiprazole (AbiLIFY) 7.5 mg BID PO Last administered on 03/11/17 21:12; Start 03/10/17 at 21:00; Stop 04/09/17 at 20:59 Baclofen (Lioresal) 10 mg TID PO Last administered on 03/11/17 21:11; Start 02/16/17 at 21:00; Stop 03/18/17 at 20:59 Buspirone HCl (Buspar) 7.5 mg BID PO Last administered on 03/10/17 08:42; Start 02/16/17 at 21:00; Stop 03/10/17 at 11:22; Status DC Buspirone HCl (Buspar) 7.5 mg DAILY PO Last administered on 03/11/17 10:00; Start 03/11/17 at 09:00; Stop 03/18/17 at 20:59 Ferrous Sulfate (Ferrous Sulfate) 325 mg Q2D@0900 PO Last administered on 10:02; Start 02/17/17 at 09:00; Stop 03/19/17 at 08:59 Fluoxetine HCl (PROzac) 20 mg QAM PO Last administered on 02/22/17 08:35; Start 02/21/17 at 09:00; Stop 02/22/17 at 17:39; Status DC Fluoxetine HCl (PROzac) 40 mg DAILY PO Last administered on 02/20/17 08:30; Start 02/17/17 at 09:00; Stop 02/20/17 at 16:19; Status DC Fluvoxamine Maleate (Luvox) 50 mg QHS PO ; Start 02/22/17 at 21:00; Stop 02/22 at 21:00; Status DC Fluvoxamine Maleate (Luvox) 50 mg QHS PO Last administered on 03/01/17 20:11 ; Start 02/23/17 at 21:00; Stop 03/02/17 at 12:40; Status DC Gabapentin (Neurontin) 100 mg TID PO ; Start 02/19/17 at 16:00; Stop 03/21/17 at 15:59; Status Cancel Gabapentin (Neurontin) 300 mg TID PO Last administered on 02/19/17 08:45; Start 02/16/17 at 21:00; Stop 02/19/17 at 14:29; Status DC Gabapentin (Neurontin) 300 mg TID PO Last administered on 03/11/17 21:12; Start 02/19/17 at 17:15; Stop 03/21/17 at 17:14 Hydroxyzine HCl (Atarax) 50 mg Q6HP PRN PO ANXIETY/AGITATION Last administered on 02/26/17 08:05; Start 02/16/17 at 21:00; Stop 02/26/17 at 13:31; Status DC Hydroxyzine HCl (Atarax) 75 mg Q6HP PRN PO ANXIETY/AGITATION Last administered on 03/11/17 21:14; Start 02/26/17 at 13:30; Stop 03/28/17 at 13:29 Lactobacillus Acidophilus (Bacid) 1 ea BID PO Last administered on 03/11/17 21 :11; Start 02/22/17 at 09:00; Stop 03/24/17 at 08:59 Lamotrigine (LaMICtal) 25 mg BID PO Last administered on 03/11/17 21:11; Start 02/16/17 at 21:00; Stop 03/18/17 at 20:59 Levofloxacin (Levaquin) 500 mg DAILY@06 PO Last administered on 02/23/17 06: 30; Start 02/17/17 at 06:00; Stop 02/23/17 at 06:01; Status DC Magnesium Hydroxide (Milk Of Magnesia) 30 ml DAILYPRN PRN PO CONSTIPATION; Start 03/10/17 at 10:45; Stop 04/09/17 at 10:44 Methadone HCl (Dolophine) 20 mg DAILY PO ; Start 03/12/17 at 09:00; Stop 03/19 at 08:59 Methadone HCl (Dolophine) 30 mg DAILY PO Last administered on 02/17/17 08:08 ; Start 02/17/17 at 09:00; Stop 02/17/17 at 14:32; Status DC Methadone HCl (Dolophine) 40 mg DAILY PO Last administered on 03/10/17 08:42; Start 02/18/17 at 09:00; Stop 03/11/17 at 16:35; Status DC Nicotine (Nicoderm Cq 21mg) 1 patch DAILY TD Last administered on 03/11/17 09: 59; Start 02/19/17 at 09:00; Stop 03/21/17 at 08:59 Non-Formulary Medication ( See Comment Field Below ) SEE COMMENTS SECTION 1T @10 XX ; Start 03/10/17 at 10:00; Stop 03/10/17 at 10:00; Status DC Non-Formulary Medication ( See Comment Field Below ) SEE LABEL COMMENTS DAILY XX ; Start 03/08/17 at 09:00; Stop 03/08/17 at 13:43; Status DC Paliperidone (Invega) 3 mg BID PO Last administered on 03/03/17 08:43; Start 03/02/17 at 21:00; Stop 03/03/17 at 12:37; Status DC Paliperidone (Invega) 3 mg QAM PO Last administered on 03/09/17 08:44; Start 03/04/17 at 09:00; Stop 03/09/17 at 11:07; Status DC Paliperidone (Invega) 6 mg QHS PO Last administered on 03/09/17 20:31; Start 03/03/17 at 21:00; Stop 03/10/17 at 11:06; Status DC Paroxetine HCl (PAXil CR) 12.5 mg DAILY PO Last administered on 03/09/17 08:44 ; Start 03/03/17 at 09:00; Stop 03/09/17 at 11:09; Status DC Paroxetine HCl (PAXil CR) 25 mg DAILY PO Last administered on 03/11/17 09:59; Start 03/10/17 at 09:00; Stop 04/09/17 at 08:59 Pregabalin (Lyrica) 100 mg TID PO ; Start 02/19/17 at 16:00; Stop 02/26/17 at 15:59; Status Cancel Quetiapine Fumarate (SEROquel) 50 mg QAM PO Last administered on 03/03/17 08: 42; Start 03/03/17 at 09:00; Stop 03/03/17 at 15:49; Status DC Quetiapine Fumarate (SEROquel) 50 mg QHS PO Last administered on 03/02/17 20: 10; Start 03/02/17 at 21:00; Stop 03/02/17 at 21:00; Status DC Quetiapine Fumarate (SEROquel) 100 mg QHS PO Last administered on 02/17/17 20 :43; Start 02/16/17 at 21:00; Stop 02/18/17 at 14:36; Status DC Quetiapine Fumarate (SEROquel) 200 mg QHS PO Last administered on 03/01/17 20 :11; Start 02/18/17 at 21:00; Stop 03/02/17 at 12:43; Status DC Quetiapine Fumarate (SEROquel) 200 mg QHS PO Last administered on 03/11/17 21: 11; Start 03/02/17 at 21:00; Stop 04/01/17 at 20:59 Tamsulosin HCl (Flomax) 0.4 mg DAILY PO Last administered on 03/11/17 09:59; Start 02/17/17 at 09:00; Stop 03/19/17 at 08:59 Tramadol HCl (Ultram) 50 mg Q12HP PRN PO MODERATE PAIN (PS 5-7); Start at 14:15; Stop 02/25/17 at 09:59; Status UNV Tramadol HCl (Ultram) 50 mg Q8HP PRN PO MODERATE PAIN (PS 5-7) Last administered on 02/19/17 06:17; Start 02/18/17 at 10:00; Stop 02/19/17 at 14 :09; Status DC Tramadol HCl (Ultram) 50 mg Q8HP PRN PO MODERATE PAIN (PS 5-7) Last administered on 03/06/17 15:54; Start 02/19/17 at 16:45; Stop 03/17/17 at 16: 44 Allergies Coded Allergies: TAPE (Verified Allergy, Intermediate, 02/14/17) Very red & Sore Shellfish Allergy (Verified Allergy, Unknown, 02/13/17) Hydrocodone (Verified Adverse Reaction, Mild, BECAME hiGH, 02/13/17) LETTY VILLASEÑOR PGY-1 Mar 11, 2017 23:47
[2017-03-12] MEDS: traMADol 50 MG TAB PO PRN ×3 (03:09→23:52)
[2017-03-12 06:28] VITALS: BP 104/50
[2017-03-12 08:13] LABS: MEAN CORPUSCULAR HEMOGLOBIN 27.6 pg (27.0-33.0); MEAN CORPUSCULAR HGB CONC 30.9 g/dl (32.0-36.5); MEAN CORPUSCULAR VOLUME 89.2 fl (80.0-96.0); PLATELET COUNT, AUTOMATED 273 10^3/uL (150-450); WHITE BLOOD COUNT 6.9 10^3/uL (4.0-10.0)
[2017-03-12 08:29] LABS: ALBUMIN 2.9 GM/DL (3.2-5.2); ALBUMIN/GLOBULIN RATIO 0.94 (1.00-1.93); ALKALINE PHOSPHATASE 74 U/L (45-117); ALT/SGPT 34 U/L (12-78); ANION GAP 5 MEQ/L (8-16); AST/SGOT 27 U/L (7-37); BILIRUBIN,TOTAL 0.2 MG/DL (0.2-1.0); BLOOD UREA NITROGEN 24 MG/DL (7-18); CARBON DIOXIDE LEVEL 32 MEQ/L (21-32); CHLORIDE LEVEL 105 MEQ/L (98-107); CREATININE FOR GFR 0.95 MG/DL (0.55-1.02); GLOMERULAR FILTRATION RATE > 60.0 (>58); GLUCOSE, FASTING 90 MG/DL (70-105); POTASSIUM SERUM 4.2 MEQ/L (3.5-5.1); SODIUM LEVEL 142 MEQ/L (136-145)
[2017-03-12] MEDS: NICOTINE 21MG/24HR 1 EA TRANSDERMAL TD SCH (09:59)
[2017-03-12] MEDS: BACLOFEN 10 MG TAB PO SCH ×3 (09:59→21:21)
[2017-03-12] MEDS: LACTOBACILLUS ACIDOPHILUS CAP (BACID) PO SCH ×2 (09:59→21:21)
[2017-03-12] MEDS: METHADONE 10 MG TAB (S0109) PO SCH (09:59)
[2017-03-12] MEDS: lamoTRIgine 25 MG TAB PO SCH ×2 (09:59→21:21)
[2017-03-12] MEDS: busPIRone 5 MG TAB PO SCH (09:59)
[2017-03-12] MEDS: TAMSULOSIN 0.4 MG CAP PO SCH (09:59)
[2017-03-12] MEDS: PARoxetine 25 MG CR TAB (PAXIL CR) PO SCH (09:59)
[2017-03-12] MEDS: GABAPENTIN 300 MG CAP PO SCH ×3 (10:03→21:21)
[2017-03-12] MEDS: hydrOXYzine 25 MG TAB PO PRN ×2 (16:36→23:42)
[2017-03-12 18:00] VITALS: BP 127/76
--- NOTE | 2017-03-12 19:54 | MHIPNPDOC ---
[facility] Progress Note Progress Note DATE OF SERVICE: 03/12/17 HISTORY: Patient is a 41-year-old female, who has a history of PTSD, depression , anxiety, polysubstance abuse. She was admitted to [facility] from 02/14/17 to for treatment of CAP. Patient was stabilized and transferred to [facility] . Says she has "done wrong to so many people" and it keeps playing in her head and she doesn't know if it's real or not. Everybody she meets reminds her of someone she hurt along the way and she "sees their faces" on people around her. Says when she was brought to the [facility] on 02/14/17 she thought the hospital was shut down and they wanted to "torture her head". She says it feels like people here at the hospital who want to "infect, poison" her. Says she has many skeletons in her closet, and she wonders if ex-boyfriend who has custody of her 2 year old son put this whole thing together. She says CPS was involved and took her son away. She says he is going to take her son to [place] while she is in here. She says she has outstanding warrants and worries she will be arrested if she leaves for not returning a jeep that was given to her in previous employment. Says she feels somebody has their "eye on her" and that she has lost many phones this year, which may have been taken by somebody. She saw a picture of her son with a woman who used to be her friend and felt like "ripping her throat out". She also mentions she doesn't want to wake up in the morning and takes more than the recommended amount of medication to accomplish this, without taking the full bottle. Says she has chronic back pain, unexplained pains in her legs, no deep vein thromboses were found on imaging studies, and says she's been falling lately. She also has healing wound on her left leg. Says she's impulsive and sometimes doesn't think about consequences. And she feels very weak/tired because of her overall condition. Says she gets racing thoughts and can't get the words out sometimes. 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 She has an extensive medical history including polysubstance abuse, says quit heroin 4 months ago and on methadone currently, hepatitis A, chronic hepatitis C (followed by Dr. Cruz), rhabdomyolysis and CKD stage 3. Interval History 03/12/17: Continues to have suicidal thoughts, but will not elaborate on plan. Says she has no concept of time and has not been to groups. Says she likes her roommate and her sleep is "fine". Denies auditory or visual hallucinations. Says she's lethargic like yesterday. Says she continues to have back pain an wants increased methadone. Denies homicidal ideations. She continues to have a good appetite. VITAL SIGNS: See below. NEW TEST RESULTS: RBC 4.06, hgb 11.2, hct 36.2. BUN 24, Creatinine 0.95, GFR >60 , Fasting glucose 90. CURRENT MEDICATIONS: See below. MENTAL STATUS EXAMINATION: General appearance: Patient is a 41-year old female, who is in NAD, cooperative , poor dentition, minimal eye contact, lazy left eye Speech: spontaneous, decreased rate, rhythm, volume Thought processes: linear, logical Thought content: Denies paranoia, manic symptoms, OCD symptoms, auditory and visual hallucinations. Abstract reasoning and computation: poor Description of associations: poor Description of abnormal or psychotic thoughts: Denies Judgment: poor Insight: improving Orientation: awake and alert Recent and remote memory: Poor Attention span and concentration: Poor Fund of knowledge: below average Mood: "whatever" Affect: dysthymic, lethargic, mood-congruent DIAGNOSES: 1. Bipolar Disorder I, mixed episode with OCD traits 2. Substance induced mood disorder 3. Borderline Personality Disorder ASSESSMENT: Patient continues to appear lethargic, but not overly sedated. She is more alert and less sedated than yesterday, likely due to the lower dose of Methadone. She continues to be having suicidal ideations and does not elaborate on a plan. Denies having auditory or visual hallucinations or other distortions of perception. Her mood is low, but she does not state she is anxious today. She was counselled regarding her medications and she denies side effects apart from lethargy. Counselled regarding negative thoughts and self harm. MANAGEMENT PLAN: Continue on a 1:1 for safety observation. Continue Abilify 7.5 mg BID for Bipolar Disorder. Continue Paxil CR 25 mg PO daily for depression. Continue lower dose of methadone, 20 mg PO daily for opiate withdrawal. Continue other medications. Continue to monitor for suicidal ideations, plan and attempt. Continue to monitor for medication side effects. Continue group therapy and ALEX[facility] George follows for evaluation of medical conditions including kidney function. TIME SPENT: 20 minutes. Vital Signs Vital Signs Date Time Temp Pulse Resp B/P (MAP) Pulse Ox O2 Delivery O2 Flow Rate FiO2 03/12/17 18:00 98.1 87 16 127/76 (93) 03/12/17 06:28 Room Air Laboratory Data 24H Labs Laboratory Tests 2 03/12/17 07:50: Nucleated Red Blood Cells % (auto) 0.0, Anion Gap 5L, Glomerular Filtration Rate > 60.0, Blood Urea Nitrogen 24H, Creatinine 0.95, Sodium Level 142, Potassium Level 4.2, Chloride Level 105, Carbon Dioxide Level 32, Calcium Level 9.0, Aspartate Amino Transf (AST/SGOT) 27, Alanine Aminotransferase (ALT/SGPT) 34, Alkaline Phosphatase 74, Total Bilirubin 0.2, Total Protein 6.0L, Albumin 2.9L, Albumin/Globulin Ratio 0.94L CBC/BMP Laboratory Tests 03/12/17 07:50 Red Blood Count 4.06, Mean Corpuscular Volume 89.2, Mean Corpuscular Hemoglobin 27.6, Mean Corpuscular Hemoglobin Concent 30.9 L, Red Cell Distribution Width 13.0, Calcium Level 9.0, Aspartate Amino Transf (AST/SGOT) 27, Alanine Aminotransferase (ALT/SGPT) 34, Alkaline Phosphatase 74, Total Bilirubin 0.2, Total Protein 6.0 L, Albumin 2.9 L Current Medications Current Medications Aripiprazole (AbiLIFY) 2.5 mg BID PO Last administered on 02/24/17 09:27; Start 02/23/17 at 09:00; Stop 02/24/17 at 14:40; Status DC Aripiprazole (AbiLIFY) 2.5 mg QAM PO Last administered on 03/04/17 09:01; Start 03/03/17 at 09:00; Stop 03/04/17 at 14:28; Status DC Aripiprazole (AbiLIFY) 5 mg BID PO Last administered on 03/01/17 08:17; Start 02/24/17 at 21:00; Stop 03/01/17 at 12:21; Status DC Aripiprazole (AbiLIFY) 5 mg BID PO Last administered on 03/10/17 08:42; Start 03/09/17 at 21:00; Stop 03/10/17 at 11:22; Status DC Aripiprazole (AbiLIFY) 5 mg QAM PO Last administered on 03/09/17 08:44; Start 03/05/17 at 09:00; Stop 03/09/17 at 11:09; Status DC Aripiprazole (AbiLIFY) 7.5 mg BID PO Last administered on 03/02/17 08:38; Start 03/01/17 at 21:00; Stop 03/02/17 at 12:42; Status DC Aripiprazole (AbiLIFY) 7.5 mg BID PO Last administered on 03/12/17 10:00; Start 03/10/17 at 21:00; Stop 04/09/17 at 20:59 Baclofen (Lioresal) 10 mg TID PO Last administered on 03/12/17 16:36; Start 02/16/17 at 21:00; Stop 03/18/17 at 20:59 Buspirone HCl (Buspar) 7.5 mg BID PO Last administered on 03/10/17 08:42; Start 02/16/17 at 21:00; Stop 03/10/17 at 11:22; Status DC Buspirone HCl (Buspar) 7.5 mg DAILY PO Last administered on 03/12/17 09:59; Start 03/11/17 at 09:00; Stop 03/18/17 at 20:59 Ferrous Sulfate (Ferrous Sulfate) 325 mg Q2D@0900 PO Last administered on 10:02; Start 02/17/17 at 09:00; Stop 03/19/17 at 08:59 Fluoxetine HCl (PROzac) 20 mg QAM PO Last administered on 02/22/17 08:35; Start 02/21/17 at 09:00; Stop 02/22/17 at 17:39; Status DC Fluoxetine HCl (PROzac) 40 mg DAILY PO Last administered on 02/20/17 08:30; Start 02/17/17 at 09:00; Stop 02/20/17 at 16:19; Status DC Fluvoxamine Maleate (Luvox) 50 mg QHS PO ; Start 02/22/17 at 21:00; Stop 02/22 at 21:00; Status DC Fluvoxamine Maleate (Luvox) 50 mg QHS PO Last administered on 03/01/17 20:11 ; Start 02/23/17 at 21:00; Stop 03/02/17 at 12:40; Status DC Gabapentin (Neurontin) 100 mg TID PO ; Start 02/19/17 at 16:00; Stop 03/21/17 at 15:59; Status Cancel Gabapentin (Neurontin) 300 mg TID PO Last administered on 02/19/17 08:45; Start 02/16/17 at 21:00; Stop 02/19/17 at 14:29; Status DC Gabapentin (Neurontin) 300 mg TID PO Last administered on 03/12/17 16:36; Start 02/19/17 at 17:15; Stop 03/21/17 at 17:14 Hydroxyzine HCl (Atarax) 50 mg Q6HP PRN PO ANXIETY/AGITATION Last administered on 02/26/17 08:05; Start 02/16/17 at 21:00; Stop 02/26/17 at 13:31; Status DC Hydroxyzine HCl (Atarax) 75 mg Q6HP PRN PO ANXIETY/AGITATION Last administered on 03/12/17 16:36; Start 02/26/17 at 13:30; Stop 03/28/17 at 13:29 Lactobacillus Acidophilus (Bacid) 1 ea BID PO Last administered on 03/12/17 09:59; Start 02/22/17 at 09:00; Stop 03/24/17 at 08:59 Lamotrigine (LaMICtal) 25 mg BID PO Last administered on 03/12/17 09:59; Start 02/16/17 at 21:00; Stop 03/18/17 at 20:59 Levofloxacin (Levaquin) 500 mg DAILY@06 PO Last administered on 02/23/17 06: 30; Start 02/17/17 at 06:00; Stop 02/23/17 at 06:01; Status DC Magnesium Hydroxide (Milk Of Magnesia) 30 ml DAILYPRN PRN PO CONSTIPATION; Start 03/10/17 at 10:45; Stop 04/09/17 at 10:44 Methadone HCl (Dolophine) 20 mg DAILY PO Last administered on 03/12/17 09:59 ; Start 03/12/17 at 09:00; Stop 03/19/17 at 08:59 Methadone HCl (Dolophine) 30 mg DAILY PO Last administered on 02/17/17 08:08 ; Start 02/17/17 at 09:00; Stop 02/17/17 at 14:32; Status DC Methadone HCl (Dolophine) 40 mg DAILY PO Last administered on 03/10/17 08:42; Start 02/18/17 at 09:00; Stop 03/11/17 at 16:35; Status DC Nicotine (Nicoderm Cq 21mg) 1 patch DAILY TD Last administered on 03/12/17 09 :59; Start 02/19/17 at 09:00; Stop 03/21/17 at 08:59 Non-Formulary Medication ( See Comment Field Below ) SEE COMMENTS SECTION 1T @10 XX ; Start 03/10/17 at 10:00; Stop 03/10/17 at 10:00; Status DC Non-Formulary Medication ( See Comment Field Below ) SEE LABEL COMMENTS DAILY XX ; Start 03/08/17 at 09:00; Stop 03/08/17 at 13:43; Status DC Paliperidone (Invega) 3 mg BID PO Last administered on 03/03/17 08:43; Start 03/02/17 at 21:00; Stop 03/03/17 at 12:37; Status DC Paliperidone (Invega) 3 mg QAM PO Last administered on 03/09/17 08:44; Start 03/04/17 at 09:00; Stop 03/09/17 at 11:07; Status DC Paliperidone (Invega) 6 mg QHS PO Last administered on 03/09/17 20:31; Start 03/03/17 at 21:00; Stop 03/10/17 at 11:06; Status DC Paroxetine HCl (PAXil CR) 12.5 mg DAILY PO Last administered on 03/09/17 08:44 ; Start 03/03/17 at 09:00; Stop 03/09/17 at 11:09; Status DC Paroxetine HCl (PAXil CR) 25 mg DAILY PO Last administered on 03/12/17 09:59 ; Start 03/10/17 at 09:00; Stop 04/09/17 at 08:59 Pregabalin (Lyrica) 100 mg TID PO ; Start 02/19/17 at 16:00; Stop 02/26/17 at 15:59; Status Cancel Quetiapine Fumarate (SEROquel) 50 mg QAM PO Last administered on 03/03/17 08: 42; Start 03/03/17 at 09:00; Stop 03/03/17 at 15:49; Status DC Quetiapine Fumarate (SEROquel) 50 mg QHS PO Last administered on 03/02/17 20: 10; Start 03/02/17 at 21:00; Stop 03/02/17 at 21:00; Status DC Quetiapine Fumarate (SEROquel) 100 mg QHS PO Last administered on 02/17/17 20 :43; Start 02/16/17 at 21:00; Stop 02/18/17 at 14:36; Status DC Quetiapine Fumarate (SEROquel) 200 mg QHS PO Last administered on 03/01/17 20 :11; Start 02/18/17 at 21:00; Stop 03/02/17 at 12:43; Status DC Quetiapine Fumarate (SEROquel) 200 mg QHS PO Last administered on 03/11/17 21: 11; Start 03/02/17 at 21:00; Stop 04/01/17 at 20:59 Tamsulosin HCl (Flomax) 0.4 mg DAILY PO Last administered on 03/12/17 09:59; Start 02/17/17 at 09:00; Stop 03/19/17 at 08:59 Tramadol HCl (Ultram) 50 mg Q12HP PRN PO MODERATE PAIN (PS 5-7); Start at 14:15; Stop 02/25/17 at 09:59; Status UNV Tramadol HCl (Ultram) 50 mg Q8HP PRN PO MODERATE PAIN (PS 5-7) Last administered on 02/19/17 06:17; Start 02/18/17 at 10:00; Stop 02/19/17 at 14 :09; Status DC Tramadol HCl (Ultram) 50 mg Q8HP PRN PO MODERATE PAIN (PS 5-7) Last administered on 03/12/17t 16:36; Start 02/19/17 at 16:45; Stop 03/17/17 at 16 :44 Allergies Coded Allergies: TAPE (Verified Allergy, Intermediate, 02/14/17) Very red & Sore Shellfish Allergy (Verified Allergy, Unknown, 02/13/17) Hydrocodone (Verified Adverse Reaction, Mild, BECAME hiGH, 02/13/17) LETTY VILLASEÑOR PGY-1 Mar 12, 2017 19:54
[2017-03-12] MEDS: QUEtiapine FUMARATE 200 MG TAB PO SCH (21:21)
[2017-03-13 06:35] VITALS: BP 133/73
[2017-03-13] MEDS: TAMSULOSIN 0.4 MG CAP PO SCH (08:03)
[2017-03-13] MEDS: FERROUS SULFATE 325MG TAB PO SCH (08:03)
[2017-03-13] MEDS: PARoxetine 25 MG CR TAB (PAXIL CR) PO SCH (08:03)
[2017-03-13] MEDS: hydrOXYzine 25 MG TAB PO PRN ×2 (08:03→16:16)
[2017-03-13] MEDS: traMADol 50 MG TAB PO PRN ×2 (08:03→16:20)
[2017-03-13] MEDS: busPIRone 5 MG TAB PO SCH (08:03)
[2017-03-13] MEDS: GABAPENTIN 300 MG CAP PO SCH ×3 (08:03→20:13)
[2017-03-13] MEDS: LACTOBACILLUS ACIDOPHILUS CAP (BACID) PO SCH ×2 (08:04→20:13)
[2017-03-13] MEDS: METHADONE 10 MG TAB (S0109) PO SCH (08:04)
[2017-03-13] MEDS: BACLOFEN 10 MG TAB PO SCH ×3 (08:04→20:13)
[2017-03-13] MEDS: NICOTINE 21MG/24HR 1 EA TRANSDERMAL TD SCH (08:04)
[2017-03-13] MEDS: lamoTRIgine 25 MG TAB PO SCH ×2 (08:04→20:13)
[2017-03-13 18:00] VITALS: BP 123/67
[2017-03-13] MEDS: QUEtiapine FUMARATE 200 MG TAB PO SCH (20:13)
[2017-03-14 06:29] VITALS: BP 131/83
[2017-03-14] MEDS: hydrOXYzine 25 MG TAB PO PRN ×2 (06:57→16:14)
[2017-03-14] MEDS: traMADol 50 MG TAB PO PRN ×2 (06:59→16:14)
[2017-03-14] MEDS: PARoxetine 25 MG CR TAB (PAXIL CR) PO SCH (08:43)
[2017-03-14] MEDS: GABAPENTIN 300 MG CAP PO SCH ×3 (08:43→20:43)
[2017-03-14] MEDS: busPIRone 5 MG TAB PO SCH (08:43)
[2017-03-14] MEDS: LACTOBACILLUS ACIDOPHILUS CAP (BACID) PO SCH ×2 (08:43→20:43)
[2017-03-14] MEDS: lamoTRIgine 25 MG TAB PO SCH ×2 (08:43→20:43)
[2017-03-14] MEDS: NICOTINE 21MG/24HR 1 EA TRANSDERMAL TD SCH (08:43)
[2017-03-14] MEDS: TAMSULOSIN 0.4 MG CAP PO SCH (08:43)
[2017-03-14] MEDS: METHADONE 10 MG TAB (S0109) PO SCH (08:44)
[2017-03-14] MEDS: BACLOFEN 10 MG TAB PO SCH ×3 (08:44→20:43)
[2017-03-14 18:00] VITALS: BP 141/78
[2017-03-14] MEDS: QUEtiapine FUMARATE 200 MG TAB PO SCH (20:43)
[2017-03-15 06:35] VITALS: BP 140/90
[2017-03-15] MEDS: hydrOXYzine 25 MG TAB PO PRN ×2 (07:26→15:14)
[2017-03-15] MEDS: traMADol 50 MG TAB PO PRN ×2 (07:26→15:14)
[2017-03-15] MEDS: GABAPENTIN 300 MG CAP PO SCH ×3 (08:56→20:12)
[2017-03-15] MEDS: NICOTINE 21MG/24HR 1 EA TRANSDERMAL TD SCH (08:56)
[2017-03-15] MEDS: busPIRone 5 MG TAB PO SCH (08:57)
[2017-03-15] MEDS: PARoxetine 25 MG CR TAB (PAXIL CR) PO SCH (08:57)
[2017-03-15] MEDS: FERROUS SULFATE 325MG TAB PO SCH (08:58)
[2017-03-15] MEDS: lamoTRIgine 25 MG TAB PO SCH ×2 (08:58→20:12)
[2017-03-15] MEDS: BACLOFEN 10 MG TAB PO SCH ×3 (08:58→20:12)
[2017-03-15] MEDS: METHADONE 10 MG TAB (S0109) PO SCH ×4 (08:58→20:13)
[2017-03-15] MEDS: LACTOBACILLUS ACIDOPHILUS CAP (BACID) PO SCH ×2 (08:58→20:12)
[2017-03-15] MEDS: TAMSULOSIN 0.4 MG CAP PO SCH (08:58)
[2017-03-15 18:00] VITALS: BP 121/82
[2017-03-15] MEDS: QUEtiapine FUMARATE 200 MG TAB PO SCH (20:12)
[2017-03-15] MEDS ORDERED: PINK BISMUTH SUSP 524MG/30ML ORAL SYRINGE PO PRN (21:15)
--- NOTE | 2017-03-15 23:11 | MHIPNPDOC ---
[facility] Progress Note Progress Note DATE OF SERVICE: 03/15/17 HISTORY: Patient is a 41-year-old female, who has a history of PTSD, depression , anxiety, polysubstance abuse. She was admitted to [facility] from 02/14/17 to for treatment of CAP. Patient was stabilized and transferred to [facility] . Says she has "done wrong to so many people" and it keeps playing in her head and she doesn't know if it's real or not. Everybody she meets reminds her of someone she hurt along the way and she "sees their faces" on people around her. Says when she was brought to the [facility] on 02/14/17 she thought the hospital was shut down and they wanted to "torture her head". She says it feels like people here at the hospital who want to "infect, poison" her. Says she has many skeletons in her closet, and she wonders if ex-boyfriend who has custody of her 2 year old son put this whole thing together. She says CPS was involved and took her son away. She says he is going to take her son to [place] while she is in here. She says she has outstanding warrants and worries she will be arrested if she leaves for not returning a jeep that was given to her in previous employment. Says she feels somebody has their "eye on her" and that she has lost many phones this year, which may have been taken by somebody. She saw a picture of her son with a woman who used to be her friend and felt like "ripping her throat out". She also mentions she doesn't want to wake up in the morning and takes more than the recommended amount of medication to accomplish this, without taking the full bottle. Says she has chronic back pain, unexplained pains in her legs, no deep vein thromboses were found on imaging studies, and says she's been falling lately. She also has healing wound on her left leg. Says she's impulsive and sometimes doesn't think about consequences. And she feels very weak/tired because of her overall condition. Says she gets racing thoughts and can't get the words out sometimes. 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 She has an extensive medical history including polysubstance abuse, says quit heroin 4 months ago and on methadone currently, hepatitis A, chronic hepatitis C (followed by Dr. Cruz), rhabdomyolysis and CKD stage 3. Interval History 03/15/17: Continues to have suicidal thoughts, but will not elaborate on plan. Says she doesn't want long-term care and has been reaching out to [facility]. Says she wants her pain medications increased, as she is in great distress and has pain all over her body. Says when her methadone is decreased she feels like "clawing someone's eyes out". However, she was seen laughing, smiling with brighter affect and interacting appropriately with other patient on the unit. She maintains better eye cntact and denies AH or VH. She missed her last court date today. VITAL SIGNS: See below. NEW TEST RESULTS: see below CURRENT MEDICATIONS: See below. MENTAL STATUS EXAMINATION: General appearance: Patient is a 41-year old female, who is in NAD, cooperative , poor dentition, normal eye contact, lazy left eye Speech: spontaneous, normal rate, rhythm, volume Thought processes: linear, logical Thought content: Endorses SI with plan she won't elaborate on. Endorses thoughts of harming others. Denies paranoia, manic symptoms, OCD symptoms, auditory and visual hallucinations. Abstract reasoning and computation: poor Description of associations: poor Description of abnormal or psychotic thoughts: Denies Judgment: poor Insight: improving Orientation: awake and alert Recent and remote memory: Poor Attention span and concentration: Poor Fund of knowledge: below average Mood: "annoyed" Affect: mildly dysthymic, lethargic, mood-congruent DIAGNOSES: 1. Bipolar Disorder I, mixed episode with OCD traits 2. Substance induced mood disorder 3. Borderline Personality Disorder ASSESSMENT: She has a brighter affect and appears less lethargic than previous days, but is still mildly dysthymic. She says needs her methadone increased as she is experience withdrawal symptoms and increased agitation. She was counselled regarding her medications and she denies side effects apart from lethargy. Counselled regarding negative thoughts, self harm and harm to others. MANAGEMENT PLAN: Continue on a 1:1 for safety observation. Continue Abilify 7.5 mg BID for Bipolar Disorder. Continue Paxil CR 25 mg PO daily for depression. Increased dose of methadone to 40 mg PO daily for opiate withdrawal. Continue other medications. Continue to monitor for suicidal ideations, plan and attempt. Continue to monitor for medication side effects. Continue group therapy and ALEXIS George follows for evaluation of medical conditions including kidney function. TIME SPENT: 20 minutes. Vital Signs Vital Signs Date Time Temp Pulse Resp B/P (MAP) Pulse Ox O2 Delivery O2 Flow Rate FiO2 03/15/17 20:13 16 03/15/17 18:00 98.1 92 121/82 (95) 03/15/17 06:35 Room Air Current Medications Current Medications Aripiprazole (AbiLIFY) 2.5 mg BID PO Last administered on 02/24/17 09:27; Start 02/23/17 at 09:00; Stop 02/24/17 at 14:40; Status DC Aripiprazole (AbiLIFY) 2.5 mg QAM PO Last administered on 03/04/17 09:01; Start 03/03/17 at 09:00; Stop 03/04/17 at 14:28; Status DC Aripiprazole (AbiLIFY) 5 mg BID PO Last administered on 03/01/17 08:17; Start 02/24/17 at 21:00; Stop 03/01/17 at 12:21; Status DC Aripiprazole (AbiLIFY) 5 mg BID PO Last administered on 03/10/17 08:42; Start 03/09/17 at 21:00; Stop 03/10/17 at 11:22; Status DC Aripiprazole (AbiLIFY) 5 mg QAM PO Last administered on 03/09/17 08:44; Start 03/05/17 at 09:00; Stop 03/09/17 at 11:09; Status DC Aripiprazole (AbiLIFY) 7.5 mg BID PO Last administered on 03/02/17 08:38; Start 03/01/17 at 21:00; Stop 03/02/17 at 12:42; Status DC Aripiprazole (AbiLIFY) 7.5 mg BID PO Last administered on 03/15/17 20:13; Start 03/10/17 at 21:00; Stop 04/09/17 at 20:59 Baclofen (Lioresal) 10 mg TID PO Last administered on 03/15/17 20:12; Start 02/16/17 at 21:00; Stop 03/18/17 at 20:59 Bismuth Subsalicylate (Pepto Bismol) 30 ml Q6HP PRN PO DIARRHEA; Start at 21:15; Stop 04/14/17 at 21:14 Buspirone HCl (Buspar) 7.5 mg BID PO Last administered on 03/10/17 08:42; Start 02/16/17 at 21:00; Stop 03/10/17 at 11:22; Status DC Buspirone HCl (Buspar) 7.5 mg DAILY PO Last administered on 03/15/17 08:57; Start 03/11/17 at 09:00; Stop 03/18/17 at 20:59 Ferrous Sulfate (Ferrous Sulfate) 325 mg Q2D@0900 PO Last administered on 03/15 08:58; Start 02/17/17 at 09:00; Stop 03/19/17 at 08:59 Fluoxetine HCl (PROzac) 20 mg QAM PO Last administered on 02/22/17 08:35; Start 02/21/17 at 09:00; Stop 02/22/17 at 17:39; Status DC Fluoxetine HCl (PROzac) 40 mg DAILY PO Last administered on 02/20/17 08:30; Start 02/17/17 at 09:00; Stop 02/20/17 at 16:19; Status DC Fluvoxamine Maleate (Luvox) 50 mg QHS PO ; Start 02/22/17 at 21:00; Stop 02/22 at 21:00; Status DC Fluvoxamine Maleate (Luvox) 50 mg QHS PO Last administered on 03/01/17 20:11 ; Start 02/23/17 at 21:00; Stop 03/02/17 at 12:40; Status DC Gabapentin (Neurontin) 100 mg TID PO ; Start 02/19/17 at 16:00; Stop 03/21/17 at 15:59; Status Cancel Gabapentin (Neurontin) 300 mg TID PO Last administered on 02/19/17 08:45; Start 02/16/17 at 21:00; Stop 02/19/17 at 14:29; Status DC Gabapentin (Neurontin) 300 mg TID PO Last administered on 03/15/17 20:12; Start 02/19/17 at 17:15; Stop 03/21/17 at 17:14 Hydroxyzine HCl (Atarax) 50 mg Q6HP PRN PO ANXIETY/AGITATION Last administered on 02/26/17 08:05; Start 02/16/17 at 21:00; Stop 02/26/17 at 13:31; Status DC Hydroxyzine HCl (Atarax) 75 mg Q6HP PRN PO ANXIETY/AGITATION Last administered on 03/15/17 15:14; Start 02/26/17 at 13:30; Stop 03/28/17 at 13:29 Lactobacillus Acidophilus (Bacid) 1 ea BID PO Last administered on 03/15/17 20:12; Start 02/22/17 at 09:00; Stop 03/24/17 at 08:59 Lamotrigine (LaMICtal) 25 mg BID PO Last administered on 03/15/17 20:12; Start 02/16/17 at 21:00; Stop 03/18/17 at 20:59 Levofloxacin (Levaquin) 500 mg DAILY@06 PO Last administered on 02/23/17 06: 30; Start 02/17/17 at 06:00; Stop 02/23/17 at 06:01; Status DC Magnesium Hydroxide (Milk Of Magnesia) 30 ml DAILYPRN PRN PO CONSTIPATION; Start 03/10/17 at 10:45; Stop 04/09/17 at 10:44 Methadone HCl (Dolophine) 10 mg QID PO Last administered on 03/15/17 20:13; Start 03/15/17 at 13:00; Stop 03/19/17 at 08:59 Methadone HCl (Dolophine) 20 mg DAILY PO Last administered on 03/15/17 08:58 ; Start 03/12/17 at 09:00; Stop 03/15/17 at 11:40; Status DC Methadone HCl (Dolophine) 30 mg DAILY PO Last administered on 02/17/17 08:08 ; Start 02/17/17 at 09:00; Stop 02/17/17 at 14:32; Status DC Methadone HCl (Dolophine) 40 mg DAILY PO Last administered on 03/10/17 08:42; Start 02/18/17 at 09:00; Stop 03/11/17 at 16:35; Status DC Nicotine (Nicoderm Cq 21mg) 1 patch DAILY TD Last administered on 03/15/17 08 :56; Start 02/19/17 at 09:00; Stop 03/21/17 at 08:59 Non-Formulary Medication ( See Comment Field Below ) SEE COMMENTS SECTION 1T @10 XX ; Start 03/10/17 at 10:00; Stop 03/10/17 at 10:00; Status DC Non-Formulary Medication ( See Comment Field Below ) SEE LABEL COMMENTS DAILY XX ; Start 03/08/17 at 09:00; Stop 03/08/17 at 13:43; Status DC Paliperidone (Invega) 3 mg BID PO Last administered on 03/03/17 08:43; Start 03/02/17 at 21:00; Stop 03/03/17 at 12:37; Status DC Paliperidone (Invega) 3 mg QAM PO Last administered on 03/09/17 08:44; Start 03/04/17 at 09:00; Stop 03/09/17 at 11:07; Status DC Paliperidone (Invega) 6 mg QHS PO Last administered on 03/09/17 20:31; Start 03/03/17 at 21:00; Stop 03/10/17 at 11:06; Status DC Paroxetine HCl (PAXil CR) 12.5 mg DAILY PO Last administered on 03/09/17 08:44 ; Start 03/03/17 at 09:00; Stop 03/09/17 at 11:09; Status DC Paroxetine HCl (PAXil CR) 25 mg DAILY PO Last administered on 03/15/17 08:57 ; Start 03/10/17 at 09:00; Stop 04/09/17 at 08:59 Pregabalin (Lyrica) 100 mg TID PO ; Start 02/19/17 at 16:00; Stop 02/26/17 at 15:59; Status Cancel Quetiapine Fumarate (SEROquel) 50 mg QAM PO Last administered on 03/03/17 08: 42; Start 03/03/17 at 09:00; Stop 03/03/17 at 15:49; Status DC Quetiapine Fumarate (SEROquel) 50 mg QHS PO Last administered on 03/02/17 20: 10; Start 03/02/17 at 21:00; Stop 03/02/17 at 21:00; Status DC Quetiapine Fumarate (SEROquel) 100 mg QHS PO Last administered on 02/17/17 20 :43; Start 02/16/17 at 21:00; Stop 02/18/17 at 14:36; Status DC Quetiapine Fumarate (SEROquel) 200 mg QHS PO Last administered on 03/01/17 20 :11; Start 02/18/17 at 21:00; Stop 03/02/17 at 12:43; Status DC Quetiapine Fumarate (SEROquel) 200 mg QHS PO Last administered on 03/15/17 20 :12; Start 03/02/17 at 21:00; Stop 04/01/17 at 20:59 Tamsulosin HCl (Flomax) 0.4 mg DAILY PO Last administered on 03/15/17 08:58; Start 02/17/17 at 09:00; Stop 03/19/17 at 08:59 Tramadol HCl (Ultram) 50 mg Q12HP PRN PO MODERATE PAIN (PS 5-7); Start at 14:15; Stop 02/25/17 at 09:59; Status UNV Tramadol HCl (Ultram) 50 mg Q8HP PRN PO MODERATE PAIN (PS 5-7) Last administered on 02/19/17 06:17; Start 02/18/17 at 10:00; Stop 02/19/17 at 14 :09; Status DC Tramadol HCl (Ultram) 50 mg Q8HP PRN PO MODERATE PAIN (PS 5-7) Last administered on 03/15/17 15:14; Start 02/19/17 at 16:45; Stop 03/17/17 at 16 :44 Allergies Coded Allergies: TAPE (Verified Allergy, Intermediate, 02/14/17) Very red & Sore Shellfish Allergy (Verified Allergy, Unknown, 02/13/17) Hydrocodone (Verified Adverse Reaction, Mild, BECAME hiGH, 02/13/17) LETTY VILLASEÑOR PGY-1 Mar 15, 2017 23:11
[2017-03-16] MEDS: traMADol 50 MG TAB PO PRN (02:30)
[2017-03-16 06:45] VITALS: BP 135/75
[2017-03-16] MEDS: NICOTINE 21MG/24HR 1 EA TRANSDERMAL TD SCH (08:49)
[2017-03-16] MEDS: BACLOFEN 10 MG TAB PO SCH (08:49)
[2017-03-16] MEDS: TAMSULOSIN 0.4 MG CAP PO SCH (08:49)
[2017-03-16] MEDS: LACTOBACILLUS ACIDOPHILUS CAP (BACID) PO SCH (08:49)
[2017-03-16] MEDS: lamoTRIgine 25 MG TAB PO SCH (08:49)
[2017-03-16] MEDS: busPIRone 5 MG TAB PO SCH (08:50)
[2017-03-16] MEDS: GABAPENTIN 300 MG CAP PO SCH (08:50)
[2017-03-16] MEDS: PARoxetine 25 MG CR TAB (PAXIL CR) PO SCH (08:50)
[2017-03-16] MEDS: METHADONE 10 MG TAB (S0109) PO SCH (08:52)
[2017-03-16] MEDS ORDERED: METHADONE 10 MG TAB (S0109) PO ONE ×2 (10:00)
[2017-03-16] MEDS ORDERED: PARO25TA PO (11:24)
[2017-03-16] MEDS ORDERED: QUET1TAB9 PO (11:24)
[2017-03-16] MEDS ORDERED: ARIP5TA PO (11:24)
--- NOTE | 2017-03-16 16:43 | IPN ---
DATE: 03/07/2017 The patient today states, "I'm not too good." She continues to have suicidal thoughts. She states, "I just want it to be over." She is also sleeping too much. MENTAL STATUS EXAMINATION: She is alert and oriented times three. Eye contact is poor. Psychomotor activity is decreased. There is no formal thought disorder noted. Her mood is "not good." Affect is constricted but appropriate to her mood. She is not suicidal or homicidal. She continues to have paranoid thinking. Concentration is fair. Insight and judgment poor. DIAGNOSIS: Bipolar disorder, type 1, mixed episode. Substance-induced mood disorder. Borderline personality disorder. Obsessive-compulsive personality disorder. TREATMENT PLAN: She remains very psychotic, and she continues to have suicidal thoughts. We will continue one-to-one observation level to maintain her safe. And we will continue to await further response from her medications. MONIKA
--- NOTE | 2017-03-16 16:45 | MHDSPDOC ---
[facility] Discharge Summary Discharge Summary DATE OF ADMISSION: Feb 16, 2017 at 19:20 DATE OF DISCHARGE: Mar 16, 2017 at 12:00 DISCHARGE DIAGNOSES: 1. Bipolar Disorder I, mixed episode with OCD traits 2. Substance induced mood disorder 3. Borderline Personality Disorder REASON FOR ADMISSION: Patient is a 41-year-old female, who has a history of PTSD , depression, anxiety, polysubstance abuse. She was admitted to [facility] from to 02/16/17 for treatment of CAP. Patient was stabilized and transferred to [facility] 02/16/17. Says she has "done wrong to so many people" and it keeps playing in her head and she doesn't know if it's real or not. Everybody she meets reminds her of someone she hurt along the way and she "sees their faces" on people around her. Says when she was brought to the [facility] on 02/14/17 she thought the hospital was shut down and they wanted to "torture her head". She says it feels like people here at the hospital who want to "infect, poison" her. Says she has many skeletons in her closet, and she wonders if ex-boyfriend who has custody of her 2 year old son put this whole thing together. She says CPS was involved and took her son away. She says he is going to take her son to [place] while she is in here. She says she has outstanding warrants and worries she will be arrested if she leaves for not returning a jeep that was given to her in previous employment. Says she feels somebody has their "eye on her" and that she has lost many phones this year, which may have been taken by somebody. She saw a picture of her son with a woman who used to be her friend and felt like "ripping her throat out". She also mentions she doesn't want to wake up in the morning and takes more than the recommended amount of medication to accomplish this, without taking the full bottle. Says she has chronic back pain, unexplained pains in her legs, no deep vein thromboses were found on imaging studies, and says she's been falling lately. She also has healing wound on her left leg. Says she's impulsive and sometimes doesn't think about consequences. And she feels very weak/tired because of her overall condition. Says she gets racing thoughts and can't get the words out sometimes. 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 She has an extensive medical history including polysubstance abuse, says quit heroin 4 months ago and on methadone currently, hepatitis A, chronic hepatitis C (followed by Dr. Cruz), rhabdomyolysis and CKD stage 3. CONSULTANTS INVOLVED: TREATMENT AND PROGRESS ON THE UNIT : . HOSPITAL COURSE: See above DISCHARGE ASSESSMENT: Patient says she is doing well and denies suicidal or homicidal ideation. She denies auditory, visual hallucinations or other distortions of perception or thought. She denies common or rare side effects of her medications. She says she will have help from a friend who is a nurse that will help her arrange visitation with her son. She is smiling and laughing during the interview and makes normal eye-contact. MENTAL STATUS EXAMINATION ON DISCHARGE: Patient is a 41-year old female, who is in hospital clothing, with fair hygiene, cooperative and makes normal eye-contact. Speech is spontaneous, normal rate, rhythm, volume Language skills are Intact Thought processes including: linear, logical Thought content: Denies SI, AH, VH, manic symptoms, paranoia or other distortions of perception Abstract reasoning, and computation: Intact Description of associations: Intact Description of abnormal or psychotic thoughts: Denies Judgment: fair Insight: fair Alert and oriented Recent and remote memory: Poor Attention span and concentration: fair Language: appropriate Fund of knowledge: below average Mood: "anxious to leave" Affect: mildly anxious, full in range, mood-congruent, appropriate MEDICATIONS ON DISCHARGE: - for . - for . - for . PLAN/FOLLOWUP ARRANGEMENTS: Follow Up Care Education Label * Mental Health Appt 1 * Mental Health [facility] * Established With This Provider Yes * Therapist Dr Rajan * Date Mar 18, 2017 * Time 12:00 * * Additional information [facility] Follow Up Care Education Label * Chemical Dependency Appt1 * Chemical Dependency [facility] * Established With This Provider Yes * Date Mar 17, 2017 * Time 08:00 * Additional information To get your daily methadone Follow Up Care Education Label * Care Coordination * Care Coordination/Case Management/Supervision Mobile Integration Team * Established With This Provider Yes * Shoe Sticks Repairer Shania * Date Mar 31, 2017 * Time 14:00 * * Additional information Will come to see you on this date. Can call to follow up if needed sooner. Follow Up Care Education Label * [facility] Probation * Shoe Sticks Repairer Sharda Iglesias * * Additional information Please follow up with Insulation Board Head Saw Operator Harris after discharge to confirm you are home. Follow Up Care Education Label * Medical * Medical [facility] * Established With This Provider Yes * Therapist CYNDI HILARIO * Date Mar 18, 2017 * Time 14:00 * Address of Clinic or Practice [id number] * * Additional information We will call you with appt [id number] [address] [facility] Follow Up Care Education Label * Chemical Dependency Appt2 * Chemical Dependency [facility] * Established With This Provider Yes * Therapist Lindy * Date Mar 19, 2017 * Time 14:00 The amount of time spent in the coordination of care for this patient was approximately 60 minutes. Vital Signs/I&Os Vital Signs Date Time Temp Pulse Resp B/P (MAP) Pulse Ox O2 Delivery O2 Flow Rate FiO2 03/16/17 10:41 16 03/16/17 06:45 98.2 93 135/75 (95) Room Air Medications Scheduled (Ferrocite Plus 106-1 mg) 1 Tab Tab, 1 TAB PO Q2D for , (Reported) Aripiprazole (Aripiprazole) 5 Mg Tab, 7.5 MG PO BID for MOOD, #21 Take one and a half tablet in the morning and one and a half tablet in the evening with water. Baclofen (Baclofen) 10 Mg Tab, 10 MG PO TID for , (Reported) Buspirone HCl (Buspirone HCl) 7.5 Mg Tab, 7.5 MG PO BID for , (Reported) Doxycycline Hyclate (Doxycycline) 100 Mg Cap, 100 MG PO Q12H for , #20 Gabapentin (Gabapentin) 300 Mg Cap, 300 MG PO TID for , (Reported) Lamotrigine (Lamotrigine) 25 Mg Tab, 25 MG PO BID for , (Reported) Methadone HCl (Methadone HCl) 10 Mg Tab, 30 MG PO DAILY for , (Reported) Nicotine (Nicotine Transdermal Syst) 21 Mg/24 Hr Dis, 1 PATCH TD DAILY for NICOTINE WITHDRAWAL, #7 Put patch on in the morning, take off before bed. Paroxetine (Paroxetine HCl ER) 25 Mg Tab, 25 MG PO DAILY for MOOD, #7 Take one tablet in the morning with water. Quetiapine Fumerate (Quetiapine Fumarate) 200 Mg Tab, 200 MG PO QHS for mood/ insomnia, #7 take one tablet before bed with water. Tamsulosin Hydrochloride (Flomax) 0.4 Mg Cap, 0.4 MG PO DAILY for , (Reported) Scheduled PRN Hydroxyzine HCl (Hydroxyzine HCl) 50 Mg Tab, 50 MG PO Q6H PRN for ANXIETY/ AGITATION, (Reported) Allergies Coded Allergies: TAPE (Verified Allergy, Intermediate, 02/14/17) Very red & Sore Shellfish Allergy (Verified Allergy, Unknown, 02/13/17) Hydrocodone (Verified Adverse Reaction, Mild, BECAME hiGH, 02/13/17) LETTY VILLASEÑOR PGY-1 Mar 16, 2017 16:45
[2017-03-16] MEDS ORDERED: ABIL1TAB12 PO (16:48)
[2017-03-16] MEDS ORDERED: PAXI20TA29 PO (16:49)
[2017-03-17] MEDS ORDERED: METHADONE 10 MG TAB (S0109) PO ONE (09:00)
[2017-03-17] MEDS ORDERED: METHADONE 10 MG TAB (S0109) PO SCH (09:00)
== END 2017-03-16 12:00 | disposition home or self-care (01) | DRG 753 ==
LOC: M PSY 19:20
PROVIDERS: ADMIT Psychiatry & Neurology Psychiatry; ATTEND Psychiatry & Neurology Psychiatry
DX: F31.60 Bipolar disorder, current episode mixed, unspecified (principal); J18.9 Pneumonia, unspecified organism; N18.3 Chronic kidney disease, stage 3 (moderate); F60.3 Borderline personality disorder; F19.94 Other psychoactive substance use, unspecified with psychoactive substance-induced mood disorder; F42.9 Obsessive-compulsive disorder, unspecified; Z79.899 Other long term (current) drug therapy; Z88.5 Allergy status to narcotic agent; Z91.013 Allergy to seafood; B18.2 Chronic viral hepatitis C; F17.200 Nicotine dependence, unspecified, uncomplicated; E87.6 Hypokalemia; D64.9 Anemia, unspecified

== ENCOUNTER 2017-03-29 10:28 | Emergency (ER) | payer OTHER ==
[~2017-03-29] VITALS: Ht 160 cm; Wt 72.7 kg
[~2017-03-29 10:28] MED LIST changes: +ABIL1TAB12 PO; +ARIP5TA PO; +FLUV50TA PO; +NICO21PAT TD; +PARO25TA PO; +PAXI20TA29 PO; +QUET1TAB9 PO
[2017-03-29 10:48] VITALS: BP 124/74
[2017-03-29] MEDS ORDERED: CLINDAMYCIN 150 MG CAP PO ONE (11:45)
[2017-03-29] MEDS ORDERED: PERCOCET 5MG/325MG TAB PO ONE (11:45)
[2017-03-29] MEDS ORDERED: CLEO300C2 PO (11:54)
[2017-03-29] MEDS ORDERED: PERC5TAB12 PO (11:54)
== END 2017-03-29 12:09 | disposition home or self-care (01) ==
LOC: M ED 10:28 → EEVIPCON 10:28 → M ED 12:09
DX: L02.415 Cutaneous abscess of right lower limb (principal); I12.9 Hypertensive chronic kidney disease with stage 1 through stage 4 chronic kidney disease, or unspecified chronic kidney disease; N18.3 Chronic kidney disease, stage 3 (moderate); Z72.0 Tobacco use

== ENCOUNTER 2017-04-02 19:32 | Emergency (ER) | payer OTHER ==
[~2017-04-02] VITALS: Ht 160 cm; Wt 72.7 kg
[2017-04-02 19:32] VITALS: BP 139/93
[~2017-04-02 19:32] MED LIST changes: +CLEO300C2 PO; +PERC5TAB12 PO
== END 2017-04-02 22:34 | disposition left against medical advice (07) ==
LOC: M ED 19:32
DX: Z53.29 Procedure and treatment not carried out because of patient's decision for other reasons (principal)

== ENCOUNTER → 2017-05-26 | Outpatient (CLI) | payer OTHER ==
[2017-05-26 12:08] LABS: BASO % 0.2 % (0.0-1.0); EOS # 0.2 10^3/uL (0.0-0.50); EOS % 2.5 % (0.0-3.0); HEMATOCRIT 34.9 % (36.0-47.0); HEMOGLOBIN 11.2 g/dl (12.0-16.0); IMMATURE GRANULOCYTE % 0.3 % (0-0); LYMPH # 2.1 10^3/uL (1.5-4.5); LYMPH % 23.5 % (24.0-44.0); MEAN CORPUSCULAR HGB CONC 32.1 g/dl (32.0-36.5); MEAN CORPUSCULAR VOLUME 87.3 fl (80.0-96.0); MONO # 0.7 10^3/uL (0.0-0.8); MONO % 7.6 % (0.0-5.0); NEUTROPHILS # 5.8 10^3/uL (1.8-7.7); NEUTROPHILS % 65.9 % (36.0-66.0); PLATELET COUNT, AUTOMATED 271 10^3/uL (150-450); RED CELL DISTRIBUTION WIDTH 14.6 % (11.5-14.5); WHITE BLOOD COUNT 8.7 10^3/uL (4.0-10.0)
[2017-05-26 12:56] LABS: ALBUMIN 3.3 GM/DL (3.2-5.2); ALBUMIN/GLOBULIN RATIO 0.97 (1.00-1.93); ALKALINE PHOSPHATASE 71 U/L (45-117); ALT/SGPT 32 U/L (12-78); ANION GAP 5 MEQ/L (8-16); AST/SGOT 29 U/L (7-37); BILIRUBIN,TOTAL 0.2 MG/DL (0.2-1.0); BLOOD UREA NITROGEN 22 MG/DL (7-18); CALCIUM LEVEL 8.1 MG/DL (8.5-10.1); CARBON DIOXIDE LEVEL 31 MEQ/L (21-32); CHLORIDE LEVEL 107 MEQ/L (98-107); CREATININE FOR GFR 0.95 MG/DL (0.55-1.02); GLOMERULAR FILTRATION RATE > 60.0 (>58); GLUCOSE, FASTING 95 MG/DL (70-100); POTASSIUM SERUM 3.8 MEQ/L (3.5-5.1); SODIUM LEVEL 143 MEQ/L (136-145); TOTAL PROTEIN 6.7 GM/DL (6.4-8.2)
[2017-05-28 14:13] LABS: LAMOTRIGINE (LAMICTAL) 2.3 ug/mL (2.0-20.0)
== END ==
LOC: M LAB 11:00
DX: F31.9 Bipolar disorder, unspecified (principal); N18.2 Chronic kidney disease, stage 2 (mild)
CPT/HCPCS: 80053

== ENCOUNTER → 2017-05-26 | Outpatient (REF) | payer OTHER ==
[2017-05-26 14:30] LABS: APPEARANCE, URINE CLEAR (CLEAR); BACTERIA, URINE AUTO NEGATIVE (NEGATIVE); BILIRUBIN, URINE AUTO NEGATIVE (NEGATIVE); BLOOD, URINE BLOOD 2+ (NEGATIVE); COLOR, URINE YELLOW (YELLOW); GLUCOSE, URINE (UA) AUTO NEGATIVE (NEGATIVE); KETONE, URINE AUTO NEGATIVE (NEGATIVE); LEUKOCYTE ESTERASE, URINE AUTO TRACE (NEGATIVE); NITRITE, URINE AUTO NEGATIVE (NEGATIVE); PROTEIN, URINE AUTO NEGATIVE (NEGATIVE); RBC, URINE AUTO 0 /HPF (0-3); SPECIFIC GRAVITY URINE AUTO 1.014 (1.002-1.035); SQUAMOUS EPITHELIAL CELL UR AU 1 /HPF (0-6); UROBILINOGEN, URINE AUTO 0.2 mg/dL (0.0-2.0); WBC, URINE AUTO 1 /HPF (0-3)
== END ==
LOC: M SFHCLERA 08:49
DX: F31.9 Bipolar disorder, unspecified (principal); N18.2 Chronic kidney disease, stage 2 (mild)
CPT/HCPCS: 81001

== ENCOUNTER → 2017-06-22 | Outpatient (REF) | payer OTHER ==
[2017-06-22 15:00] LABS: BASO % 0.4 % (0.0-1.0); EOS # 0.2 10^3/uL (0.0-0.50); EOS % 2.7 % (0.0-3.0); HEMATOCRIT 40.1 % (36.0-47.0); HEMOGLOBIN 13.2 g/dl (12.0-16.0); IMMATURE GRANULOCYTE % 0.5 % (0-3.0); LYMPH # 2.2 10^3/uL (1.5-4.5); LYMPH % 27.3 % (24.0-44.0); MEAN CORPUSCULAR HEMOGLOBIN 28.9 pg (27.0-33.0); MEAN CORPUSCULAR HGB CONC 32.9 g/dl (32.0-36.5); MEAN CORPUSCULAR VOLUME 87.9 fl (80.0-96.0); MONO # 0.7 10^3/uL (0.0-0.8); MONO % 8.8 % (0.0-5.0); NEUTROPHILS # 4.8 10^3/uL (1.8-7.7); NEUTROPHILS % 60.3 % (36.0-66.0); PLATELET COUNT, AUTOMATED 304 10^3/uL (150-450); RED BLOOD COUNT 4.56 10^6/uL (4.00-5.40); RED CELL DISTRIBUTION WIDTH 15.5 % (11.5-14.5); WHITE BLOOD COUNT 7.9 10^3/uL (4.0-10.0)
[2017-06-22 15:02] LABS: FOLATE 22.7 NG/ML; VITAMIN B12 LEVEL 714 PG/ML
[2017-06-22 15:06] LABS: ALBUMIN 3.9 GM/DL (3.2-5.2); ALBUMIN/GLOBULIN RATIO 1.08 (1.00-1.93); ALKALINE PHOSPHATASE 97 U/L (45-117); ALT/SGPT 42 U/L (12-78); ANION GAP 9 MEQ/L (8-16); AST/SGOT 37 U/L (7-37); BILIRUBIN,TOTAL 0.4 MG/DL (0.2-1.0); BLOOD UREA NITROGEN 22 MG/DL (7-18); CALCIUM LEVEL 8.8 MG/DL (8.5-10.1); CARBON DIOXIDE LEVEL 29 MEQ/L (21-32); CHLORIDE LEVEL 103 MEQ/L (98-107); CREATININE FOR GFR 1.18 MG/DL (0.55-1.30); GLUCOSE, FASTING 73 MG/DL (70-100); POTASSIUM SERUM 4.2 MEQ/L (3.5-5.1); RHEUMATOID FACTOR QUANT < 10.0 IU/ML (0-15.0); SODIUM LEVEL 141 MEQ/L (136-145); TOTAL PROTEIN 7.5 GM/DL (6.4-8.2)
[2017-06-22 15:33] LABS: ERYTHROCYTE SEDIMENTATION RATE 7 mm/hr (0-20)
[2017-06-24 10:20] LABS: DRVV SCREEN 37.4 SEC
[2017-06-24 10:21] LABS: PTT LUPUS TYPE ANTICOAG SCREEN 0.9 (0-1.2)
[2017-06-24 14:16] LABS: ALBUMIN 4.26 GM/DL (3.29-5.55); ALBUMIN % 56.8 % (55.8-66.1); ALPHA-1-GLOBULIN % 3.9 % (2.9-4.9); ALPHA-1-GLOBULINS 0.29 GM/DL (0.17-0.41); ALPHA-2-GLOBULINS 0.74 GM/DL (0.42-0.99); ALPHA-2-GLOBULINS % 9.9 % (7.1-11.8); BETA-1-GLOBULINS 0.44 GM/DL (0.28-0.60); BETA-1-GLOBULINS % 5.8 % (4.7-7.2); BETA-2-GLOBULINS 0.32 GM/DL (0.19-0.55); BETA-2-GLOBULINS % 4.2 % (3.2-6.5); GAMMA GLOBULIN % 19.4 % (11.1-18.8); GAMMA GLOBULINS 1.46 GM/DL (0.65-1.58)
[2017-06-26 08:06] LABS: ANCA-ATYPICAL <1:20 titer (Neg:<1:20); ANTI DOUBLE STRAND-DNA AB 15 IU/mL (0-9); ANTINUCLEAR ANTIBODIES DIRECT Positive (Negative); CYTOPLASMIC NEUTROP AB ANCA-C <1:20 titer (Neg:<1:20); Lyme Disease IgG/IgM Antibodie <0.91 ISR (0.00-0.90); Lyme Disease IgM Ab Quantitati <0.80 index (0.00-0.79); PERINUCLEAR AB ANCA-P <1:20 titer (Neg:<1:20); RNP ANTIBODIES 0.3 AI (0.0-0.9); SJOGREN'S ANTI SS-A <0.2 AI (0.0-0.9); SJOGREN'S ANTI SS-B <0.2 AI (0.0-0.9); SMITH ANTIBODIES <0.2 AI (0.0-0.9); VITAMIN B1 LEVEL WHOLE BLOOD 177.6 nmol/L (66.5-200.0); VITAMIN B6,PYRIDOXAL PHOSPHATE 7.5 ug/L (2.0-32.8); VITAMIN E LEVEL 9.5 mg/L (5.3-16.8)
== END ==
LOC: M LABNEURO 10:17
DX: G62.9 Polyneuropathy, unspecified (principal)
CPT/HCPCS: 82746

== ENCOUNTER 2017-07-13 10:19 | Outpatient (RCR) | payer OTHER | END 2017-07-31 | LOC: M PT 10:19 | DX: Z51.89 Encounter for other specified aftercare (principal); M54.5 Low back pain ==

== ENCOUNTER 2017-08-09 10:59 | Outpatient (RCR) | payer OTHER | END 2017-08-30 | LOC: M PT 10:59 | DX: Z51.89 Encounter for other specified aftercare (principal); M54.5 Low back pain | CPT/HCPCS: 97010 ==

== ENCOUNTER 2017-10-21 14:36 | Emergency (ER) | payer OTHER | END 2017-10-21 16:08 | disposition home or self-care (01) | LOC: M ED 14:36 | DX: Z20.89 Contact with and (suspected) exposure to other communicable diseases (principal); N18.9 Chronic kidney disease, unspecified; M54.9 Dorsalgia, unspecified; F32.9 Major depressive disorder, single episode, unspecified; F41.9 Anxiety disorder, unspecified; F17.200 Nicotine dependence, unspecified, uncomplicated; Z79.899 Other long term (current) drug therapy | CPT/HCPCS: 99282 ==

== ENCOUNTER 2017-10-26 10:38 | Emergency (ER) | payer OTHER | END 2017-10-26 11:37 | disposition home or self-care (01) | LOC: M ED 10:38 | DX: L03.116 Cellulitis of left lower limb (principal); Z72.0 Tobacco use; Z79.899 Other long term (current) drug therapy; Z88.5 Allergy status to narcotic agent; Z91.89 Other specified personal risk factors, not elsewhere classified; Z91.013 Allergy to seafood | CPT/HCPCS: 99282 ==

== ENCOUNTER 2017-10-29 10:50 | Emergency (ER) | payer OTHER ==
[2017-10-29 13:06] LABS: BASO % 0.4 % (0.0-1.0); EOS # 0.1 10^3/uL (0.0-0.50); EOS % 0.5 % (0.0-3.0); HEMOGLOBIN 12.2 g/dl (12.0-15.5); IMMATURE GRANULOCYTE % 0.4 % (0-3.0); LYMPH # 1.5 10^3/uL (1.5-4.5); LYMPH % 13.6 % (24.0-44.0); MEAN CORPUSCULAR HEMOGLOBIN 29.8 pg (27.0-33.0); MEAN CORPUSCULAR HGB CONC 33.9 g/dl (32.0-36.5); MONO # 1.1 10^3/uL (0.0-0.8); MONO % 10.1 % (0.0-5.0); NEUTROPHILS # 8.2 10^3/uL (1.8-7.7); PLATELET COUNT, AUTOMATED 266 10^3/uL (150-450); RED BLOOD COUNT 4.09 10^6/uL (4.00-5.40)
[2017-10-29 13:21] LABS: ANION GAP 9 MEQ/L (8-16); BLOOD UREA NITROGEN 11 MG/DL (7-18); C REACTIVE PROTEIN QUANTITATIV 2.71 MG/DL (0.00-0.30); CALCIUM LEVEL 8.8 MG/DL (8.5-10.1); CARBON DIOXIDE LEVEL 25 MEQ/L (21-32); CHLORIDE LEVEL 105 MEQ/L (98-107); CREATININE FOR GFR 0.89 MG/DL (0.55-1.30); GLOMERULAR FILTRATION RATE > 60.0 (>58); GLUCOSE, FASTING 71 MG/DL (70-100); POTASSIUM SERUM 4.5 MEQ/L (3.5-5.1); SODIUM LEVEL 139 MEQ/L (136-145)
[2017-10-29 13:24] LABS: LACTIC ACID SEPSIS PROTOCOL 1.4 MMOL/L (0.4-2.0)
[2017-10-29 13:26] LABS: ERYTHROCYTE SEDIMENTATION RATE 27 mm/hr (0-20)
[2017-10-29] MEDS: CLINDAMYCIN 600 MG in APPROPRIATE DILUENT 1 EA IV (13:31)
[2017-10-29] MEDS: PROMETHAZINE 25 MG TAB PO (13:31)
[2017-10-29] MEDS: NS 1,000 ML IV (13:32)
[2017-10-29] MEDS: MORPHINE 4 MG/ML 1ML VIAL/SYRINGE (J2270) IV (13:32)
== END 2017-10-29 14:45 | disposition home or self-care (01) ==
LOC: M ED 10:50
DX: L03.116 Cellulitis of left lower limb (principal); I12.9 Hypertensive chronic kidney disease with stage 1 through stage 4 chronic kidney disease, or unspecified chronic kidney disease; B19.20 Unspecified viral hepatitis C without hepatic coma; G47.33 Obstructive sleep apnea (adult) (pediatric); N18.3 Chronic kidney disease, stage 3 (moderate); F17.210 Nicotine dependence, cigarettes, uncomplicated; Z88.5 Allergy status to narcotic agent; Z91.013 Allergy to seafood; Z91.048 Other nonmedicinal substance allergy status; Z79.899 Other long term (current) drug therapy
CPT/HCPCS: J2270

== ENCOUNTER → 2017-11-11 | Outpatient (REF) | payer OTHER ==
[2017-11-11 19:42] LABS: D-DIMER QUANT 315.1 ng/ml (<500)
[2017-11-11 19:59] LABS: ALBUMIN 3.2 GM/DL (3.2-5.2); ALBUMIN/GLOBULIN RATIO 0.84 (1.00-1.93); ALKALINE PHOSPHATASE 100 U/L (45-117); ALT/SGPT 38 U/L (12-78); ANION GAP 7 MEQ/L (8-16); AST/SGOT 32 U/L (7-37); BILIRUBIN,TOTAL 0.3 MG/DL (0.2-1.0); BLOOD UREA NITROGEN 19 MG/DL (7-18); CALCIUM LEVEL 8.6 MG/DL (8.5-10.1); CARBON DIOXIDE LEVEL 30 MEQ/L (21-32); CHLORIDE LEVEL 106 MEQ/L (98-107); CREATININE FOR GFR 1.18 MG/DL (0.55-1.30); GLOMERULAR FILTRATION RATE 53.7 (>58); GLUCOSE, FASTING 96 MG/DL (70-100); POTASSIUM SERUM 3.8 MEQ/L (3.5-5.1); SODIUM LEVEL 143 MEQ/L (136-145)
== END ==
LOC: M LAB REF 18:57
DX: M79.89 Other specified soft tissue disorders (principal)
CPT/HCPCS: 80053

== ENCOUNTER → 2017-12-03 | Outpatient (CLI) | payer OTHER | LOC: M CARPUL 08:27 | DX: M79.89 Other specified soft tissue disorders (principal) | CPT/HCPCS: 93306 ==

== ENCOUNTER → 2018-01-07 | Outpatient (CLI) | payer OTHER ==
[2018-01-07 13:38] LABS: HEMATOCRIT 40.5 % (36.0-47.0); HEMOGLOBIN 13.3 g/dl (12.0-15.5); MEAN CORPUSCULAR HEMOGLOBIN 29.6 pg (27.0-33.0); MEAN CORPUSCULAR HGB CONC 32.8 g/dl (32.0-36.5); MEAN CORPUSCULAR VOLUME 90.2 fl (80.0-96.0); PLATELET COUNT, AUTOMATED 212 10^3/uL (150-450); RED BLOOD COUNT 4.49 10^6/uL (4.00-5.40); RED CELL DISTRIBUTION WIDTH 13.4 % (11.5-14.5); WHITE BLOOD COUNT 6.3 10^3/uL (4.0-10.0)
[2018-01-07 14:00] LABS: CONTROL LINE HCG INT CTR LINE PRESENT; HCG, SERUM QUALITATIVE NEGATIVE (NEGATIVE)
[2018-01-07 14:22] LABS: ALBUMIN 3.5 GM/DL (3.2-5.2); ALBUMIN/GLOBULIN RATIO 0.85 (1.00-1.93); ALKALINE PHOSPHATASE 108 U/L (45-117); ALT/SGPT 53 U/L (12-78); ANION GAP 6 MEQ/L (8-16); AST/SGOT 43 U/L (7-37); BILIRUBIN,TOTAL 0.4 MG/DL (0.2-1.0); BLOOD UREA NITROGEN 20 MG/DL (7-18); CALCIUM LEVEL 8.7 MG/DL (8.5-10.1); CARBON DIOXIDE LEVEL 30 MEQ/L (21-32); CHLORIDE LEVEL 107 MEQ/L (98-107); CREATININE FOR GFR 1.06 MG/DL (0.55-1.30); GLOMERULAR FILTRATION RATE > 60.0 (>58); GLUCOSE, FASTING 88 MG/DL (70-100); POTASSIUM SERUM 3.9 MEQ/L (3.5-5.1); SODIUM LEVEL 143 MEQ/L (136-145); TOTAL PROTEIN 7.6 GM/DL (6.4-8.2)
[2018-01-07 14:35] LABS: HEPATITIS B SURFACE ANTIGEN NEGATIVE (NEGATIVE)
[2018-01-07 15:33] LABS: HEPATITIS C VIRUS ABY INDEX > 11.0 INDEX (<0.8)
[2018-01-10 14:17] LABS: HCV RNA NAA QUALITATIVE Positive (Negative)
[2018-01-12 14:15] LABS: HIV 1&2 SCREEN CENTAUR NEGATIVE (NEGATIVE)
== END ==
LOC: M LAB 12:31
DX: F11.20 Opioid dependence, uncomplicated (principal)
CPT/HCPCS: 93005

== ENCOUNTER → 2018-01-07 | Outpatient (CLI) | payer OTHER ==
[2018-01-07 14:06] LABS: D-DIMER QUANT < 270.0 ng/ml (<500)
[2018-01-07 14:25] LABS: ALBUMIN 3.5 GM/DL (3.2-5.2); ALBUMIN/GLOBULIN RATIO 0.92 (1.00-1.93); ALKALINE PHOSPHATASE 106 U/L (45-117); ALT/SGPT 50 U/L (12-78); ANION GAP 6 MEQ/L (8-16); AST/SGOT 42 U/L (7-37); BILIRUBIN,TOTAL 0.4 MG/DL (0.2-1.0); BLOOD UREA NITROGEN 20 MG/DL (7-18); CALCIUM LEVEL 8.8 MG/DL (8.5-10.1); CARBON DIOXIDE LEVEL 30 MEQ/L (21-32); CHLORIDE LEVEL 107 MEQ/L (98-107); CREATININE FOR GFR 1.06 MG/DL (0.55-1.30); GLOMERULAR FILTRATION RATE > 60.0 (>58); GLUCOSE, FASTING 93 MG/DL (70-100); SODIUM LEVEL 143 MEQ/L (136-145); TOTAL PROTEIN 7.3 GM/DL (6.4-8.2)
== END ==
LOC: M LAB 12:27
DX: M79.89 Other specified soft tissue disorders (principal)
CPT/HCPCS: 93971

== ENCOUNTER 2018-02-02 16:15 | Emergency (ER) | payer OTHER ==
[2018-02-02 17:02] LABS: BASO % 0.6 % (0.0-1.0); EOS # 0.2 10^3/uL (0.0-0.50); EOS % 2.9 % (0.0-3.0); HEMATOCRIT 38.9 % (36.0-47.0); HEMOGLOBIN 12.6 g/dl (12.0-15.5); IMMATURE GRANULOCYTE % 1.4 % (0-3.0); LYMPH % 30.2 % (24.0-44.0); MEAN CORPUSCULAR HEMOGLOBIN 29.6 pg (27.0-33.0); MEAN CORPUSCULAR HGB CONC 32.4 g/dl (32.0-36.5); MEAN CORPUSCULAR VOLUME 91.3 fl (80.0-96.0); MONO # 0.9 10^3/uL (0.0-0.8); MONO % 13.1 % (0.0-5.0); NEUTROPHILS # 3.4 10^3/uL (1.8-7.7); NEUTROPHILS % 51.8 % (36.0-66.0); PLATELET COUNT, AUTOMATED 247 10^3/uL (150-450); RED BLOOD COUNT 4.26 10^6/uL (4.00-5.40); RED CELL DISTRIBUTION WIDTH 14.3 % (11.5-14.5); WHITE BLOOD COUNT 6.6 10^3/uL (4.0-10.0)
[2018-02-02] MEDS: NS 1,000 ML IV (17:14)
[2018-02-02 17:44] LABS: ALBUMIN/GLOBULIN RATIO 0.79 (1.00-1.93); ALKALINE PHOSPHATASE 101 U/L (45-117); ALT/SGPT 66 U/L (12-78); ANION GAP 5 MEQ/L (8-16); AST/SGOT 62 U/L (7-37); BILIRUBIN,DIRECT 0.1 MG/DL (0.0-0.2); BILIRUBIN,TOTAL 0.3 MG/DL (0.2-1.0); BLOOD UREA NITROGEN 16 MG/DL (7-18); CALCIUM LEVEL 8.3 MG/DL (8.5-10.1); CARBON DIOXIDE LEVEL 30 MEQ/L (21-32); CHLORIDE LEVEL 105 MEQ/L (98-107); CPK CREATINE PHOSPHOKINASE 150 U/L (26-192); CREATININE FOR GFR 1.07 MG/DL (0.55-1.30); GLOMERULAR FILTRATION RATE > 60.0 (>58); GLUCOSE, FASTING 76 MG/DL (70-100); POTASSIUM SERUM 5.2 MEQ/L (3.5-5.1); SODIUM LEVEL 140 MEQ/L (136-145); TOTAL PROTEIN 6.8 GM/DL (6.4-8.2); TROPONIN I < 0.02 NG/ML (< 0.10)
[2018-02-02 17:47] LABS: MB/CK RELATIVE INDEX 1.53 (< OR =4)
== END 2018-02-02 18:51 | disposition home or self-care (01) ==
LOC: M ED 16:15
DX: M21.331 Wrist drop, right wrist (principal); N28.9 Disorder of kidney and ureter, unspecified; B19.20 Unspecified viral hepatitis C without hepatic coma; G43.909 Migraine, unspecified, not intractable, without status migrainosus; Z88.5 Allergy status to narcotic agent; Z91.013 Allergy to seafood; F19.11 Other psychoactive substance abuse, in remission; F17.210 Nicotine dependence, cigarettes, uncomplicated
CPT/HCPCS: 71045

== ENCOUNTER 2018-07-16 10:10 | Emergency (ER) | payer OTHER ==
[~2018-07-16] VITALS: Ht 160 cm; Wt 81.8 kg
[~2018-07-16 10:10] MED LIST changes: -ACET1TAB17 PO; +ACET1TAB55 PO; +CHAN1PAK11 PO; -DOCQ100C; +DOCQ100C5; -DOXY-278 PO; +DOXY-350 PO; +DOXY100C37 PO; +FLOM0.4C39; +FLOM0.4C39 PO; -FLOM5CAP; -FLOM5CAP PO; +FLUV100T2 PO; -GABA-282; -GABA-282 PO; +GABA-843; +GABA-843 PO; +IBUP-1022 PO; +KLOR20TA42 PO; -LAMO25TA2; -LAMO25TA2 PO; +LAMO25TA4; +LAMO25TA4 PO; +NEUR600T PO; -POTA20TA PO; +POTA20TA6 PO; +PRED20TA PO; +QUET5TAB PO; -TRAZ-136; -TRAZ-136 PO; +TRAZ-163; +TRAZ-163 PO; +VITA-122 PO
[2018-07-16] MEDS ORDERED: KETOROLAC 30 MG/ML VIAL (J1885) IV ONE (11:00)
--- NOTE | 2018-07-16 12:08 | REP ---
Chest two views HISTORY: Cough Comparison: 02/26/2017 The lungs are clear. The heart is normal in size. The pulmonary vasculature is normal in appearance. The bony structure is intact. IMPRESSION: No acute disease. Electronically Signed by Abisai Lizarraga MD 07/16/2018 11:59 A
--- NOTE | 2018-07-16 12:19 | REP ---
Right lower extremity duplex veins History: Right groin pain There are no filling defects in the deep venous system. The deep venous system is patent. Impression: There is no deep venous thrombosis. Electronically Signed by Abisai Lizarraga MD 07/16/2018 12:11 P
--- NOTE | 2018-07-16 12:20 | REP ---
RIGHT HIP, AP PELVIS, THREE VIEWS: HISTORY: Hip pain. There is no acute fracture or dislocation. The joint spaces are normal in appearance. IMPRESSION: There is no acute fracture or dislocation. Electronically Signed by Abisai Lizarraga MD 07/16/2018 12:28 P
[2018-07-16 13:12] LABS: BLOOD UREA NITROGEN 18 MG/DL (7-18); CALCIUM LEVEL 8.7 MG/DL (8.5-10.1); CARBON DIOXIDE LEVEL 27 MEQ/L (21-32); CHLORIDE LEVEL 104 MEQ/L (98-107); CREATININE FOR GFR 1.03 MG/DL (0.55-1.30); GLOMERULAR FILTRATION RATE > 60.0 (>58); GLUCOSE, FASTING 99 MG/DL (70-100); NT-PRO BNP 38 PG/ML (<125)
[2018-07-16 13:19] LABS: BASO % 0.5 % (0.0-1.0); EOS # 0.4 10^3/uL (0.0-0.50); EOS % 4.3 % (0.0-3.0); HEMATOCRIT 40.9 % (36.0-47.0); HEMOGLOBIN 13.3 g/dl (12.0-15.5); LYMPH # 1.9 10^3/uL (1.5-4.5); LYMPH % 22.1 % (24.0-44.0); MEAN CORPUSCULAR HEMOGLOBIN 30.5 pg (27.0-33.0); MEAN CORPUSCULAR HGB CONC 32.5 g/dl (32.0-36.5); MEAN CORPUSCULAR VOLUME 93.8 fl (80.0-96.0); MONO % 10.8 % (0.0-5.0); NEUTROPHILS # 5.4 10^3/uL (1.8-7.7); NEUTROPHILS % 61.7 % (36.0-66.0); PLATELET COUNT, AUTOMATED 261 10^3/uL (150-450); RED BLOOD COUNT 4.36 10^6/uL (4.00-5.40); WHITE BLOOD COUNT 8.8 10^3/uL (4.0-10.0)
[2018-07-16 13:21] LABS: POTASSIUM SERUM 5.7 MEQ/L (3.5-5.1)
[2018-07-16 13:28] LABS: SODIUM LEVEL 134 MEQ/L (136-145)
[2018-07-16 13:57] VITALS: BP 127/76
[2018-07-16 14:00] LABS: ERYTHROCYTE SEDIMENTATION RATE 25 mm/hr (0-20)
[2018-07-16] MEDS ORDERED: KETO10TAB PO (14:02)
== END 2018-07-16 14:15 | disposition home or self-care (01) ==
LOC: M ED 10:10
DX: R10.30 Lower abdominal pain, unspecified (principal); R60.0 Localized edema; R05 Cough; I12.9 Hypertensive chronic kidney disease with stage 1 through stage 4 chronic kidney disease, or unspecified chronic kidney disease; G43.909 Migraine, unspecified, not intractable, without status migrainosus; N18.3 Chronic kidney disease, stage 3 (moderate); D50.9 Iron deficiency anemia, unspecified; F41.9 Anxiety disorder, unspecified; B19.20 Unspecified viral hepatitis C without hepatic coma; F19.11 Other psychoactive substance abuse, in remission; Z79.899 Other long term (current) drug therapy; Z88.5 Allergy status to narcotic agent; Z91.013 Allergy to seafood; Z91.048 Other nonmedicinal substance allergy status
CPT/HCPCS: 36415; 71046; 73502; 80048; 83880; 85025; 85652; 86140; 93971; 96374; 99284; J1885

== ENCOUNTER 2018-07-21 09:14 | Emergency (ER) | payer OTHER ==
[~2018-07-21] VITALS: Ht 160 cm; Wt 90.9 kg
[2018-07-21 09:14] VITALS: BP 161/70
[~2018-07-21 09:14] MED LIST changes: +KETO10TAB PO
[2018-07-21] MEDS ORDERED: QUET1TAB9 (09:24)
[2018-07-21] MEDS ORDERED: BUPR150T3 (09:24)
[2018-07-21] MEDS ORDERED: CITA20TA4 (09:24)
[2018-07-21] MEDS ORDERED: OXCA150T21 (09:24)
== END 2018-07-21 10:08 | disposition home or self-care (01) ==
LOC: M ED 09:14
DX: S76.011D Strain of muscle, fascia and tendon of right hip, subsequent encounter (principal); W01.0XXD Fall on same level from slipping, tripping and stumbling without subsequent striking against object, subsequent encounter; Y92.009 Unspecified place in unspecified non-institutional (private) residence as the place of occurrence of the external cause; Y93.89 Activity, other specified; Y99.8 Other external cause status; D64.9 Anemia, unspecified; N18.3 Chronic kidney disease, stage 3 (moderate); B19.20 Unspecified viral hepatitis C without hepatic coma; F17.210 Nicotine dependence, cigarettes, uncomplicated; F11.21 Opioid dependence, in remission; Z88.5 Allergy status to narcotic agent; Z91.013 Allergy to seafood; Z79.899 Other long term (current) drug therapy

== ENCOUNTER → 2018-11-15 | Outpatient (CLI) | payer MEDICAID, OTHER ==
[~2018-11-15] MED LIST changes: +ARIP1TAB6 PO; -ARIP5TA PO; +BUPR150T3; +CITA20TA6; +OXCA150T21; +QUET1TAB9
== END ==
LOC: M OUTALCOH 12:10
PROVIDERS: ATTEND Psychiatry & Neurology Psychiatry
DX: F12.20 Cannabis dependence, uncomplicated (principal)

== ENCOUNTER 2018-11-29 11:25 | Outpatient (RCR) | payer MEDICAID | END 2018-11-30 | LOC: M OUTALCOH 11:25 | PROVIDERS: ATTEND Psychiatry & Neurology Psychiatry | DX: F11.20 Opioid dependence, uncomplicated (principal); F12.20 Cannabis dependence, uncomplicated ==

== ENCOUNTER → 2018-12-27 | Outpatient (CLI) | payer MEDICAID ==
[~2018-12-27] MED LIST changes: +BACT800T5 PO; +CLON-412; +KEFL500C17 PO; +MIRT1TAB; -QUET1TAB9; -QUET1TAB9 PO; +QUET200T2; +QUET200T2 PO
== END ==
LOC: M OUTALCOH 07:51
PROVIDERS: ATTEND Psychiatry & Neurology Psychiatry
DX: F12.20 Cannabis dependence, uncomplicated (principal); F11.20 Opioid dependence, uncomplicated

== ENCOUNTER 2018-12-29 10:16 | Emergency (ER) | payer MEDICAID, OTHER ==
[~2018-12-29] VITALS: Ht 160 cm; Wt 89.4 kg
[~2018-12-29 10:16] MED LIST changes: -BACT800T5 PO; -CLON-412; -KEFL500C17 PO; -MIRT1TAB
[2018-12-29] MEDS ORDERED: IBUP-1022 PO (10:27)
[2018-12-29] MEDS ORDERED: CLON-412 (10:27)
[2018-12-29] MEDS ORDERED: MIRT1TAB (10:27)
--- NOTE | 2018-12-29 12:19 | REP ---
Bilateral lower extremity deep vein duplex ultrasound: The deep veins demonstrate normal compression, normal Doppler color flow and normal Doppler waveforms with respiration and augmentation from the popliteal vein to the common femoral vein. Impression: There is no lower extremity deep vein thrombus on the right on the left . Electronically Signed by Prashanth Obrien MD 12/29/2018 12:11 P
[2018-12-29 12:36] LABS: BASO % 0.5 % (0.0-1.0); EOS # 0.3 10^3/uL (0.0-0.50); EOS % 3.7 % (0.0-3.0); HEMATOCRIT 38.4 % (36.0-47.0); HEMOGLOBIN 12.8 g/dl (12.0-15.5); LYMPH # 2.4 10^3/uL (1.5-4.5); LYMPH % 29.3 % (24.0-44.0); MEAN CORPUSCULAR HEMOGLOBIN 31.1 pg (27.0-33.0); MEAN CORPUSCULAR HGB CONC 33.3 g/dl (32.0-36.5); MEAN CORPUSCULAR VOLUME 93.4 fl (80.0-96.0); MONO % 12.1 % (0.0-5.0); NEUTROPHILS # 4.4 10^3/uL (1.8-7.7); PLATELET COUNT, AUTOMATED 258 10^3/uL (150-450); RED BLOOD COUNT 4.11 10^6/uL (4.00-5.40); WHITE BLOOD COUNT 8.1 10^3/uL (4.0-10.0)
[2018-12-29 13:02] LABS: ERYTHROCYTE SEDIMENTATION RATE 30 mm/hr (0-20)
[2018-12-29] MEDS ORDERED: MORPHINE 4 MG/ML 1ML VIAL/SYRINGE (J2270) IV ONE (13:15)
[2018-12-29 14:24] LABS: ALT/SGPT 37 U/L (12-78); BILIRUBIN,DIRECT < 0.1 MG/DL (0.0-0.2); BILIRUBIN,TOTAL 0.5 MG/DL (0.2-1.0); BLOOD UREA NITROGEN 22 MG/DL (7-18); C REACTIVE PROTEIN QUANTITATIV 0.93 MG/DL (0.00-0.30); CALCIUM LEVEL 8.4 MG/DL (8.5-10.1); CARBON DIOXIDE LEVEL 25 MEQ/L (21-32); CHLORIDE LEVEL 104 MEQ/L (98-107); CREATININE FOR GFR 1.13 MG/DL (0.55-1.30); GLOMERULAR FILTRATION RATE 56.2 (>58); GLUCOSE, FASTING 99 MG/DL (70-100); POTASSIUM SERUM 4.7 MEQ/L (3.5-5.1); SODIUM LEVEL 138 MEQ/L (136-145); TOTAL PROTEIN 6.8 GM/DL (6.4-8.2)
[2018-12-29] MEDS ORDERED: KEFL500C17 PO (15:13)
[2018-12-29] MEDS ORDERED: KETO10TAB PO (15:15)
[2018-12-29 15:18] VITALS: BP 122/64
== END 2018-12-29 15:24 | disposition home or self-care (01) ==
LOC: M ED 10:16
DX: L03.115 Cellulitis of right lower limb (principal); K21.9 Gastro-esophageal reflux disease without esophagitis; F17.210 Nicotine dependence, cigarettes, uncomplicated; Z88.5 Allergy status to narcotic agent; Z91.013 Allergy to seafood; Z91.048 Other nonmedicinal substance allergy status; Z79.899 Other long term (current) drug therapy
CPT/HCPCS: 36415; 80048; 80076; 83605; 85025; 85652; 86140; 87040; 93970; 96374; 99284; J2270

== ENCOUNTER 2019-01-01 09:03 | Emergency (ER) | payer OTHER ==
[~2019-01-01] VITALS: Ht 160 cm; Wt 92.2 kg
[~2019-01-01 09:03] MED LIST changes: +CLON-412; +KEFL500C17 PO; +MIRT1TAB
[2019-01-01] MEDS ORDERED: FURO20TA2 PO (09:13)
[2019-01-01] MEDS ORDERED: NS 1,000 ML IV SCH (09:36)
[2019-01-01 10:35] LABS: HCG, SERUM QUALITATIVE NEGATIVE (NEGATIVE)
[2019-01-01 10:49] LABS: ALBUMIN 2.9 GM/DL (3.2-5.2); ALT/SGPT 37 U/L (12-78); AMYLASE 38 U/L (25-115); BILIRUBIN,DIRECT < 0.1 MG/DL (0.0-0.2); BILIRUBIN,TOTAL 0.3 MG/DL (0.2-1.0); BLOOD UREA NITROGEN 24 MG/DL (7-18); C REACTIVE PROTEIN QUANTITATIV 0.92 MG/DL (0.00-0.30); CALCIUM LEVEL 8.2 MG/DL (8.5-10.1); CARBON DIOXIDE LEVEL 26 MEQ/L (21-32); CHLORIDE LEVEL 108 MEQ/L (98-107); CREATININE FOR GFR 1.03 MG/DL (0.55-1.30); GLOMERULAR FILTRATION RATE > 60.0 (>58); GLUCOSE, FASTING 100 MG/DL (70-100); POTASSIUM SERUM 4.2 MEQ/L (3.5-5.1); SODIUM LEVEL 140 MEQ/L (136-145); TOTAL PROTEIN 6.4 GM/DL (6.4-8.2)
[2019-01-01 10:54] LABS: APPEARANCE, URINE CLEAR (CLEAR); BACTERIA, URINE AUTO 1+ (NEGATIVE); BILIRUBIN, URINE AUTO NEGATIVE (NEGATIVE); BLOOD, URINE BLOOD 3+ (NEGATIVE); COLOR, URINE YELLOW (YELLOW); GLUCOSE, URINE (UA) AUTO NEGATIVE (NEGATIVE); KETONE, URINE AUTO NEGATIVE (NEGATIVE); LEUKOCYTE ESTERASE, URINE AUTO TRACE (NEGATIVE); NITRITE, URINE AUTO NEGATIVE (NEGATIVE); PROTEIN, URINE AUTO NEGATIVE (NEGATIVE); RBC, URINE AUTO 3 /HPF (0-3); SPECIFIC GRAVITY URINE AUTO 1.009 (1.002-1.035); SQUAMOUS EPITHELIAL CELL UR AU 3 /HPF (0-6); UROBILINOGEN, URINE AUTO 0.2 mg/dL (0.0-2.0); WBC, URINE AUTO 2 /HPF (0-3)
[2019-01-01] MEDS ORDERED: MORPHINE 4 MG/ML 1ML VIAL/SYRINGE (J2270) IV PRN (11:00)
[2019-01-01 11:20] LABS: BASO % 0.3 % (0.0-1.0); EOS # 0.3 10^3/uL (0.0-0.5); EOS % 3.8 % (0.0-3.0); HEMATOCRIT 35.6 % (36.0-47.0); HEMOGLOBIN 11.9 g/dl (12.0-15.5); LYMPH # 1.6 10^3/uL (1.5-5.0); LYMPH % 21.6 % (24.0-44.0); MEAN CORPUSCULAR HEMOGLOBIN 31.3 pg (27.0-33.0); MEAN CORPUSCULAR HGB CONC 33.4 g/dl (32.0-36.5); MEAN CORPUSCULAR VOLUME 93.7 fl (80.0-96.0); MONO # 0.8 10^3/uL (0.0-0.8); MONO % 10.3 % (0.0-5.0); NEUTROPHILS # 4.8 10^3/uL (1.5-8.5); NEUTROPHILS % 63.5 % (36.0-66.0); PLATELET COUNT, AUTOMATED 270 10^3/uL (150-450); WHITE BLOOD COUNT 7.5 10^3/uL (4.0-10.0)
[2019-01-01] MEDS ORDERED: NS IV ONE (11:30)
[2019-01-01] MEDS ORDERED: KETAMINE HCL IV ONE (11:30)
[2019-01-01] MEDS ORDERED: BACT800T5 PO (11:39)
--- NOTE | 2019-01-01 12:01 | REP ---
Clinical: Bilateral pain and tenderness. Technique: AP, lateral, bilateral oblique views right and left foot . Findings: The osseous structures and joint spaces are intact and normal. There is no evidence for acute fracture or dislocation. Surrounding soft tissues are unremarkable. No subcutaneous emphysema or radiodense foreign body. Impression: Normal age appropriate bilateral foot radiographs. Electronically Signed by Javier Freire MD 01/01/2019 11:53 A
[2019-01-01] MEDS ORDERED: PERC5TAB12 PO (12:06)
[2019-01-01] MEDS ORDERED: BACTRIM 160MG/800MG DS TAB PO ONE (12:15)
[2019-01-01 12:25] VITALS: BP 120/72
--- NOTE | 2019-01-01 14:22 | ECGEPIP ---
[facility] - ED Test Date: 2019-01-01 Pat Name: LORI PARIKH Department: Room: - Gender: Female Director Hr Communications: TC : 1975 Requested By: Sandra Beltran PA-C Order Number: [id number] Reading MD: Albino Rios Measurements Intervals [place] Rate: 61 P: 17 TN: 144 QRS: 36 QRSD: 90 T: 24 QT: 441 QTc: 445 Interpretive Statements SINUS RHYTHM NONSPECIFIC ST T WAVE CHANGES DELAYED R WAVE PROGRESSION CW 02/02/[address] T WAVE CHANGES Electronically Signed on 01-01-2019 14:22:05 EDT by Albino Rios
== END 2019-01-01 12:25 | disposition home or self-care (01) ==
LOC: M ED 09:03
DX: D64.9 Anemia, unspecified (principal); M79.661 Pain in right lower leg; M79.662 Pain in left lower leg; N18.3 Chronic kidney disease, stage 3 (moderate); I12.9 Hypertensive chronic kidney disease with stage 1 through stage 4 chronic kidney disease, or unspecified chronic kidney disease; B19.20 Unspecified viral hepatitis C without hepatic coma; E61.1 Iron deficiency; G43.909 Migraine, unspecified, not intractable, without status migrainosus; G47.30 Sleep apnea, unspecified; Z86.718 Personal history of other venous thrombosis and embolism; Z79.899 Other long term (current) drug therapy; Z79.891 Long term (current) use of opiate analgesic; F17.210 Nicotine dependence, cigarettes, uncomplicated
CPT/HCPCS: 36415; 73630; 80048; 80076; 81001; 82150; 83605; 84703; 85025; 86140; 87040; 93005; 96374; 99284; J2270

== ENCOUNTER 2019-01-23 12:56 | Outpatient (RCR) | payer MEDICAID ==
[~2019-01-23 12:56] MED LIST changes: +BACT800T5 PO
== END 2019-01-30 ==
LOC: M OUTALCOH 12:56
PROVIDERS: ATTEND Psychiatry & Neurology Psychiatry
DX: F12.20 Cannabis dependence, uncomplicated (principal); F11.20 Opioid dependence, uncomplicated; F17.200 Nicotine dependence, unspecified, uncomplicated

== ENCOUNTER 2019-03-01 09:00 | Outpatient (RCR) | payer MEDICAID | END 2019-03-02 | LOC: M OUTALCOH 09:00 | PROVIDERS: ATTEND Psychiatry & Neurology Psychiatry | DX: F12.20 Cannabis dependence, uncomplicated (principal); F11.20 Opioid dependence, uncomplicated; F17.200 Nicotine dependence, unspecified, uncomplicated ==

== ENCOUNTER 2019-03-09 09:00 | Outpatient (RCR) | payer MEDICAID | END 2019-04-01 | LOC: M OUTALCOH 09:00 | PROVIDERS: ATTEND Psychiatry & Neurology Psychiatry | DX: F12.20 Cannabis dependence, uncomplicated (principal); F11.20 Opioid dependence, uncomplicated; F17.200 Nicotine dependence, unspecified, uncomplicated ==

== ENCOUNTER → 2019-05-08 | Outpatient (REF) | payer MEDICAID ==
[~2019-05-08] MED LIST changes: -PARO25TA PO; +PARO25TA8 PO; -TRAZ-163; -TRAZ-163 PO; +TRAZ-257; +TRAZ-257 PO
== END ==
LOC: M LAB REF 18:42
PROVIDERS: ATTEND Physician Assistant
DX: Z12.4 Encounter for screening for malignant neoplasm of cervix (principal); Z87.42 Personal history of other diseases of the female genital tract

== ENCOUNTER → 2019-05-11 | Outpatient (REF) | payer MEDICAID ==
[~2019-05-11] MED LIST changes: +PARO25TA PO; -PARO25TA8 PO; +TRAZ-163; +TRAZ-163 PO; -TRAZ-257; -TRAZ-257 PO
[2019-05-11 19:40] LABS: ALBUMIN 3.3 GM/DL (3.2-5.2); BLOOD UREA NITROGEN 20 MG/DL (7-18); CALCIUM LEVEL 8.4 MG/DL (8.5-10.1); CARBON DIOXIDE LEVEL 25 MEQ/L (21-32); CHLORIDE LEVEL 106 MEQ/L (98-107); CREATININE FOR GFR 1.04 MG/DL (0.55-1.30); GLOMERULAR FILTRATION RATE > 60.0 (>58); GLUCOSE, FASTING 80 MG/DL (70-100); MAGNESIUM LEVEL 2.1 MG/DL (1.8-2.4); PHOSPHORUS LEVEL 4.5 MG/DL (2.5-4.9); POTASSIUM SERUM 4.8 MEQ/L (3.5-5.1); SODIUM LEVEL 139 MEQ/L (136-145); URIC ACID 6.3 MG/DL (2.6-6.0)
== END ==
LOC: M LAB REF 17:18
PROVIDERS: ATTEND Internal Medicine Nephrology
DX: N18.3 Chronic kidney disease, stage 3 (moderate) (principal)

== ENCOUNTER → 2019-05-17 | Outpatient (REF) | payer MEDICAID ==
[~2019-05-17] MED LIST changes: -PARO25TA PO; +PARO25TA8 PO; -TRAZ-163; -TRAZ-163 PO; +TRAZ-257; +TRAZ-257 PO
[2019-05-17 14:02] LABS: BASO % 0.3 % (0.0-1.0); EOS # 0.2 10^3/uL (0.0-0.5); EOS % 2.5 % (0.0-3.0); HEMATOCRIT 44.2 % (36.0-47.0); HEMOGLOBIN 14.6 g/dl (12.0-15.5); LYMPH # 2.8 10^3/uL (1.5-5.0); LYMPH % 29.9 % (24.0-44.0); MEAN CORPUSCULAR HEMOGLOBIN 30.2 pg (27.0-33.0); MEAN CORPUSCULAR VOLUME 91.5 fl (80.0-96.0); MONO % 10.9 % (0.0-5.0); NEUTROPHILS # 5.2 10^3/uL (1.5-8.5); PLATELET COUNT, AUTOMATED 317 10^3/uL (150-450); RED BLOOD COUNT 4.83 10^6/uL (4.00-5.40); WHITE BLOOD COUNT 9.4 10^3/uL (4.0-10.0)
[2019-05-17 14:10] LABS: ALBUMIN 3.6 GM/DL (3.2-5.2); BILIRUBIN,TOTAL 0.5 MG/DL (0.2-1.0); CALCIUM LEVEL 8.6 MG/DL (8.5-10.1); CHOLESTEROL RISK RATIO 2.725 (<5); CREATININE FOR GFR 1.15 MG/DL (0.55-1.30); FREE T4 2.01 NG/DL (0.76-1.46); GLOMERULAR FILTRATION RATE 55.1 (>58); THYROID STIMULATING HORMONE 3.03 uIU/ML (0.358-3.740); TOTAL PROTEIN 7.8 GM/DL (6.4-8.2)
[2019-05-17 14:13] LABS: TOTAL 25(OH) VITAMIN D 10.5 NG/ML (30.0-100.0)
[2019-05-17 14:55] LABS: HEMOGLOBIN A1c 5.2 %
[2019-05-19 00:07] LABS: Lyme Disease IgG/IgM Antibodie <0.91 ISR (0.00-0.90); Lyme Disease IgM Ab Quantitati <0.80 index (0.00-0.79)
== END ==
LOC: M LAB REF 13:14
PROVIDERS: ATTEND Family Medicine
DX: Z13.228 Encounter for screening for other metabolic disorders (principal); M25.50 Pain in unspecified joint

== ENCOUNTER 2019-12-05 18:45 | Inpatient (IN) | payer OTHER ==
[~2019-12-05 18:45] MED LIST changes: +CYCL-707; +CYCL-707 PO; -CYCL10TA; -CYCL10TA PO; -FLUO20CA19; -FLUO20CA19 PO; +FLUO20CA22; +FLUO20CA22 PO; +MAGNESIUM SULFATE 1GM/100ML D5W BAG (10MG/ML) ONE; -MAPA325T2; +MAPA325T8; +POTASSIUM CHLORIDE 10 MEQ SR TABLET ONE
[2019-12-05] MEDS ORDERED: POTASSIUM CHLORIDE 10 MEQ SR TABLET As Ordered ONE (22:17)
[2019-12-05] MEDS ORDERED: MAGNESIUM SULFATE 1GM/100ML D5W BAG (10MG/ML) As Ordered ONE (22:17)
[2019-12-06] MEDS ORDERED: NICOTINE 14 MG/24 HR TRANSDERMAL ONE (03:52)
[2019-12-06] MEDS ORDERED: MIRTAZAPINE 15 MG TAB ONE (03:52)
[2019-12-06] MEDS ORDERED: MIRTAZAPINE 15 MG TAB As Ordered ONE (03:52)
[2019-12-06] MEDS ORDERED: NICOTINE 14 MG/24 HR TRANSDERMAL As Ordered ONE (03:52)
[2019-12-06] MEDS ORDERED: cloNIDine 0.1 MG TAB As Ordered ONE (08:37)
[2019-12-06] MEDS ORDERED: cloNIDine 0.1 MG TAB ONE (08:37)
[2019-12-06] MEDS ORDERED: METHADONE 10 MG TAB (S0109) ONE (10:00)
[2019-12-06] MEDS ORDERED: METHADONE 10 MG TAB (S0109) As Ordered ONE (10:45)
--- NOTE | 2020-01-18 16:50 | ECGEPIP ---
SINUS RHYTHM PRWP SEE SCANNED DOWNTIME REPORT MTDD
[2020-02-03 08:32] LABS: BASO % 0.4 % (0.0-1.0); EOS # 0.3 10^3/uL (0.0-0.5); EOS % 2.8 % (0.0-3.0); HEMATOCRIT 41.6 % (36.0-47.0); LYMPH # 2.7 10^3/uL (1.5-5.0); LYMPH % 28.6 % (24.0-44.0); MEAN CORPUSCULAR HEMOGLOBIN 30.8 pg (27.0-33.0); MEAN CORPUSCULAR HGB CONC 33.7 g/dl (32.0-36.5); MEAN CORPUSCULAR VOLUME 91.4 fl (80.0-96.0); MONO % 10.8 % (0.0-5.0); NEUTROPHILS # 5.3 10^3/uL (1.5-8.5); NEUTROPHILS % 56.9 % (36.0-66.0); PLATELET COUNT, AUTOMATED 275 10^3/uL (150-450); RED BLOOD COUNT 4.55 10^6/uL (4.00-5.40); WHITE BLOOD COUNT 9.3 10^3/uL (4.0-10.0)
[2020-02-18 12:00] LABS: BLOOD UREA NITROGEN 13 MG/DL (7-18); CALCIUM LEVEL 5.9 MG/DL (8.5-10.1); CARBON DIOXIDE LEVEL 21 MEQ/L (21-32); CHLORIDE LEVEL 120 MEQ/L (98-107); CREATININE FOR GFR 0.59 MG/DL (0.55-1.30); GLOMERULAR FILTRATION RATE > 60.0 (>58); GLUCOSE, FASTING 63 MG/DL (70-100); MAGNESIUM LEVEL 1.3 MG/DL (1.8-2.4); POTASSIUM SERUM 2.8 MEQ/L (3.5-5.1); SODIUM LEVEL 147 MEQ/L (136-145)
[2020-02-28 16:22] LABS: IONIZED CALCIUM 4.3 MG/DL (4.5-5.3)
[2020-02-28 16:23] LABS: BLOOD UREA NITROGEN 16 MG/DL (7-18); CALCIUM LEVEL 8.3 MG/DL (8.5-10.1); CARBON DIOXIDE LEVEL 27 mmol/L (20-29); CHLORIDE LEVEL 108 MEQ/L (98-107); CREATININE FOR GFR 0.86 MG/DL (0.55-1.30); GLOMERULAR FILTRATION RATE > 60.0 (>58); GLUCOSE, FASTING 91 MG/DL (70-100); MAGNESIUM LEVEL 2.2 MG/DL (1.8-2.4); POTASSIUM SERUM 3.9 MEQ/L (3.5-5.1); SODIUM LEVEL 138 MEQ/L (136-145)
== END 2019-12-06 09:30 | disposition home or self-care (01) | DRG 425 ==
LOC: M ED 18:45 → M MS5PR 20:20
PROVIDERS: ADMIT Internal Medicine; ATTEND Internal Medicine
DX: E87.6 Hypokalemia (principal); E83.42 Hypomagnesemia; N18.3 Chronic kidney disease, stage 3 (moderate); I12.9 Hypertensive chronic kidney disease with stage 1 through stage 4 chronic kidney disease, or unspecified chronic kidney disease; F17.200 Nicotine dependence, unspecified, uncomplicated; Z91.013 Allergy to seafood; Z88.5 Allergy status to narcotic agent; Z79.899 Other long term (current) drug therapy

== ENCOUNTER → 2019-12-18 | Outpatient (CLI) | payer OTHER ==
[~2019-12-18] MED LIST changes: -MAGNESIUM SULFATE 1GM/100ML D5W BAG (10MG/ML) ONE; -POTASSIUM CHLORIDE 10 MEQ SR TABLET ONE
--- NOTE | 2020-01-12 14:26 | PULFX ---
ORDERING PHYSICIAN: Dr. Arriaga Pre and post bronchodilator therapy have excellent technical quality. Forced vital capacity is normal. FEV-1 generally proportionate with adequate exchange normal. Expiratory limited flow volume loop was normal. No significant bronchodilator response is identified. Total lung capacity normal. Residual volume borderline for any trapping. Diffusion capacity although reduced remains reduced when corrected for alveolar volume. Hemoglobin acceptable at 14.5. are normal. IMPRESSION: Mild diffusion capacity impairment. Please correlate clinically MTDD
--- NOTE | 2020-01-15 07:43 | PFTRPT ---
Visit Date: 12/18/2019 Second ID: [id number] Referring Doctor: MD Arriaga David Height: 63.00 Inches Weight: 226.00 Lbs BSA: 2.04 Diagnosis: R06.02 TECHNIQUE: Pre- and post-bronchodilator study of excellent technical quality. FINDINGS: Forced vital capacity is normal. FEV1 is in proportion of obstructive index; therefore, normal. Expiration within the flow-volume loop is reasonable. No significant bronchodilator response identified. Total lung capacity is borderline elevated; residual volume is proportionate. Diffusing capacity, although mildly reduced, does not correct for alveolar volume. Hemoglobin acceptable at 14.5. Airway resistance and conductance are normal. IMPRESSION: Nonspecific flow rate limitation with mild diffusing capacity impairment. Please correlate clinically. MTDD
== END ==
LOC: M CARPUL 12:50
PROVIDERS: ATTEND Internal Medicine Cardiovascular Disease
DX: R06.02 Shortness of breath (principal)

== ENCOUNTER → 2020-04-15 | Outpatient (CLI) | payer OTHER ==
[2020-04-15 14:01] LABS: BASO % 0.2 % (0.0-1.0); EOS # 0.1 10^3/uL (0.0-0.5); HEMATOCRIT 45.2 % (36.0-47.0); HEMOGLOBIN 14.4 g/dl (12.0-15.5); LYMPH # 1.8 10^3/uL (1.5-5.0); LYMPH % 14.5 % (24.0-44.0); MEAN CORPUSCULAR HEMOGLOBIN 29.4 pg (27.0-33.0); MEAN CORPUSCULAR HGB CONC 31.9 g/dl (32.0-36.5); MEAN CORPUSCULAR VOLUME 92.4 fl (80.0-96.0); MONO # 0.9 10^3/uL (0.0-0.8); MONO % 6.8 % (0.0-5.0); NEUTROPHILS # 9.6 10^3/uL (1.5-8.5); NEUTROPHILS % 76.7 % (36.0-66.0); PLATELET COUNT, AUTOMATED 273 10^3/uL (150-450); RED BLOOD COUNT 4.89 10^6/uL (4.00-5.40); WHITE BLOOD COUNT 12.5 10^3/uL (4.0-10.0)
[2020-04-15 14:28] LABS: HEMOGLOBIN A1c 5.3 %
[2020-04-15 14:42] LABS: ALBUMIN 3.2 GM/DL (3.2-5.2); ALT/SGPT 41 U/L (12-78); BILIRUBIN,TOTAL 0.4 MG/DL (0.2-1.0); BLOOD UREA NITROGEN 16 MG/DL (7-18); CARBON DIOXIDE LEVEL 28 MEQ/L (21-32); CHLORIDE LEVEL 108 MEQ/L (98-107); CHOLESTEROL LEVEL 167 MG/DL (<200); CHOLESTEROL RISK RATIO 2.982 (<5); CREATININE FOR GFR 0.85 MG/DL (0.55-1.30); GLOMERULAR FILTRATION RATE > 60.0 (>58); GLUCOSE, FASTING 82 MG/DL (70-100); HDL CHOLESTEROL 56 MG/DL (>40); LDL CHOLESTEROL 88 MG/DL (<100); NON-HDL-C 111 MG/DL; POTASSIUM SERUM 4.6 MEQ/L (3.5-5.1); SODIUM LEVEL 139 MEQ/L (136-145); TOTAL PROTEIN 6.9 GM/DL (6.4-8.2); TRIGLYCERIDES LEVEL 114 MG/DL (<150)
== END ==
LOC: M LAB 12:23
PROVIDERS: ATTEND Nurse Practitioner Family
DX: Z00.00 Encounter for general adult medical examination without abnormal findings (principal)

== ENCOUNTER → 2020-04-15 | Outpatient (CLI) | payer OTHER ==
[2020-04-15 14:29] LABS: HEMOGLOBIN A1c 5.2 %
[2020-04-15 14:32] LABS: CHOLESTEROL LEVEL 166 MG/DL (<200); CHOLESTEROL RISK RATIO 3.192 (<5); FREE T4 1.49 NG/DL (0.76-1.46); HDL CHOLESTEROL 52 MG/DL (>40); LDL CHOLESTEROL 91 MG/DL (<100); MAGNESIUM LEVEL 2.2 MG/DL (1.8-2.4); NON-HDL-C 114 MG/DL; THYROID STIMULATING HORMONE 0.975 uIU/ML (0.358-3.740); TRIGLYCERIDES LEVEL 113 MG/DL (<150)
[2020-04-15 14:33] LABS: TOTAL 25(OH) VITAMIN D 10.2 NG/ML (30.0-100.0); VITAMIN B12 LEVEL 204 PG/ML
[2020-04-15 14:34] LABS: FOLATE 11.7 NG/ML
[2020-04-15 15:13] LABS: HIV 1&2 SCREEN CENTAUR NEGATIVE (NEGATIVE)
--- NOTE | 2020-04-16 08:34 | ECGEPIP ---
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
[2020-04-19 23:07] LABS: HEPATITIS C QUANTITATION 935630 IU/mL (.); HEPATITIS C VIRUS GENOTYPE 1a (.)
== END ==
LOC: M LAB 12:19
DX: F11.20 Opioid dependence, uncomplicated (principal)

== ENCOUNTER → 2020-08-01 | Outpatient (REF) | payer OTHER ==
[~2020-08-01] MED LIST changes: +BUPR150T12; -BUPR150T3; +GABA-282; +GABA-282 PO; -GABA-843; -GABA-843 PO; -PEG1POW; +POLY17PO18; +QUET50TA3 PO; -QUET5TAB PO
[2020-08-01 15:41] LABS: BASO % 0.2 % (0.0-1.0); EOS # 0.2 10^3/uL (0.0-0.5); EOS % 1.8 % (0.0-3.0); HEMOGLOBIN 14.5 g/dl (12.0-15.5); LYMPH % 24.4 % (24.0-44.0); MEAN CORPUSCULAR HEMOGLOBIN 30.6 pg (27.0-33.0); MEAN CORPUSCULAR VOLUME 92.8 fl (80.0-96.0); MONO # 0.7 10^3/uL (0.0-0.8); MONO % 8.8 % (2.0-8.0); NEUTROPHILS # 5.4 10^3/uL (1.5-8.5); NEUTROPHILS % 64.3 % (36.0-66.0); PLATELET COUNT, AUTOMATED 294 10^3/uL (150-450); RED BLOOD COUNT 4.74 10^6/uL (4.00-5.40); WHITE BLOOD COUNT 8.3 10^3/uL (4.0-10.0)
[2020-08-01 15:45] LABS: APPEARANCE, URINE CLOUDY (CLEAR); BACTERIA, URINE AUTO 1+ (NEGATIVE); BILIRUBIN, URINE AUTO NEGATIVE (NEGATIVE); BLOOD, URINE BLOOD 3+ (NEGATIVE); COLOR, URINE YELLOW (YELLOW); GLUCOSE, URINE (UA) AUTO NEGATIVE (NEGATIVE); KETONE, URINE AUTO NEGATIVE (NEGATIVE); LEUKOCYTE ESTERASE, URINE AUTO 3+ (NEGATIVE); MUCUS, URINE SMALL (NEGATIVE); NITRITE, URINE AUTO POSITIVE (NEGATIVE); PROTEIN, URINE AUTO NEGATIVE (NEGATIVE); RBC, URINE AUTO 122 /HPF (0-3); SPECIFIC GRAVITY URINE AUTO 1.009 (1.002-1.035); SQUAMOUS EPITHELIAL CELL UR AU 0 /HPF (0-6); UROBILINOGEN, URINE AUTO 0.2 mg/dL (0.0-2.0); WBC, URINE AUTO TNTC /HPF (0-3)
[2020-08-01 16:09] LABS: ALBUMIN 3.5 GM/DL (3.2-5.2); ALT/SGPT 39 U/L (12-78); BILIRUBIN,TOTAL 0.4 MG/DL (0.2-1.0); BLOOD UREA NITROGEN 11 MG/DL (7-18); CALCIUM LEVEL 8.5 MG/DL (8.5-10.1); CARBON DIOXIDE LEVEL 29 MEQ/L (21-32); CHLORIDE LEVEL 107 MEQ/L (98-107); CREATININE FOR GFR 0.78 MG/DL (0.55-1.30); GLOMERULAR FILTRATION RATE > 60.0 (>58); GLUCOSE, FASTING 84 MG/DL (70-100); POTASSIUM SERUM 4.1 MEQ/L (3.5-5.1); SODIUM LEVEL 138 MEQ/L (136-145); TOTAL PROTEIN 7.2 GM/DL (6.4-8.2)
[2020-08-06 01:06] LABS: HEPATITIS C QUANTITATION 685610 IU/mL (.)
== END ==
LOC: M SFHCPLAZ 13:46
PROVIDERS: ATTEND Internal Medicine Infectious Disease
DX: B18.2 Chronic viral hepatitis C (principal); R30.0 Dysuria

== ENCOUNTER → 2020-08-15 | Outpatient (CLI) | payer OTHER ==
[2020-08-15 12:56] LABS: BASO % 0.4 % (0.0-1.0); EOS # 0.2 10^3/uL (0.0-0.5); EOS % 1.5 % (0.0-3.0); HEMATOCRIT 45.7 % (36.0-47.0); HEMOGLOBIN 14.7 g/dl (12.0-15.5); LYMPH # 2.3 10^3/uL (1.5-5.0); LYMPH % 21.4 % (24.0-44.0); MEAN CORPUSCULAR HEMOGLOBIN 30.6 pg (27.0-33.0); MEAN CORPUSCULAR HGB CONC 32.2 g/dl (32.0-36.5); MONO # 0.9 10^3/uL (0.0-0.8); MONO % 8.3 % (2.0-8.0); NEUTROPHILS # 7.4 10^3/uL (1.5-8.5); NEUTROPHILS % 67.8 % (36.0-66.0); PLATELET COUNT, AUTOMATED 257 10^3/uL (150-450); RED BLOOD COUNT 4.81 10^6/uL (4.00-5.40); WHITE BLOOD COUNT 10.9 10^3/uL (4.0-10.0)
[2020-08-15 14:39] LABS: ALBUMIN 3.5 GM/DL (3.2-5.2); ALT/SGPT 18 U/L (12-78); BILIRUBIN,TOTAL 0.4 MG/DL (0.2-1.0); BLOOD UREA NITROGEN 8 MG/DL (7-18); CALCIUM LEVEL 9.1 MG/DL (8.5-10.1); CARBON DIOXIDE LEVEL 26 MEQ/L (21-32); CHLORIDE LEVEL 104 MEQ/L (98-107); CHOLESTEROL LEVEL 182 MG/DL (<200); CHOLESTEROL RISK RATIO 3.791 (<5); CREATININE FOR GFR 0.77 MG/DL (0.55-1.30); GLOMERULAR FILTRATION RATE > 60.0 (>58); GLUCOSE, FASTING 86 MG/DL (70-100); HDL CHOLESTEROL 48 MG/DL (>40); LDL CHOLESTEROL 104 MG/DL (<100); NON-HDL-C 134 MG/DL; POTASSIUM SERUM 4.9 MEQ/L (3.5-5.1); SODIUM LEVEL 135 MEQ/L (136-145); TOTAL PROTEIN 7.4 GM/DL (6.4-8.2); TRIGLYCERIDES LEVEL 148 MG/DL (<150)
[2020-08-15 15:51] LABS: TOTAL 25(OH) VITAMIN D 8.7 NG/ML (30.0-100.0)
[2020-08-15 15:52] LABS: VITAMIN B12 LEVEL 381 PG/ML (247-911)
--- NOTE | 2020-08-17 20:19 | ECGEPIP ---
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
== END ==
LOC: M LAB 11:17
PROVIDERS: ATTEND Psychiatry & Neurology Addiction Psychiatry
DX: F11.20 Opioid dependence, uncomplicated (principal); R00.1 Bradycardia, unspecified

== ENCOUNTER → 2020-09-12 | Outpatient (REF) | payer OTHER ==
[2020-09-12 16:04] LABS: ALBUMIN 3.2 GM/DL (3.2-5.2); BILIRUBIN,DIRECT 0.1 MG/DL (0.0-0.2); BILIRUBIN,TOTAL 0.4 MG/DL (0.2-1.0)
[2020-09-14 14:08] LABS: HEPATITIS C QUANTITATION HCV Not Detected IU/mL (.)
== END ==
LOC: M SFHCPLAZ 13:09
PROVIDERS: ATTEND Internal Medicine Infectious Disease
DX: B18.2 Chronic viral hepatitis C (principal)

== ENCOUNTER → 2020-10-01 | Outpatient (CLI) | payer OTHER ==
--- NOTE | 2020-10-01 09:04 | REP ---
INDICATION: HEP C, NAUSEA, VOMITING COMPARISON: None. TECHNIQUE: Real time wells scale ultrasound examination using curved array transducer. FINDINGS: Liver is normal in contour, size, and echogenicity without focal hepatic lesions identified. Pancreas is incompletely evaluated due to interposed bowel gas. The gallbladder is normal and without gallstones, wall thickening, or pericholecystic fluid. No biliary ductal dilatation is appreciated and the common bile duct measures 3.4 mm diameter. Right kidney is normal in reniform shape without hydronephrosis and measures 9.2 x 4.6 x 4.0 cm. No ascites in the visualized right upper quadrant. IMPRESSION: Normal limited right upper quadrant ultrasound <Electronically signed by Javier Freire > 10/01/20 0900
== END ==
LOC: M RAD 08:34
PROVIDERS: ATTEND Internal Medicine Infectious Disease
DX: R11.11 Vomiting without nausea (principal)

== ENCOUNTER → 2021-02-13 | Outpatient (CLI) | payer OTHER ==
[~2021-02-13] MED LIST changes: -DOXY100C37 PO; +DOXY1CAP62 PO; -KLOR20TA42 PO; +METH-1177 PO; -METH10TA2 PO; +POTA-141 PO; -QUET50TA3 PO; +QUET50TA4 PO
[2021-02-13 17:22] LABS: BASO % 0.3 % (0.0-1.0); EOS # 0.1 10^3/uL (0.0-0.5); EOS % 1.4 % (0.0-3.0); HEMATOCRIT 41.9 % (36.0-47.0); HEMOGLOBIN 13.9 g/dl (12.0-15.5); LYMPH # 2.1 10^3/uL (1.5-5.0); LYMPH % 21.2 % (24.0-44.0); MEAN CORPUSCULAR HGB CONC 33.2 g/dl (32.0-36.5); MEAN CORPUSCULAR VOLUME 93.5 fl (80.0-96.0); MONO # 0.8 10^3/uL (0.0-0.8); NEUTROPHILS # 6.7 10^3/uL (1.5-8.5); NEUTROPHILS % 68.5 % (36.0-66.0); PLATELET COUNT, AUTOMATED 278 10^3/uL (150-450); RED BLOOD COUNT 4.48 10^6/uL (4.00-5.40); WHITE BLOOD COUNT 9.9 10^3/uL (4.0-10.0)
[2021-02-13 17:34] LABS: ALBUMIN 3.4 GM/DL (3.2-5.2); BILIRUBIN,TOTAL 0.4 MG/DL (0.2-1.0); CREATININE FOR GFR 1.08 MG/DL (0.55-1.30); GLOMERULAR FILTRATION RATE 58.7 (>58); TOTAL PROTEIN 7.2 GM/DL (6.4-8.2)
[2021-02-18 23:07] LABS: HEPATITIS C QUANTITATION HCV Not Detected IU/mL (.)
== END ==
LOC: M PLALAB 15:15
PROVIDERS: ATTEND Internal Medicine Infectious Disease
DX: B18.2 Chronic viral hepatitis C (principal)

== ENCOUNTER → 2021-04-30 | Outpatient (REF) | payer OTHER ==
[~2021-04-30] MED LIST changes: +DOXY-443 PO; -DOXY1CAP62 PO
== END ==
LOC: M LAB REF 17:00
PROVIDERS: ATTEND Nurse Practitioner Family
DX: E83.42 Hypomagnesemia (principal)

== ENCOUNTER 2021-05-05 15:56 | Emergency (ER) | payer OTHER ==
[~2021-05-05] VITALS: Ht 160 cm; Wt 78.7 kg
[2021-05-05] MEDS ORDERED: NS 1,000 ML IV ONE (21:00)
[2021-05-05] MEDS ORDERED: ONDANSETRON 4MG/2ML VIAL IV ONE (21:00)
[2021-05-05] MEDS ORDERED: MORPHINE 4 MG/ML 1ML VIAL/SYRINGE (J2270) IV ONE (21:00)
[2021-05-05] MEDS ORDERED: ZOLO100T PO (21:23)
[2021-05-05] MEDS ORDERED: GABA600T4 (21:23)
[2021-05-05] MEDS ORDERED: ABIL1INJ2 (21:23)
[2021-05-05] MEDS ORDERED: AMIL5TAB4 (21:23)
[2021-05-05 21:36] LABS: BASO % 0.2 % (0.0-1.0); EOS # 0.1 10^3/uL (0.0-0.5); EOS % 0.7 % (0.0-3.0); HEMATOCRIT 45.4 % (36.0-47.0); HEMOGLOBIN 15.1 g/dl (12.0-15.5); LYMPH # 1.2 10^3/uL (1.5-5.0); LYMPH % 7.3 % (24.0-44.0); MEAN CORPUSCULAR HGB CONC 33.3 g/dl (32.0-36.5); MEAN CORPUSCULAR VOLUME 96.2 fl (80.0-96.0); MONO # 0.7 10^3/uL (0.0-0.8); MONO % 4.2 % (2.0-8.0); NEUTROPHILS # 14.3 10^3/uL (1.5-8.5); NEUTROPHILS % 87.1 % (36.0-66.0); PLATELET COUNT, AUTOMATED 241 10^3/uL (150-450); RED BLOOD COUNT 4.72 10^6/uL (4.00-5.40); WHITE BLOOD COUNT 16.4 10^3/uL (4.0-10.0)
[2021-05-05 22:39] LABS: ERYTHROCYTE SEDIMENTATION RATE 29 mm/hr (0-20)
[2021-05-05] MEDS ORDERED: ISOVUE-370 76% 100ML VIAL As Ordered ONE (23:06)
[2021-05-06 01:28] LABS: BLOOD UREA NITROGEN 10 MG/DL (7-18); CARBON DIOXIDE LEVEL 24 MEQ/L (21-32); CHLORIDE LEVEL 111 MEQ/L (98-107); CREATININE FOR GFR 0.72 MG/DL (0.55-1.30); GLOMERULAR FILTRATION RATE > 60.0 (>58); GLUCOSE, FASTING 67 MG/DL (70-100); POTASSIUM SERUM 4.3 MEQ/L (3.5-5.1); SODIUM LEVEL 139 MEQ/L (136-145)
[2021-05-06] MEDS ORDERED: AMPICILLIN SOD/SULBACTAM SOD 3 GM in D5W MINI-BAG PLUS 100 ML IV ONE (02:05)
[2021-05-06 02:11] VITALS: BP 130/74
[2021-05-06] MEDS ORDERED: AUGM875T28 PO (02:17)
[2021-05-06] MEDS ORDERED: PERCOCET 5MG/325MG TAB PO ONE (02:20)
[2021-05-06] MEDS ORDERED: OXYCODONE/APAP 5MG/325MG(BULK FOR ED) 1 TABLET PO ONE (02:20)
--- NOTE | 2021-05-06 03:55 | REPVR ---
PROCEDURE INFORMATION: Exam: CT Maxillofacial With Contrast, Sinus Exam date and time: 05/05/2021 8:58 PM Age: 45 years old Clinical indication: Other: Sore roof mouth; Additional info: Abscess roof mouth TECHNIQUE: Imaging protocol: CT Maxillofacial with intravenous contrast. Focus on the sinuses. Radiation optimization: All CT scans at this facility use at least one of these dose optimization techniques: automated exposure control; mA and/or kV adjustment per patient size (includes targeted exams where dose is matched to clinical indication); or iterative reconstruction. Contrast material: ISO; Contrast volume: 75 ml; Contrast route: INTRAVENOUS (IV); COMPARISON: None FINDINGS: The entire mandibular region is not included. - Clinical correlation for slight dysconjugate ocular gaze. The ocular globes are otherwise symmetric. No orbital abscess is seen. No paranasal sinus fluid levels or complete opacification seen. There is no fluid within the middle ear cavities or mastoid air cells. Mild mucosal thickening noted right greater than left maxillary sinus. - There is a slightly ill-defined 16.9 by 8.5 mm wall enhancing collection along the anterior aspect of the hard palate consistent with an abscess or phlegmon. No gas is seen within this. This is most closely associated with dental decay and periapical lucency involving the right medial maxillary incisor tooth. There is extensive maxillary and mandibular dental decay elsewhere as well. Follow-up with dental exam is advised. - IMPRESSION: 17 mm abscess along the hard palate associated with extensive dental decay. Findings discussed above in detail. Electronically signed by: Geovany Goldsmith On 05/06/2021 03:54:42 AM
== END 2021-05-06 04:20 | disposition home or self-care (01) ==
LOC: M ED 15:56
DX: K04.7 Periapical abscess without sinus (principal); N18.30 Chronic kidney disease, stage 3 unspecified; B19.20 Unspecified viral hepatitis C without hepatic coma; F11.20 Opioid dependence, uncomplicated; Z79.899 Other long term (current) drug therapy; Z88.5 Allergy status to narcotic agent; Z91.018 Allergy to other foods; Z91.048 Other nonmedicinal substance allergy status
CPT/HCPCS: 70487; 80048; 85025; 85652; 86140; 87040; 96361; 96365; 96375; 99284; J2270; J2405; Q9967

== ENCOUNTER 2022-07-14 13:34 | Emergency (ER) | payer OTHER ==
[~2022-07-14] VITALS: Ht 160 cm; Wt 83.1 kg
[~2022-07-14 13:34] MED LIST changes: +ABIL1INJ2 IM; +AMIL5TAB4 PO; +ARMO200T3 PO; +AUGM875T28 PO; -CLON-412; +CLON-412 PO; -DOXY-350 PO; +DOXY-444 PO; -FLUV100T2 PO; +FLUV100T25 PO; +GABA600T4 PO; +PARO25TA5 PO; -PARO25TA8 PO; -PAXI20TA29 PO; +PAXI20TA30 PO; +POTA-151 PO; -POTA20TA6 PO; +VITA100093 PO; +ZOLO100T PO
[2022-07-14] MEDS ORDERED: ARIP1TAB6 (13:47)
[2022-07-14] MEDS ORDERED: ARIP10TA32 (13:47)
[2022-07-14] MEDS ORDERED: SERT25TA21 (13:47)
[2022-07-14 15:11] LABS: AMPHETAMINES LEVEL URINE NEGATIVE (NEGATIVE); BARBITURATES URINE NEGATIVE (NEGATIVE); BENZODIAZEPINES URINE NEGATIVE (NEGATIVE); COCAINE METABOLITE URINE NEGATIVE (NEGATIVE); OPIATES URINE NEGATIVE (NEGATIVE); PHENCYCLIDINE URINE NEGATIVE (NEGATIVE)
[2022-07-14 15:16] LABS: CANNABINOIDS URINE POSITIVE (NEGATIVE); METHADONE URINE POSITIVE (NEGATIVE)
[2022-07-14 15:32] VITALS: BP 134/72
== END 2022-07-14 15:40 | disposition home or self-care (01) ==
LOC: M ED 13:34
DX: Z71.1 Person with feared health complaint in whom no diagnosis is made (principal); I10 Essential (primary) hypertension; F41.9 Anxiety disorder, unspecified; F32.A Depression, unspecified; G43.909 Migraine, unspecified, not intractable, without status migrainosus; Z88.5 Allergy status to narcotic agent; Z91.013 Allergy to seafood; Z91.048 Other nonmedicinal substance allergy status; Z79.891 Long term (current) use of opiate analgesic; Z79.899 Other long term (current) drug therapy
CPT/HCPCS: 80307; 99283; G0480

== ENCOUNTER 2022-08-11 21:53 | Emergency (ER) | payer OTHER ==
[~2022-08-11] VITALS: Ht 160 cm; Wt 76.9 kg
[~2022-08-11 21:53] MED LIST changes: +ARIP10TA32; +ARIP1TAB6; +SERT25TA21
[2022-08-11 22:13] VITALS: BP 146/102
== END 2022-08-11 23:14 | disposition left against medical advice (07) ==
LOC: EDBD 21:53 → M ED 21:53
DX: Z53.21 Procedure and treatment not carried out due to patient leaving prior to being seen by health care provider (principal)

== ENCOUNTER 2023-05-26 12:59 | Emergency (ER) | payer OTHER ==
[~2023-05-26] VITALS: Ht 160 cm; Wt 65.9 kg
[~2023-05-26 12:59] MED LIST changes: -K-TA10TA2 PO; +POTA-165 PO
[2023-05-26 17:14] LABS: BASO % 0.3 % (0.0-1.0); EOS # 0.1 10^3/uL (0.0-0.5); HEMATOCRIT 47.9 % (36.0-47.0); LYMPH # 1.7 10^3/uL (1.5-5.0); LYMPH % 19.1 % (24.0-44.0); MEAN CORPUSCULAR HEMOGLOBIN 30.2 pg (27.0-33.0); MEAN CORPUSCULAR HGB CONC 33.4 g/dl (32.0-36.5); MEAN CORPUSCULAR VOLUME 90.5 fl (80.0-96.0); MONO # 0.8 10^3/uL (0.0-0.8); MONO % 8.3 % (2.0-8.0); NEUTROPHILS # 6.4 10^3/uL (1.5-8.5); NEUTROPHILS % 70.7 % (36.0-66.0); PLATELET COUNT, AUTOMATED 292 10^3/uL (150-450); RED BLOOD COUNT 5.29 10^6/uL (4.00-5.40); WHITE BLOOD COUNT 9.1 10^3/uL (4.0-10.0)
[2023-05-26 17:40] LABS: ETHYL ALCOHOL (ETHANOL) 0.005 % (0.000-0.010)
[2023-05-26 17:41] LABS: SALICYLATE LEVEL < 3.0 MG/DL (<30)
[2023-05-26 17:42] LABS: ALBUMIN 3.8 G/DL (3.2-5.2); ALKALINE PHOSPHATASE 92 U/L (46-116); ALT/SGPT 23 U/L (7.0-40); AST/SGOT 20 U/L (<34); BILIRUBIN,DIRECT 0.2 MG/DL (<0.4); BILIRUBIN,TOTAL 0.5 MG/DL (0.3-1.2); BLOOD UREA NITROGEN 16 MG/DL (9-23); CALCIUM LEVEL 9.9 MG/DL (8.5-10.1); CARBON DIOXIDE LEVEL 28 MMOL/L (20-31); CHLORIDE LEVEL 105 MMOL/L (98-107); CREATININE FOR GFR 0.66 MG/DL (0.55-1.30); GLOMERULAR FILTRATION RATE > 60.0 (>58); GLUCOSE, FASTING 100 MG/DL (60-100); POTASSIUM SERUM 3.7 MMOL/L (3.5-5.1); SODIUM LEVEL 137 MMOL/L (136-145); TOTAL PROTEIN 8.2 G/DL (5.7-8.2)
[2023-05-26 17:43] LABS: THYROID STIMULATING HORMONE 0.709 uIU/ML (0.55-4.78)
[2023-05-26] MEDS ORDERED: NS 1,000 ML IV ONE (18:00)
[2023-05-26 20:44] LABS: AMPHETAMINES LEVEL URINE NEGATIVE (NEGATIVE); BARBITURATES URINE NEGATIVE (NEGATIVE); BENZODIAZEPINES URINE NEGATIVE (NEGATIVE); COCAINE METABOLITE URINE NEGATIVE (NEGATIVE); METHADONE URINE NEGATIVE (NEGATIVE); OPIATES URINE NEGATIVE (NEGATIVE); PHENCYCLIDINE URINE NEGATIVE (NEGATIVE)
[2023-05-26 20:48] LABS: CANNABINOIDS URINE POSITIVE (NEGATIVE)
[2023-05-26] MEDS ORDERED: LORazepam 2 MG/ML 1ML VIAL IV STA (22:53)
[2023-05-27 08:50] VITALS: BP 139/77; TEMP 97.5; O2SAT 98
== END 2023-05-27 08:52 | disposition home or self-care (01) ==
LOC: EDBD 12:59 → M ED 12:59
DX: R33.9 Retention of urine, unspecified (principal); F43.0 Acute stress reaction; M47.817 Spondylosis without myelopathy or radiculopathy, lumbosacral region; M62.830 Muscle spasm of back; N18.30 Chronic kidney disease, stage 3 unspecified; I12.9 Hypertensive chronic kidney disease with stage 1 through stage 4 chronic kidney disease, or unspecified chronic kidney disease; J45.909 Unspecified asthma, uncomplicated; G43.909 Migraine, unspecified, not intractable, without status migrainosus; Z20.822 Contact with and (suspected) exposure to COVID-19; Z88.5 Allergy status to narcotic agent; Z91.013 Allergy to seafood; Z91.048 Other nonmedicinal substance allergy status; F17.290 Nicotine dependence, other tobacco product, uncomplicated; Z79.899 Other long term (current) drug therapy
CPT/HCPCS: 51702; 70450; 72110; 72148; 80048; 80076; 80143; 80307; 81001; 82077; 84443; 84702; 85025; 87635; 96374; 99284; J2060

== ENCOUNTER 2023-06-07 14:22 | Emergency (ER) | payer OTHER ==
[~2023-06-07] VITALS: Ht 160 cm; Wt 68.6 kg
[2023-06-07 18:15] LABS: BASO % 0.3 % (0.0-1.0); EOS # 0.1 10^3/uL (0.0-0.5); EOS % 0.8 % (0.0-3.0); HEMATOCRIT 47.9 % (36.0-47.0); HEMOGLOBIN 16.2 g/dl (12.0-15.5); LYMPH # 1.7 10^3/uL (1.5-5.0); LYMPH % 17.2 % (24.0-44.0); MEAN CORPUSCULAR HEMOGLOBIN 30.6 pg (27.0-33.0); MEAN CORPUSCULAR HGB CONC 33.8 g/dl (32.0-36.5); MEAN CORPUSCULAR VOLUME 90.4 fl (80.0-96.0); MONO # 0.9 10^3/uL (0.0-0.8); MONO % 8.9 % (2.0-8.0); NEUTROPHILS # 7.3 10^3/uL (1.5-8.5); NEUTROPHILS % 72.3 % (36.0-66.0); PLATELET COUNT, AUTOMATED 348 10^3/uL (150-450); WHITE BLOOD COUNT 10.1 10^3/uL (4.0-10.0)
[2023-06-07 18:39] LABS: ETHYL ALCOHOL (ETHANOL) < 0.003 % (0.000-0.010)
[2023-06-07 18:41] LABS: ALBUMIN 3.7 G/DL (3.2-5.2); ALKALINE PHOSPHATASE 91 U/L (46-116); ALT/SGPT 100 U/L (7.0-40); AST/SGOT 49 U/L (<34); BILIRUBIN,DIRECT 0.2 MG/DL (<0.4); BILIRUBIN,TOTAL 0.7 MG/DL (0.3-1.2); BLOOD UREA NITROGEN 15 MG/DL (9-23); CALCIUM LEVEL 9.1 MG/DL (8.5-10.1); CARBON DIOXIDE LEVEL 22 MMOL/L (20-31); CHLORIDE LEVEL 105 MMOL/L (98-107); CREATININE FOR GFR 0.56 MG/DL (0.55-1.30); GLOMERULAR FILTRATION RATE > 60.0 (>58); GLUCOSE, FASTING 76 MG/DL (60-100); POTASSIUM SERUM 4.6 MMOL/L (3.5-5.1); SALICYLATE LEVEL < 3.0 MG/DL (<30); SODIUM LEVEL 135 MMOL/L (136-145); TOTAL PROTEIN 8.1 G/DL (5.7-8.2)
[2023-06-07 18:46] LABS: HEPATITIS B SURFACE ANTIBODY NEGATIVE (POSITIVE)
[2023-06-07 18:58] LABS: HCG, SERUM QUALITATIVE NEGATIVE (NEGATIVE)
[2023-06-07 19:10] LABS: HIV 1&2 SCREEN NEGATIVE (NEGATIVE)
[2023-06-07 19:31] LABS: HEPATITIS C VIRUS ABY INDEX > 11.00 INDEX (<0.8)
[2023-06-07] MEDS: IBUPROFEN 600MG TAB PO ONE (21:48)
[2023-06-07 22:05] LABS: ALKALINE PHOSPHATASE 101 U/L (46-116); ALT/SGPT 110 U/L (7.0-40); AST/SGOT 55 U/L (<34); BILIRUBIN,TOTAL 0.7 MG/DL (0.3-1.2); BLOOD UREA NITROGEN 16 MG/DL (9-23); CALCIUM LEVEL 9.3 MG/DL (8.5-10.1); CARBON DIOXIDE LEVEL 22 MMOL/L (20-31); CHLORIDE LEVEL 108 MMOL/L (98-107); CREATININE FOR GFR 0.59 MG/DL (0.55-1.30); GLOMERULAR FILTRATION RATE > 60.0 (>58); GLUCOSE, FASTING 70 MG/DL (60-100); POTASSIUM SERUM 4.6 MMOL/L (3.5-5.1); SODIUM LEVEL 137 MMOL/L (136-145); TOTAL PROTEIN 8.3 G/DL (5.7-8.2)
[2023-06-07] MEDS: BOOSTRIX VACCINE (TETANUS/DIPHTH/ACEL. PERTUSSIS) 0.5ML SYR IM.IMMUN ONE (22:05)
[2023-06-07] MEDS ORDERED: EXPOSURE KIT-ADULT 7 DAY SUPPLY PO ONE (22:05)
[2023-06-07] MEDS: DOXYCYCLINE HYCLATE 100MG TABLET PO ONE (22:44)
[2023-06-07] MEDS: RALTEGRAVIR 400 MG TAB (ISENTRESS) PO ONE (22:44)
[2023-06-07] MEDS: AZITHROMYCIN 250MG TABLET PO ONE (22:44)
[2023-06-07] MEDS: EMTRICITABINE/TENOFOVIR 200MG/300MG TABLET PO ONE (22:44)
[2023-06-07] MEDS ORDERED: EMTR1TAB16 PO (22:54)
[2023-06-07] MEDS ORDERED: RALT40TA PO (22:54)
[2023-06-07] MEDS: ULIPRISTAL ACETATE 30MG TAB (ELLA) PO ONE (22:58)
[2023-06-07 23:08] VITALS: BP 126/77; TEMP 98; O2SAT 97
[2023-06-08] MEDS ORDERED: RALTEGRAVIR 400 MG TAB (ISENTRESS) PO SCH
[2023-06-08] MEDS ORDERED: EMTRICITABINE/TENOFOVIR 200MG/300MG TABLET PO SCH
== END 2023-06-07 23:10 | disposition home or self-care (01) ==
LOC: M ED 14:22
DX: T74.21XA Adult sexual abuse, confirmed, initial encounter (principal); Z23 Encounter for immunization; I12.9 Hypertensive chronic kidney disease with stage 1 through stage 4 chronic kidney disease, or unspecified chronic kidney disease; F17.210 Nicotine dependence, cigarettes, uncomplicated; F11.10 Opioid abuse, uncomplicated; Z88.8 Allergy status to other drugs, medicaments and biological substances; Z91.013 Allergy to seafood; Z91.048 Other nonmedicinal substance allergy status; Z79.899 Other long term (current) drug therapy

== ENCOUNTER 2023-10-01 23:47 | Emergency (ER) | payer OTHER ==
[~2023-10-01] VITALS: Ht 160 cm; Wt 63.6 kg
[~2023-10-01 23:47] MED LIST changes: -ARMO200T3 PO; +ARMO200T4 PO; +DOXY-323 PO; +DOXY-440 PO; -DOXY-443 PO; -DOXY-444 PO; +EMTR1TAB16 PO; +FLUO-365; +FLUO-365 PO; -FLUO20CA22; -FLUO20CA22 PO; +RALT40TA PO
[2023-10-02] MEDS: FLUORESCEIN OPHTH 1MG STRIP XX ONE (07:37)
[2023-10-02] MEDS: PROPARACAINE 0.5% OPHTH SOL 15ML XX ONE (07:37)
[2023-10-02] MEDS ORDERED: VANCOMYCIN HCL 1,250 MG in NS 250 ML IV ONE (07:55)
[2023-10-02] MEDS: AMPICILLIN SOD/SULBACTAM SOD 3 GM in D5W MINI-BAG PLUS 100 ML IV ONE (07:55)
[2023-10-02] MEDS: BOOSTRIX VACCINE (TETANUS/DIPHTH/ACEL. PERTUSSIS) 0.5ML SYR IM.IMMUN ONE (08:37)
[2023-10-02] MEDS: VANCOMYCIN HCL 500 MG in D5W MINI-BAG PLUS 100 ML IV ONE (09:33)
[2023-10-02] MEDS: VANCOMYCIN HCL 750 MG, VIAL MATE ADAPTER 1 EACH in D5W 250 ML IV ONE (09:33)
[2023-10-02] MEDS ORDERED: LIDOCAINE 1% MDV 20ML VIAL As Ordered ONE (09:42)
[2023-10-02] MEDS: cefTRIAXone SOD 1GM VIAL IM ONE (09:43)
[2023-10-02] MEDS: LIDOCAINE 1% SDV 30ML VIAL IM STA (09:43)
[2023-10-02 10:18] LABS: BASO % 0.3 % (0.0-1.0); EOS # 0.2 10^3/uL (0.0-0.5); EOS % 1.8 % (0.0-3.0); HEMATOCRIT 40.5 % (36.0-47.0); HEMOGLOBIN 14.1 g/dl (12.0-15.5); LYMPH # 1.2 10^3/uL (1.5-5.0); MEAN CORPUSCULAR HEMOGLOBIN 31.7 pg (27.0-33.0); MEAN CORPUSCULAR HGB CONC 34.8 g/dl (32.0-36.5); MONO % 10.3 % (2.0-8.0); NEUTROPHILS # 7.1 10^3/uL (1.5-8.5); NEUTROPHILS % 74.3 % (36.0-66.0); PLATELET COUNT, AUTOMATED 460 10^3/uL (150-450); RED BLOOD COUNT 4.45 10^6/uL (4.00-5.40); WHITE BLOOD COUNT 9.5 10^3/uL (4.0-10.0)
[2023-10-02 10:43] LABS: BLOOD UREA NITROGEN 6 MG/DL (9-23); CALCIUM LEVEL 9.2 MG/DL (8.5-10.1); CARBON DIOXIDE LEVEL 27 MMOL/L (20-31); CHLORIDE LEVEL 104 MMOL/L (98-107); GLOMERULAR FILTRATION RATE > 60.0 (>58); GLUCOSE, FASTING 90 MG/DL (60-100); POTASSIUM SERUM 3.7 MMOL/L (3.5-5.1); SODIUM LEVEL 138 MMOL/L (136-145)
[2023-10-02 12:59] VITALS: BP 167/77; TEMP 97.3; O2SAT 100
== END 2023-10-02 13:03 | disposition short-term general hospital (02) ==
LOC: M ED 23:47
DX: L03.213 Periorbital cellulitis (principal); H16.011 Central corneal ulcer, right eye; J45.909 Unspecified asthma, uncomplicated; N18.9 Chronic kidney disease, unspecified; Z86.19 Personal history of other infectious and parasitic diseases; F17.200 Nicotine dependence, unspecified, uncomplicated; Z88.5 Allergy status to narcotic agent; Z91.89 Other specified personal risk factors, not elsewhere classified; Z91.013 Allergy to seafood
CPT/HCPCS: 70480; 80048; 85025; 87040; 90471; 90715; 96372; 99284; J0696

== ENCOUNTER → 2024-04-22 | Outpatient (CLI) | payer OTHER, SELFPAY ==
[~2024-04-22] MED LIST changes: -ARIP10TA32; +ARIP10TA63; -DOXY-323 PO; +DOXY-441 PO; +GABA-1172; +GABA-1172 PO; +GABA-1490 PO; -GABA-282; -GABA-282 PO; -GABA600T4 PO
== END ==
LOC: M EKG 12:46
PROVIDERS: ATTEND Nurse Practitioner Psychiatric/Mental Health
DX: F43.20 Adjustment disorder, unspecified (principal)

== ENCOUNTER → 2024-07-14 | Outpatient (CLI) | payer OTHER ==
[~2024-07-14] MED LIST changes: +FLUV100T20 PO; -FLUV100T25 PO
[2024-07-14 12:23] LABS: BASO % 0.5 % (0.0-1.0); EOS # 0.2 10^3/uL (0.0-0.5); EOS % 3.1 % (0.0-3.0); HEMATOCRIT 40.8 % (36.0-47.0); HEMOGLOBIN 13.6 g/dl (12.0-15.5); LYMPH # 1.9 10^3/uL (1.5-5.0); LYMPH % 32.5 % (24.0-44.0); MEAN CORPUSCULAR HGB CONC 33.3 g/dl (32.0-36.5); MEAN CORPUSCULAR VOLUME 89.9 fl (80.0-96.0); MONO # 0.6 10^3/uL (0.0-0.8); MONO % 10.1 % (2.0-8.0); NEUTROPHILS # 3.1 10^3/uL (1.5-8.5); NEUTROPHILS % 53.6 % (36.0-66.0); PLATELET COUNT, AUTOMATED 285 10^3/uL (150-450); RED BLOOD COUNT 4.54 10^6/uL (4.00-5.40); WHITE BLOOD COUNT 5.8 10^3/uL (4.0-10.0)
[2024-07-14 12:35] LABS: INR 1.01; PROTHROMBIN TIME 13.6 SECONDS (12.5-14.5)
[2024-07-14 12:39] LABS: ALBUMIN 3.6 G/DL (3.2-5.2); ALKALINE PHOSPHATASE 58 U/L (35-104); ALT/SGPT 24 U/L (7.0-40); AST/SGOT 24 U/L (<34); BILIRUBIN,TOTAL 0.5 MG/DL (0.3-1.2); BLOOD UREA NITROGEN 8 MG/DL (9-23); CALCIUM LEVEL 8.8 MG/DL (8.5-10.1); CARBON DIOXIDE LEVEL 28 MMOL/L (20-31); CHLORIDE LEVEL 105 MMOL/L (98-107); CREATININE FOR GFR 0.68 MG/DL (0.55-1.30); GLOMERULAR FILTRATION RATE > 60.0 (>58); GLUCOSE, FASTING 82 MG/DL (60-100); POTASSIUM SERUM 4.2 MMOL/L (3.5-5.1); SODIUM LEVEL 142 MMOL/L (136-145); TOTAL PROTEIN 7.6 G/DL (5.7-8.2)
[2024-07-14 12:42] LABS: HEPATITIS B SURFACE ANTIBODY NEGATIVE (POSITIVE)
[2024-07-14 12:45] LABS: HCG, SERUM QUALITATIVE NEGATIVE (NEGATIVE)
[2024-07-14 12:53] LABS: HEPATITIS B SURFACE ANTIGEN NEGATIVE (NEGATIVE)
[2024-07-14 13:07] LABS: HIV 1&2 SCREEN NEGATIVE (NEGATIVE)
[2024-07-16 05:03] LABS: HEPATITIS A IgG TOTAL REACTIVE (NON-REACTIVE)
[2024-07-17 16:28] LABS: HCV RNA QUANTITATION 1110000 IU/mL (NOT DETECTED); HCV RNA log10 6.05 Log IU/mL (NOT DETECTED)
[2024-07-17 23:06] LABS: HEPATITIS C VIRUS GENOTYPE 3 (.)
== END ==
LOC: M LAB 10:47
PROVIDERS: ATTEND Emergency Medicine
DX: B18.2 Chronic viral hepatitis C (principal)

== ENCOUNTER → 2024-09-19 | Outpatient (CLI) | payer OTHER ==
[~2024-09-19] MED LIST changes: -FLOM0.4C39; -FLOM0.4C39 PO; +LAMO-18; +LAMO-18 PO; -LAMO25TA4; -LAMO25TA4 PO; +TAMS-18; +TAMS-18 PO
[2024-09-19 18:42] LABS: FREE T4 1.09 NG/DL (0.89-1.76)
[2024-09-19 18:43] LABS: ALBUMIN 3.7 G/DL (3.2-5.2); ALKALINE PHOSPHATASE 47 U/L (35-104); ALT/SGPT 11 U/L (7.0-40); AST/SGOT 18 U/L (<34); BILIRUBIN,TOTAL 0.5 MG/DL (0.3-1.2); BLOOD UREA NITROGEN 9 MG/DL (9-23); CALCIUM LEVEL 8.7 MG/DL (8.5-10.1); CARBON DIOXIDE LEVEL 26 MMOL/L (20-31); CHLORIDE LEVEL 106 MMOL/L (98-107); CHOLESTEROL LEVEL 164 MG/DL (<200); CHOLESTEROL RISK RATIO 2.97 (<5); CREATININE FOR GFR 0.69 MG/DL (0.55-1.30); GLOMERULAR FILTRATION RATE > 90.0 (>58); GLUCOSE, FASTING 75 MG/DL (60-100); HDL CHOLESTEROL 55.1 MG/DL (>40); LDL CHOLESTEROL 96.5 MG/DL (<100); NON-HDL-C 108.9 MG/DL; SODIUM LEVEL 138 MMOL/L (136-145); THYROID STIMULATING HORMONE 0.938 uIU/ML (0.55-4.78); TOTAL PROTEIN 7.3 G/DL (5.7-8.2); TRIGLYCERIDES LEVEL 62 MG/DL (<150)
== END ==
LOC: M LAB 17:07
PROVIDERS: ATTEND Family Medicine Addiction Medicine
DX: N18.9 Chronic kidney disease, unspecified (principal); R51.9 Headache, unspecified

== ENCOUNTER → 2024-09-21 | Outpatient (CLI) | payer OTHER | LOC: M PLARAD 09:37 | PROVIDERS: ATTEND Family Medicine Addiction Medicine | DX: R51.9 Headache, unspecified (principal) ==

== ENCOUNTER 2024-10-31 13:12 | Emergency (ER) | payer MEDICAID, OTHER ==
[~2024-10-31] VITALS: Ht 162.6 cm; Wt 68.6 kg
[2024-10-31] MEDS ORDERED: LISI10TA22 (13:21)
[2024-10-31] MEDS ORDERED: SOFO1TAB (13:21)
[2024-10-31] MEDS ORDERED: CLON-412 (13:22)
[2024-10-31] MEDS ORDERED: QUET50TA4 (13:22)
[2024-10-31] MEDS ORDERED: BUPR8SUB (13:23)
[2024-10-31] MEDS ORDERED: VITA100T28 (13:23)
[2024-10-31] MEDS: FLUORESCEIN OPHTH 1 MG STRIP OD ONE (15:45)
[2024-10-31] MEDS: ONDANSETRON 4MG ORAL DISINTEGRATING TAB PO ONE (16:19)
[2024-10-31] MEDS: PROPARACAINE 0.5% OPHTH SOL 15ML OD ONE (16:20)
[2024-10-31] MEDS: BRIMONIDINE 0.1% OPHTH SOLN 5 ML OD ONE (17:11)
[2024-10-31] MEDS: DORZOLAMIDE 2% OPHTH SOLN 10 ML BTL OD ONE (17:11)
[2024-10-31] MEDS: TIMOLOL MALEATE 0.5% OPHTH SOLN 5 ML OD ONE (17:11)
[2024-10-31] MEDS: PROMETHAZINE 25 MG TAB PO ONE (18:12)
[2024-10-31 19:17] VITALS: BP 143/67; TEMP 96.7; O2SAT 98
== END 2024-10-31 19:31 | disposition short-term general hospital (02) ==
LOC: M ED 13:12
DX: H40.89 Other specified glaucoma (principal); G43.909 Migraine, unspecified, not intractable, without status migrainosus; Z86.19 Personal history of other infectious and parasitic diseases; N18.9 Chronic kidney disease, unspecified; L03.213 Periorbital cellulitis; Z88.5 Allergy status to narcotic agent; Z91.013 Allergy to seafood; Z91.89 Other specified personal risk factors, not elsewhere classified

== ENCOUNTER → 2024-12-05 | Outpatient (CLI) | payer OTHER ==
[~2024-12-05] MED LIST changes: +BUPR8SUB; +CLON-412; +LISI10TA22; +QUET50TA4; +SOFO1TAB; +VITA100T28
[2024-12-07 15:01] LABS: HCV RNA QUANTITATION <15 NOT DETECTED IU/mL (NOT DETECTED); HCV RNA log10 <1.18 NOT DETECTED Log IU/mL (NOT DETECTED)
== END ==
LOC: M LAB 12:16
PROVIDERS: ATTEND Emergency Medicine
DX: B18.2 Chronic viral hepatitis C (principal)

== ENCOUNTER → 2025-02-16 | Outpatient (CLI) | payer OTHER ==
[~2025-02-16] MED LIST changes: -IBUP-1022 PO; +IBUP600T42 PO
== END ==
LOC: M RAD 07:44
PROVIDERS: ATTEND Otolaryngology
DX: J32.8 Other chronic sinusitis (principal); J34.2 Deviated nasal septum